=== PATIENT | female | born 1990 | race Two or more races ===

== ENCOUNTER → 2019-12-29 09:50 | Outpatient (BNV) | payer MEDICAID, SELFPAY | PROVIDERS: PCP Nurse Practitioner Family; Visit Provider Internal Medicine | DX: D50.9 Iron deficiency anemia, unspecified (principal) | CPT/HCPCS: 99213; 99214 ==

== ENCOUNTER 2020-01-11 07:23 | Outpatient (REF) | payer MEDICAID, SELFPAY | END 2020-01-11 07:24 | disposition home or self-care (01) | LOC: HO.MDS 07:23 | PROVIDERS: PCP Emergency Medicine; Visit Provider Internal Medicine | DX: D50.9 Iron deficiency anemia, unspecified (principal) | CPT/HCPCS: 96365; 96366; J1200; J1750; Q0163 ==

== ENCOUNTER 2020-01-18 12:53 | Outpatient (REF) | payer MEDICAID, SELFPAY | END 2020-01-18 12:54 | disposition home or self-care (01) | LOC: HO.LAB 12:53 | PROVIDERS: PCP Nurse Practitioner Family; Visit Provider Internal Medicine | DX: Z20.828 Contact with and (suspected) exposure to other viral communicable diseases (principal) | CPT/HCPCS: 87635 ==

== ENCOUNTER 2020-02-22 08:44 | Outpatient (REF) | payer MEDICAID, SELFPAY | END 2020-02-22 08:45 | disposition home or self-care (01) | LOC: HO.LAB 08:44 | PROVIDERS: Visit Provider Internal Medicine | DX: Z20.828 Contact with and (suspected) exposure to other viral communicable diseases (principal) | CPT/HCPCS: C9803; U0003 ==

== ENCOUNTER 2020-03-17 10:34 | Outpatient (REF) | payer MEDICAID, SELFPAY | END 2020-03-17 10:35 | disposition home or self-care (01) | LOC: HO.LAB 10:34 | PROVIDERS: Visit Provider Internal Medicine | DX: Z20.828 Contact with and (suspected) exposure to other viral communicable diseases (principal) | CPT/HCPCS: C9803; U0003 ==

== ENCOUNTER 2020-03-21 18:22 | Emergency (ER) | payer MEDICAID, SELFPAY ==
[2020-03-21 20:31] VITALS: BP 101/54; PULSE 79; RESP 16; TEMP 36.9; O2SAT 100; BMI 22.9
--- NOTE | 2020-03-21 20:41 | ED.GENADULT ---
HPI - General Adult General Chief complaint: General Medical Stated complaint: SINUS INFECTION Time Seen by Provider: 03/21/20 20:41 History of Present Illness HPI narrative: Patient has had symptoms of sinus congestion and sinus pressure for 1 month , as well as a headache The headache has been going on for several weeks and is a frontal headache worse with her head down that she believes is starting from her sinuses in going to the top of her head Headache is unchanged, there is no thunderclap headache there is no change in the pattern of this h headache She had a sinus CT a week ago which did not reveal any acute pathology shehas seen her doctor has been on a course of amoxicillin which she said made her feel better but then symptoms returned when the amoxicillin was completed She also complains of some anxiety which when she lays down to go to sleep her nose gets more congested and she feels the pressure and starts thinking about it and becomes more anxious, she has does not want Ativan as it makes her too sleepy, she is not suicidal or hearing voices Related Data Home Medications Medication Instructions Recorded Confirmed Epi E-Z Pen 12/29/19 ferrous sulfate 325 mg PO BID 12/29/19 03/01/20 ibuprofen 400 mg PO Q6H 12/29/19 12/29/19 omeprazole 20 mg PO DAILY 12/29/19 03/01/20 Previous Rx's Medication Instructions Recorded docusate sodium 100 mg capsule 100 mg PO DAILY 30 Days #30 cap 01/05/20 sucralfate 1 gram tablet 2 g PO .qd 30 Days #60 tab 01/06/20 amoxicillin 500 mg PO TID 10 Days #30 cap 03/21/20 cetirizine 10 mg PO DAILY PRN #14 tab 03/21/20 fluticasone propionate [Flonase 2 spray INTRANASAL DAILY #9.9 ml 03/21/20 Allergy Relief] hydroxyzine pamoate [Vistaril] 25 mg PO BID PRN #10 cap 03/21/20 Allergies Allergy/AdvReac Type Severity Reaction Status Date / Time dog dander [DOG] Allergy Unknown UNKNOWN Verified 12/29/19 10:24 kiwi [KIWI] Allergy Unknown TONGUE Verified 12/29/19 10:24 TINGLING, HIVES, ITCHING mushroom [MUSHROOM] Allergy Unknown UNKNOWN Verified 12/29/19 10:24 oxycodone [OXYCODONE] Allergy Unknown NAUSEA & Verified 12/29/19 10:24 VOMITING Rabbit [RABBITS] Allergy Unknown ITCHING, Verified 12/29/19 10:24 HIVES KIWI, RABITS,DOGS, MUSHROOMS Allergy Unknown Itching Uncoded 12/29/19 10:24 Oxycodone AdvReac Unknown nausea and Uncoded 10/26/19 00:00 vomiting Review of Systems Review of Systems: Positive 1st headache sinus congestion, sinus pain, anxiety, nasal congestion Negatives are fever chills weakness confusion sore throat chest pain shortness of breath abdominal pain nausea vomiting diarrhea, no urinary symptoms, no rash [facility] Past Medical History Attestation statement: The following information was validated with the patient. [facility] Narrative: Patient medical history includes anxiety, but she takes no medications for this Source: nursing notes reviewed Medical History (Updated 03/22/20 @ 00:00 by Justin Marquez) Tonsil and adenoid disease, chronic Surgical History (Updated 03/01/20 @ 11:12 by Destinee Monterroso MD) Hx of section Hx of hemorrhoidectomy (05/06/19) Hx of tonsillectomy Family History Family History (Updated 01/05/20 @ 13:49 by Jennifer Leigh [facility]) Maternal Aunt Ovarian cancer Maternal Grandmother Endometrial adenocarcinoma Mother Diabetes HTN (hypertension) Father Lung cancer Social History Social History Alcohol intake: former Smoking Status: Current every day smoker Smoked in Last 30 Days: Yes Use of substances other than those prescribed or required for medical reasons: No Advance Directives: No Advance Directives Information Provided: No Current occupational status: other 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 Physical Exam Vital Signs: Vital Signs: Last Vital Signs Temp 98.4 F 03/21/20 20:31 Pulse 79 03/21/20 20:31 Resp 16 03/21/20 20:31 BP 101/54 L 03/21/20 20:31 Pulse Ox 100 03/21/20 20:31 Body Mass Index 22.9 General appearance no distress dress, comfortable appearing, a and O x3 The ears were normal bilaterally with intact tympanic membranes of normal color no redness no canal narrowing The sinuses were mildly tender, and pain was worse with head down, the nose was congested The pharynx was clear and well hydrated The neck was supple without lymphadenopathy Chest was clear with full symmetric equal breath sounds The heart rate and rhythm regular no murmur Abdomen nontender Extremities no calf swelling or edema or calf tenderness Skin no rashes Neuro patient is A&O x3, walks easily with a normal gait, balance was normal, speech was normal interaction was normal, cranial nerves 2-12 were intact as tested Cerebellar including finger to nose was normal Motor is 5/5 x4 and sensation was symmetrical and intact Discharge Plan Discharge Clinical Impression: Sinusitis, Anxiety Patient Disposition: Home, Self-Care Additional Instructions: You do not seem to have any dangerous condition at this time but because you have the symptoms which improved with antibiotic and then worsened at the conclusion of antibiotics we are trying another week of amoxicillin As steroids can cause mood problems, we will try Flonase which is a steroid nasal inhaler which may reduce inflammation and symptoms after several days Limit your use of Afrin spray as it stops working and may even could have rebound effects with congestion, so maybe it is best to only use it at night if it helps relieve congestion for few more days You can take Tylenol in addition to Motrin for the headache symptoms Atarax may cause some drowsiness but it often helps with anxiety so you can try the Atarax Follow closely with primary doctor and ENT as scheduled Return any time any worse condition or any concerns Prescriptions: New fluticasone propionate [Flonase Allergy Relief] 50 mcg/actuation spray,suspension 2 spray intranasal DAILY Qty: 9.9 RF: 0 cetirizine 10 mg tablet 10 mg PO DAILY PRN (Reason: allergy symptoms) Qty: 14 RF: 0 amoxicillin 500 mg capsule 500 mg PO TID 10 Days Qty: 30 RF: 0 hydroxyzine pamoate [Vistaril] 25 mg capsule 25 mg PO BID PRN (Reason: anxiety) Qty: 10 RF: 0 No Action ibuprofen 200 mg Tablet 400 mg PO Q6H RF: 0 omeprazole 20 mg Capsule,Delayed Release(Dr/Ec) 20 mg PO DAILY RF: 0 Epi E-Z Pen RF: 0 ferrous sulfate 325 mg (65 mg iron) Tablet 325 mg PO BID RF: 0 docusate sodium [Colace] 100 mg capsule 100 mg PO DAILY 30 Days Qty: 30 RF: 1 sucralfate [Carafate] 1 gram tablet 2 g PO .qd 30 Days Qty: 60 RF: 3 Interventions: ED Discharge Assessment Last Done: 03/21/20 21:36 Discharge Date/Time: 03/21/20 21:37
== END 2020-03-21 21:37 | disposition home or self-care (01) ==
PROVIDERS: Emergency Provider Emergency Medicine; PCP Nurse Practitioner Family
DX: J32.9 Chronic sinusitis, unspecified (principal); F41.1 Generalized anxiety disorder; F43.0 Acute stress reaction; F17.200 Nicotine dependence, unspecified, uncomplicated; Z71.6 Tobacco abuse counseling; Z79.899 Other long term (current) drug therapy
CPT/HCPCS: 99283

== ENCOUNTER 2020-03-23 11:13 | Outpatient (REF) | payer MEDICAID, SELFPAY ==
--- NOTE | 2020-03-09 | CT_ITS ---
EXAMINATION: CT SINUS WITHOUT CONTRAST CLINICAL INFORMATION: Headache and sinusitis. COMPARISON: None TECHNIQUE: Axial 2 mm thin and reformatted sagittal and axial 2 mm thin images of sinuses were obtained. This CT examination was performed using dose optimization techniques as appropriate, variously including the following: *Automated exposure control *Adjustment of mA and/or kV according to patient size (this includes techniques or standardized protocols for targeted exams where dose is matched to indication/reason for exam; i.e. extremities or head) *Use of iterative reconstruction technique DLP: 71 mGy-cm FINDINGS: Visualized bilateral frontal and ethmoid sinuses are clear. There is minimal mucoperiosteal thickening right sphenoid sinus There is minimal mucoperiosteal thickening with hypoplastic appearing right maxillary sinus. The left maxillary sinus appears clear. Bilateral ostiomeatal complex and frontoethmoidal recesses are widely patent. The mastoid sinuses are clear. NASAL CAVITY/NASOPHARYNX: The nasal cavity is clear. There is mild nasal septal deviation to the right. The turbinates are symmetrical. The the nasopharyngeal airway is patent. ADDITIONAL RELEVANT FINDINGS: No periapical disease is seen. The TMJs articulate normally. The orbits and skull base soft tissues are unremarkable. The middle ear cavities and mastoid air cells are clear. Limited evaluation demonstrates no acute intracranial findings. CT/CT sinus wo con IMPRESSION: There is mild nasal septal deviation to the right with no bony spur. The airway is widely patent. Mild mucoperiosteal thickening right sphenoid and right maxillary sinus.
== END 2020-03-23 11:14 | disposition home or self-care (01) ==
LOC: HO.CT 11:13
PROVIDERS: PCP Nurse Practitioner Family; Visit Provider Nurse Practitioner
DX: J01.90 Acute sinusitis, unspecified (principal)
CPT/HCPCS: 70486

== ENCOUNTER 2020-04-20 16:04 | Outpatient (REF) | payer MEDICAID, SELFPAY | END 2020-04-20 16:05 | disposition home or self-care (01) | LOC: HO.LAB 16:04 | PROVIDERS: Visit Provider Internal Medicine | DX: Z20.822 Contact with and (suspected) exposure to COVID-19 (principal) | CPT/HCPCS: 36415; C9803; U0003 ==

== ENCOUNTER 2020-05-11 12:52 | Outpatient (REF) | payer MEDICAID, SELFPAY | END 2020-05-11 12:53 | disposition home or self-care (01) | LOC: HO.LAB 12:52 | PROVIDERS: PCP Nurse Practitioner Family; Visit Provider Internal Medicine | DX: Z20.822 Contact with and (suspected) exposure to COVID-19 (principal) | CPT/HCPCS: 36415; C9803; U0003; U0005 ==

== ENCOUNTER 2020-05-19 08:28 | Emergency (ER) | payer MEDICAID, SELFPAY ==
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
--- NOTE | ~2020-05-19 | XR_ITS ---
EXAMINATION: XR HAND, LEFT CLINICAL INFORMATION: Loss 3 mm on third digit. COMPARISON: None TECHNIQUE: PA, lateral, and oblique views of the left hand. FINDINGS: There is no evidence of acute fracture or dislocation of the left hand. No radiopaque foreign body. No gas within the soft tissues. XR/XR hand LT min 3V IMPRESSION: No significant bony abnormality of the left hand identified.
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
[2020-05-19 08:38] VITALS: BP 121/69; PULSE 91; RESP 18; TEMP 36.7; O2SAT 100; BMI 22.6
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
[2020-05-19] MEDS: 0.9 % Sodium Chloride 1,000 ML 999 ML IVCONT (09:27)
[2020-05-19 09:33] LABS: MANUAL DIFF FLAG NO
[2020-05-19] MEDS: ondansetron HCL 4 MG/2 ML VIAL IVPUSH (09:35)
[2020-05-19 09:42] VITALS: RESP 16
[2020-05-19 09:42] LABS: Basophils Percent Auto 0.5 % (0-2); Eosinophils Absolute Auto 0.1 X10*3/uL (0.0-0.4); Eosinophils Percent Auto 1.1 % (0-4); Hematocrit 37.7 % (37-47); Hemoglobin 12.4 g/dl (12.0-16.0); Imm Gran Abs Auto 0.03 X10*3/uL (0.00-0.03); Imm Gran Pct Auto 0.4 % (0.0-0.4); Lymphocytes Absolute Auto 2.1 X10*3/uL (1.2-4.9); Lymphocytes Percent Auto 25.5 % (20-40); Mean Corpuscular HGB Conc 32.9 g/dl (31.0-35.0); Mean Corpuscular Hemoglobin 28.1 pg (27.0-33.0); Mean Corpuscular Volume 85.3 fL (80-98); Mean Platelet Volume 8.8 fL (9.4-12.3); Monocytes Absolute Auto 0.4 X10*3/uL (0.1-1.2); Monocytes Percent Auto 4.8 % (2-11); Neutrophils Absolute Auto 5.6 X10*3/uL (2.0-8.3); Neutrophils Percent Auto 67.7 % (45-73); Platelet Count 411 X10*3/uL (160-400); Red Blood Count 4.42 X10*6/uL (4.20-5.50); Red Cell Distribution Width 14.2 % (11.0-16.0); White Blood Count 8.3 X10*3/uL (4.8-10.8)
[2020-05-19] MEDS: Morphine Sulfate 4 MG/ML CARTRIDGE IVPUSH (09:42)
[2020-05-19 09:45] LABS: Glucose Urine UA NEG (NEG); Leukocyte Esterase Urine NEG (NEG); Nitrite Urine NEG (NEG); PH 6.5 (5.0-8.0); Urine Blood 2+ (NEG); Urine Ketones NEG (NEG); Urine Protein NEG (NEG-TRACE)
[2020-05-19 09:48] LABS: INTERNATIONAL NORM RATIO 1.1 (0.9-1.1); Prothrombin Time 13.1 SEC (10.8-13.0)
[2020-05-19 09:51] LABS: Partial Thromboplastin Time 31.4 SEC (24.1-38.0)
[2020-05-19 09:58] LABS: COVID-19 Test Negative (Negative)
[2020-05-19 10:00] VITALS: BP 107/33; PULSE 91; TEMP 36.9; O2SAT 100
[2020-05-19 10:02] LABS: Appearance Urine CLEAR; Color Urine YELLOW
[2020-05-19 10:03] LABS: RBC Urine 0-2 /HPF (0); Squamous Epithelial Cell Urine 2+ /LPF; WBC Urine 0 /HPF (0-4)
[2020-05-19 10:04] LABS: Mucus Urine TRACE /LPF
[2020-05-19 10:06] LABS: Lipase 7 U/L (8-78)
[2020-05-19 10:08] LABS: Alanine Aminotransferase 11 U/L (0-31); Albumin Level 4.8 g/dL (3.5-5.0); Alkaline Phosphatase 47 U/L (39-117); Anion Gap 15 (12-20); Aspartate Amino Transferase 16 U/L (5-31); Bilirubin Direct 0.3 mg/dL (0.0-0.5); Bilirubin Total 0.8 mg/dL (0.0-1.0); Blood Urea Nitrogen 9 mg/dL (9-16); Calcium 9.5 mg/dL (8.4-10.2); Carbon Dioxide 22 mmol/L (22-29); Chloride 108 mmol/L (96-108); Creatinine Clr Calc Pharmacy 76.5; Estimated Glomerular Filt Rate > 60; Glucose Random 88 mg/dL (60-115); Magnesium 2.1 mg/dL (1.6-2.6); Potassium 3.7 mmol/L (3.3-5.1); Sodium 141 mmol/L (135-145); Total Protein 7.7 g/dL (6.5-8.0)
[2020-05-19 10:14] LABS: HCG Quantitative < 2 mIU/mL
[2020-05-19] MEDS: iohexoL 350 MG/ML 100 ML INFUS..BTL 85 ML IV (11:17)
== END 2020-05-19 12:27 | disposition home or self-care (01) ==
PROVIDERS: Emergency Provider Emergency Medicine; PCP Nurse Practitioner Family
DX: S09.90XA Unspecified injury of head, initial encounter (principal); S02.831A Fracture of medial orbital wall, right side, initial encounter for closed fracture; S00.11XA Contusion of right eyelid and periocular area, initial encounter; S61.303A Unspecified open wound of left middle finger with damage to nail, initial encounter; S61.305A Unspecified open wound of left ring finger with damage to nail, initial encounter; S80.212A Abrasion, left knee, initial encounter; S80.211A Abrasion, right knee, initial encounter; S00.81XA Abrasion of other part of head, initial encounter; V86.55XA Driver of 3- or 4- wheeled all-terrain vehicle (ATV) injured in nontraffic accident, initial encounter; R10.11 Right upper quadrant pain; Z20.822 Contact with and (suspected) exposure to COVID-19; Y93.89 Activity, other specified; Y92.017 Garden or yard in single-family (private) house as the place of occurrence of the external cause; Y99.8 Other external cause status
CPT/HCPCS: 12001; 36415; 70450; 70486; 71250; 72125; 73130; 74177; 80048; 80076; 81001; 81003; 83690; 83735; 84702; 85025; 85610; 85730; 87635; 90471; 90715; 96361; 96374; 96375; 99285; J2270; J2405; Q9967

== ENCOUNTER → 2020-05-25 08:57 | Outpatient (BNVA) | payer MEDICAID, SELFPAY | PROVIDERS: PCP Nurse Practitioner Family; Visit Provider Surgery | DX: K80.20 Calculus of gallbladder without cholecystitis without obstruction (principal) | CPT/HCPCS: 99202 ==

== ENCOUNTER 2020-05-29 | Outpatient (REF) | payer MEDICAID, SELFPAY ==
[2020-05-30 15:03] LABS: FIT Int Ctl YES; FIT1 POSITIVE (NEGATIVE); FIT2 NEGATIVE (NEGATIVE)
== END 2020-05-29 00:01 | disposition home or self-care (01) ==
LOC: HO.LNP
PROVIDERS: Visit Provider Nurse Practitioner Family
DX: D64.9 Anemia, unspecified (principal); K29.70 Gastritis, unspecified, without bleeding
CPT/HCPCS: 82274

== ENCOUNTER 2020-06-01 13:06 | Outpatient (REF) | payer MEDICAID, SELFPAY | END 2020-06-01 13:07 | disposition home or self-care (01) | LOC: HO.LAB 13:06 | PROVIDERS: Visit Provider Internal Medicine | DX: Z20.822 Contact with and (suspected) exposure to COVID-19 (principal) | CPT/HCPCS: 36415; C9803; U0003; U0005 ==

== ENCOUNTER 2020-06-03 08:33 | Day surgery (SDC) | payer MEDICAID, SELFPAY ==
[2020-05-30 12:35] VITALS: BMI 22.6
--- NOTE | 2020-06-02 07:49 | HO.ANESPROP2 ---
Documented by User: Natalya Stoner 06/02/20 08:47 HPI - Anesthesia Eval Consult details Narrative: 29yo F for Cholecystectomy Laparoscopic s/p hemorrhoidectomy 04/2019 with GA-ETT 7 PMFSH Active Problems Active Problems: All Active Problems (Updated 05/30/20 @ 12:17 by Dimple Brito) Asthma (Acute) Depression (Acute) Bipolar 1 disorder (Acute) Anemia (Acute) Smoker (Acute) GERD (gastroesophageal reflux disease) (Acute) H. pylori infection (Acute) Epigastric pain (Acute) Abdominal bloating (Acute) Dyskinesia of gallbladder (Acute) Gallstones (Acute) Past Medical History Medical History Anemia Asthma Bipolar 1 disorder Depression Gallstones GERD (gastroesophageal reflux disease) H. pylori infection Hx of bipolar disorder Smoker Tonsil and adenoid disease, chronic Family History Family History Maternal Aunt Ovarian cancer Maternal Grandmother Endometrial adenocarcinoma Mother Diabetes HTN (hypertension) Father Lung cancer Surgical History Surgical History History of esophagogastroduodenoscopy (EGD) Hx of section Hx of hemorrhoidectomy (05/06/19) Hx of tonsillectomy Social History Social History (Updated 06/03/20 @ 10:08 by Fabienne Nino) Alcohol intake: never Smoking Status: Current every day smoker Smoked in Last 30 Days: Yes Use of substances other than those prescribed or required for medical reasons: No Have you been hit, kicked, punched, or otherwise hurt by someone within the past year? 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 Meds Allergies Allergy/AdvReac Type Severity Reaction Status Date / Time kiwi [KIWI] Allergy Intermediate TONGUE Verified 06/03/20 08:54 TINGLING, HIVES, ITCHING oxycodone [OXYCODONE] Allergy Intermediate NAUSEA & Verified 06/03/20 10:15 VOMITING, SEDATION Rabbit [RABBITS] Allergy Intermediate ITCHING, Verified 06/03/20 08:54 HIVES dog dander [DOG] Allergy Unknown UNKNOWN Verified 06/03/20 08:54 mushroom [MUSHROOM] Allergy Unknown UNKNOWN Verified 06/03/20 08:54 Home Medications Medication Instructions Recorded Confirmed Last Taken Type Epi E-Z Pen 12/29/19 05/25/20 Unknown History ferrous sulfate 325 mg PO BID 12/29/19 05/30/20 Unknown History ibuprofen 400 mg PO Q6H 12/29/19 05/25/20 Unknown History omeprazole 20 mg PO DAILY 12/29/19 05/30/20 Unknown History albuterol sulfate 2 puff INHALATION QID PRN 05/30/20 05/30/20 Unknown History Exam Exam Date and Time: June 02, 2020 0749 Height,Weight and Vital Signs: Height 4 ft 11 in Weight 51 kg Pertinent Lab Results Pertinent Lab Results: Laboratory Tests 05/19/20 05/19/20 09:25 09:25 WBC 8.3 Hgb 12.4 Hct 37.7 Plt Count 411 H Sodium 141 Potassium 3.7 Chloride 108 BUN 9 Creatinine 0.74 Assessment and Plan Assessment Anesthesia Assessment: Chart Reviewed Documented by User: Fabienne Nino 06/03/20 10:17 PMFSH Past Medical History Medical History Anemia Asthma Bipolar 1 disorder Depression Gallstones GERD (gastroesophageal reflux disease) H. pylori infection Hx of bipolar disorder Smoker Tonsil and adenoid disease, chronic Family History Family History Maternal Aunt Ovarian cancer Maternal Grandmother Endometrial adenocarcinoma Mother Diabetes HTN (hypertension) Father Lung cancer Family history of problems with anesthesia: No Surgical History Surgical History History of esophagogastroduodenoscopy (EGD) Hx of section Hx of hemorrhoidectomy (05/06/19) Hx of tonsillectomy History of Problems with Anesthesia: No Social History Social History (Updated 06/03/20 @ 10:08 by Fabienne Nino) Alcohol intake: never Smoking Status: Current every day smoker Smoked in Last 30 Days: Yes Use of substances other than those prescribed or required for medical reasons: No Have you been hit, kicked, punched, or otherwise hurt by someone within the past year? 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 Meds Allergies Allergy/AdvReac Type Severity Reaction Status Date / Time kiwi [KIWI] Allergy Intermediate TONGUE Verified 06/03/20 08:54 TINGLING, HIVES, ITCHING oxycodone [OXYCODONE] Allergy Intermediate NAUSEA & Verified 06/03/20 10:15 VOMITING, SEDATION Rabbit [RABBITS] Allergy Intermediate ITCHING, Verified 06/03/20 08:54 HIVES dog dander [DOG] Allergy Unknown UNKNOWN Verified 06/03/20 08:54 mushroom [MUSHROOM] Allergy Unknown UNKNOWN Verified 06/03/20 08:54 Home Medications Medication Instructions Recorded Confirmed Last Taken Type Epi E-Z Pen 12/29/19 05/25/20 Unknown History ferrous sulfate 325 mg PO BID 12/29/19 05/30/20 Unknown History ibuprofen 400 mg PO Q6H 12/29/19 05/25/20 Unknown History omeprazole 20 mg PO DAILY 12/29/19 05/30/20 Unknown History albuterol sulfate 2 puff INHALATION QID PRN 05/30/20 05/30/20 Unknown History Exam Height,Weight and Vital Signs: Vital Signs Temp Pulse Resp BP Pulse Ox 06/03/20 08:48 98.8 F 85 16 104/61 100 Pertinent Lab Results Pertinent Lab Results: Lab Results 06/03/20 Range/Units 08:35 Urine Test NEGATIVE (NEGATIVE) Airway Mallampati Class: I TM Dist: >3cm Neck ROM: Full Loose/Missing/Broken Teeth: No Heart: RRR Lungs: CTAB Assessment and Plan Assessment Anesthesia Assessment: Anesthesia Plan Discussed and Chart Reviewed Final Anesthetic Review NPO: Yes ASA Class: II Final Preanesthetic Review: No Changes in Pt Med Stat, Meds/Allgs Chart Reviewed, Consent Obtained/Reviewed and Anes Risks/Benef Reviewed Patient Risk: Low Procedure Risk: Low Assessment/Block/Sedation in SS: Assess/Block/Sedation-SS Anesthetic Plan Anesthetic Plan: GA Disposition: Standard PACU
[2020-06-03] VITALS (11 sets, daily range): BP systolic 97–128; BP diastolic 45–79; PULSE 72–88; RESP 14–16; TEMP 36.6–37.1; O2SAT 98–100
[2020-06-03 08:58] LABS: UPreg QC Valid YES; Urine Pregnancy NEGATIVE (NEGATIVE)
[2020-06-03] MEDS: Lactated Ringers 1,000 ML 100 ML IVCONT (09:04)
[2020-06-03] MEDS: Acetaminophen 325 MG TABLET 650 MG PO (09:14)
--- NOTE | 2020-06-03 10:01 | MHC.SHP ---
Pre-Procedural Eval Section B Chief Complaint: Gallstones Allergies: Allergies Allergy/AdvReac Type Severity Reaction Status Date / Time kiwi [KIWI] Allergy Intermediate TONGUE Verified 06/03/20 08:54 TINGLING, HIVES, ITCHING oxycodone [OXYCODONE] Allergy Intermediate NAUSEA & Verified 06/03/20 08:54 VOMITING Rabbit [RABBITS] Allergy Intermediate ITCHING, Verified 06/03/20 08:54 HIVES dog dander [DOG] Allergy Unknown UNKNOWN Verified 06/03/20 08:54 mushroom [MUSHROOM] Allergy Unknown UNKNOWN Verified 06/03/20 08:54 Plan I have reviewed the history and physical and performed a pertinent physical examination on my patient. No changes have occurred unless specified.
--- NOTE | 2020-06-03 11:17 | PM.OP ---
Brief Operative Note Date of Service: 06/03/20 <SACHIN Diggs Last Filed: 06/03/20 11:18> Pre-op diagnosis: GALLSTONES <SACHIN Diggs Last Filed: 06/03/20 11:18> Post-op diagnosis: same <SACHIN Diggs Last Filed: 06/03/20 11:18> Procedure: laparoscopic cholecystectomy <SACHIN Diggs Last Filed: 06/03/20 11:18> Implants: None <SACHIN Diggs Last Filed: 06/03/20 11:18> Surgeon: EBENEZER QUACH MD <SACHIN Diggs Last Filed: 06/03/20 11:18> Anesthesia: GETA <SACHIN Diggs Last Filed: 06/03/20 11:18> Discharging Machine Operator: Shabnam Ferguson <SACHIN Diggs Last Filed: 06/03/20 11:18> Estimated blood loss (mL): 5 <SACHIN Diggs Last Filed: 06/03/20 11:18> Pathology: other (gallbladder) <SACHIN Diggs Last Filed: 06/03/20 11:18> Condition: stable <SACHIN Diggs Last Filed: 06/03/20 11:18> Disposition: PACU <SACHIN Diggs Last Filed: 06/03/20 11:18>
[2020-06-03] MEDS: HYDROmorphone HCl 0.5 MG/0.5 ML SYRINGE 0.25 MG IVPUSH ×2 (11:28→11:33)
--- NOTE | 2020-06-03 11:29 | W.PM.OPN ---
Operative Note Operative Note Date of Service: 06/03/20 Narrative: PREOP DIAGNOSIS: GALLSTONES POST DIAGNOSIS: GALLSTONES PROCEDURE: LAPAROSCOPIC CHOLECYSTECTOMY SURGEON: EBENEZER QUACH MD FIRST ASST: THOMAS SYLVESTER The patient is a 29 year female with chronic right upper quadrant pain. She had been diagnosed to have gallstones last year based on ultrasound finding. Furthermore, she had a low ejection fraction on HIDA scan consistent with biliary dyskinesia. She was referred to me for laparoscopic cholecystectomy. She understood the technique of the procedure. She was aware of the risks, benefits, and alternatives. She was brought to the operative placed supine on table under general anesthesia via endotracheal tube. The abdomen was prepped and draped in usual sterile fashion. A surgical time-out was done. The patient received Cefotan 2 g IV preoperatively. I made a short supraumbilical incision using I blade 15. This was carried down to full-thickness skin and subcutaneous fat down to the fascia. The fascia was incised. The peritoneum was entered. Through this incision a Jaimee port was introduced. Pneumoperitoneum was introduced to a pressure of 15 mm hg. From here on the rest of the procedure was done under vision with the laparoscope. A 5/12 mm port was introduced through a small incision in the epigastric area below the subcostal margin. Two 5 mm ports where introduced through small incisions on the subcostal margin along the anterior axillary line and the midclavicular line. Graspers were placed through these working ports. The patient patient was placed in a head-up and [id number] position. Examination of the right upper quadrant revealed the gallbladder to be distended but not inflamed. This was supple as well so we were able to apply a grasper at the fundus. This was used to retract the gallbladder cephalad. I was able to apply another grasper towards the pouch of the gallbladder which was used to retract the gallbladder laterally. At this point therefore the gallbladder was being retracted in a lateral and cephalad fashion, putting the area of the cystic duct on stretch. I was able to see the cystic duct and I dissected this circumferentially using a [place] dissector. By doing so I was able to verify its confluence with the neck of the gallbladder. With this dissection we were also able to achieve a critical view of the hepatocystic triangle. The cystic artery was also clearly seen. There were no other structures in the area. The lymph node of Calot was seen so we continued to dissect above this. I was able to therefore clearly define the cystic duct as well as the cystic artery. Clips were applied on the cystic duct with 2 clips being applied distally. The cystic duct was transected between clips using Endo scissors. Clips were then applied on the cystic artery and this was transected between clips as well. With traction on the gallbladder away from the liver bed, I proceeded to expose the thin hilum and gently divided this using the electrocautery spatula. We then proceeded to incise the peritoneum of the gallbladder near the bed using the electrocautery spatula and proceeded to define a plane of dissection between the gallbladder wall and the liver bed along this incision. I proceeded to dissect the gallbladder off of the liver bed using careful blunt dissection with the tip of the spatula as well as electrocautery itself. We continued to separate the gallbladder off of the liver bed along this well-defined plane all the way to the fundus until the entire gallbladder was completely . The gallbladder was retrieved through an endobag through the umbilical incision. We reinserted all ports and insufflated. I examined the subhepatic space. The clips were in place and there was no bleeding or any bile leak. I observed all 4 quadrants as well. There were adhesions from her previous C-sections in the pelvis. Other than that, there were no other pathology seen. There was no evidence of any bowel injury. I re-examined the area of the dissection in the subhepatic space. This remained dry. I therefore desufflated the port sites. The umbilical port was removed last. The fascia of the umbilical incision was closed with a [id number] Dexon 0 stitch. Skin closure was achieved in all incisions using Dexon 4-0 subcuticular sutures. Steri-Strips and dressings were applied. All incisions were infiltrated with Marcaine 0.5% for postop analgesia. The procedure was then completed The patient tolerated the procedure well. No complications noted. Initial fine counts of sponges and instruments were correct. Estimated blood loss was about 10 cc. The patient was extubated without difficulty and transferred to the recovery room with stable vital signs.
== END 2020-06-03 13:57 | disposition home or self-care (01) ==
PROVIDERS: Nurse Practitioner; PCP Nurse Practitioner Family; Visit Provider Surgery
PROC: 0FT44ZZ Resection of Gallbladder, Percutaneous Endoscopic Approach (ICD-10-PCS; CPT 47562; principal; 2020-06-03 10:00)
DX: K80.10 Calculus of gallbladder with chronic cholecystitis without obstruction (principal); K66.0 Peritoneal adhesions (postprocedural) (postinfection); J45.909 Unspecified asthma, uncomplicated; D64.9 Anemia, unspecified; K21.9 Gastro-esophageal reflux disease without esophagitis; F32.9 Major depressive disorder, single episode, unspecified; Z79.51 Long term (current) use of inhaled steroids; Z86.19 Personal history of other infectious and parasitic diseases; Z88.8 Allergy status to other drugs, medicaments and biological substances; Z79.899 Other long term (current) drug therapy
CPT/HCPCS: 47562; 81025; 88304; J1100; J1170; J1885; J2250; J2405

== ENCOUNTER 2020-06-07 18:52 | Emergency (ER) | payer MEDICAID, SELFPAY ==
[2020-06-07 18:59] VITALS: BP 103/55; PULSE 85; RESP 18; TEMP 36.9; O2SAT 100; BMI 23.6
[2020-06-07 21:23] LABS: MANUAL DIFF FLAG NO
[2020-06-07 21:24] LABS: Basophils Percent Auto 0.3 % (0-2); Eosinophils Absolute Auto 1.4 X10*3/uL (0.0-0.4); Hematocrit 35.3 % (37-47); Hemoglobin 11.6 g/dl (12.0-16.0); Imm Gran Abs Auto 0.02 X10*3/uL (0.00-0.03); Imm Gran Pct Auto 0.2 % (0.0-0.4); Lymphocytes Absolute Auto 3.4 X10*3/uL (1.2-4.9); Mean Corpuscular HGB Conc 32.9 g/dl (31.0-35.0); Mean Corpuscular Hemoglobin 28.4 pg (27.0-33.0); Mean Corpuscular Volume 86.3 fL (80-98); Mean Platelet Volume 8.8 fL (9.4-12.3); Monocytes Absolute Auto 0.6 X10*3/uL (0.1-1.2); Monocytes Percent Auto 6.2 % (2-11); Neutrophils Absolute Auto 4.6 X10*3/uL (2.0-8.3); Neutrophils Percent Auto 45.3 % (45-73); Platelet Count 346 X10*3/uL (160-400); Red Blood Count 4.09 X10*6/uL (4.20-5.50); White Blood Count 10.1 X10*3/uL (4.8-10.8)
--- NOTE | 2020-06-07 21:24 | ED.NAVMDI ---
HPI - Nausea/Vomiting/Diarrhea General Chief complaint: Nausea/Vomiting/Diarrhea Stated complaint: nausea Time Seen by Provider: 06/07/20 20:57 Source: patient Mode of arrival: ambulatory History of Present Illness HPI Narrative: This is a 29-year-old female pod 4 s/p cholecystectomy stating that she had some mild nausea on Saturday that more nausea with several, small episodes of yellowish vomiting and stating that she was unable to tolerate oral intake otherwise, she denies fevers, chills, diarrhea, urinary pain/burning/frequency, cough and denies any pain. Related Data Home Medications Medication Instructions Recorded Confirmed Epi E-Z Pen 12/29/19 05/25/20 ferrous sulfate 325 mg PO BID 12/29/19 05/30/20 ibuprofen 400 mg PO Q6H 12/29/19 05/25/20 omeprazole 20 mg PO DAILY 12/29/19 05/30/20 albuterol sulfate 2 puff INHALATION QID PRN 05/30/20 05/30/20 Previous Rx's Medication Instructions Recorded docusate sodium 100 mg capsule 100 mg PO DAILY 30 Days #30 cap 01/05/20 sucralfate 1 gram tablet 2 g PO .qd 30 Days #60 tab 01/06/20 amoxicillin 500 mg PO TID 10 Days #30 cap 03/21/20 cetirizine 10 mg PO DAILY PRN #14 tab 03/21/20 fluticasone propionate [Flonase 2 spray INTRANASAL DAILY #9.9 ml 03/21/20 Allergy Relief] hydroxyzine pamoate [Vistaril] 25 mg PO BID PRN #10 cap 03/21/20 amoxicillin-pot clavulanate 1 tab PO BID #14 tab 05/19/20 [Augmentin] cyclobenzaprine 10 mg PO TID PRN #14 tab 05/19/20 hydrocodone-acetaminophen 1 tab PO Q6H PRN #12 tab 05/19/20 ibuprofen 600 mg PO Q6H PRN #30 tab 05/19/20 ondansetron 4 mg PO Q8H PRN #20 tab 05/19/20 tramadol 50 mg tablet 50 mg PO Q6H PRN #30 tab 06/03/20 tramadol-acetaminophen [Ultracet] 1 tab PO Q6H PRN #30 tab 06/03/20 ondansetron HCl [Zofran] 4 mg PO Q6H PRN #10 tab 06/07/20 Allergies Allergy/AdvReac Type Severity Reaction Status Date / Time kiwi [KIWI] Allergy Intermediate TONGUE Verified 06/07/20 18:59 TINGLING, HIVES, ITCHING oxycodone [OXYCODONE] Allergy Intermediate NAUSEA & Verified 06/07/20 18:59 VOMITING, SEDATION Rabbit [RABBITS] Allergy Intermediate ITCHING, Verified 06/07/20 18:59 HIVES dog dander [DOG] Allergy Unknown UNKNOWN Verified 06/07/20 18:59 mushroom [MUSHROOM] Allergy Unknown UNKNOWN Verified 06/07/20 18:59 Review of Systems Review of Systems: Pertinent positives and negatives as stated in HPI 10 point review systems is otherwise negative. PMFSH Past Medical History Source: nursing notes reviewed Medical History Anemia Asthma Bipolar 1 disorder Depression Gallstones GERD (gastroesophageal reflux disease) H. 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 GENERAL: Well developed, well nourished, in no acute distress. OROPHARYNX: no oral lesions noted, posterior pharynx clear , dry mucosa NECK: Supple, no adenopathy LUNGS: Normal breath sounds. No adventitious sounds or accessory muscle use. SpO2<100> CARDIOVASCULAR: Regular rate and rhythm without noted murmurs ABDOMEN: Soft, exam consistent with postop surgery, non-distended with bowel sounds. MUSCULOSKELETAL: No tenderness, deformities, or effusions noted on gross inspection. EXTREMITIES: No cyanosis, clubbing or edema. SKIN: Inspection of the skin reveals no rashes NEUROLOGIC: Alert and oriented x 4. Course Course Course Narrative: This is a 29-year-old female with history and clinical presentation consistent with postop or symptoms will treat with antiemetic, check labs as well as UA and provide an PO challenge. Review of all investigations negative for any acute findings, patient is no longer nauseous and vomiting and is tolerating p.o.. She will be discharged home with a prescription for Zofran and encouraged to follow up with Dr. Velazco. [facility] - Nausea/Vomiting/Diarrhea Lab Data Result diagrams: 06/07/20 21:18 06/07/20 21:18 Labs: Lab Results 06/07/20 06/07/20 06/07/20 Range/Units 21:18 21:18 21:23 WBC 10.1 (4.8-10.8) X10*3/uL RBC 4.09 L (4.20-5.50) X10*6/uL Hgb 11.6 L (12.0-16.0) g/dl Hct 35.3 L (37-47) % MCV 86.3 (80-98) fL MCH 28.4 (27.0-33.0) pg MCHC 32.9 (31.0-35.0) g/dl RDW 14.0 (11.0-16.0) % Plt Count 346 (160-400) X10*3/uL MPV 8.8 L (9.4-12.3) fL Immature Gran % (Auto) 0.2 (0.0-0.4) % Neut % (Auto) 45.3 (45-73) % Lymph % (Auto) 34.0 (20-40) % [place] % (Auto) 6.2 (2-11) % Eos % (Auto) 14.0 H (0-4) % Baso % (Auto) 0.3 (0-2) % Lymph # (Auto) 3.4 (1.2-4.9) X10*3/uL [place] # (Auto) 0.6 (0.1-1.2) X10*3/uL Eos # (Auto) 1.4 H (0.0-0.4) X10*3/uL Baso # (Auto) 0.0 (0.0-0.2) X10*3/uL Abs Immat Gran (auto) 0.02 (0.00-0.03) X10*3/uL Absolute Neuts (auto) 4.6 (2.0-8.3) X10*3/uL Absolute Nucleated RBC 0.000 (0.0-0.012) X10*3/uL Nucleated RBC % (auto) 0.0 (0.0-0.2) /100WBC Sodium 138 (135-145) mmol/L Potassium 4.6 D (3.3-5.1) mmol/L Chloride 106 (96-108) mmol/L Carbon Dioxide 24 (22-29) mmol/L Anion Gap 13 (12-20) BUN 12 (9-16) mg/dL Creatinine 0.65 (0.5-1.4) mg/dL Estim Creat Clear Calc 90.8 Estimated GFR > 60 Random Glucose 84 (60-115) mg/dL Calcium 8.6 D (8.4-10.2) mg/dL Total Bilirubin 0.5 (0.0-1.0) mg/dL AST 17 (5-31) U/L ALT 16 (0-31) U/L Alkaline Phosphatase 44 (39-117) U/L Total Protein 6.9 (6.5-8.0) g/dL Albumin 4.2 (3.5-5.0) g/dL Urine Color YELLOW Urine Appearance CLEAR Urine pH 7.5 (5.0-8.0) Ur Specific [place] 1.020 (1.005-1.025) Urine Protein NEG (NEG-TRACE) MG/DL Urine Glucose (UA) NEG (NEG) MG/DL Urine Ketones 5 (NEG) MG/DL Urine Blood NEG (NEG) Urine Nitrite NEG (NEG) Ur Leukocyte Esterase NEG (NEG) Urine Test (NEGATIVE) 06/07/20 Range/Units 21:23 WBC (4.8-10.8) X10*3/uL RBC (4.20-5.50) X10*6/uL Hgb (12.0-16.0) g/dl Hct (37-47) % MCV (80-98) fL MCH (27.0-33.0) pg MCHC (31.0-35.0) g/dl RDW (11.0-16.0) % Plt Count (160-400) X10*3/uL MPV (9.4-12.3) fL Immature Gran % (Auto) (0.0-0.4) % Neut % (Auto) (45-73) % Lymph % (Auto) (20-40) % [place] % (Auto) (2-11) % Eos % (Auto) (0-4) % Baso % (Auto) (0-2) % Lymph # (Auto) (1.2-4.9) X10*3/uL [place] # (Auto) (0.1-1.2) X10*3/uL Eos # (Auto) (0.0-0.4) X10*3/uL Baso # (Auto) (0.0-0.2) X10*3/uL Abs Immat Gran (auto) (0.00-0.03) X10*3/uL Absolute Neuts (auto) (2.0-8.3) X10*3/uL Absolute Nucleated RBC (0.0-0.012) X10*3/uL Nucleated RBC % (auto) (0.0-0.2) /100WBC Sodium (135-145) mmol/L Potassium (3.3-5.1) mmol/L Chloride (96-108) mmol/L Carbon Dioxide (22-29) mmol/L Anion Gap (12-20) BUN (9-16) mg/dL Creatinine (0.5-1.4) mg/dL Estim Creat Clear Calc Estimated GFR Random Glucose (60-115) mg/dL Calcium (8.4-10.2) mg/dL Total Bilirubin (0.0-1.0) mg/dL AST (5-31) U/L ALT (0-31) U/L Alkaline Phosphatase (39-117) U/L Total Protein (6.5-8.0) g/dL Albumin (3.5-5.0) g/dL Urine Color Urine Appearance Urine pH (5.0-8.0) Ur Specific [place] (1.005-1.025) Urine Protein (NEG-TRACE) MG/DL Urine Glucose (UA) (NEG) MG/DL Urine Ketones (NEG) MG/DL Urine Blood (NEG) Urine Nitrite (NEG) Ur Leukocyte Esterase (NEG) Urine Test NEGATIVE (NEGATIVE) Discharge Plan Discharge Clinical Impression: Nausea & vomiting Qualifiers: Vomiting type: unspecified Vomiting Intractability: non-intractable Qualified Code(s): R11.2 - Nausea with vomiting, unspecified Patient Disposition: Home, Self-Care Instructions: Acute Nausea and Vomiting (ED) Additional Instructions: 1. Resume all home medications as prescribed. 2. Continue to drink water. 3. Follow-up with Dr. Velazco Do not hesitate to return to the emergency department if he have any acute worsening of her symptoms. Prescriptions: New ondansetron HCl [Zofran] 4 mg tablet 4 mg PO Q6H PRN (Reason: nausea and vomiting) Qty: 10 RF: 0 No Action tramadol 50 mg tablet 50 mg PO Q6H PRN (Reason: pain) Qty: 30 RF: 0 ibuprofen 200 mg Tablet 400 mg PO Q6H RF: 0 omeprazole 20 mg Capsule,Delayed Release(Dr/Ec) 20 mg PO DAILY RF: 0 Epi E-Z Pen RF: 0 ferrous sulfate 325 mg (65 mg iron) Tablet 325 mg PO BID RF: 0 cyclobenzaprine 10 mg tablet 10 mg PO TID PRN (Reason: muscle spasm) Qty: 14 RF: 0 hydrocodone-acetaminophen 5-325 mg tablet 1 tab PO Q6H PRN (Reason: pain) Qty: 12 RF: 0 ibuprofen 600 mg tablet 600 mg PO Q6H PRN (Reason: pain) Qty: 30 RF: 0 ondansetron 4 mg tablet,disintegrating 4 mg PO Q8H PRN (Reason: nausea and vomiting) Qty: 20 RF: 0 amoxicillin-pot clavulanate [Augmentin] 875-125 mg tablet 1 tab PO BID Qty: 14 RF: 0 albuterol sulfate 90 mcg/actuation HFA aerosol inhaler 2 puff inhalation QID PRN (Reason: Shortness Of Breath) RF: 0 tramadol-acetaminophen [Ultracet] 37.5-325 mg tablet 1 tab PO Q6H PRN (Reason: pain) Qty: 30 RF: 0 fluticasone propionate [Flonase Allergy Relief] 50 mcg/actuation spray,suspension 2 spray intranasal DAILY Qty: 9.9 RF: 0 cetirizine 10 mg tablet 10 mg PO DAILY PRN (Reason: allergy symptoms) Qty: 14 RF: 0 amoxicillin 500 mg capsule 500 mg PO TID 10 Days Qty: 30 RF: 0 hydroxyzine pamoate [Vistaril] 25 mg capsule 25 mg PO BID PRN (Reason: anxiety) Qty: 10 RF: 0 docusate sodium [Colace] 100 mg capsule 100 mg PO DAILY 30 Days Qty: 30 RF: 1 sucralfate [Carafate] 1 gram tablet 2 g PO .qd 30 Days Qty: 60 RF: 3 Referrals: Melissa Bolanos NP [Primary Care Provider] - 2 days
[2020-06-07 21:34] LABS: Glucose Urine UA NEG (NEG); Leukocyte Esterase Urine NEG (NEG); Nitrite Urine NEG (NEG); PH 7.5 (5.0-8.0); Urine Blood NEG (NEG); Urine Ketones 5 MG/DL (NEG); Urine Protein NEG (NEG-TRACE)
[2020-06-07 21:45] LABS: Appearance Urine CLEAR; Color Urine YELLOW
[2020-06-07 21:46] LABS: UPreg QC Valid YES; Urine Pregnancy NEGATIVE (NEGATIVE)
[2020-06-07 22:00] LABS: Alanine Aminotransferase 16 U/L (0-31); Albumin Level 4.2 g/dL (3.5-5.0); Alkaline Phosphatase 44 U/L (39-117); Anion Gap 13 (12-20); Aspartate Amino Transferase 17 U/L (5-31); Bilirubin Total 0.5 mg/dL (0.0-1.0); Blood Urea Nitrogen 12 mg/dL (9-16); Calcium 8.6 mg/dL (8.4-10.2); Carbon Dioxide 24 mmol/L (22-29); Chloride 106 mmol/L (96-108); Creatinine Clr Calc Pharmacy 90.8; Estimated Glomerular Filt Rate > 60; Glucose Random 84 mg/dL (60-115); Potassium 4.6 mmol/L (3.3-5.1); Sodium 138 mmol/L (135-145); Total Protein 6.9 g/dL (6.5-8.0)
[2020-06-07 22:18] VITALS: BP 107/44; PULSE 72; RESP 18; TEMP 37.1; O2SAT 99
== END 2020-06-07 23:14 | disposition home or self-care (01) ==
PROVIDERS: Emergency Provider Student in an Organized Health Care Education/Training Program; PCP Nurse Practitioner Family
DX: R11.2 Nausea with vomiting, unspecified (principal); F17.200 Nicotine dependence, unspecified, uncomplicated; Z79.899 Other long term (current) drug therapy; Z71.6 Tobacco abuse counseling
CPT/HCPCS: 36415; 80053; 81003; 81025; 85025; 99283

== ENCOUNTER 2020-06-13 16:13 | Emergency (ER) | payer MEDICAID, SELFPAY ==
[2020-06-13 16:45] VITALS: BP 103/54; PULSE 84; RESP 18; TEMP 37.2; O2SAT 100; BMI 23.8
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
[2020-06-13 17:26] LABS: MANUAL DIFF FLAG NO
[2020-06-13 17:30] LABS: Basophils Absolute Auto 0.1 X10*3/uL (0.0-0.2); Basophils Percent Auto 1.1 % (0-2); Eosinophils Absolute Auto 1.5 X10*3/uL (0.0-0.4); Eosinophils Percent Auto 14.3 % (0-4); Hematocrit 38.6 % (37-47); Hemoglobin 12.6 g/dl (12.0-16.0); Imm Gran Abs Auto 0.03 X10*3/uL (0.00-0.03); Imm Gran Pct Auto 0.3 % (0.0-0.4); Lymphocytes Absolute Auto 4.6 X10*3/uL (1.2-4.9); Lymphocytes Percent Auto 42.4 % (20-40); Mean Corpuscular HGB Conc 32.6 g/dl (31.0-35.0); Mean Corpuscular Hemoglobin 28.2 pg (27.0-33.0); Mean Corpuscular Volume 86.4 fL (80-98); Mean Platelet Volume 8.6 fL (9.4-12.3); Monocytes Absolute Auto 0.6 X10*3/uL (0.1-1.2); Monocytes Percent Auto 5.5 % (2-11); Neutrophils Absolute Auto 3.9 X10*3/uL (2.0-8.3); Neutrophils Percent Auto 36.4 % (45-73); Platelet Count 421 X10*3/uL (160-400); Red Blood Count 4.47 X10*6/uL (4.20-5.50); Red Cell Distribution Width 14.4 % (11.0-16.0); White Blood Count 10.8 X10*3/uL (4.8-10.8)
[2020-06-13 17:36] LABS: Glucose Urine UA NEG (NEG); Leukocyte Esterase Urine NEG (NEG); Nitrite Urine NEG (NEG); PH 7.5 (5.0-8.0); Specific Gravity - Urine 1.015 (1.005-1.025); Urine Blood NEG (NEG); Urine Ketones NEG (NEG); Urine Protein NEG (NEG-TRACE)
[2020-06-13 17:43] LABS: Appearance Urine CLEAR; Color Urine YELLOW
[2020-06-13 17:44] LABS: UPreg QC Valid YES; Urine Pregnancy NEGATIVE (NEGATIVE)
[2020-06-13 17:47] LABS: COVID-19 Test Negative (Negative); IDNOW Serial# 9DD0AD1C
[2020-06-13 17:48] LABS: Alanine Aminotransferase 11 U/L (0-31); Albumin Level 4.8 g/dL (3.5-5.0); Alkaline Phosphatase 49 U/L (39-117); Anion Gap 16 (12-20); Aspartate Amino Transferase 15 U/L (5-31); Bilirubin Total 0.6 mg/dL (0.0-1.0); Blood Urea Nitrogen 12 mg/dL (9-16); Calcium 9.4 mg/dL (8.4-10.2); Carbon Dioxide 23 mmol/L (22-29); Chloride 103 mmol/L (96-108); Creatinine Clr Calc Pharmacy 83.4; Estimated Glomerular Filt Rate > 60; Glucose Random 84 mg/dL (60-115); Potassium 4.3 mmol/L (3.3-5.1); Sodium 138 mmol/L (135-145); Total Protein 7.8 g/dL (6.5-8.0)
[2020-06-13 18:02] LABS: RBC Urine 0 /HPF (0); Renal Epithelial Cells Urine 1+ /LPF; Squamous Epithelial Cell Urine 2+ /LPF; WBC Urine 0 /HPF (0-4)
== END 2020-06-13 18:10 | disposition home or self-care (01) ==
PROVIDERS: Nurse Practitioner Primary Care; Emergency Provider Internal Medicine
DX: F07.81 Postconcussional syndrome (principal); R51.9 Headache, unspecified; H57.89 Other specified disorders of eye and adnexa; Z20.822 Contact with and (suspected) exposure to COVID-19; Z90.49 Acquired absence of other specified parts of digestive tract; F17.200 Nicotine dependence, unspecified, uncomplicated; J45.909 Unspecified asthma, uncomplicated
CPT/HCPCS: 36415; 80053; 81001; 81025; 85025; 87635; 99283

== ENCOUNTER → 2020-06-16 09:06 | Outpatient (BNVA) | payer MEDICAID, SELFPAY | PROVIDERS: Visit Provider Surgery | DX: Z48.815 Encounter for surgical aftercare following surgery on the digestive system (principal); Z87.19 Personal history of other diseases of the digestive system | CPT/HCPCS: 99212 ==

== ENCOUNTER → 2020-06-23 09:50 | Outpatient (BNVA) | payer MEDICAID, SELFPAY | PROVIDERS: Visit Provider Surgery | DX: Z48.815 Encounter for surgical aftercare following surgery on the digestive system (principal); Z87.19 Personal history of other diseases of the digestive system | CPT/HCPCS: 99212 ==

== ENCOUNTER → 2020-07-06 15:57 | Outpatient (BNVA) | payer MEDICAID, SELFPAY | PROVIDERS: Visit Provider Surgery | DX: Z48.815 Encounter for surgical aftercare following surgery on the digestive system (principal); Z87.19 Personal history of other diseases of the digestive system | CPT/HCPCS: 99212 ==

== ENCOUNTER → 2020-08-01 09:42 | Outpatient (BNVA) | payer MEDICAID, SELFPAY | PROVIDERS: PCP Emergency Medicine; Visit Provider Surgery | DX: L91.0 Hypertrophic scar (principal); F17.200 Nicotine dependence, unspecified, uncomplicated; Z79.899 Other long term (current) drug therapy; Z71.6 Tobacco abuse counseling | CPT/HCPCS: 99212 ==

== ENCOUNTER 2020-08-18 15:10 | Emergency (ER) | payer MEDICAID, SELFPAY ==
--- NOTE | ~2020-08-18 | US_ITS ---
EXAMINATION: OB ULTRASOUND CLINICAL INFORMATION: Posterior/yesterday. Severe pain and fever. No history of bleeding. COMPARISON: None TECHNIQUE: Transabdominal and transvaginal pelvic ultrasound was performed. Transvaginal exam was performed for better visualization of the uterus and ovaries. FINDINGS: No intrauterine is seen. The uterus is anteverted and measures 8.5 x 4.1 x 5 centimeters in dimension. No focal uterine lesion is seen. Endometrial thickness measures 1.2 cm. The endometrium is slightly heterogeneous appearing. The endometrium does not appear hypervascular. The cervix is normal appearing. The right ovary measures 2.9 x 1.8 x 2.1 cm. There is a 5 x 6 x 5 mm echogenic area in the right ovary is nonspecific. The left ovary measures 3.4 x 2.2 x 2.5 cm. There is a 2.7 x 1.7 x 2.4 cm probable complex cyst with low-level internal echoes. There is a small amount of fluid in the pelvis. US/US OB pelvic and transvaginal IMPRESSION: No intrauterine seen. Endometrial thickness measures 1.2 cm and is slightly heterogeneous appearing. The endometrium does not appear hypervascular. 5 x 6 mm echogenic focus in the right ovary which is nonspecific. 2.7 x 1.7 x 2.4 cm complex left ovarian cyst probably representing a corpus luteum. Small amount of fluid in the pelvis.
[2020-08-18 15:12] VITALS: BP 99/56; PULSE 103; RESP 18; TEMP 36.9; O2SAT 100; BMI 23.8
--- NOTE | 2020-08-18 16:59 | ED_ITS ---
HPI - General Adult General Chief complaint: General Medical Stated complaint: FEVER Time Seen by Provider: 08/18/20 16:55 Source: patient Mode of arrival: ambulatory Limitations: no limitations History of Present Illness HPI narrative: This is a 29-year-old female came in for evaluation of pelvic pain. 29-year-old female status post medical yesterday of 5 weeks gestational age , patient did not bleed since the procedure was done yesterday patient reportedly procedure was D&C, patient is complaining of severe crampy pain with fever at home. Related Data Home Medications Medication Instructions Recorded Confirmed albuterol sulfate 2 puff INHALATION QID PRN 05/30/20 08/08/20 epinephrine [Epi E-Z Pen] 0.3 mg IM Q10M PRN 08/08/20 08/08/20 Previous Rx's Medication Instructions Recorded cetirizine 10 mg PO DAILY PRN #14 tab 03/21/20 fluticasone propionate [Flonase 2 spray INTRANASAL DAILY #9.9 ml 03/21/20 Allergy Relief] ibuprofen 600 mg PO Q6H PRN #30 tab 05/19/20 erythromycin 0.5 inch OPHTHALMIC (EYE) BID #1 g 06/13/20 Allergies Allergy/AdvReac Type Severity Reaction Status Date / Time dog dander [DOG] Allergy Intermediate itching/hiv Verified 08/18/20 15:16 es kiwi [KIWI] Allergy Intermediate TONGUE Verified 08/18/20 15:16 TINGLING, HIVES, ITCHING oxycodone [OXYCODONE] Allergy Intermediate NAUSEA & Verified 08/18/20 15:16 VOMITING, SEDATION Rabbit [RABBITS] Allergy Intermediate ITCHING, Verified 08/18/20 15:16 HIVES mushroom [MUSHROOM] Allergy Unknown UNKNOWN Verified 08/18/20 15:16 tramadol AdvReac Intermediate Nausea Verified 08/18/20 15:16 Review of Systems Review of Systems: All other systems are reviewed and are negative Constitutional: Reports as per HPI and Reports no additional constitutional complaints Eyes: Reports as per HPI and Reports no additional eye complaints Reports system reviewed and no additional complaints, except as documented Cardiovascular: Reports as per HPI and Reports no additional cardiovascular complaints Respiratory: Reports as per HPI and Reports no additional respiratory complaints Gastrointestinal: Reports as per HPI and Reports no additional gastrointestinal complaints Genitourinary: Reports no additional female genitourinary complaints Musculoskeletal: Reports no additional musculoskeletal complaints Skin/Breast: Reports system reviewed and no additional complaints, except as docu Psychiatric: Reports no additional psychiatric complaints Endocrine: Reports no additional endocrine complaints Hematologic/Lymphatic: Reports no additional hematologic/lymphatic complaints Allergic/Immunologic: Reports no additional allergic/immunologic complaints Reports system reviewed and no additional complaints, except as documented and Reports Abnormal speech present FOR[facility]LY [facility] Past Medical History Medical History Anemia Asthma Bipolar 1 disorder COVID-19 vaccine administered Depression Gallstones GERD (gastroesophageal reflux disease) H. pylori infection Hypertrophic scar Smoker Tonsil and adenoid disease, chronic Surgical History History of esophagogastroduodenoscopy (EGD) Hx of section Hx of cholecystectomy Hx of hemorrhoidectomy (05/06/19) Hx of tonsillectomy Family History Family History Maternal Aunt Ovarian cancer Maternal Grandmother Endometrial adenocarcinoma Mother Diabetes HTN (hypertension) Father Lung cancer Social History Social History Alcohol intake: never Patient Tobacco Use Status: Never used Tobacco Smoked in Last 30 Days: No Use of substances other than those prescribed or required for medical reasons: No Advance Directives: No Advance Directives Information Provided: Yes Patient : No Current occupational status: other 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 Blood pressure normal. Heart rate tachycardia. Respiration rate normal. Temperature normal. Oxygen saturation normal. Appearance: Alert. Oriented X3. No acute distress. Head: Normal external exam. Normocephalic. Atraumatic. No Fleming signs noted. No raccoon eyes noted Eyes: PERRLA. EOMI. Conjunctiva and sclera normal. Eyelids normal. ENT: TM's Normal. Pharynx normal. Uvula midline. Moist mucous membranes. No trismus noted. No drooling noted. No muffled voice noted. Neck: Normal inspection. Neck supple. FROM. No adenopathy. Thyroid Normal. No meningeal signs. No neck mass noted. CVS: Normal heart rate and rhythm. Heart sound normal. No murmurs noted. Pulses normal throughout. Respiratory: No respiratory distress. Painless inspiration. Breath sounds normal. No wheezes/rales/rhonchi noted. Chest nontender. No accessory muscle usage noted or decreased air movement noted. Abdomen: Soft and nontender. Bowel sounds normal in all 4 quadrants. No distention noted. No organomegaly noted. No visible injury noted. Back: No CVA tenderness. Full range of motion noted. Skin: Skin warm and dry. Normal skin color. Normal skin turgor. No rashes/lesions/lacerations noted. Extremities: No lower extremity edema. Extremities exhibit normal range of motion. Extremities nontender. Neuro: Oriented X 3. No motor deficit. No sensory deficit. Reflexes normal. Course Course Course Narrative: 29-year-old female presented after having a medical of 5 weeks gestational yesterday, patient was concerned because she did not have vaginal bleeding, and was complaining of pelvic pain. No sign of infection is appreciated, ultrasound also is nondiagnostic for intrauterine . Patient was instructed to follow with her OBGYN if symptoms persist. Medical Decision Making Lab Data Lab results reviewed: Yes I reviewed the patient's lab results. Result diagrams: 08/18/20 17:08/18/20 17:05 Labs: Lab Results 08/18/20 08/18/20 08/18/20 Range/Units 17:05 17:05 17:05 WBC 11.0 H (4.8-10.8) X10*3/uL RBC 4.04 L (4.20-5.50) X10*6/uL Hgb 11.4 L (12.0-16.0) g/dl Hct 34.5 L (37-47) % MCV 85.4 (80-98) fL MCH 28.2 (27.0-33.0) pg MCHC 33.0 (31.0-35.0) g/dl RDW 13.5 (11.0-16.0) % Plt Count 383 (160-400) X10*3/uL MPV 8.6 L (9.4-12.3) fL Immature Gran % (Auto) 0.3 (0.0-0.4) % Neut % (Auto) 53.4 (45-73) % Lymph % (Auto) 34.4 (20-40) % [place] % (Auto) 6.4 (2-11) % Eos % (Auto) 5.0 H (0-4) % Baso % (Auto) 0.5 (0-2) % Lymph # (Auto) 3.8 (1.2-4.9) X10*3/uL [place] # (Auto) 0.7 (0.1-1.2) X10*3/uL Eos # (Auto) 0.6 H (0.0-0.4) X10*3/uL Baso # (Auto) 0.1 (0.0-0.2) X10*3/uL Abs Immat Gran (auto) 0.03 (0.00-0.03) X10*3/uL Absolute Neuts (auto) 5.9 (2.0-8.3) X10*3/uL Absolute Nucleated RBC 0.000 (0.0-0.012) X10*3/uL Nucleated RBC % (auto) 0.0 (0.0-0.2) /100WBC Sodium 137 (135-145) mmol/L Potassium 4.1 (3.3-5.1) mmol/L Chloride 107 (96-108) mmol/L Carbon Dioxide 21 L (22-29) mmol/L Anion Gap 13 (12-20) BUN 8 L (9-16) mg/dL Creatinine 0.66 (0.5-1.4) mg/dL Estim Creat Clear Calc 89.8 Estimated GFR > 60 Random Glucose 83 (60-115) mg/dL Lactic Acid (0.5-2.0) mmol/L Calcium 8.9 (8.4-10.2) mg/dL Total Bilirubin 0.2 (0.0-1.0) mg/dL Direct Bilirubin < 0.2 (0.0-0.5) mg/dL AST 14 (5-31) U/L ALT 11 (0-31) U/L Alkaline Phosphatase 41 (39-117) U/L Total Protein 6.9 (6.5-8.0) g/dL Albumin 4.2 (3.5-5.0) g/dL Lipase 33 (8-78) U/L Beta HCG, Quant 2561 mIU/mL Urine Color Urine Appearance Urine pH (5.0-8.0) Ur Specific [place] (1.005-1.025) Urine Protein (NEG-TRACE) MG/DL Urine Glucose (UA) (NEG) MG/DL Urine Ketones (NEG) MG/DL Urine Blood (NEG) Urine Nitrite (NEG) Ur Leukocyte Esterase (NEG) 08/18/20 08/18/20 Range/Units 17:05 18:56 WBC (4.8-10.8) X10*3/uL RBC (4.20-5.50) X10*6/uL Hgb (12.0-16.0) g/dl Hct (37-47) % MCV (80-98) fL MCH (27.0-33.0) pg MCHC (31.0-35.0) g/dl RDW (11.0-16.0) % Plt Count (160-400) X10*3/uL MPV (9.4-12.3) fL Immature Gran % (Auto) (0.0-0.4) % Neut % (Auto) (45-73) % Lymph % (Auto) (20-40) % [place] % (Auto) (2-11) % Eos % (Auto) (0-4) % Baso % (Auto) (0-2) % Lymph # (Auto) (1.2-4.9) X10*3/uL [place] # (Auto) (0.1-1.2) X10*3/uL Eos # (Auto) (0.0-0.4) X10*3/uL Baso # (Auto) (0.0-0.2) X10*3/uL Abs Immat Gran (auto) (0.00-0.03) X10*3/uL Absolute Neuts (auto) (2.0-8.3) X10*3/uL Absolute Nucleated RBC (0.0-0.012) X10*3/uL Nucleated RBC % (auto) (0.0-0.2) /100WBC Sodium (135-145) mmol/L Potassium (3.3-5.1) mmol/L Chloride (96-108) mmol/L Carbon Dioxide (22-29) mmol/L Anion Gap (12-20) BUN (9-16) mg/dL Creatinine (0.5-1.4) mg/dL Estim Creat Clear Calc Estimated GFR Random Glucose (60-115) mg/dL Lactic Acid 0.7 (0.5-2.0) mmol/L Calcium (8.4-10.2) mg/dL Total Bilirubin (0.0-1.0) mg/dL Direct Bilirubin (0.0-0.5) mg/dL AST (5-31) U/L ALT (0-31) U/L Alkaline Phosphatase (39-117) U/L Total Protein (6.5-8.0) g/dL Albumin (3.5-5.0) g/dL Lipase (8-78) U/L Beta HCG, Quant mIU/mL Urine Color YELLOW Urine Appearance HAZY Urine pH 7.0 (5.0-8.0) Ur Specific [place] 1.020 (1.005-1.025) Urine Protein NEG (NEG-TRACE) MG/DL Urine Glucose (UA) NEG (NEG) MG/DL Urine Ketones NEG (NEG) MG/DL Urine Blood NEG (NEG) Urine Nitrite NEG (NEG) Ur Leukocyte Esterase NEG (NEG) Imaging Data Pelvic ultrasound: Radiologist's impression: No intrauterine seen. Endometrial thickness measures 1.2 cm and is slightly heterogeneous appearing. The endometrium does not appear hypervascular. 5 x 6 mm echogenic focus in the right ovary which is nonspecific. 2.7 x 1.7 x 2.4 cm complex left ovarian cyst probably representing a corpus luteum. Small amount of fluid in the pelvis. Discharge Plan Discharge Clinical Impression: Pelvic pain, Medical Patient Disposition: Home, Self-Care Instructions: Pelvic Pain (ED) Prescriptions: No Action ibuprofen 600 mg tablet 600 mg PO Q6H PRN (Reason: pain) Qty: 30 RF: 0 albuterol sulfate 90 mcg/actuation HFA aerosol inhaler 2 puff inhalation QID PRN (Reason: Shortness Of Breath) RF: 0 erythromycin 5 mg/gram (0.5 %) ointment 0.5 inch ophthalmic (eye) BID Qty: 1 RF: 0 fluticasone propionate [Flonase Allergy Relief] 50 mcg/actuation spray,suspension 2 spray intranasal DAILY Qty: 9.9 RF: 0 cetirizine 10 mg tablet 10 mg PO DAILY PRN (Reason: allergy symptoms) Qty: 14 RF: 0 epinephrine [Epi E-Z Pen] 0.3 mg/0.3 mL Auto-Injector 0.3 mg IM Q10M PRN (Reason: Anaphylaxis) RF: 0 Referrals: Yemi Back MD [Physician] - 2 days
[2020-08-18] MEDS: 0.9 % Sodium Chloride 1,000 ML 999 ML IVCONT (17:07)
[2020-08-18 17:13] LABS: MANUAL DIFF FLAG NO
[2020-08-18 17:15] LABS: Basophils Absolute Auto 0.1 X10*3/uL (0.0-0.2); Basophils Percent Auto 0.5 % (0-2); Eosinophils Absolute Auto 0.6 X10*3/uL (0.0-0.4); Hematocrit 34.5 % (37-47); Hemoglobin 11.4 g/dl (12.0-16.0); Imm Gran Abs Auto 0.03 X10*3/uL (0.00-0.03); Imm Gran Pct Auto 0.3 % (0.0-0.4); Lymphocytes Absolute Auto 3.8 X10*3/uL (1.2-4.9); Lymphocytes Percent Auto 34.4 % (20-40); Mean Corpuscular Hemoglobin 28.2 pg (27.0-33.0); Mean Corpuscular Volume 85.4 fL (80-98); Mean Platelet Volume 8.6 fL (9.4-12.3); Monocytes Absolute Auto 0.7 X10*3/uL (0.1-1.2); Monocytes Percent Auto 6.4 % (2-11); Neutrophils Absolute Auto 5.9 X10*3/uL (2.0-8.3); Neutrophils Percent Auto 53.4 % (45-73); Platelet Count 383 X10*3/uL (160-400); Red Blood Count 4.04 X10*6/uL (4.20-5.50); Red Cell Distribution Width 13.5 % (11.0-16.0)
[2020-08-18 17:44] LABS: Lactic Acid 0.7 mmol/L (0.5-2.0)
[2020-08-18 17:50] LABS: Alanine Aminotransferase 11 U/L (0-31); Albumin Level 4.2 g/dL (3.5-5.0); Alkaline Phosphatase 41 U/L (39-117); Aspartate Amino Transferase 14 U/L (5-31); Bilirubin Direct < 0.2 mg/dL (0.0-0.5); Bilirubin Total 0.2 mg/dL (0.0-1.0); Lipase 33 U/L (8-78); Total Protein 6.9 g/dL (6.5-8.0)
[2020-08-18 17:52] LABS: Anion Gap 13 (12-20); Blood Urea Nitrogen 8 mg/dL (9-16); Calcium 8.9 mg/dL (8.4-10.2); Carbon Dioxide 21 mmol/L (22-29); Chloride 107 mmol/L (96-108); Creatinine Clr Calc Pharmacy 89.8; Estimated Glomerular Filt Rate > 60; Glucose Random 83 mg/dL (60-115); Potassium 4.1 mmol/L (3.3-5.1); Sodium 137 mmol/L (135-145)
[2020-08-18 17:59] LABS: HCG Quantitative 2561 mIU/mL
[2020-08-18 19:14] VITALS: BP 101/52; PULSE 77; RESP 18; TEMP 37.1; O2SAT 100
[2020-08-18 19:29] LABS: Glucose Urine UA NEG (NEG); Leukocyte Esterase Urine NEG (NEG); Nitrite Urine NEG (NEG); Urine Blood NEG (NEG); Urine Ketones NEG (NEG); Urine Protein NEG (NEG-TRACE)
[2020-08-18 19:30] LABS: Appearance Urine HAZY; Color Urine YELLOW
== END 2020-08-18 20:06 | disposition home or self-care (01) ==
PROVIDERS: Emergency Provider Emergency Medicine
DX: O26.91 Pregnancy related conditions, unspecified, first trimester (principal); R10.2 Pelvic and perineal pain; Z3A.01 Less than 8 weeks gestation of pregnancy; Z79.899 Other long term (current) drug therapy
CPT/HCPCS: 36415; 76801; 76817; 80048; 80076; 81003; 83605; 83690; 84702; 85025; 87040; 99284

== ENCOUNTER 2020-09-03 12:08 | Emergency (ER) | payer MEDICAID, SELFPAY ==
[2020-09-03 13:05] VITALS: BP 98/48; PULSE 79; RESP 16; TEMP 37.1; O2SAT 98; BMI 23.8
== END 2020-09-03 15:29 | disposition left against medical advice (07) ==
PROVIDERS: Emergency Provider Emergency Medicine
DX: R42 Dizziness and giddiness (principal)
CPT/HCPCS: 36415; 70450; 80048; 81003; 81025; 83735; 85025; 96374; 96375; 99281; 99282; 99284; J1200; J1885; J2765

== ENCOUNTER 2020-09-03 15:54 | Emergency (ER) | payer MEDICAID, SELFPAY | END 2020-09-03 18:57 | disposition left against medical advice (07) | PROVIDERS: Emergency Provider Emergency Medicine | DX: R42 Dizziness and giddiness (principal) ==

== ENCOUNTER 2020-09-03 22:54 | Emergency (ER) | payer MEDICAID, SELFPAY ==
--- NOTE | ~2020-09-03 | CT_ITS ---
EXAMINATION: CT HEAD WITHOUT CONTRAST CLINICAL INFORMATION: Weakness COMPARISON: 05/19/2020 TECHNIQUE: Contiguous axial imaging was performed from the skull base to vertex without intravenous administration of contrast. This CT examination was performed using dose optimization techniques as appropriate, variously including the following: *Automated exposure control *Adjustment of mA and/or kV according to patient size (this includes techniques or standardized protocols for targeted exams where dose is matched to indication/reason for exam; i.e. extremities or head) *Use of iterative reconstruction technique DLP: 625 mGy-cm FINDINGS: There is no evidence of acute intracranial hemorrhage or territorial infarction. No abnormal mass effect or midline shift is seen. Rice to white matter differentiation is well preserved. No extra-axial fluid collections are identified. The ventricles are normal in size. There is no abnormal attenuation within the brain parenchyma. The osseous structures and soft tissues are normal. The mastoid air cells and visualized portions of the paranasal sinuses are well aerated. CT/CT head/brain wo con IMPRESSION: No acute intracranial pathology.
[2020-09-03 23:07] VITALS: BP 145/70; BP 146/76; PULSE 80; RESP 18; TEMP 36.8; O2SAT 98; BMI 24.0
--- NOTE | 2020-09-03 23:24 | PC.NURSE ---
Pt reports that 1 month ago, pt had an performed at [facility] in [place], and that she was supposed to follow up earlier this week for bloating after the procedure, but had to reschedule due to lack of childcare. Denies pain or bleeding due to this. Awaiting ED MD evaluation.
[2020-09-04] MEDS: Ketorolac Tromethamine 15 MG/ML VIAL IVPUSH (00:58)
[2020-09-04] MEDS: Metoclopramide HCl 10 MG/2 ML VIAL IVPUSH (00:59)
[2020-09-04] MEDS: diphenhydrAMINE HCL 50 MG/ML VIAL 25 MG IVPUSH (00:59)
[2020-09-04 01:14] LABS: MANUAL DIFF FLAG NO
[2020-09-04 01:15] LABS: Basophils Percent Auto 0.3 % (0-2); Eosinophils Absolute Auto 0.5 X10*3/uL (0.0-0.4); Eosinophils Percent Auto 4.1 % (0-4); Hematocrit 36.1 % (37-47); Hemoglobin 11.8 g/dl (12.0-16.0); Imm Gran Abs Auto 0.04 X10*3/uL (0.00-0.03); Imm Gran Pct Auto 0.3 % (0.0-0.4); Lymphocytes Absolute Auto 4.2 X10*3/uL (1.2-4.9); Lymphocytes Percent Auto 34.5 % (20-40); Mean Corpuscular HGB Conc 32.7 g/dl (31.0-35.0); Mean Corpuscular Hemoglobin 28.4 pg (27.0-33.0); Mean Corpuscular Volume 86.8 fL (80-98); Mean Platelet Volume 8.8 fL (9.4-12.3); Monocytes Absolute Auto 0.7 X10*3/uL (0.1-1.2); Neutrophils Absolute Auto 6.7 X10*3/uL (2.0-8.3); Neutrophils Percent Auto 54.8 % (45-73); Platelet Count 369 X10*3/uL (160-400); Red Blood Count 4.16 X10*6/uL (4.20-5.50); Red Cell Distribution Width 13.7 % (11.0-16.0); White Blood Count 12.2 X10*3/uL (4.8-10.8)
[2020-09-04 01:26] LABS: Glucose Urine UA NEG (NEG); Leukocyte Esterase Urine NEG (NEG); Nitrite Urine NEG (NEG); PH 7.5 (5.0-8.0); Specific Gravity - Urine 1.015 (1.005-1.025); Urine Blood NEG (NEG); Urine Ketones NEG (NEG); Urine Protein NEG (NEG-TRACE)
[2020-09-04 01:27] LABS: Appearance Urine CLEAR; Color Urine YELLOW
[2020-09-04 01:28] LABS: UPreg QC Valid YES; Urine Pregnancy NEGATIVE (NEGATIVE)
--- NOTE | 2020-09-04 01:33 | ED.ANXIETY ---
HPI - Anxiety General Chief Complaint: Anxiety Stated Complaint: anxiety Time Seen by Provider: 09/03/20 23:49 Related Data Home Medications Medication Instructions Recorded Confirmed albuterol sulfate 2 puff INHALATION QID PRN 05/30/20 08/29/20 epinephrine [Epi E-Z Pen] 0.3 mg IM Q10M PRN 08/08/20 08/29/20 Previous Rx's Medication Instructions Recorded cetirizine 10 mg PO DAILY PRN #14 tab 03/21/20 fluticasone propionate [Flonase 2 spray INTRANASAL DAILY #9.9 ml 03/21/20 Allergy Relief] ibuprofen 600 mg PO Q6H PRN #30 tab 05/19/20 Allergies Allergy/AdvReac Type Severity Reaction Status Date / Time dog dander [DOG] Allergy Intermediate itching/hiv Verified 08/18/20 15:16 es kiwi [KIWI] Allergy Intermediate TONGUE Verified 08/18/20 15:16 TINGLING, HIVES, ITCHING oxycodone [OXYCODONE] Allergy Intermediate NAUSEA & Verified 08/18/20 15:16 VOMITING, SEDATION Rabbit [RABBITS] Allergy Intermediate ITCHING, Verified 08/18/20 15:16 HIVES mushroom [MUSHROOM] Allergy Unknown UNKNOWN Verified 08/18/20 15:16 tramadol AdvReac Intermediate Nausea Verified 08/18/20 15:16 PMFSH Past Medical History Medical History Anemia Asthma Bipolar 1 disorder COVID-19 vaccine administered Depression Gallstones GERD (gastroesophageal reflux disease) H. pylori infection Hypertrophic scar Smoker Tonsil and adenoid disease, chronic Surgical History History of esophagogastroduodenoscopy (EGD) Hx of section Hx of cholecystectomy Hx of hemorrhoidectomy (05/06/19) Hx of tonsillectomy Family History Family History Maternal Aunt Ovarian cancer Maternal Grandmother Endometrial adenocarcinoma Mother Diabetes HTN (hypertension) Father Lung cancer Social History Social History Alcohol intake: never Patient Tobacco Use Status: Never used Tobacco Advance Directives: No Advance Directives Information Provided: No Patient : No Current occupational status: other 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 Physical Exam Vital Signs: Vital Signs: Last Vital Signs Temp 98.3 F 09/03/20 23:07 Pulse 80 09/03/20 23:07 Resp 18 09/03/20 23:07 BP 146/76 H 09/03/20 23:07 Pulse Ox 98 09/03/20 23:07 Body Mass Index 24.0 NIH Stroke Scale Internal: Initial- Upon Arrival Level of Consciousness: Alert Level of Consciousness Questions: Answers both questions correctly Level of Consciousness Commands: Performs both tasks correctly Best Gaze: Normal Visual: No visual loss Facial Palsy: Normal Motor Arm (Right): No drift Motor Arm (Left): No drift Motor Leg (Right): No drift Motor Leg (Left): No drift Limb Ataxia: Absent Sensory: Normal Best Language: No aphasia Dysarthia: Normal Extinction and Inattention: No abnormality Score: 0 MDM - Anxiety MDM Narrative Medical decision making narrative: Patient subjectively feel numbness tingling over the right side arm and leg. Along with the left leg. NIH stroke scale was 0. Patient did not have any change in speech. Monitor in the emergency department labs are drawn. Patient's electrolytes are normal. CT scan of the head was negative. test was negative. UA negative for infection. After patient had a nice nap. Patient's symptoms seems to have resolved. Question anxiety related. Will have patient follow-up on an outpatient basis. In stable condition. Medical Records Attestation: I reviewed the patient's medical records. Lab Data Attestation: I reviewed the patient's lab results. Result diagrams: 09/04/20 00:56 09/04/20 00:56 Labs: Lab Results 09/04/20 09/04/20 09/04/20 Range/Units 00:56 00:56 00:56 WBC 12.2 H (4.8-10.8) X10*3/uL RBC 4.16 L (4.20-5.50) X10*6/uL Hgb 11.8 L (12.0-16.0) g/dl Hct 36.1 L (37-47) % MCV 86.8 (80-98) fL MCH 28.4 (27.0-33.0) pg MCHC 32.7 (31.0-35.0) g/dl RDW 13.7 (11.0-16.0) % Plt Count 369 (160-400) X10*3/uL MPV 8.8 L (9.4-12.3) fL Immature Gran % (Auto) 0.3 (0.0-0.4) % Neut % (Auto) 54.8 (45-73) % Lymph % (Auto) 34.5 (20-40) % [place] % (Auto) 6.0 (2-11) % Eos % (Auto) 4.1 H (0-4) % Baso % (Auto) 0.3 (0-2) % Lymph # (Auto) 4.2 (1.2-4.9) X10*3/uL [place] # (Auto) 0.7 (0.1-1.2) X10*3/uL Eos # (Auto) 0.5 H (0.0-0.4) X10*3/uL Baso # (Auto) 0.0 (0.0-0.2) X10*3/uL Abs Immat Gran (auto) 0.04 H (0.00-0.03) X10*3/uL Absolute Neuts (auto) 6.7 (2.0-8.3) X10*3/uL Absolute Nucleated RBC 0.000 (0.0-0.012) X10*3/uL Nucleated RBC % (auto) 0.0 (0.0-0.2) /100WBC Sodium 140 (135-145) mmol/L Potassium 3.7 (3.3-5.1) mmol/L Chloride 106 (96-108) mmol/L Carbon Dioxide 24 (22-29) mmol/L Anion Gap 14 (12-20) BUN 13 D (9-16) mg/dL Creatinine 0.72 (0.5-1.4) mg/dL Estim Creat Clear Calc 81.9 Estimated GFR > 60 Random Glucose 96 (60-115) mg/dL Calcium 9.0 (8.4-10.2) mg/dL Magnesium 1.8 (1.6-2.6) mg/dL Urine Color YELLOW Urine Appearance CLEAR Urine pH 7.5 (5.0-8.0) Ur Specific [place] 1.015 (1.005-1.025) Urine Protein NEG (NEG-TRACE) MG/DL Urine Glucose (UA) NEG (NEG) MG/DL Urine Ketones NEG (NEG) MG/DL Urine Blood NEG (NEG) Urine Nitrite NEG (NEG) Ur Leukocyte Esterase NEG (NEG) Urine Test (NEGATIVE) 09/04/20 Range/Units 00:56 WBC (4.8-10.8) X10*3/uL RBC (4.20-5.50) X10*6/uL Hgb (12.0-16.0) g/dl Hct (37-47) % MCV (80-98) fL MCH (27.0-33.0) pg MCHC (31.0-35.0) g/dl RDW (11.0-16.0) % Plt Count (160-400) X10*3/uL MPV (9.4-12.3) fL Immature Gran % (Auto) (0.0-0.4) % Neut % (Auto) (45-73) % Lymph % (Auto) (20-40) % [place] % (Auto) (2-11) % Eos % (Auto) (0-4) % Baso % (Auto) (0-2) % Lymph # (Auto) (1.2-4.9) X10*3/uL [place] # (Auto) (0.1-1.2) X10*3/uL Eos # (Auto) (0.0-0.4) X10*3/uL Baso # (Auto) (0.0-0.2) X10*3/uL Abs Immat Gran (auto) (0.00-0.03) X10*3/uL Absolute Neuts (auto) (2.0-8.3) X10*3/uL Absolute Nucleated RBC (0.0-0.012) X10*3/uL Nucleated RBC % (auto) (0.0-0.2) /100WBC Sodium (135-145) mmol/L Potassium (3.3-5.1) mmol/L Chloride (96-108) mmol/L Carbon Dioxide (22-29) mmol/L Anion Gap (12-20) BUN (9-16) mg/dL Creatinine (0.5-1.4) mg/dL Estim Creat Clear Calc Estimated GFR Random Glucose (60-115) mg/dL Calcium (8.4-10.2) mg/dL Magnesium (1.6-2.6) mg/dL Urine Color Urine Appearance Urine pH (5.0-8.0) Ur Specific [place] (1.005-1.025) Urine Protein (NEG-TRACE) MG/DL Urine Glucose (UA) (NEG) MG/DL Urine Ketones (NEG) MG/DL Urine Blood (NEG) Urine Nitrite (NEG) Ur Leukocyte Esterase (NEG) Urine Test NEGATIVE (NEGATIVE) Discharge Plan Discharge Clinical Impression: Paresthesia, Anxiety Patient Disposition: Home, Self-Care Instructions: Paresthesia (ED) Prescriptions: No Action ibuprofen 600 mg tablet 600 mg PO Q6H PRN (Reason: pain) Qty: 30 RF: 0 albuterol sulfate 90 mcg/actuation HFA aerosol inhaler 2 puff inhalation QID PRN (Reason: Shortness Of Breath) RF: 0 fluticasone propionate [Flonase Allergy Relief] 50 mcg/actuation spray,suspension 2 spray intranasal DAILY Qty: 9.9 RF: 0 cetirizine 10 mg tablet 10 mg PO DAILY PRN (Reason: allergy symptoms) Qty: 14 RF: 0 epinephrine [Epi E-Z Pen] 0.3 mg/0.3 mL Auto-Injector 0.3 mg IM Q10M PRN (Reason: Anaphylaxis) RF: 0 Referrals: Physician,Unknown [Primary Care Provider] - 2 days
[2020-09-04 01:37] LABS: Anion Gap 14 (12-20); Blood Urea Nitrogen 13 mg/dL (9-16); Carbon Dioxide 24 mmol/L (22-29); Chloride 106 mmol/L (96-108); Creatinine Clr Calc Pharmacy 81.9; Estimated Glomerular Filt Rate > 60; Glucose Random 96 mg/dL (60-115); Magnesium 1.8 mg/dL (1.6-2.6); Potassium 3.7 mmol/L (3.3-5.1); Sodium 140 mmol/L (135-145)
[2020-09-04 04:00] VITALS: BP 96/59; PULSE 70; RESP 16; O2SAT 100
== END 2020-09-04 05:42 | disposition home or self-care (01) ==
PROVIDERS: Emergency Provider Emergency Medicine Emergency Medical Services
DX: F41.9 Anxiety disorder, unspecified (principal); R20.2 Paresthesia of skin; J45.909 Unspecified asthma, uncomplicated
CPT/HCPCS: 36415; 70450; 80048; 81003; 81025; 83735; 85025; 96374; 96375; 99284; J1200; J1885; J2765

== ENCOUNTER 2020-09-09 09:01 | Day surgery (SDC) | payer MEDICAID, SELFPAY ==
[2020-08-08 15:03] VITALS: BMI 24.3
[2020-09-06 09:27] VITALS: BMI 24.6
--- NOTE | 2020-09-07 10:53 | HO.ANESPROP2 ---
Documented by User: Natalya Xiaoney 09/08/20 10:35 HPI - Anesthesia Eval Consult details Narrative: 30yo F for Excision of Abdominal Wall Scar s/p lap zach 05/2020 with GA-ETT 6.5 Pt with recent EAB with vague symptoms after. Reports syncope, but left ED without being seen. Seen by PCP 09/05/20. Reported fatigue, parasthesia, and white patches in throat. VSS at PCP. Rapid Strep and COVID were negative. Pending PCR for both. Per PCP, OK to proceed with surgery if both results negative. COVID PCR: Negative Strep PCR: Pending PMFSH Active Problems Active Problems: All Active Problems (Updated 09/06/20 @ 09:40 by Bindu Nevarez) Depression (Acute) Anemia (Chronic) GERD (gastroesophageal reflux disease) (Acute) Epigastric pain (Acute) Abdominal bloating (Acute) Dyskinesia of gallbladder (Acute) Hypertrophic scar (Acute) H. pylori infection (Acute) Gallstones (Acute) Past Medical History Medical History Anemia Asthma Bipolar 1 disorder COVID-19 vaccine administered Depression Environmental and seasonal allergies Gallstones GERD (gastroesophageal reflux disease) H. pylori infection Hypertrophic scar Smoker Tonsil and adenoid disease, chronic Family History Family History Maternal Aunt Ovarian cancer Maternal Grandmother Endometrial adenocarcinoma Mother Diabetes HTN (hypertension) Father Lung cancer Family history of problems with anesthesia: No Surgical History Surgical History History of esophagogastroduodenoscopy (EGD) Hx of section Hx of cholecystectomy Hx of hemorrhoidectomy (05/06/19) Hx of tonsillectomy History of Problems with Anesthesia: No Social History Social History Alcohol intake: never Patient Tobacco Use Status: Current everyday Tobacco user Tobacco use type: Cigarette Cigarettes Per Day: 5 Years Smoked: 15 Smoked in Last 30 Days: Yes Patient Given Instructions on How to Stop Smoking: Yes Date Education Initiated: 09/06/20 Use of substances other than those prescribed or required for medical reasons: No Are you DNR?: No Advance Directives: No (unknown) Advance Directives Information Provided: No Advance Directives on File: No (unknown) Eating poorly because of decreased appetite: No Nutrition Risks: No Nutritional Risk Patient : No FDLMP: 07/2019 : No Poor oral hygiene: No Current occupational status: other 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 Meds Allergies Allergy/AdvReac Type Severity Reaction Status Date / Time dog dander [DOG] Allergy Intermediate itching/hiv Verified 09/06/20 09:31 es kiwi [KIWI] Allergy Intermediate TONGUE Verified 09/06/20 09:31 TINGLING, HIVES, ITCHING Rabbit [RABBITS] Allergy Intermediate ITCHING, Verified 09/06/20 09:31 HIVES mushroom [MUSHROOM] Allergy Unknown UNKNOWN Verified 09/06/20 09:31 latex Allergy Hives, Verified 09/06/20 15:25 itching tramadol AdvReac Intermediate Nausea Verified 09/06/20 09:31 Home Medications Medication Instructions Recorded Confirmed Last Taken Type albuterol sulfate 2 puff INHALATION QID PRN 05/30/20 08/29/20 Unknown History epinephrine [Epi E-Z Pen] 0.3 mg IM Q10M PRN 08/08/20 08/29/20 Unknown History DayQuil Allergy 12-HR 09/06/20 09/06/20 Unknown History Theraflu Cold-Cough 09/06/20 Unknown History lamotrigine [Lamictal] 25 mg PO DAILY 09/06/20 09/06/20 Unknown History lorazepam [Ativan] 1 tab PO DAILY PRN 09/06/20 09/06/20 Unknown History Exam Exam Date and Time: September 07, 2020 1053 Height,Weight and Vital Signs: Height 4 ft 10 in Weight 53.524 kg Pertinent Lab Results Pertinent Lab Results: Laboratory Tests 09/04/20 09/04/20 00:56 00:56 WBC 12.2 H Hgb 11.8 L Hct 36.1 L Plt Count 369 Sodium 140 Potassium 3.7 Chloride 106 Carbon Dioxide 24 BUN 13 D Creatinine 0.72 Assessment and Plan Assessment Anesthesia Assessment: Chart Reviewed Documented by User: Rajinder Rosenberg 09/09/20 10:59 PMFSH Past Medical History Medical History Anemia Asthma Bipolar 1 disorder COVID-19 vaccine administered Depression Environmental and seasonal allergies Gallstones GERD (gastroesophageal reflux disease) H. pylori infection Hypertrophic scar Smoker Tonsil and adenoid disease, chronic Family History Family History Maternal Aunt Ovarian cancer Maternal Grandmother Endometrial adenocarcinoma Mother Diabetes HTN (hypertension) Father Lung cancer Surgical History Surgical History History of esophagogastroduodenoscopy (EGD) Hx of section Hx of cholecystectomy Hx of hemorrhoidectomy (05/06/19) Hx of tonsillectomy Social History Social History Alcohol intake: never Patient Tobacco Use Status: Current everyday Tobacco user Tobacco use type: Cigarette Cigarettes Per Day: 5 Years Smoked: 15 Smoked in Last 30 Days: Yes Patient Given Instructions on How to Stop Smoking: Yes Date Education Initiated: 09/06/20 Use of substances other than those prescribed or required for medical reasons: No Are you DNR?: No Advance Directives: No (unknown) Advance Directives Information Provided: No Advance Directives on File: No (unknown) Eating poorly because of decreased appetite: No Nutrition Risks: No Nutritional Risk Patient : No FDLMP: 07/2019 : No Poor oral hygiene: No Current occupational status: other 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 Meds Allergies Allergy/AdvReac Type Severity Reaction Status Date / Time dog dander [DOG] Allergy Intermediate itching/hiv Verified 09/06/20 09:31 es kiwi [KIWI] Allergy Intermediate TONGUE Verified 09/06/20 09:31 TINGLING, HIVES, ITCHING Rabbit [RABBITS] Allergy Intermediate ITCHING, Verified 09/06/20 09:31 HIVES mushroom [MUSHROOM] Allergy Unknown UNKNOWN Verified 09/06/20 09:31 latex Allergy Hives, Verified 09/06/20 15:25 itching tramadol AdvReac Intermediate Nausea Verified 09/06/20 09:31 Home Medications Medication Instructions Recorded Confirmed Last Taken Type albuterol sulfate 2 puff INHALATION QID PRN 05/30/20 08/29/20 Unknown History epinephrine [Epi E-Z Pen] 0.3 mg IM Q10M PRN 08/08/20 08/29/20 Unknown History DayQuil Allergy 12-HR 09/06/20 09/06/20 Unknown History Theraflu Cold-Cough 09/06/20 Unknown History lamotrigine [Lamictal] 25 mg PO DAILY 09/06/20 09/06/20 Unknown History lorazepam [Ativan] 1 tab PO DAILY PRN 09/06/20 09/06/20 Unknown History Exam Airway Mallampati Class: II TM Dist: >3cm Neck ROM: Full Denture: Upper
[2020-09-09] VITALS (9 sets, daily range): BP systolic 92–105; BP diastolic 48–68; PULSE 61–77; RESP 16–18; TEMP 37–37.1; O2SAT 99–100
[2020-09-09 09:46] LABS: UPreg QC Valid YES; Urine Pregnancy NEGATIVE (NEGATIVE)
[2020-09-09] MEDS: Lactated Ringers 1,000 ML 100 ML IVCONT (10:03)
--- NOTE | 2020-09-09 10:10 | MHC.SHP ---
Pre-Procedural Eval Section B Chief Complaint: Hypertrophic scar Allergies: Allergies Allergy/AdvReac Type Severity Reaction Status Date / Time dog dander [DOG] Allergy Intermediate itching/hiv Verified 09/06/20 09:31 es kiwi [KIWI] Allergy Intermediate TONGUE Verified 09/06/20 09:31 TINGLING, HIVES, ITCHING Rabbit [RABBITS] Allergy Intermediate ITCHING, Verified 09/06/20 09:31 HIVES mushroom [MUSHROOM] Allergy Unknown UNKNOWN Verified 09/06/20 09:31 latex Allergy Hives, Verified 09/06/20 15:25 itching tramadol AdvReac Intermediate Nausea Verified 09/06/20 09:31 Plan I have reviewed the history and physical and performed a pertinent physical examination on my patient. No changes have occurred unless specified.
--- NOTE | 2020-09-09 11:49 | P.OP_ITS ---
Operative Note Operative Note Date of Service: 09/09/20 Narrative: Preop diagnosis: Abdominal wall scar Postop diagnosis: Abdominal wall scar Procedure: Excision of abdominal scar under anesthesia Surgeon: Chauncey Velazco MD The patient is a 30-year-old female who had previous piercing on the area just above the umbilicus. She had developed a scar on the area that has increased in size and says she stated that this has been bothering her. Examination shows an elevated fibrotic and fleshy area on on old piercing just above the umbilicus measuring probably about 1 cm in size. She understood the technique of excision and she had requested this to be done under anesthesia. She was aware of the risks, benefits, and alternatives. She was brought to the operating room placed supine the table under monitored anesthesia care. The area around the umbilicus prepped and draped in usual sterile fashion. A surgical time-out was done. The patient received cefazolin 2 g IV preoperatively. I infiltrated the planned line of incision surrounding the scar using lidocaine 1%. I made the incision elliptically on the skin around this scar using blade 15. And this was carried down through the full- thickness of skin and subcutaneous fat sharply with the blade. This entire scar was excised and sent as specimen. I used electrocautery to achieve hemostasis. I then reapposed the subcutaneous layer with Dexon 3-0 interrupted sutures. Skin closure was achieved with Dexon 4-0 subcuticular running stitch. Steri- Strips and dressings were applied. The incision was infiltrated with Marcaine 0.5% for postop analgesia and the procedure was completed The patient tolerated the procedure well and there were no complications noted. Initial final counts of sponges and instruments were correct. Estimated blood loss about 3 cc The patient was then sent transferred to the recovery room with stable by signs.
--- NOTE | 2020-09-09 11:52 | P.BOP_ITS ---
Brief Operative Note Date of Service: 09/09/20 Pre-op diagnosis: Abdominal wall scar Post-op diagnosis: same Procedure: Excision of abdominal wall scar Surgeon: Chauncey Velazco MD Anesthesia: MAC and local Was an Accordion Tuner used for this Procedure?: No Estimated blood loss (mL): 3 Pathology: other (Scar) Condition: stable Disposition: PACU
[2020-09-09] MEDS: oxyCODONE HCl Immed Release 5 MG TABLET PO (12:20)
[2020-09-09] MEDS: fentaNYL citrate/PF 100 MCG/2 ML VIAL 25 MCG IVPUSH (13:04)
== END 2020-09-09 13:45 ==
LOC: HO.SSS 09:01
PROVIDERS: Nurse Practitioner; PCP Nurse Practitioner Family; Visit Provider Surgery
PROC: (CPT 11401; principal; 2020-09-09 11:10)
DX: L91.0 Hypertrophic scar (principal); Z86.19 Personal history of other infectious and parasitic diseases; J45.909 Unspecified asthma, uncomplicated; D64.9 Anemia, unspecified; F31.9 Bipolar disorder, unspecified; Z79.899 Other long term (current) drug therapy; Z88.8 Allergy status to other drugs, medicaments and biological substances; Z91.040 Latex allergy status; F17.210 Nicotine dependence, cigarettes, uncomplicated
CPT/HCPCS: 11401; 12031; 81025; 88305; J0690; J3010

== ENCOUNTER → 2020-09-13 09:56 | Outpatient (BNVA) | payer MEDICAID, SELFPAY | PROVIDERS: PCP General Practice; Visit Provider Internal Medicine Gastroenterology ==

== ENCOUNTER → 2020-09-29 09:11 | Outpatient (BNVA) | payer MEDICAID, SELFPAY | PROVIDERS: PCP General Practice; Referring Provider General Practice; Visit Provider Surgery | DX: L91.0 Hypertrophic scar (principal) | CPT/HCPCS: 99212 ==

== ENCOUNTER 2020-10-22 19:52 | Emergency (ER) | payer OTHER, MEDICAID, SELFPAY ==
[2020-10-22 19:56] VITALS: BP 118/61; PULSE 86; RESP 18; TEMP 36.8; O2SAT 100; BMI 24.3
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
== END 2020-10-22 21:41 | disposition home or self-care (01) ==
PROVIDERS: Emergency Provider Emergency Medicine Emergency Medical Services
DX: S06.0X0A Concussion without loss of consciousness, initial encounter (principal); S13.4XXA Sprain of ligaments of cervical spine, initial encounter; V43.52XA Car driver injured in collision with other type car in traffic accident, initial encounter; Y93.89 Activity, other specified; Y92.414 Local residential or business street as the place of occurrence of the external cause; Y99.9 Unspecified external cause status
CPT/HCPCS: 99283

== ENCOUNTER 2020-10-27 14:03 | Outpatient (REF) | payer MEDICAID, SELFPAY | END 2020-10-27 14:04 | disposition home or self-care (01) | LOC: HO.LAB 14:03 | PROVIDERS: Visit Provider Internal Medicine | DX: Z13.89 Encounter for screening for other disorder (principal) ==

== ENCOUNTER 2020-10-27 14:05 | Outpatient (REF) | payer MEDICAID, SELFPAY ==
[2020-10-27 14:55] LABS: MANUAL DIFF FLAG NO
[2020-10-27 15:00] LABS: Basophils Percent Auto 0.4 % (0-2); Eosinophils Absolute Auto 0.2 X10*3/uL (0.0-0.4); Eosinophils Percent Auto 2.5 % (0-4); Hematocrit 35.3 % (37-47); Hemoglobin 11.5 g/dl (12.0-16.0); Imm Gran Abs Auto 0.01 X10*3/uL (0.00-0.03); Imm Gran Pct Auto 0.1 % (0.0-0.4); Lymphocytes Absolute Auto 3.6 X10*3/uL (1.2-4.9); Lymphocytes Percent Auto 47.1 % (20-40); Mean Corpuscular HGB Conc 32.6 g/dl (31.0-35.0); Mean Corpuscular Hemoglobin 27.9 pg (27.0-33.0); Mean Corpuscular Volume 85.7 fL (80-98); Monocytes Absolute Auto 0.5 X10*3/uL (0.1-1.2); Monocytes Percent Auto 6.6 % (2-11); Neutrophils Absolute Auto 3.3 X10*3/uL (2.0-8.3); Neutrophils Percent Auto 43.3 % (45-73); Platelet Count 406 X10*3/uL (160-400); Red Blood Count 4.12 X10*6/uL (4.20-5.50); White Blood Count 7.6 X10*3/uL (4.8-10.8)
[2020-10-27 15:33] LABS: Iron 53 mcg/dL (30-160); Percent Iron Saturation 17 % (15-50)
[2020-10-27 15:48] LABS: Total Iron Binding Capacity 320 mcg/dL (228-428); Unsaturated Iron Binding 267 ug/dL
== END 2020-10-27 14:06 | disposition home or self-care (01) ==
LOC: HO.LAB 14:05
PROVIDERS: Internal Medicine; Visit Provider Internal Medicine
DX: Z20.822 Contact with and (suspected) exposure to COVID-19 (principal); D64.9 Anemia, unspecified
CPT/HCPCS: 36415; 83540; 85025; C9803; U0003; U0005

== ENCOUNTER 2020-10-28 00:58 | Emergency (ER) | payer OTHER, SELFPAY ==
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
[2020-10-28 01:29] VITALS: BP 98/55; PULSE 75; RESP 18; TEMP 36.8; O2SAT 99; BMI 24.2
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
== END 2020-10-28 03:00 | disposition home or self-care (01) ==
PROVIDERS: Emergency Provider Emergency Medicine
DX: S06.0X0A Concussion without loss of consciousness, initial encounter (principal); V89.2XXA Person injured in unspecified motor-vehicle accident, traffic, initial encounter; Y93.9 Activity, unspecified; Y92.410 Unspecified street and highway as the place of occurrence of the external cause; Y99.9 Unspecified external cause status
CPT/HCPCS: 70450; 99283; 99284

== ENCOUNTER 2020-11-09 13:56 | Emergency (ER) | payer MEDICAID, SELFPAY | END 2020-11-09 16:54 | disposition left against medical advice (07) | PROVIDERS: Emergency Provider Emergency Medicine | DX: R10.9 Unspecified abdominal pain (principal) ==

== ENCOUNTER 2020-11-09 18:45 | Emergency (ER) | payer MEDICAID, SELFPAY ==
[2020-11-09 19:11] VITALS: BP 105/62; PULSE 88; RESP 17; TEMP 36.8; O2SAT 100; BMI 23.6
== END 2020-11-09 21:37 | disposition left against medical advice (07) ==
PROVIDERS: Emergency Provider Emergency Medicine; PCP Family Medicine
DX: R10.9 Unspecified abdominal pain (principal)
CPT/HCPCS: 99281; 99282

== ENCOUNTER 2020-11-10 13:29 | Emergency (ER) | payer MEDICAID, SELFPAY ==
[2020-11-10 14:18] VITALS: BP 92/47; PULSE 93; RESP 16; TEMP 36.8; O2SAT 98; BMI 23.6
--- NOTE | 2020-11-10 16:59 | ECG_ITS ---
Test Reason : ABDOMINAL PAIN Blood Pressure : / mmHG Vent. Rate : 069 BPM Atrial Rate : 069 BPM P-R Int : 162 ms QRS Dur : 080 ms QT Int : 384 ms P-R-T Axes : 080 086 060 degrees QTc Int : 411 ms Normal sinus rhythm Normal ECG When compared with ECG of 18-DEC-2019 21:44, No significant change was found Referred By: Erika Kennedy Electronically Signed By:JAYDEN CROCKETT
--- NOTE | 2020-11-10 16:59 | ED.ABDPAIN ---
HPI - Abdominal Pain General Chief Complaint: Abdominal Pain Stated Complaint: abd pain Source: patient Mode of arrival: ambulatory Limitations: no limitations History of Present Illness HPI narrative: 30-year-old female presents with abdominal pain, diarrhea, has a history of gastric ulcer and prior positive Helicobacter pylori. She does have a phy therapist, Dr. Lee. Patient states that she cannot tolerate the pain anymore in her abdomen. She did have an H pylori breath test and presented with her positive results. MD elicited complaint: abdominal pain Pertinent past history: gastritis Onset (ago): month(s) Pain Consistency: constant Location: epigastric Severity: severe Quality: aching, fullness and burning Radiation: R flank, bilateral flank and back Exacerbating factors: eating and vomiting Relieving factors: nothing Context: history of similar episodes Associated symptoms: nausea and diarrhea Treatments prior to arrival: antacids Related Data Home Medications Medication Instructions Recorded Confirmed albuterol sulfate 90 mcg/actuation 2 puff INHALATION QID PRN 05/30/20 08/29/20 aerosol inhaler epinephrine 0.3 mg/0.3 mL 0.3 mg IM Q10M PRN 08/08/20 08/29/20 injection, auto-injector DayQuil Allergy 12-HR 09/06/20 09/06/20 Theraflu Cold-Cough 09/06/20 lamotrigine 25 mg tablet (Lamictal) 25 mg PO DAILY 09/06/20 09/06/20 lorazepam 1 mg tablet (Ativan) 1 tab PO DAILY PRN 09/06/20 09/06/20 lorazepam 1 mg tablet (Ativan) 1 mg PO DAILY PRN 09/29/20 Previous Rx's Medication Instructions Recorded fluticasone propionate 50 2 spray INTRANASAL DAILY #9.9 ml 03/21/20 mcg/actuation nasal spray,suspension (Flonase Allergy Relief) ibuprofen 600 mg tablet 600 mg PO Q6H PRN #30 tab 09/09/20 oxycodone-acetaminophen 5 mg-325 1 - 2 tab PO Q4-6H PRN #20 tab 09/09/20 mg tablet (Percocet) cyclobenzaprine 10 mg tablet 10 mg PO TID PRN #14 tab 10/22/20 omeprazole 20 mg capsule,delayed 20 mg PO DAILY 30 Days #30 cap 11/07/20 release bismuth subsalicylate 262 mg/15 mL 524 mg PO QID 14 Days #1680 ml 11/10/20 oral suspension metronidazole 500 mg tablet 500 mg PO Q8H 14 Days #42 tab 11/10/20 (Flagyl) omeprazole 20 mg capsule,delayed 20 mg PO BID 14 Days #28 cap 11/10/20 release tetracycline 500 mg capsule 500 mg PO Q6H 14 Days #56 cap 11/10/20 Allergies Allergy/AdvReac Type Severity Reaction Status Date / Time dog dander [DOG] Allergy Intermediate itching/hiv Verified 11/10/20 14:24 es kiwi [KIWI] Allergy Intermediate TONGUE Verified 11/10/20 14:24 TINGLING, HIVES, ITCHING latex Allergy Intermediate Hives, Verified 11/10/20 14:24 itching mushroom [MUSHROOM] Allergy Intermediate UNKNOWN Verified 11/10/20 14:24 Rabbit [RABBITS] Allergy Intermediate ITCHING, Verified 11/10/20 14:24 HIVES tramadol AdvReac Intermediate Nausea Verified 11/10/20 14:24 Review of Systems Review of Systems Constitutional: No Weight loss, No Fever, No Chills, No Night Sweats, No Fatigue, No Malaise ENT/Mouth: No Hearing loss, No Ear Pain, No Nasal Congestion, No Sinus Pain, No Hoarseness, No sore throat, No Rhinorrhea, No Swallowing Difficulty Eyes: No Eye Pain, No Swelling, No Redness, No Foreign Body, No Discharge, No Vision Changes Cardiovascular: No Chest Pain, No SOB, No Dyspnea on Exertion, No Orthopnea, No Edema, No Palpitations Respiratory: No Cough, No Sputum, No Wheezing, No Smoke Exposure, No Dyspnea Gastrointestinal: Positive Nausea, Positive Vomiting, positive Diarrhea, positive abdominal Pain, No Hematochezia, No Melena Genitourinary: no irregular bleeding, No Dysuria, No Urinary Frequency, No Hematuria, No Urinary Incontinence, No Urgency, No Flank Pain, No Urinary Flow Changes, No Hesitancy Musculoskeletal: No joint pain, No Myalgias, No Joint Swelling Skin: No Skin Lesions, No rash Neuro: No Weakness, No Numbness, No Paresthesias, No Loss of Consciousness, No Dizziness, No Headache Psych: No Anxiety/Panic, No Depression, No SI/HI/AH/VH, No Social Issues Heme/Lymph: No Bruising, No Bleeding,No Lymphadenopathy Endocrine: No Polyuria, No Polydipsia, No Temperature Intolerance Yes all other systems are reviewed and are negative Physical Exam Vital Signs: Vital Signs: Last Vital Signs Temp 98.2 F 11/10/20 19:20 Pulse 67 11/10/20 19:20 Resp 18 11/10/20 19:20 BP 100/53 L 11/10/20 19:20 Pulse Ox 100 11/10/20 19:20 Body Mass Index 23.6 Appearance: Alert. Oriented X3. Moderate distress. Eyes: Pupils equal, round and reactive to light. Sclera nonicteric ENT: Pharynx normal. Moist mucous membranes Neck: Normal inspection. Neck supple. CVS: Normal heart rate and rhythm. Pulses normal. Respiratory: No respiratory distress. Breath sounds normal. Abdomen: Soft and diffusely tender. Skin: Skin warm and dry. Normal skin color. Normal skin turgor. Extremities: No lower extremity edema. Moves all extremities against resistance. Gait well balanced well coordinated. Neuro: No motor deficit. No sensory deficit. Cranial nerves 2-12 intact. Course Course Course Narrative: 30-year-old female presents with chronic abdominal pain. Does report to have positive H pylori test, I did review her prior records from Gastroenterology. She did pull up her positive H pylori test results on [employer] as I could not find the recent test on our system. I did give IV Protonix, a L of fluids for a chronically low blood pressure and some Bentyl, which patient states was poorly effective. I did prescribe H pylori regimen. She will pick that up in the morning. She does agree to follow-up with gastroenterology. Patient verbalized understanding of and agrees to plan of care discharge home. MDM - Abdominal Pain Differential Diagnosis Differential diagnosis: Likely abdominal pain, gastroenteritis, gastritis and peptic ulcer disease Medical Records Attestation: I reviewed the patient's medical records. Lab Data Attestation: I reviewed the patient's lab results. Result diagrams: 11/10/20 17:47 11/10/20 17:47 Labs: Lab Results 11/10/20 11/10/20 11/10/20 Range/Units 17:47 17:47 17:47 WBC 11.1 H (4.8-10.8) X10*3/uL RBC 4.43 (4.20-5.50) X10*6/uL Hgb 12.7 (12.0-16.0) g/dl Hct 37.8 (37-47) % MCV 85.3 (80-98) fL MCH 28.7 (27.0-33.0) pg MCHC 33.6 (31.0-35.0) g/dl RDW 14.4 (11.0-16.0) % Plt Count 376 (160-400) X10*3/uL MPV 8.7 L (9.4-12.3) fL Immature Gran % (Auto) 0.4 (0.0-0.4) % Neut % (Auto) 48.7 (45-73) % Lymph % (Auto) 42.8 H (20-40) % [place] % (Auto) 5.1 (2-11) % Eos % (Auto) 2.5 (0-4) % Baso % (Auto) 0.5 (0-2) % Lymph # (Auto) 4.7 (1.2-4.9) X10*3/uL [place] # (Auto) 0.6 (0.1-1.2) X10*3/uL Eos # (Auto) 0.3 (0.0-0.4) X10*3/uL Baso # (Auto) 0.1 (0.0-0.2) X10*3/uL Abs Immat Gran (auto) 0.04 H (0.00-0.03) X10*3/uL Absolute Neuts (auto) 5.4 (2.0-8.3) X10*3/uL Absolute Nucleated RBC 0.000 (0.0-0.012) X10*3/uL Nucleated RBC % (auto) 0.0 (0.0-0.2) /100WBC Sodium 138 (135-145) mmol/L Potassium 5.1 D (3.3-5.1) mmol/L Chloride 107 (96-108) mmol/L Carbon Dioxide 22 (22-29) mmol/L Anion Gap 14 (12-20) BUN 8 L (9-16) mg/dL Creatinine 0.71 (0.5-1.4) mg/dL Estim Creat Clear Calc 82.4 Estimated GFR > 60 Random Glucose 83 (60-115) mg/dL Calcium 9.7 D (8.4-10.2) mg/dL Total Bilirubin 0.4 (0.0-1.0) mg/dL Direct Bilirubin 0.2 (0.0-0.5) mg/dL AST 15 (5-31) U/L ALT 11 (0-31) U/L Alkaline Phosphatase 46 (39-117) U/L Total Protein 7.7 (6.5-8.0) g/dL Albumin 4.8 (3.5-5.0) g/dL Lipase 9 (8-78) U/L Urine Color Urine Appearance Urine pH (5.0-8.0) Ur Specific [place] (1.005-1.025) Urine Protein (NEG-TRACE) MG/DL Urine Glucose (UA) (NEG) MG/DL Urine Ketones (NEG) MG/DL Urine Blood (NEG) Urine Nitrite (NEG) Ur Leukocyte Esterase (NEG) Urine Test (NEGATIVE) 11/10/20 11/10/20 Range/Units 17:49 17:49 WBC (4.8-10.8) X10*3/uL RBC (4.20-5.50) X10*6/uL Hgb (12.0-16.0) g/dl Hct (37-47) % MCV (80-98) fL MCH (27.0-33.0) pg MCHC (31.0-35.0) g/dl RDW (11.0-16.0) % Plt Count (160-400) X10*3/uL MPV (9.4-12.3) fL Immature Gran % (Auto) (0.0-0.4) % Neut % (Auto) (45-73) % Lymph % (Auto) (20-40) % [place] % (Auto) (2-11) % Eos % (Auto) (0-4) % Baso % (Auto) (0-2) % Lymph # (Auto) (1.2-4.9) X10*3/uL [place] # (Auto) (0.1-1.2) X10*3/uL Eos # (Auto) (0.0-0.4) X10*3/uL Baso # (Auto) (0.0-0.2) X10*3/uL Abs Immat Gran (auto) (0.00-0.03) X10*3/uL Absolute Neuts (auto) (2.0-8.3) X10*3/uL Absolute Nucleated RBC (0.0-0.012) X10*3/uL Nucleated RBC % (auto) (0.0-0.2) /100WBC Sodium (135-145) mmol/L Potassium (3.3-5.1) mmol/L Chloride (96-108) mmol/L Carbon Dioxide (22-29) mmol/L Anion Gap (12-20) BUN (9-16) mg/dL Creatinine (0.5-1.4) mg/dL Estim Creat Clear Calc Estimated GFR Random Glucose (60-115) mg/dL Calcium (8.4-10.2) mg/dL Total Bilirubin (0.0-1.0) mg/dL Direct Bilirubin (0.0-0.5) mg/dL AST (5-31) U/L ALT (0-31) U/L Alkaline Phosphatase (39-117) U/L Total Protein (6.5-8.0) g/dL Albumin (3.5-5.0) g/dL Lipase (8-78) U/L Urine Color YELLOW Urine Appearance CLEAR Urine pH 7.5 (5.0-8.0) Ur Specific [place] 1.015 (1.005-1.025) Urine Protein NEG (NEG-TRACE) MG/DL Urine Glucose (UA) NEG (NEG) MG/DL Urine Ketones 5 (NEG) MG/DL Urine Blood NEG (NEG) Urine Nitrite NEG (NEG) Ur Leukocyte Esterase NEG (NEG) Urine Test NEGATIVE (NEGATIVE) ECG Data Attestation: I personally reviewed and interpreted this ECG as follows: ECG interpretation date: 11/10/20 ECG interpretation time: 16:59 Interpretation: Vent. Rate : 069 BPM ? ? Atrial Rate : 069 BPM ?? P-R Int : 162 ms? QRS Dur : 080 ms ? ? QT Int : 384 ms ? ? ? P-R-T Axes : 080 086 060 degrees ?? QTc Int : 411 ms ? Normal sinus rhythm Normal ECG When compared with ECG of 18-DEC-2019 21:44, No significant change was found Discharge Plan Discharge Clinical Impression: H. pylori infection, Abdominal pain GERD (gastroesophageal reflux disease) Qualifiers: Esophagitis presence: esophagitis presence not specified Qualified Code(s): K21.9 - Gastro-esophageal reflux disease without esophagitis Patient Disposition: Home, Self-Care Instructions: Helicobacter Pylori (ED), Diet for Stomach Ulcers and Gastritis (ED), Abdominal Pain (ED) Additional Instructions: You were evaluated for abdominal pain. You presented with your [facility] lab results, which indicates that you are positive for Helicobacter pylori. I sent prescriptions for bismuth, Flagyl, tetracycline, and omeprazole to your pharmacy. Please follow the directions and take medications daily. Is very important that you follow medication regimen to ensure proper treatment of this bacteria. You must follow-up with Gastroenterology. Please call your phy therapist and make an appointment. Thank you for choosing this emergency department for evaluation. Please follow-up with primary care physician as needed. Return to the emergency department for any new, concerning, or worsening symptoms. Prescriptions: New bismuth subsalicylate 262 mg/15 mL suspension 524 mg PO QID 14 Days Qty: 1680 RF: 0 tetracycline 500 mg capsule 500 mg PO Q6H 14 Days Qty: 56 RF: 0 metronidazole [Flagyl] 500 mg tablet 500 mg PO Q8H 14 Days Qty: 42 RF: 0 omeprazole 20 mg capsule,delayed release(DR/EC) 20 mg PO BID 14 Days Qty: 28 RF: 0 No Action omeprazole 20 mg capsule,delayed release(DR/EC) 20 mg PO DAILY 30 Days Qty: 30 RF: 0 albuterol sulfate 90 mcg/actuation HFA aerosol inhaler 2 puff inhalation QID PRN (Reason: Shortness Of Breath) RF: 0 fluticasone propionate [Flonase Allergy Relief] 50 mcg/actuation spray,suspension 2 spray intranasal DAILY Qty: 9.9 RF: 0 epinephrine [Epi E-Z Pen] 0.3 mg/0.3 mL Auto-Injector 0.3 mg IM Q10M PRN (Reason: Anaphylaxis) RF: 0 lamotrigine [Lamictal] 25 mg tablet 25 mg PO DAILY RF: 0 lorazepam [Ativan] 1 mg tablet 1 tab PO DAILY PRN (Reason: Anxiety) RF: 0 DayQuil Allergy 12-HR RF: 0 Theraflu Cold-Cough RF: 0 oxycodone-acetaminophen [Percocet] 5-325 mg tablet 1 - 2 tab PO Q4-6H PRN (Reason: pain) Qty: 20 RF: 0 ibuprofen 600 mg tablet 600 mg PO Q6H PRN (Reason: pain) Qty: 30 RF: 0 cyclobenzaprine 10 mg tablet 10 mg PO TID PRN (Reason: muscle spasm) Qty: 14 RF: 0 lorazepam [Ativan] 1 mg tablet 1 mg PO DAILY PRNRF: 0 Referrals: Mey Lee MD [Physician] - 2 days (Helicobacter pylori) Interventions: ED Discharge Assessment Last Done: 11/10/20 21:02 Discharge Date/Time: 11/10/20 21:03 [facility] Past Medical History Attestation statement: The following information was validated with the patient. Source: old records reviewed Medical History Anemia Asthma Bipolar 1 disorder COVID-19 vaccine administered Depression Environmental and seasonal allergies Gallstones GERD (gastroesophageal reflux disease) H. pylori infection Hypertrophic scar Smoker Tonsil and adenoid disease, chronic Surgical History History of esophagogastroduodenoscopy (EGD) Hx of section Hx of cholecystectomy Hx of hemorrhoidectomy (05/06/19) Hx of tonsillectomy Family History Family History Maternal Aunt Ovarian cancer Maternal Grandmother Endometrial adenocarcinoma Mother Diabetes HTN (hypertension) Father Lung cancer Social History Social History Alcohol intake: never Patient Tobacco Use Status: Current everyday Tobacco user Tobacco use type: Cigarette Cigarettes Per Day: 5 Years Smoked: 15 Advance Directives: No Advance Directives Information Provided: No Patient : No Current occupational status: other 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
[2020-11-10 18:01] LABS: MANUAL DIFF FLAG NO
[2020-11-10 18:05] LABS: Basophils Absolute Auto 0.1 X10*3/uL (0.0-0.2); Basophils Percent Auto 0.5 % (0-2); Eosinophils Absolute Auto 0.3 X10*3/uL (0.0-0.4); Eosinophils Percent Auto 2.5 % (0-4); Hematocrit 37.8 % (37-47); Hemoglobin 12.7 g/dl (12.0-16.0); Imm Gran Abs Auto 0.04 X10*3/uL (0.00-0.03); Imm Gran Pct Auto 0.4 % (0.0-0.4); Lymphocytes Absolute Auto 4.7 X10*3/uL (1.2-4.9); Lymphocytes Percent Auto 42.8 % (20-40); Mean Corpuscular HGB Conc 33.6 g/dl (31.0-35.0); Mean Corpuscular Hemoglobin 28.7 pg (27.0-33.0); Mean Corpuscular Volume 85.3 fL (80-98); Mean Platelet Volume 8.7 fL (9.4-12.3); Monocytes Absolute Auto 0.6 X10*3/uL (0.1-1.2); Monocytes Percent Auto 5.1 % (2-11); Neutrophils Absolute Auto 5.4 X10*3/uL (2.0-8.3); Neutrophils Percent Auto 48.7 % (45-73); Platelet Count 376 X10*3/uL (160-400); Red Blood Count 4.43 X10*6/uL (4.20-5.50); Red Cell Distribution Width 14.4 % (11.0-16.0); White Blood Count 11.1 X10*3/uL (4.8-10.8)
[2020-11-10 18:07] LABS: Glucose Urine UA NEG (NEG); Leukocyte Esterase Urine NEG (NEG); Nitrite Urine NEG (NEG); PH 7.5 (5.0-8.0); Specific Gravity - Urine 1.015 (1.005-1.025); Urine Blood NEG (NEG); Urine Ketones 5 MG/DL (NEG); Urine Protein NEG (NEG-TRACE)
[2020-11-10 18:09] LABS: Appearance Urine CLEAR; Color Urine YELLOW
[2020-11-10 18:10] LABS: UPreg QC Valid YES; Urine Pregnancy NEGATIVE (NEGATIVE)
[2020-11-10 18:26] LABS: Alanine Aminotransferase 11 U/L (0-31); Albumin Level 4.8 g/dL (3.5-5.0); Alkaline Phosphatase 46 U/L (39-117); Aspartate Amino Transferase 15 U/L (5-31); Bilirubin Direct 0.2 mg/dL (0.0-0.5); Bilirubin Total 0.4 mg/dL (0.0-1.0); Total Protein 7.7 g/dL (6.5-8.0)
[2020-11-10 18:27] LABS: Anion Gap 14 (12-20); Blood Urea Nitrogen 8 mg/dL (9-16); Calcium 9.7 mg/dL (8.4-10.2); Carbon Dioxide 22 mmol/L (22-29); Chloride 107 mmol/L (96-108); Creatinine Clr Calc Pharmacy 82.4; Estimated Glomerular Filt Rate > 60; Glucose Random 83 mg/dL (60-115); Lipase 9 U/L (8-78); Potassium 5.1 mmol/L (3.3-5.1); Sodium 138 mmol/L (135-145)
[2020-11-10] MEDS: Pantoprazole Sodium 40 MG/10 ML VIAL IVPUSH (19:13)
[2020-11-10] MEDS: Dicyclomine HCl 10 MG CAPSULE 20 MG PO (19:13)
[2020-11-10] MEDS: 0.9 % Sodium Chloride 1,000 ML 999 ML IVCONT (19:13)
[2020-11-10 19:20] VITALS: BP 100/53; PULSE 67; RESP 18; TEMP 36.8; O2SAT 100
--- NOTE | 2020-11-10 19:22 | PC.NURSE ---
patient a&ox3, iv inserted, vss, pt medicated per order, pt states when she was medicated and drank the water her pain went to 10/10 sharp pain but it subsides after to a dull aching pain. will continue to monitor.
== END 2020-11-10 21:03 | disposition home or self-care (01) ==
PROVIDERS: Nurse Practitioner Family; Emergency Provider Emergency Medicine
DX: K21.9 Gastro-esophageal reflux disease without esophagitis (principal); A04.8 Other specified bacterial intestinal infections; R10.9 Unspecified abdominal pain; Z79.899 Other long term (current) drug therapy
CPT/HCPCS: 36415; 80048; 80076; 81003; 81025; 83690; 85025; 93005; 96361; 96374; 99284

== ENCOUNTER 2020-11-30 08:53 | Outpatient (REF) | payer MEDICAID, SELFPAY ==
[2020-11-30 10:34] LABS: COVID-19 Test Negative (Negative)
== END 2020-11-30 08:54 | disposition home or self-care (01) ==
LOC: HO.LAB 08:53
PROVIDERS: Visit Provider Internal Medicine
DX: Z20.822 Contact with and (suspected) exposure to COVID-19 (principal)
CPT/HCPCS: 36415; 87635; C9803

== ENCOUNTER 2020-12-07 10:58 | Outpatient (REF) | payer MEDICAID, SELFPAY | END 2020-12-07 10:59 | disposition home or self-care (01) | LOC: HO.LAB 10:58 | PROVIDERS: PCP General Practice; Visit Provider Internal Medicine | DX: Z20.822 Contact with and (suspected) exposure to COVID-19 (principal) | CPT/HCPCS: C9803; U0003; U0005 ==

== ENCOUNTER 2020-12-09 01:58 | Emergency (ER) | payer MEDICAID, SELFPAY ==
[2020-12-09 02:04] VITALS: BP 105/64; PULSE 73; RESP 16; TEMP 36.1; O2SAT 100; BMI 23.4
--- NOTE | 2020-12-09 02:18 | ED_ITS ---
HPI - Abdominal Pain General Chief Complaint: Abdominal Pain Stated Complaint: ABD PAIN/CHEST PRESSURE Time Seen by Provider: 12/09/20 02:18 Source: patient Mode of arrival: EMS Limitations: no limitations History of Present Illness HPI narrative: Patient has history of depression H.pylori gastritis finished a course of antibiotics last month comes here for epigastric pain for last few days got worse tonight associated with nausea Related Data Home Medications Medication Instructions Recorded Confirmed albuterol sulfate 90 mcg/actuation 2 puff INHALATION QID PRN 05/30/20 11/30/20 aerosol inhaler epinephrine 0.3 mg/0.3 mL 0.3 mg IM Q10M PRN 08/08/20 11/30/20 injection, auto-injector lamotrigine 25 mg tablet (Lamictal) 25 mg PO DAILY 09/06/20 11/30/20 lorazepam 1 mg tablet (Ativan) 1 mg PO DAILY PRN 09/29/20 11/30/20 Previous Rx's Medication Instructions Recorded fluticasone propionate 50 2 spray INTRANASAL DAILY #9.9 ml 03/21/ mcg/actuation nasal spray,suspension (Flonase Allergy Relief) bismuth subsalicylate 262 mg/15 mL 524 mg PO QID 14 Days #1680 ml 11/10/20 oral suspension omeprazole 20 mg capsule,delayed 20 mg PO BID 14 Days #28 cap 11/10/20 release sucralfate 1 gram tablet 1 g PO TID #90 tab 12/09/20 Allergies Allergy/AdvReac Type Severity Reaction Status Date / Time dog dander [DOG] Allergy Intermediate itching/hiv Verified 11/30/20 09:06 es kiwi [KIWI] Allergy Intermediate TONGUE Verified 11/30/20 09:06 TINGLING, HIVES, ITCHING latex Allergy Intermediate Hives, Verified 11/30/20 09:06 itching mushroom [MUSHROOM] Allergy Intermediate UNKNOWN Verified 11/30/20 09:06 Rabbit [RABBITS] Allergy Intermediate ITCHING, Verified 11/30/20 09:06 HIVES tramadol AdvReac Intermediate Nausea Verified 11/30/20 09:06 Review of Systems Review of Systems Yes all other systems are reviewed and are negative Physical Exam Vital Signs: Vital Signs: Last Vital Signs Temp 96.9 F 12/09/20 02:04 Pulse 73 12/09/20 02:04 Resp 16 12/09/20 02:04 BP 105/64 12/09/20 02:04 Pulse Ox 100 12/09/20 02:04 Body Mass Index 23.4 Appearance: Alert. Oriented X3. No acute distress. Eyes: PERRLA, No Nystagmus ENT: Pharynx normal. Oral Mucosa moist Neck: Normal inspection. Neck supple. CVS: Normal heart rate and rhythm. Pulses normal. Respiratory: No respiratory distress. Equal air entry bilateral, no wheezing/rales/rhonchi Abdomen: Soft and mild tenderness epigastric area Bowel sounds are present, no mass palpable, no CVA tenderness Skin: Skin warm and dry. Normal skin color. Normal skin turgor. Extremities: No lower extremity edema. No calf tenderness Neuro: Oriented X 3. MDM - Abdominal Pain Medical Records Attestation: I reviewed the patient's medical records. Lab Data Attestation: I reviewed the patient's lab results. Result diagrams: 12/09/20 02:27 12/09/20 02:27 Labs: Lab Results 12/09/20 12/09/20 12/09/20 Range/Units 02:20 02:20 02:21 WBC (4.8-10.8) X10*3/uL RBC (4.20-5.50) X10*6/uL Hgb (12.0-16.0) g/dl Hct (37-47) % MCV (80-98) fL MCH (27.0-33.0) pg MCHC (31.0-35.0) g/dl RDW (11.0-16.0) % Plt Count (160-400) X10*3/uL MPV (9.4-12.3) fL Immature Gran % (Auto) (0.0-0.4) % Neut % (Auto) (45-73) % Lymph % (Auto) (20-40) % Stewart % (Auto) (2-11) % Eos % (Auto) (0-4) % Baso % (Auto) (0-2) % Lymph # (Auto) (1.2-4.9) X10*3/uL Stewart # (Auto) (0.1-1.2) X10*3/uL Eos # (Auto) (0.0-0.4) X10*3/uL Baso # (Auto) (0.0-0.2) X10*3/uL Abs Immat Gran (auto) (0.00-0.03) X10*3/uL Absolute Neuts (auto) (2.0-8.3) X10*3/uL Absolute Nucleated RBC (0.0-0.012) X10*3/uL Nucleated RBC % (auto) (0.0-0.2) /100WBC Sodium (135-145) mmol/L Potassium (3.3-5.1) mmol/L Chloride (96-108) mmol/L Carbon Dioxide (22-29) mmol/L Anion Gap (12-20) BUN (9-16) mg/dL Creatinine (0.5-1.4) mg/dL Estim Creat Clear Calc Estimated GFR Random Glucose (60-115) mg/dL Calcium (8.4-10.2) mg/dL Total Bilirubin (0.0-1.0) mg/dL Direct Bilirubin (0.0-0.5) mg/dL AST (5-31) U/L ALT (0-31) U/L Alkaline Phosphatase (39-117) U/L Total Protein (6.5-8.0) g/dL Albumin (3.5-5.0) g/dL Lipase (8-78) U/L Urine Color YELLOW Urine Appearance CLEAR Urine pH 7.5 (5.0-8.0) Ur Specific Rayne <= 1.005 (1.005-1.025) Urine Protein NEG (NEG-TRACE) MG/DL Urine Glucose (UA) NEG (NEG) MG/DL Urine Ketones NEG (NEG) MG/DL Urine Blood NEG (NEG) Urine Nitrite NEG (NEG) Ur Leukocyte Esterase NEG (NEG) Urine Test NEGATIVE (NEGATIVE) COVID-19 ([facility]) Negative (Negative) COVID-19 Clin Com See Note 12/09/20 12/09/20 Range/Units 02:27 02:27 WBC 10.7 (4.8-10.8) X10*3/uL RBC 4.03 L (4.20-5.50) X10*6/uL Hgb 11.3 L (12.0-16.0) g/dl Hct 34.1 L (37-47) % MCV 84.6 (80-98) fL MCH 28.0 (27.0-33.0) pg MCHC 33.1 (31.0-35.0) g/dl RDW 14.3 (11.0-16.0) % Plt Count 338 (160-400) X10*3/uL MPV 8.6 L (9.4-12.3) fL Immature Gran % (Auto) 0.2 (0.0-0.4) % Neut % (Auto) 47.2 (45-73) % Lymph % (Auto) 43.6 H (20-40) % Stewart % (Auto) 5.6 (2-11) % Eos % (Auto) 3.0 (0-4) % Baso % (Auto) 0.4 (0-2) % Lymph # (Auto) 4.7 (1.2-4.9) X10*3/uL Stewart # (Auto) 0.6 (0.1-1.2) X10*3/uL Eos # (Auto) 0.3 (0.0-0.4) X10*3/uL Baso # (Auto) 0.0 (0.0-0.2) X10*3/uL Abs Immat Gran (auto) 0.02 (0.00-0.03) X10*3/uL Absolute Neuts (auto) 5.1 (2.0-8.3) X10*3/uL Absolute Nucleated RBC 0.000 (0.0-0.012) X10*3/uL Nucleated RBC % (auto) 0.0 (0.0-0.2) /100WBC Sodium 139 (135-145) mmol/L Potassium 3.7 D (3.3-5.1) mmol/L Chloride 106 (96-108) mmol/L Carbon Dioxide 23 (22-29) mmol/L Anion Gap 14 (12-20) BUN 10 (9-16) mg/dL Creatinine 0.80 (0.5-1.4) mg/dL Estim Creat Clear Calc 72.8 Estimated GFR > 60 Random Glucose 90 (60-115) mg/dL Calcium 10.0 (8.4-10.2) mg/dL Total Bilirubin 0.4 (0.0-1.0) mg/dL Direct Bilirubin < 0.2 (0.0-0.5) mg/dL AST 12 (5-31) U/L ALT 7 (0-31) U/L Alkaline Phosphatase 43 (39-117) U/L Total Protein 7.0 (6.5-8.0) g/dL Albumin 4.5 (3.5-5.0) g/dL Lipase 16 (8-78) U/L Urine Color Urine Appearance Urine pH (5.0-8.0) Ur Specific Rayne (1.005-1.025) Urine Protein (NEG-TRACE) MG/DL Urine Glucose (UA) (NEG) MG/DL Urine Ketones (NEG) MG/DL Urine Blood (NEG) Urine Nitrite (NEG) Ur Leukocyte Esterase (NEG) Urine Test (NEGATIVE) COVID-19 ([facility]) (Negative) COVID-19 Clin Com Discharge Plan Discharge Clinical Impression: GERD (gastroesophageal reflux disease) Qualifiers: Esophagitis presence: with esophagitis Patient Disposition: Home, Self-Care Instructions: Gastroesophageal Reflux Disease (ED) Additional Instructions: Avoid spicy/fried food Take medicine as advised follow with associate relations specialist Prescriptions: New sucralfate 1 gram tablet 1 g PO TID Qty: 90 RF: 0 No Action albuterol sulfate 90 mcg/actuation HFA aerosol inhaler 2 puff inhalation QID PRN (Reason: Shortness Of Breath) RF: 0 fluticasone propionate [Flonase Allergy Relief] 50 mcg/actuation spray,suspension 2 spray intranasal DAILY Qty: 9.9 RF: 0 epinephrine [Epi E-Z Pen] 0.3 mg/0.3 mL Auto-Injector 0.3 mg IM Q10M PRN (Reason: Anaphylaxis) RF: 0 lamotrigine [Lamictal] 25 mg tablet 25 mg PO DAILY RF: 0 bismuth subsalicylate 262 mg/15 mL suspension 524 mg PO QID 14 Days Qty: 1680 RF: 0 omeprazole 20 mg capsule,delayed release(DR/EC) 20 mg PO BID 14 Days Qty: 28 RF: 0 lorazepam [Ativan] 1 mg tablet 1 mg PO DAILY PRN (Reason: Anxiety) RF: 0 Referrals: Wolfgang Stroud [Physician] - 1 week Interventions: ED Discharge Assessment Last Done: 12/09/20 03:40 Discharge Date/Time: 12/09/20 03:40 [facility] Past Medical History Medical History Anemia Asthma Bipolar 1 disorder COVID-19 vaccine administered Depression Environmental and seasonal allergies Gallstones GERD (gastroesophageal reflux disease) H. pylori infection Hypertrophic scar Smoker Tonsil and adenoid disease, chronic Surgical History History of esophagogastroduodenoscopy (EGD) Hx of section Hx of cholecystectomy Hx of hemorrhoidectomy (05/06/19) Hx of tonsillectomy Family History Family History Maternal Aunt Ovarian cancer Maternal Grandmother Endometrial adenocarcinoma Mother Diabetes HTN (hypertension) Father Lung cancer Social History Social History Alcohol intake: never Patient Tobacco Use Status: Current everyday Tobacco user Tobacco use type: Cigarette Cigarettes Per Day: 5 Years Smoked: 15 Advance Directives: No Advance Directives Information Provided: No Patient : No Current occupational status: other 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
[2020-12-09 02:34] LABS: MANUAL DIFF FLAG NO
[2020-12-09 02:35] LABS: Appearance Urine CLEAR; Color Urine YELLOW; Glucose Urine UA NEG (NEG); Leukocyte Esterase Urine NEG (NEG); Nitrite Urine NEG (NEG); PH 7.5 (5.0-8.0); Specific Gravity - Urine <= 1.005 (1.005-1.025); Urine Blood NEG (NEG); Urine Ketones NEG (NEG); Urine Protein NEG (NEG-TRACE)
[2020-12-09 02:35] LABS: Basophils Percent Auto 0.4 % (0-2); Eosinophils Absolute Auto 0.3 X10*3/uL (0.0-0.4); Hematocrit 34.1 % (37-47); Hemoglobin 11.3 g/dl (12.0-16.0); Imm Gran Abs Auto 0.02 X10*3/uL (0.00-0.03); Imm Gran Pct Auto 0.2 % (0.0-0.4); Lymphocytes Absolute Auto 4.7 X10*3/uL (1.2-4.9); Lymphocytes Percent Auto 43.6 % (20-40); Mean Corpuscular HGB Conc 33.1 g/dl (31.0-35.0); Mean Corpuscular Volume 84.6 fL (80-98); Mean Platelet Volume 8.6 fL (9.4-12.3); Monocytes Absolute Auto 0.6 X10*3/uL (0.1-1.2); Monocytes Percent Auto 5.6 % (2-11); Neutrophils Absolute Auto 5.1 X10*3/uL (2.0-8.3); Neutrophils Percent Auto 47.2 % (45-73); Platelet Count 338 X10*3/uL (160-400); Red Blood Count 4.03 X10*6/uL (4.20-5.50); Red Cell Distribution Width 14.3 % (11.0-16.0); White Blood Count 10.7 X10*3/uL (4.8-10.8)
[2020-12-09] MEDS: Magnesium Hydrox/Alum Hydrox 30 ML ORAL.SUSP PO (02:38)
[2020-12-09] MEDS: Lidocaine HCl Viscous 2 % 15 ML SOLUTION MUCOUS MEM (02:38)
[2020-12-09 02:39] LABS: UPreg QC Valid YES; Urine Pregnancy NEGATIVE (NEGATIVE)
[2020-12-09 02:52] LABS: Alanine Aminotransferase 7 U/L (0-31); Albumin Level 4.5 g/dL (3.5-5.0); Alkaline Phosphatase 43 U/L (39-117); Anion Gap 14 (12-20); Aspartate Amino Transferase 12 U/L (5-31); Bilirubin Direct < 0.2 mg/dL (0.0-0.5); Bilirubin Total 0.4 mg/dL (0.0-1.0); Blood Urea Nitrogen 10 mg/dL (9-16); Carbon Dioxide 23 mmol/L (22-29); Chloride 106 mmol/L (96-108); Creatinine Clr Calc Pharmacy 72.8; Estimated Glomerular Filt Rate > 60; Glucose Random 90 mg/dL (60-115); Lipase 16 U/L (8-78); Potassium 3.7 mmol/L (3.3-5.1); Sodium 139 mmol/L (135-145)
[2020-12-09 02:54] LABS: COVID-19 Test Negative (Negative)
== END 2020-12-09 03:40 | disposition home or self-care (01) ==
PROVIDERS: Emergency Provider Internal Medicine
DX: K21.9 Gastro-esophageal reflux disease without esophagitis (principal); K20.90 Esophagitis, unspecified without bleeding; R10.9 Unspecified abdominal pain; Z20.822 Contact with and (suspected) exposure to COVID-19; Z79.899 Other long term (current) drug therapy
CPT/HCPCS: 36415; 80053; 81003; 81025; 82248; 83690; 85025; 87635; 99283

== ENCOUNTER 2020-12-12 10:24 | Outpatient (REF) | payer MEDICAID, SELFPAY | END 2020-12-12 10:25 | disposition home or self-care (01) | LOC: HO.LAB 10:24 | PROVIDERS: PCP General Practice; Visit Provider Internal Medicine | DX: Z20.822 Contact with and (suspected) exposure to COVID-19 (principal) | CPT/HCPCS: C9803; U0003; U0005 ==

== ENCOUNTER 2020-12-20 12:52 | Day surgery (SDC) | payer MEDICAID, SELFPAY ==
[2020-12-20 13:56] VITALS: BP 99/51; PULSE 75; RESP 15; TEMP 37.2; O2SAT 99; BMI 23.3
[2020-12-20] MEDS: Lactated Ringers 1,000 ML 50 ML IVCONT (14:00)
[2020-12-20 14:21] LABS: UPreg QC Valid YES; Urine Pregnancy NEGATIVE (NEGATIVE)
--- NOTE | 2020-12-20 14:23 | MHC.SHP ---
Pre-Procedural Eval Section A Date of Service: 12/20/20 The patient is an INPATIENT: No The History & Physical has been completed within 30 days and I have reviewed it.: No Section B Chief Complaint: GERD Details of Present Illness: GERD, abdominal pain Relevant Family History (Specify if Yes): Yes Relevant Social History: Tobacco Use Present Medications: see Short Stay Collaborative assessment Medical History: Significant History (Anemia Asthma Bipolar 1 disorder COVID-19 vaccine administered Depression Environmental and seasonal allergies Gallstones GERD (gastroesophageal reflux disease) H. pylori infection Hypertrophic scar Smoker Tonsil and adenoid disease, chronic) History of Previous Operations: Relevant previous surgery/procedure and date(s) (History of esophagogastroduodenoscopy (EGD) Hx of section Hx of cholecystectomy Hx of hemorrhoidectomy (05/06/19) Hx of tonsillectomy) Allergies: Allergies Allergy/AdvReac Type Severity Reaction Status Date / Time dog dander [DOG] Allergy Intermediate itching/hiv Verified 11/30/20 09:06 es kiwi [KIWI] Allergy Intermediate TONGUE Verified 11/30/20 09:06 TINGLING, HIVES, ITCHING latex Allergy Intermediate Hives, Verified 11/30/20 09:06 itching mushroom [MUSHROOM] Allergy Intermediate UNKNOWN Verified 11/30/20 09:06 Rabbit [RABBITS] Allergy Intermediate ITCHING, Verified 11/30/20 09:06 HIVES tramadol AdvReac Intermediate Nausea Verified 11/30/20 09:06 Review of Systems Sugical H&P ROS: Negative: Constitution, Cardiovascular and Respiratory and Yes, Specify: Gastrointestinal (abd pain) Exam Surgical H&P Exam: Normal: Heart, Normal: Lungs, Normal: Extremities and Normal: Abdomen Plan Diagnosis/Plan: Unchanged I have reviewed the history and physical and performed a pertinent physical examination on my patient. No changes have occurred unless specified.
--- NOTE | 2020-12-20 15:21 | HO.ANESPROP2 ---
HPI - Anesthesia Eval Consult details Narrative: abdominal Pain PMFSH Active Problems Active Problems: All Active Problems (Updated 12/09/20 @ 03:16 by Tae Mendez MD) Myofascial pain (Acute) Depression (Acute) Anemia (Chronic) GERD (gastroesophageal reflux disease) (Acute) Epigastric pain (Acute) Abdominal bloating (Acute) Dyskinesia of gallbladder (Acute) Hypertrophic scar (Acute) H. pylori infection (Acute) Gallstones (Acute) Past Medical History Medical History Anemia Asthma Bipolar 1 disorder COVID-19 vaccine administered Depression Environmental and seasonal allergies Gallstones GERD (gastroesophageal reflux disease) H. pylori infection Hypertrophic scar Smoker Tonsil and adenoid disease, chronic Family History Family History Maternal Aunt Ovarian cancer Maternal Grandmother Endometrial adenocarcinoma Mother Diabetes HTN (hypertension) Father Lung cancer Family history of problems with anesthesia: No Surgical History Surgical History History of esophagogastroduodenoscopy (EGD) Hx of section Hx of cholecystectomy Hx of hemorrhoidectomy (05/06/19) Hx of tonsillectomy History of Problems with Anesthesia: No Social History Social History Alcohol intake: never Patient Tobacco Use Status: Current everyday Tobacco user Tobacco use type: Cigarette Cigarettes Per Day: 5 Years Smoked: 15 Use of substances other than those prescribed or required for medical reasons: No Are you DNR?: No Advance Directives: No Advance Directives Information Provided: Yes Current occupational status: other 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 Meds Allergies Allergy/AdvReac Type Severity Reaction Status Date / Time dog dander [DOG] Allergy Intermediate itching/hiv Verified 11/30/20 09:06 es kiwi [KIWI] Allergy Intermediate TONGUE Verified 11/30/20 09:06 TINGLING, HIVES, ITCHING latex Allergy Intermediate Hives, Verified 11/30/20 09:06 itching mushroom [MUSHROOM] Allergy Intermediate UNKNOWN Verified 11/30/20 09:06 Rabbit [RABBITS] Allergy Intermediate ITCHING, Verified 11/30/20 09:06 HIVES tramadol AdvReac Intermediate Nausea Verified 11/30/20 09:06 Active Medications: Current Medications Lactated Ringer's (Lr) 1,000 mls @ 50 mls/hr IVCONT .Q20H AHSAN Home Medications Medication Instructions Recorded Confirmed Last Taken Type albuterol sulfate 90 mcg/actuation 2 puff INHALATION QID PRN 05/30/20 11/30/20 Unknown History aerosol inhaler epinephrine 0.3 mg/0.3 mL 0.3 mg IM Q10M PRN 08/08/20 11/30/20 Unknown History injection, auto-injector lamotrigine 25 mg tablet (Lamictal) 25 mg PO DAILY 09/06/20 11/30/20 Unknown History lorazepam 1 mg tablet (Ativan) 1 mg PO DAILY PRN 09/29/20 11/30/20 Unknown History Exam Exam Date and Time: December 20, 2020 1521 Height,Weight and Vital Signs: Height 4 ft 10 in Weight 50.802 kg Last Vital Signs Temp 99.0 F 12/20/20 13:56 Pulse 75 12/20/20 13:56 Resp 15 12/20/20 13:56 BP 99/51 L 12/20/20 13:56 Pulse Ox 99 12/20/20 13:56 Pertinent Lab Results Pertinent Lab Results: Laboratory Tests 12/20/20 13:55 Urine Test NEGATIVE Airway Mallampati Class: II TM Dist: >3cm Neck ROM: Full Loose/Missing/Broken Teeth: No Heart: [id number] Lungs: cta b/l Assessment and Plan Assessment Anesthesia Assessment: Anesthesia Plan Discussed and Chart Reviewed Final Anesthetic Review Family History of Problems with Anesthesia: No History of Problems with Anesthesia: No NPO: Yes ASA Class: II Final Preanesthetic Review: No Changes in Pt Med Stat, Meds/Allgs Chart Reviewed, Consent Obtained/Reviewed and Anes Risks/Benef Reviewed Patient Risk: Intermediate Procedure Risk: Low Assessment/Block/Sedation in SS: Assess/Block/Sedation-SS Anesthetic Plan Anesthetic Plan: MAC: and Agree w/ Assess. and Plan Disposition: Standard PACU
--- NOTE | 2020-12-20 15:32 | P.BOP_ITS ---
Brief Operative Note Date of Service: 12/20/20 Pre-op diagnosis: GERD, abdominal pain Post-op diagnosis: other (Gastritis, gastric erosion) Procedure: FLEXIBLE TRANSORAL UPPER GASTROINTESTINAL ENDOSCOPY WITH BIOPSIES Consent: Indications for the procedure and potential complications of bleeding, perforation, reaction to medications and missed diagnosis were discussed with the patient and informed consent was obtained. Instrument: Olympus GIF H 190 mid size upper endoscope Monitoring: Vital signs and clinical assessment, continuous EKG monitoring, Pulse oximetry, Carbon Dioxide monitoring and blood pressure monitoring were done throughout the procedure. Procedure: The patient was placed in the left lateral decubitis position and pre-procedure medications were administered and a bite block was placed. The endoscope was inserted into the mouth and advanced under direct vision to the third part of duodenum. A careful inspection was made as the upper endoscope was withdrawn including a retroflexed examination of the proximal stomach; Findings and interventions are described below. Findings: Larynx: Normal Esophagus: GE junction at 36 cms. No esophagitis or Anton Stomach: A 2 cms linear erosion in the distal gastric body along the greater curvature - biopsied. Mild gastric antral erythema. Biopsies were obtained to check for H Pylori. Grade 2 flap valve on retroflexed examination of the cardia. Duodenum: Normal bulb and descending duodenum Intervention: Biopsies as noted above Impression and Post Procedure Diagnosis: Endoscopy Findings: STOMACH: A 2 cms linear erosion in the distal gastric body along the greater curvature - biopsied. (unclear if this is the source of her pain) Mild gastric antral erythema. Biopsies were obtained to check for H Pylori. Plan: Await pathology results Patient has an appointment on 01/16/21 in the GI [facility] with Dr Rosa M.D. Above findings were reviewed with the patient and a handout on Peptic Ulcer Disease was given in the discharge area. Pt states her abdominal pain has improved since she started taking Sucralfate Pt was advised to avoid NSAIDS and continue Omeprazole and Sucralfate. Of note, Omeprazole is on hold pending H Pylori breath tests on 01/04/21 Surgeon: Nicolas Simeon MD Anesthesia: MAC (Dr Stockton) Was an Broth Setter used for this Procedure?: Yes Broth Setter: Jessica Thomas Estimated blood loss (mL): 0 Pathology: other ( A. GASTRIC ANTRUM R/O H. PYLORI B. GASTRIC BODY) Condition: stable Disposition: PACU
--- NOTE | 2020-12-20 15:36 | W.PM.OPN ---
Operative Note Operative Note Date of Service: 12/20/20 Narrative: Pre-op diagnosis:?GERD, abdominal pain Post-op diagnosis:?other (Gastritis, gastric erosion) Procedure:? FLEXIBLE TRANSORAL UPPER GASTROINTESTINAL ENDOSCOPY WITH BIOPSIES Consent:?Indications for the procedure and potential complications of bleeding, perforation, reaction to medications and missed diagnosis were discussed with the patient and informed consent was obtained. Instrument:?Olympus GIF H 190 mid size upper endoscope Monitoring: Vital signs and clinical assessment, continuous EKG monitoring, Pulse oximetry, Carbon Dioxide monitoring and blood pressure monitoring were done throughout the procedure. Procedure:?The patient was placed in the left lateral decubitis position and pre-procedure medications were administered and a bite block was placed. The endoscope was inserted into the mouth and advanced under direct vision to the third part of duodenum. A careful inspection was made as the upper endoscope was withdrawn including a retroflexed examination of the proximal stomach; Findings and interventions are described below. Findings: Larynx:? Normal Esophagus:?GE junction at 36 cms. No esophagitis or Anton Stomach:?A 2 cms linear erosion in the distal gastric body along the greater curvature - biopsied. Mild gastric antral erythema. Biopsies were obtained to check for H Pylori. Grade 2 flap valve on retroflexed examination of the cardia. Duodenum:?Normal bulb and descending duodenum Intervention:?Biopsies as noted above Impression and Post Procedure Diagnosis: Endoscopy Findings: STOMACH: A 2 cms linear erosion in the distal gastric body along the greater curvature - biopsied. (unclear if this is the source of her pain) Mild gastric antral erythema. Biopsies were obtained to check for H Pylori. Plan: Await pathology results Patient has an appointment on 01/16/21 in the GI Clinic with Dr Rosa M.D. Above findings were reviewed with the patient and a? handout on Peptic Ulcer Disease was given in the discharge area. Pt states her abdominal pain has improved since she started taking Sucralfate Pt was advised to avoid NSAIDS and continue Omeprazole and Sucralfate. Of note, Omeprazole is on hold pending H Pylori breath tests on 01/04/21 Surgeon:?Nicolas Simeon MD Anesthesia:?MAC (Dr Stockton) Was an Trackmobile Operator used for this Procedure?:?Yes Trackmobile Operator:?Jessica Thomas Estimated blood loss (mL):?0 Pathology:?other ( A. GASTRIC ANTRUM R/O H. PYLORI? B. GASTRIC BODY) Condition:?stable Disposition:?PACU
[2020-12-20 15:58] VITALS: BP 95/51; PULSE 72; RESP 16; TEMP 36.1; O2SAT 100
[2020-12-20 16:13] VITALS: BP 110/51; PULSE 76; RESP 16; O2SAT 99
[2020-12-20 16:28] VITALS: BP 104/61; PULSE 76; RESP 16; TEMP 36.1; O2SAT 99
== END 2020-12-20 16:45 | disposition home or self-care (01) ==
PROVIDERS: Anesthesiology; PCP Internal Medicine Gastroenterology; Visit Provider Internal Medicine Gastroenterology
PROC: 0DJ08ZZ Inspection of Upper Intestinal Tract, Via Natural or Artificial Opening Endoscopic (ICD-10-PCS; CPT 43235; principal; 2020-12-20 14:20)
DX: K21.9 Gastro-esophageal reflux disease without esophagitis (principal); K29.70 Gastritis, unspecified, without bleeding; B96.81 Helicobacter pylori [H. pylori] as the cause of diseases classified elsewhere; K25.9 Gastric ulcer, unspecified as acute or chronic, without hemorrhage or perforation; J45.909 Unspecified asthma, uncomplicated; Z79.899 Other long term (current) drug therapy
CPT/HCPCS: 43239; 81025; 88305; 88342

== ENCOUNTER 2021-01-11 09:35 | Outpatient (REF) | payer MEDICAID, SELFPAY | END 2021-01-11 09:36 | disposition home or self-care (01) | LOC: HO.LAB 09:35 | PROVIDERS: Visit Provider Internal Medicine | DX: Z20.822 Contact with and (suspected) exposure to COVID-19 (principal) | CPT/HCPCS: C9803; U0003; U0005 ==

== ENCOUNTER 2021-02-21 11:33 | Outpatient (REF) | payer MEDICAID, SELFPAY | END 2021-02-21 11:34 | disposition home or self-care (01) | LOC: HO.LAB 11:33 | PROVIDERS: Visit Provider Internal Medicine | DX: Z20.822 Contact with and (suspected) exposure to COVID-19 (principal) | CPT/HCPCS: C9803; U0003; U0005 ==

== ENCOUNTER → 2021-02-24 09:06 | Outpatient (BNVA) | payer MEDICAID, SELFPAY | PROVIDERS: PCP General Practice; Visit Provider Internal Medicine Gastroenterology ==

== ENCOUNTER 2021-03-07 11:56 | Emergency (ER) | payer MEDICAID, SELFPAY ==
[2021-03-07 12:15] VITALS: BP 100/48; PULSE 79; RESP 18; TEMP 36.3; O2SAT 99; BMI 25.0
== END 2021-03-07 17:04 | disposition left against medical advice (07) ==
LOC: HO.ED 18:03
PROVIDERS: Emergency Provider Emergency Medicine; PCP General Practice
DX: R10.9 Unspecified abdominal pain (principal)
CPT/HCPCS: 99282; 99283

== ENCOUNTER 2021-04-10 14:00 | Outpatient (REF) | payer MEDICAID, SELFPAY ==
--- NOTE | ~2021-04-10 | CT_ITS ---
EXAMINATION: CT ENTEROGRAPHY ABDOMEN AND PELVIS WITH CONTRAST CLINICAL INFORMATION: Periumbilical pain. COMPARISON: Previous CT of the abdomen and pelvis April 2020 TECHNIQUE: Study performed with oral VoLumen (1350 mL) and 480 mL of water to distend the abdomen. The patient was injected with 85 mL Omnipaque 350 intravenous contrast which was administered without adverse effect. Coronal and sagittal reformatted images were obtained at the technologist's workstation. This CT examination was performed using dose optimization techniques as appropriate, variously including the following: *Automated exposure control *Adjustment of mA and/or kV according to patient size (this includes techniques or standardized protocols for targeted exams where dose is matched to indication/reason for exam; i.e. extremities or head) *Use of iterative reconstruction technique DLP: 287 mGy-cm FINDINGS: GASTROINTESTINAL FINDINGS: Stomach: Well-distended and normal in appearance. Small intestine: Satisfactorily distended and normal in appearance. Large intestine: Well-distended and normal in appearance. No perirectal changes demonstrated. The appendix is normal. Additional findings: No abnormal enhancement of the vasa recta or significant mesenteric or retroperitoneal lymphadenopathy is seen. No abdominal abscess or fistulous tract demonstrated. ABDOMINAL AND PELVIC CT FINDINGS: Liver, gallbladder, biliary tract: The liver is unremarkable. The gallbladder has been removed. There is no biliary duct dilatation. Pancreas: Unremarkable. Spleen: Unremarkable. Adrenal glands and kidneys: Unremarkable. Ureters and bladder: Unremarkable. Lymphovascular structures: Unremarkable. Pelvis: The uterus and adnexa are unremarkable. There is a small amount of fluid in the pelvis. Bones: Unremarkable. Lung bases: Unremarkable. CT/CT enterography IMPRESSION: Unremarkable examination.
[2021-04-10] MEDS: iohexoL 350 MG/ML 100 ML INFUS..BTL 85 ML IV (16:25)
[2021-04-10] MEDS: Sorbitol/Mannit/Xanth Imaging 500 ML LIQUID 1500 ML PO (16:26)
== END 2021-04-10 14:01 | disposition home or self-care (01) ==
LOC: HO.US 14:00
PROVIDERS: PCP General Practice; Visit Provider Internal Medicine Gastroenterology
DX: R10.33 Periumbilical pain (principal)
CPT/HCPCS: 74177; Q9967

== ENCOUNTER 2021-06-23 17:23 | Emergency (ER) | payer MEDICAID, SELFPAY | END 2021-06-23 19:01 | disposition left against medical advice (07) | PROVIDERS: Emergency Provider Emergency Medicine; PCP General Practice | DX: R51.9 Headache, unspecified (principal); R00.2 Palpitations ==

== ENCOUNTER 2021-10-13 15:10 | Outpatient (REF) | payer MEDICAID, SELFPAY ==
--- NOTE | ~2021-10-13 | CT_ITS ---
EXAMINATION: CT ABDOMEN AND PELVIS WITH CONTRAST CLINICAL INFORMATION: Epigastric pain and vomiting. COMPARISON: CT abdomen and pelvis 04/10/2021. TECHNIQUE: Multidetector volumetric images were obtained from the superior aspect of the liver through the pubic symphysis following administration 85 mL of Omnipaque 350 intravenous contrast. Sagittal and coronal reformatted images were obtained on the technologist's workstation. Oral contrast: No. This CT examination was performed using dose optimization techniques as appropriate, variously including the following: *Automated exposure control *Adjustment of mA and/or kV according to patient size (this includes techniques or standardized protocols for targeted exams where dose is matched to indication/reason for exam; i.e. extremities or head) *Use of iterative reconstruction technique DLP: 423 mGy-cm FINDINGS: LUNG BASES: The visualized lung bases are unremarkable. LIVER, GALLBLADDER, AND BILIARY TREE: The liver is normal in size, shape, and attenuation. No focal hepatic lesion or biliary ductal dilatation is present. The gallbladder has been surgically removed. PANCREAS: Unremarkable. SPLEEN: Unremarkable. ADRENAL GLANDS: Unremarkable. KIDNEYS AND URETERS: The kidneys are normal in size, shape, and attenuation. No hydronephrosis, hydroureter, or calculi seen. No perinephric stranding. BLADDER: Unremarkable. GASTROINTESTINAL TRACT: The small and large bowel are unremarkable. The appendix is unremarkable. ABDOMINAL WALL: No significant hernia is appreciated. LYMPH NODES: Normal. VASCULAR: Unremarkable. PELVIC VISCERA: Unremarkable. OSSEOUS STRUCTURES: No aggressive lytic or sclerotic process seen. CT/CT abdomen pelvis w con IMPRESSION: No acute intra-abdominal process. Fleischner guidelines were followed.
[2021-10-13] MEDS: Barium Sulfate Oral (Vanilla) 450 ML ORAL.SUSP 900 ML PO (17:15)
[2021-10-13] MEDS: iohexoL 350 MG/ML 100 ML INFUS..BTL IV (17:16)
== END 2021-10-13 15:11 | disposition home or self-care (01) ==
LOC: HO.CT 15:10
PROVIDERS: PCP General Practice; Visit Provider Emergency Medicine
DX: R10.13 Epigastric pain (principal); R11.10 Vomiting, unspecified
CPT/HCPCS: 74177; Q9967

== ENCOUNTER 2021-11-15 22:41 | Emergency (ER) | payer MEDICAID, SELFPAY ==
--- NOTE | ~2021-11-15 | US_ITS ---
EXAMINATION: US OBSTETRICAL ULTRASOUND CLINICAL INFORMATION: Abdominal pain, vaginal bleeding COMPARISON: None from this . LMP: 10/10/2021. TECHNIQUE: Sonographic evaluation of the pelvis was performed transabdominally and transvaginally. FINDINGS: The uterus measures 9.3 cm in length and 4.4 x 6.2 cm in AP and transverse dimensions. No intrauterine gestational sac is seen. Endometrial stripe measures 1.0 cm in thickness. The right ovary measures 3.3 x 2.0 x 2.1 cm and appears unremarkable. The left ovary measures 3.1 x 1.9 x 2.1 cm and contains a 1.8 cm cystic structure suggestive of a corpus luteal cyst. Trace nonspecific free fluid is noted. US/US OB pelvic and transvaginal IMPRESSION: No intrauterine is identified at this time. Correlation with beta hCG levels is recommended, as nonvisualization of a gestational sac could be due to an early stage of . Alternatively, lack of an intrauterine gestational sac may also be seen with missed or ectopic , although no adnexal mass is seen to strongly suggest ectopic . Short-term sonographic follow-up and serial beta hCG levels are recommended to assess for development of an intrauterine gestational sac.
[2021-11-15 22:55] VITALS: BP 114/65; PULSE 80; RESP 18; TEMP 36.6; O2SAT 98; BMI 27.1
[2021-11-15 23:11] LABS: Basophils Percent Auto 0.4 % (0-2); Eosinophils Absolute Auto 0.1 X10*3/uL (0.0-0.4); Eosinophils Percent Auto 1.2 % (0-4); Hematocrit 31.2 % (37.0-47.0); Hemoglobin 10.1 g/dl (12.0-16.0); Imm Gran Abs Auto 0.03 X10*3/uL (0.00-0.03); Imm Gran Pct Auto 0.3 % (0.0-0.4); Lymphocytes Absolute Auto 5.2 X10*3/uL (1.2-4.9); Lymphocytes Percent Auto 45.6 % (20-40); MANUAL DIFF FLAG SCAN; Mean Corpuscular HGB Conc 32.4 g/dl (31.0-35.0); Mean Corpuscular Hemoglobin 24.8 pg (27.0-33.0); Mean Corpuscular Volume 76.7 fL (80.0-98.0); Mean Platelet Volume 8.3 fL (9.4-12.3); Monocytes Absolute Auto 0.9 X10*3/uL (0.1-1.2); Monocytes Percent Auto 8.1 % (2-11); Neutrophils Percent Auto 44.4 % (45-73); Platelet Count 453 X10*3/uL (160-400); Red Blood Count 4.07 X10*6/uL (4.20-5.50); Red Cell Distribution Width 16.8 % (11.0-16.0); SCAN SMEAR FLAG 1; White Blood Count 11.4 X10*3/uL (4.8-10.8)
[2021-11-15 23:29] LABS: Alanine Aminotransferase 7 U/L (0-31); Albumin Level 4.5 g/dL (3.5-5.0); Alkaline Phosphatase 54 U/L (39-117); Anion Gap 14 (12-20); Aspartate Amino Transferase 15 U/L (5-31); Bilirubin Total 0.4 mg/dL (0.0-1.0); Blood Urea Nitrogen 6 mg/dL (9-16); Calcium 9.7 mg/dL (8.4-10.2); Carbon Dioxide 26 mmol/L (22-29); Chloride 102 mmol/L (96-108); Creatinine Clr Calc Pharmacy 85.9; Estimated Glomerular Filt Rate > 60; Glucose Random 100 mg/dL (60-115); Potassium 3.6 mmol/L (3.3-5.1); SLIDE REVIEW VERIFIED; Sodium 138 mmol/L (135-145); Total Protein 7.4 g/dL (6.5-8.0)
[2021-11-15 23:35] LABS: HCG Quantitative 6 mIU/mL
[2021-11-16 02:00] VITALS: BP 114/73; PULSE 68; RESP 16; O2SAT 98
--- NOTE | 2021-11-16 04:53 | PC.NURSE ---
PATIENT WAS AT ULTRASOUND AT 4AM .
[2021-11-16 05:45] VITALS: BP 110/59; PULSE 68; RESP 16; O2SAT 100
== END 2021-11-16 06:02 | disposition home or self-care (01) ==
PROVIDERS: Emergency Provider Emergency Medicine; PCP General Practice
DX: O20.0 Threatened abortion (principal); Z3A.01 Less than 8 weeks gestation of pregnancy
CPT/HCPCS: 36415; 76801; 76817; 80053; 84702; 85025; 99283; 99284

== ENCOUNTER 2021-11-21 09:11 | Outpatient (REF) | payer MEDICAID, SELFPAY ==
[2021-11-21 11:12] LABS: HCG Quantitative < 2 mIU/mL
[2021-11-21 16:50] LABS: CT PCR NOT DETECTED (Not Detect.); NG PCR NOT DETECTED (Not Detect.)
== END 2021-11-21 09:12 | disposition home or self-care (01) ==
LOC: HO.LAB 09:11
PROVIDERS: Emergency Medicine; PCP General Practice; Visit Provider Obstetrics & Gynecology
DX: O03.9 Complete or unspecified spontaneous abortion without complication (principal); F17.210 Nicotine dependence, cigarettes, uncomplicated
CPT/HCPCS: 36415; 84702; 87491; 87591; 99212

== ENCOUNTER 2021-12-28 16:25 | Observation (INO) | payer MEDICAID, SELFPAY ==
--- NOTE | ~2021-12-28 | CT_ITS ---
EXAMINATION: CT CERVICAL SPINE WITHOUT CONTRAST CLINICAL INFORMATION: Neck pain. History of seizure yesterday. COMPARISON: Previous cervical spine CT April 2020 TECHNIQUE: Axial images through the cervical spine without contrast. Sagittal and coronal reconstructions on the technologist workstation. This CT examination was performed using dose optimization techniques as appropriate, variously including the following: *Automated exposure control *Adjustment of mA and/or kV according to patient size (this includes techniques or standardized protocols for targeted exams where dose is matched to indication/reason for exam; i.e. extremities or head) *Use of iterative reconstruction technique DLP: 385 mGy-cm FINDINGS: Bone alignment is normal. No fracture or dislocation is seen. There is mild degenerative disc disease and spondylosis at C5-C6. Prevertebral soft tissues are normal. There is shotty cervical lymphadenopathy. Visualized lung apices are clear. CT/CT cervical spine wo IV con IMPRESSION: Mild degenerative changes. No fracture or dislocation. Fleischner guidelines were followed.
--- NOTE | ~2021-12-28 | CT_ITS ---
EXAMINATION: CT HEAD WITHOUT CONTRAST CLINICAL INFORMATION: New onset of seizure COMPARISON: CT head 10/28/2020 TECHNIQUE: Contiguous axial imaging was performed from the skull base to vertex without intravenous administration of contrast. Coronal and sagittal reformatted images are performed at the CT scanner. [This CT examination was performed using dose optimization techniques as appropriate, variously including the following: *Automated exposure control *Adjustment of mA and/or kV according to patient size (this includes techniques or standardized protocols for targeted exams where dose is matched to indication/reason for exam; i.e. extremities or head) *Use of iterative reconstruction technique] DLP: 616 mGy-cm. FINDINGS: There is no evidence of acute intracranial hemorrhage or territorial infarction. No abnormal mass-effect or midline shift is seen. Rice to white matter differentiation is well preserved. No extra-axial fluid collections are identified. The ventricles are normal in size. There is no abnormal attenuation within the brain parenchyma. There is no osseous abnormality. The mastoid air cells and visualized portions of the paranasal sinuses are well-aerated. CT/CT head/brain wo IV con IMPRESSION: No acute intracranial pathology.
--- NOTE | 2021-12-28 16:39 | ECG_ITS ---
Test Reason : SEIZURE Blood Pressure : / mmHG Vent. Rate : 072 BPM Atrial Rate : 072 BPM P-R Int : 168 ms QRS Dur : 084 ms QT Int : 390 ms P-R-T Axes : 059 082 061 degrees QTc Int : 427 ms Normal sinus rhythm Normal ECG When compared with ECG of 10-NOV-2020 17:16, No significant change was found Referred By: Raul Moreno Electronically Signed By:JAYDEN CROCKETT
--- NOTE | 2021-12-28 16:46 | ED_ITS ---
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 She was in another department of the hospital and sent here. On arrival here was looking to her left and non responsive and had a 2nd seizure. She did get a IV and versed at that time. She denies history of seizures and complains of a headache and feeling tired. MD complaint: seizure and feels seizure coming on Onset (ago): minute(s) Related Data Home Medications Medication Instructions Recorded Confirmed albuterol sulfate 90 mcg/actuation 2 puff inhalation QID PRN 05/30/20 06/26/21 aerosol inhaler Shortness Of Breath epinephrine 0.3 mg/0.3 mL 0.3 mg IM Q10M PRN Anaphylaxis 08/08/20 06/26/21 injection, auto-injector clonazepam 0.5 mg tablet 0.5 mg PO DAILY 06/26/21 06/26/21 olanzapine 2.5 mg tablet 2.5 mg PO BEDTIME 06/26/21 06/26/21 trazodone 1 tab PO DAILY 06/26/21 06/26/21 Previous Rx's Medication Instructions Recorded fluticasone propionate 50 2 spray intranasal DAILY sinus 03/21/20 mcg/actuation nasal congestion #9.9 mL spray,suspension (Flonase Allergy Relief) sucralfate 1 gram tablet 1 g PO TID #90 tabs 12/09/20 omeprazole 20 mg capsule,delayed 20 mg PO DAILY #30 caps 03/16/21 release sucralfate 100 mg/mL oral 10 ml PO BID #1,000 mL 05/10/21 suspension (Carafate) ferrous sulfate 325 mg (65 mg 325 mg PO BID #60 tabs 06/26/21 iron) tablet (Iron (ferrous sulfate)) Allergies Allergy/AdvReac Type Severity Reaction Status Date / Time dog dander [DOG] Allergy Intermediate itching/hiv Verified 11/21/21 09:49 es kiwi [KIWI] Allergy Intermediate TONGUE Verified 11/21/21 09:49 TINGLING, HIVES, ITCHING latex Allergy Intermediate Hives, Verified 11/21/21 09:49 itching mushroom [MUSHROOM] Allergy Intermediate UNKNOWN Verified 11/21/21 09:49 Rabbit [RABBITS] Allergy Intermediate ITCHING, Verified 11/21/21 09:49 HIVES tramadol AdvReac Intermediate Nausea Verified 11/21/21 09:49 Review of Systems Review of Systems: Review of systems: General:? SeizurePatient denies any fever chills recent illness or falls Musculoskeletal: Denies back pain or body aches or other injuries HEENT: denies headache, runny nose, ear pain Respiratory: denies shortness of breath, cough Cardiovascular: no chest pain or palpitations : denies dysuria, frequency Abdomen: no nausea vomiting denies abdominal pain? Extremities: no swelling, no pain Skin: no diaphoresis PMFSH Past Medical History Medical History Anemia Asthma Bipolar 1 disorder COVID-19 vaccine administered Depression Environmental and seasonal allergies Gallstones GERD (gastroesophageal reflux disease) H. pylori infection Hypertrophic scar Smoker Tonsil and adenoid disease, chronic Surgical History History of esophagogastroduodenoscopy (EGD) Hx of section Hx of cholecystectomy Hx of hemorrhoidectomy (05/06/19) Hx of tonsillectomy Family History Family History Maternal Aunt Ovarian cancer Maternal Grandmother Endometrial adenocarcinoma Mother Diabetes HTN (hypertension) Father Lung cancer Social History Social History Alcohol intake: never Patient Tobacco Use Status: Current everyday Tobacco user Tobacco use type: Cigarette Cigarettes Per Day: 5 Years Smoked: 15 Current occupational status: other 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 Patient is alert and oriented to person place and time. Patient has no dysphagia or dysarthia, denies good vision in all four vision doshi no nystagmus on exam, good strength to upper and lower extremities with normal reflexes to brachioradialis, wrist, patella and achilles.? Negative romberg, good finger to nose and heel to humphries.?? General: Well-appearing well-nourished in no signs of distress HEENT: Normocephalic atraumatic? Neck: No signs of JVD, no masses no tenderness or lymphadenopathy Cardiovascular: Regular rate and rhythm Respiratory: Clear to auscultation bilaterally Abdomen: Soft nontender no masses Extremities: Normal pedal pulses no signs of edema Skin: Dry warm no rashes Back: No tenderness full ROM MDM - Seizure MDM Narrative Medical decision making narrative: concern for brain mass recurrent seizure, hypoglycemia, medication effect. Azucena is on trazodone olanzapine takes clonazepam. I will send for stat CT head I spoke with termite control technician to get patient over next and will start on fluids and check labs. Blood sugar on arrival is 95 A review of previous records show long standing anxiety with ativan and l amotrigine use in the past. I will continue with workup. 170 Patient is able to tell me now that she has been off her clonazepam for over a week and that they refused to prescribe her more. I still with continue with seizure workup but I will give clonazepam to her to avoid another seizure as the versed is likely wearing off at this point. 1900 CT and labs are all unremarkable patient has had no more seizures after being medicated I think the patient benefit from his humphries kidney be monitored she did have to close seizures she is to be loaded on her medications and will need follow-up with Neurology. Medical Records Attestation: I reviewed the patient's medical records. Lab Data Attestation: I reviewed the patient's lab results. Result diagrams: 12/28/21 17:44 12/28/21 17:44 Labs: Lab Results 12/28/21 12/28/21 12/28/21 Range/Units 17:44 17:44 17:44 WBC 9.4 (4.8-10.8) X10*3/uL RBC 4.06 L (4.20-5.50) X10*6/uL Hgb 10.1 L (12.0-16.0) g/dl Hct 31.5 L (37.0-47.0) % MCV 77.6 L (80.0-98.0) fL MCH 24.9 L (27.0-33.0) pg MCHC 32.1 (31.0-35.0) g/dl RDW 17.8 H (11.0-16.0) % Plt Count 432 H (160-400) X10*3/uL MPV 8.5 L (9.4-12.3) fL Immature Gran % (Auto) 0.4 (0.0-0.4) % Neut % (Auto) 69.2 (45-73) % Lymph % (Auto) 23.2 (20-40) % [place] % (Auto) 6.0 (2-11) % Eos % (Auto) 0.8 (0-4) % Baso % (Auto) 0.4 (0-2) % Lymph # (Auto) 2.2 (1.2-4.9) X10*3/uL [place] # (Auto) 0.6 (0.1-1.2) X10*3/uL Eos # (Auto) 0.1 (0.0-0.4) X10*3/uL Baso # (Auto) 0.0 (0.0-0.2) X10*3/uL Abs Immat Gran (auto) 0.04 H (0.00-0.03) X10*3/uL Absolute Neuts (auto) 6.5 (2.0-8.3) x10*3/uL Absolute Nucleated RBC 0.000 (0.0-0.012) X10*3/uL Nucleated RBC % (auto) 0.0 (0.0-0.2) /100WBC Sodium 136 (135-145) mmol/L Potassium 4.6 D (3.3-5.1) mmol/L Chloride 104 (96-108) mmol/L Carbon Dioxide 20 L (22-29) mmol/L Anion Gap 17 (12-20) BUN 9 (9-16) mg/dL Creatinine 0.74 (0.5-1.4) mg/dL Estim Creat Clear Calc 83.6 Estimated GFR > 60 Random Glucose 94 (60-115) mg/dL Lactic Acid 1.3 (0.5-2.0) mmol/L Calcium 9.5 (8.4-10.2) mg/dL Total Bilirubin 0.2 (0.0-1.0) mg/dL Direct Bilirubin < 0.2 (0.0-0.5) mg/dL AST 17 (5-31) U/L ALT 7 (0-31) U/L Alkaline Phosphatase 52 (39-117) U/L Total Protein 7.3 (6.5-8.0) g/dL Albumin 4.4 (3.5-5.0) g/dL Lipase 34 (8-78) U/L Urine Color Urine Appearance Urine pH (5.0-9.0) Ur Specific [place] (1.005-1.025) Urine Protein (Neg-Trace) mg/dL Urine Glucose (UA) (Negative) mg/dL Urine Ketones (Negative) mg/dL Urine Blood (Negative) Urine Nitrite (Negative) Ur Leukocyte Esterase (Negative) Urine Opiates Screen (Not Detect) Urine Fentanyl Screen (Not Detect) Ur Barbiturates Screen (Not Detect) Ur Phencyclidine Scrn (Not Detect) Ur Amphetamines Screen (Not Detect) U Benzodiazepines Scrn (Not Detect) Urine Cocaine Screen (Not Detect) U Marijuana (THC) Screen (Not Detect) COVID-19 (HANNA) (Negative) COVID-19 Clin Com 12/28/21 12/28/21 12/28/21 Range/Units 17:44 18:28 18:28 WBC (4.8-10.8) X10*3/uL RBC (4.20-5.50) X10*6/uL Hgb (12.0-16.0) g/dl Hct (37.0-47.0) % MCV (80.0-98.0) fL MCH (27.0-33.0) pg MCHC (31.0-35.0) g/dl RDW (11.0-16.0) % Plt Count (160-400) X10*3/uL MPV (9.4-12.3) fL Immature Gran % (Auto) (0.0-0.4) % Neut % (Auto) (45-73) % Lymph % (Auto) (20-40) % [place] % (Auto) (2-11) % Eos % (Auto) (0-4) % Baso % (Auto) (0-2) % Lymph # (Auto) (1.2-4.9) X10*3/uL [place] # (Auto) (0.1-1.2) X10*3/uL Eos # (Auto) (0.0-0.4) X10*3/uL Baso # (Auto) (0.0-0.2) X10*3/uL Abs Immat Gran (auto) (0.00-0.03) X10*3/uL Absolute Neuts (auto) (2.0-8.3) x10*3/uL Absolute Nucleated RBC (0.0-0.012) X10*3/uL Nucleated RBC % (auto) (0.0-0.2) /100WBC Sodium (135-145) mmol/L Potassium (3.3-5.1) mmol/L Chloride (96-108) mmol/L Carbon Dioxide (22-29) mmol/L Anion Gap (12-20) BUN (9-16) mg/dL Creatinine (0.5-1.4) mg/dL Estim Creat Clear Calc Estimated GFR Random Glucose (60-115) mg/dL Lactic Acid (0.5-2.0) mmol/L Calcium (8.4-10.2) mg/dL Total Bilirubin (0.0-1.0) mg/dL Direct Bilirubin (0.0-0.5) mg/dL AST (5-31) U/L ALT (0-31) U/L Alkaline Phosphatase (39-117) U/L Total Protein (6.5-8.0) g/dL Albumin (3.5-5.0) g/dL Lipase (8-78) U/L Urine Color Yellow Urine Appearance Clear Urine pH 6.5 (5.0-9.0) Ur Specific [place] 1.010 (1.005-1.025) Urine Protein Negative (Neg-Trace) mg/dL Urine Glucose (UA) Negative (Negative) mg/dL Urine Ketones Negative (Negative) mg/dL Urine Blood Negative (Negative) Urine Nitrite Negative (Negative) Ur Leukocyte Esterase Negative (Negative) Urine Opiates Screen Not Detected (Not Detect) Urine Fentanyl Screen Not Detected (Not Detect) Ur Barbiturates Screen Not Detected (Not Detect) Ur Phencyclidine Scrn Not Detected (Not Detect) Ur Amphetamines Screen Not Detected (Not Detect) U Benzodiazepines Scrn POSITIVE H (Not Detect) Urine Cocaine Screen Not Detected (Not Detect) U Marijuana (THC) Screen Not Detected (Not Detect) COVID-19 (HANNA) Negative (Negative) COVID-19 Clin Com See Note Discharge Plan Discharge Clinical Impression: Seizure Patient Disposition: Admitted As Inpatient Prescriptions: No Action omeprazole 20 mg capsule,delayed release(DR/EC) 20 mg PO DAILY Qty: 30 0RF sucralfate [Carafate] 100 mg/mL suspension 10 ml PO BID Qty: 1000 1RF clonazepam 0.5 mg Tablet 0.5 mg PO DAILY olanzapine 2.5 mg Tablet 2.5 mg PO BEDTIME trazodone 1 tab PO DAILY ferrous sulfate [Iron (ferrous sulfate)] 325 mg (65 mg iron) Tablet 325 mg PO BID Qty: 60 0RF albuterol sulfate 90 mcg/actuation HFA aerosol inhaler 2 puff inhalation QID PRN (Reason: Shortness Of Breath) fluticasone propionate [Flonase Allergy Relief] 50 mcg/actuation spray,suspension 2 spray intranasal DAILY Qty: 9.9 0RF Rx Instructions: administer into each nostril epinephrine 0.3 mg/0.3 mL Auto-Injector 0.3 mg IM Q10M PRN (Reason: Anaphylaxis) sucralfate 1 gram tablet 1 g PO TID Qty: 90 0RF
[2021-12-28] MEDS: Midazolam HCl/PF 2 MG/2 ML VIAL IVPUSH (17:00)
[2021-12-28 17:16] VITALS: BMI 27.1
[2021-12-28] MEDS: clonazePAM 1 MG TABLET PO (17:31)
[2021-12-28] MEDS: 0.9 % Sodium Chloride 1,000 ML 999 ML IV (17:31)
[2021-12-28 17:32] VITALS: BP 98/87; PULSE 86; RESP 16; TEMP 36.9; O2SAT 99
[2021-12-28 17:52] LABS: MANUAL DIFF FLAG NO
[2021-12-28 17:54] LABS: Basophils Percent Auto 0.4 % (0-2); Eosinophils Absolute Auto 0.1 X10*3/uL (0.0-0.4); Eosinophils Percent Auto 0.8 % (0-4); Hematocrit 31.5 % (37.0-47.0); Hemoglobin 10.1 g/dl (12.0-16.0); Imm Gran Abs Auto 0.04 X10*3/uL (0.00-0.03); Imm Gran Pct Auto 0.4 % (0.0-0.4); Lymphocytes Absolute Auto 2.2 X10*3/uL (1.2-4.9); Lymphocytes Percent Auto 23.2 % (20-40); Mean Corpuscular HGB Conc 32.1 g/dl (31.0-35.0); Mean Corpuscular Hemoglobin 24.9 pg (27.0-33.0); Mean Corpuscular Volume 77.6 fL (80.0-98.0); Mean Platelet Volume 8.5 fL (9.4-12.3); Monocytes Absolute Auto 0.6 X10*3/uL (0.1-1.2); Neutrophils Absolute Auto 6.5 x10*3/uL (2.0-8.3); Neutrophils Percent Auto 69.2 % (45-73); Platelet Count 432 X10*3/uL (160-400); Red Blood Count 4.06 X10*6/uL (4.20-5.50); Red Cell Distribution Width 17.8 % (11.0-16.0); White Blood Count 9.4 X10*3/uL (4.8-10.8)
[2021-12-28 18:04] LABS: Lactic Acid 1.3 mmol/L (0.5-2.0)
[2021-12-28 18:12] LABS: Alanine Aminotransferase 7 U/L (0-31); Albumin Level 4.4 g/dL (3.5-5.0); Alkaline Phosphatase 52 U/L (39-117); Anion Gap 17 (12-20); Aspartate Amino Transferase 17 U/L (5-31); Blood Urea Nitrogen 9 mg/dL (9-16); Calcium 9.5 mg/dL (8.4-10.2); Carbon Dioxide 20 mmol/L (22-29); Chloride 104 mmol/L (96-108); Creatinine Clr Calc Pharmacy 83.6; Estimated Glomerular Filt Rate > 60; Glucose Random 94 mg/dL (60-115); Lipase 34 U/L (8-78); Potassium 4.6 mmol/L (3.3-5.1); Sodium 136 mmol/L (135-145); Total Protein 7.3 g/dL (6.5-8.0)
[2021-12-28] MEDS: Ketorolac Tromethamine 15 MG/ML VIAL IVPUSH (18:25)
[2021-12-28] MEDS: Acetaminophen 325 MG TABLET 650 MG PO (18:25)
[2021-12-28 18:26] LABS: Bilirubin Direct < 0.2 mg/dL (0.0-0.5); Bilirubin Total 0.2 mg/dL (0.0-1.0)
[2021-12-28 18:39] LABS: COVID-19 Test Negative (Negative)
[2021-12-28 18:46] LABS: Appearance Urine Clear; Color Urine Yellow; Glucose Urine UA Negative (Negative); Leukocyte Esterase Urine Negative (Negative); Nitrite Urine Negative (Negative); PH 6.5 (5.0-9.0); Urine Blood Negative (Negative); Urine Ketones Negative (Negative); Urine Protein Negative (Neg-Trace)
[2021-12-28 18:51] LABS: Amphetamine Screen Urine Not Detected (Not Detect); Barbiturates, Urine Not Detected (Not Detect); Benzodiazepines Screen Urine POSITIVE (Not Detect); Cannabinoid Screen Urine Not Detected (Not Detect); Cocaine Screen Urine Not Detected (Not Detect); Fentanyl, urine Not Detected (Not Detect); Opiate Screen Urine Not Detected (Not Detect); Phencyclidine Screen Urine Not Detected (Not Detect)
--- NOTE | 2021-12-28 20:03 | P.HPHOSP_ITS ---
History of Present Illness Date of Service: 12/28/21 Chief Complaint: seizure 31-year-old female with past medical history of bipolar disorder, depression, and asthma presents to the hospital after experiencing seizure while working here at [facility]. Patient reports that she is on fluoxetine and clonazepam but has not had access to her medications for the past 1 week due to her provider leaving. She has not been able to get any new scripts and will be able to getting use script until her appointment on Saturday. She reports last used clonazepam about 3 days ago where she had few pills left over. She does not remember the event, last thing she remembers was working on the floor, next thing she remembers is waking up in the ED feeling confused. She had a 2nd episode while in the ED. Patient was given Versed, clonazepam was continued. Patient otherwise denies any head injury, she denies any chest pain, no headache or change in vision, no abdominal pain nausea or vomiting, no diarrhea constipation, no lower extremity edema On arrival to the ED patient hemodynamically stable with no significant abnormal vitals Labs reviewed, show unremarkable findings Head CT negative Review of Systems Review of Systems: Yes all other systems are reviewed and are negative [facility] Medical History Anemia Asthma Bipolar 1 disorder COVID-19 vaccine administered Depression Environmental and seasonal allergies Gallstones GERD (gastroesophageal reflux disease) H. pylori infection Hypertrophic scar Smoker Tonsil and adenoid disease, chronic Family History Maternal Aunt Ovarian cancer Maternal Grandmother Endometrial adenocarcinoma Mother Diabetes HTN (hypertension) Father Lung cancer Surgical History History of esophagogastroduodenoscopy (EGD) Hx of section Hx of cholecystectomy Hx of hemorrhoidectomy (05/06/19) Hx of tonsillectomy Social History Alcohol intake: never Patient Tobacco Use Status: Current everyday Tobacco user Tobacco use type: Cigarette Cigarettes Per Day: 5 Years Smoked: 15 Advance Directives: No Advance Directives Information Provided: No Current occupational status: other 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 [employer] Meds Allergies Allergy/AdvReac Type Severity Reaction Status Date / Time dog dander [DOG] Allergy Intermediate itching/hiv Verified 11/21/21 09:49 es kiwi [KIWI] Allergy Intermediate TONGUE Verified 11/21/21 09:49 TINGLING, HIVES, ITCHING latex Allergy Intermediate Hives, Verified 11/21/21 09:49 itching mushroom [MUSHROOM] Allergy Intermediate UNKNOWN Verified 11/21/21 09:49 Rabbit [RABBITS] Allergy Intermediate ITCHING, Verified 11/21/21 09:49 HIVES tramadol AdvReac Intermediate Nausea Verified 11/21/21 09:49 Active Medications: Current Medications Acetaminophen (Acetaminophen 325 Mg Tablet) 650 mg PO Q6H PRN PRN Reason: Pain, Mild (Pain Scale 1-3) Docusate Sodium (Docusate Sodium 100 Mg Capsule) 100 mg PO DAILY PRN PRN Reason: Constipation Ondansetron HCl (Ondansetron Hcl 4 Mg/2 Ml Vial) 4 mg IVPUSH Q8H PRN PRN Reason: Nausea and Vomiting Pharmacy Consult (Consult Rx Perform Med Rec) 1 each MISCELLANE ONCE PRN PRN Reason: Consult order Sodium Chloride (0.9 % Sodium Chloride Flush 3 Ml Syringe) 3 ml IVFLUSH [facility] Home Medications Medication Instructions Recorded Confirmed Last Taken Type albuterol sulfate 90 mcg/actuation 2 puff inhalation QID PRN 05/30/20 12/28/21 Unknown History aerosol inhaler Shortness Of Breath epinephrine 0.3 mg/0.3 mL 0.3 mg IM Q10M PRN Anaphylaxis 08/08/20 12/28/21 Unknown History injection, auto-injector clonazepam 0.5 mg tablet 0.5 mg PO QID PRN Anxiety 06/26/21 12/28/21 Unknown History olanzapine 2.5 mg tablet 2.5 mg PO BID PRN MANIC AGITATION 06/26/21 12/28/21 Unknown History fluoxetine 20 mg capsule 40 mg PO DAILY 12/28/21 12/28/21 Unknown History fluticasone propionate 50 1 spray intranasal DAILY sinus 12/28/21 12/28/21 Unknown History mcg/actuation nasal congestion spray,suspension (Flonase Allergy Relief) olanzapine 10 mg tablet 10 mg PO BEDTIME 12/28/21 12/28/21 Unknown History Physical Exam Vital Signs and Narrative: Vital Signs: Last Vital Signs Temp 98.5 F 12/28/21 17:32 Pulse 86 12/28/21 17:32 Resp 16 12/28/21 17:32 BP 98/87 12/28/21 17:32 Pulse Ox 99 12/28/21 17:32 O2 Del Method 12/28/21 17:32 BMI result Body Mass Index 27.1 Const: General: cooperative and no acute distress Orientation/consciousness: patient oriented x3 Eyes: General: appearance normal, both eyes and all related structures Resp: Effort & Inspection: normal respiratory effort Auscultation: clear to auscultation bilaterally Cardio: Rate: regular rate Rhythm: regular rhythm GI: Palpation (GI): Soft to palpation Auscultation: normal bowel sounds Skin: General skin exam: no rashes or lesions noted Neuro: General: patient oriented x3 Cognition (Neuro): normal cognition Extrem: General: Yes normal to inspection and Yes no pedal edema Results Labs CBC and Chem 7: 12/28/21 17:44 12/28/21 17:44 Labs: Laboratory Results - last 24 hr 12/28/21 12/28/21 12/28/21 17:44 17:44 17:44 MCV 77.6 L MCH 24.9 L MCHC 32.1 RDW 17.8 H Plt Count 432 H MPV 8.5 L Immature Gran % (Auto) 0.4 Neut % (Auto) 69.2 Lymph % (Auto) 23.2 [place] % (Auto) 6.0 Eos % (Auto) 0.8 Baso % (Auto) 0.4 Lymph # (Auto) 2.2 [place] # (Auto) 0.6 Eos # (Auto) 0.1 Baso # (Auto) 0.0 Abs Immat Gran (auto) 0.04 H Absolute Neuts (auto) 6.5 Absolute Nucleated RBC 0.000 Nucleated RBC % (auto) 0.0 Anion Gap 17 Estim Creat Clear Calc 83.6 Estimated GFR > 60 Random Glucose 94 Lactic Acid 1.3 Calcium 9.5 Total Bilirubin 0.2 Direct Bilirubin < 0.2 AST 17 ALT 7 Alkaline Phosphatase 52 Total Protein 7.3 Albumin 4.4 Lipase 34 Urine Color Urine Appearance Urine pH Ur Specific [place] Urine Protein Urine Glucose (UA) Urine Ketones Urine Blood Urine Nitrite Ur Leukocyte Esterase Urine Opiates Screen Urine Fentanyl Screen Ur Barbiturates Screen Ur Phencyclidine Scrn Ur Amphetamines Screen U Benzodiazepines Scrn Urine Cocaine Screen U Marijuana (THC) Screen COVID-19 (HANNA) COVID-19 Clin Com 12/28/21 12/28/21 12/28/21 17:44 18:28 18:28 MCV MCH MCHC RDW Plt Count MPV Immature Gran % (Auto) Neut % (Auto) Lymph % (Auto) [place] % (Auto) Eos % (Auto) Baso % (Auto) Lymph # (Auto) [place] # (Auto) Eos # (Auto) Baso # (Auto) Abs Immat Gran (auto) Absolute Neuts (auto) Absolute Nucleated RBC Nucleated RBC % (auto) Anion Gap Estim Creat Clear Calc Estimated GFR Random Glucose Lactic Acid Calcium Total Bilirubin Direct Bilirubin AST ALT Alkaline Phosphatase Total Protein Albumin Lipase Urine Color Yellow Urine Appearance Clear Urine pH 6.5 Ur Specific [place] 1.010 Urine Protein Negative Urine Glucose (UA) Negative Urine Ketones Negative Urine Blood Negative Urine Nitrite Negative Ur Leukocyte Esterase Negative Urine Opiates Screen Not Detected Urine Fentanyl Screen Not Detected Ur Barbiturates Screen Not Detected Ur Phencyclidine Scrn Not Detected Ur Amphetamines Screen Not Detected U Benzodiazepines Scrn POSITIVE H Urine Cocaine Screen Not Detected U Marijuana (THC) Screen Not Detected COVID-19 (HANNA) Negative COVID-19 Clin Com See Note Imaging Radiologist's Impressions: Impressions Head CT 12/28/21 17:56 IMPRESSION: No acute intracranial pathology. Assessment and Plan (1) Drug withdrawal seizure: Status: Acute Plan 31-year-old female with past medical history of bipolar disorder, depression anxiety, had to witness seizure episodes. # drug withdrawal seizure - seizures likely secondary to benzo withdrawal - will resume benzodiazepine - patient has an appointment to see psychiatrist on Saturday - continue all her other psych meds # bipolar disorder - continue olanzapine and fluoxetine # asthma - not in exacerbation - continue p.r.n. inhaler DVT prophylaxis: Early ambulation Quality Stroke Does the patient have a stroke diagnosis?: No VTE Prior VTE?: No VTE Risk Level:: Medical - low VTE Device Contraindication: Treatment Not Indicated VTE Drug Contraindication: Treatment Not Indicated
--- NOTE | 2021-12-28 20:36 | PHA.MEDREC ---
MED REC COMPLETE, NO ISSUES Pharmacy Consult ? Medication Reconciliation Pharmacy has completed the medication reconciliation.
--- NOTE | 2021-12-28 21:08 | PC.NURSE ---
Care delayed due to this RN being in another room with a critical pt.
[2021-12-28 21:38] VITALS: BP 108/57; PULSE 72; RESP 16; TEMP 36.9; O2SAT 100
[2021-12-28 21:48] LABS: Glucose, Whole Blood 92 mg/dL (60-115)
[2021-12-28 23:48] VITALS: BP 107/52; PULSE 74; RESP 16; O2SAT 98
--- NOTE | 2021-12-29 01:05 | PC.NURSE ---
Pt. continues to rest comfortably at this time. Denies complaints
[2021-12-29 07:36] VITALS: BP 102/43; PULSE 66; RESP 16; TEMP 36.6; O2SAT 100
[2021-12-29 08:00] LABS: Basophils Absolute Auto 0.1 X10*3/uL (0.0-0.2); Basophils Percent Auto 0.5 % (0-2); Eosinophils Absolute Auto 0.2 X10*3/uL (0.0-0.4); Eosinophils Percent Auto 2.4 % (0-4); Hematocrit 30.1 % (37.0-47.0); Hemoglobin 9.4 g/dl (12.0-16.0); Imm Gran Abs Auto 0.02 X10*3/uL (0.00-0.03); Imm Gran Pct Auto 0.2 % (0.0-0.4); Lymphocytes Absolute Auto 4.2 X10*3/uL (1.2-4.9); Lymphocytes Percent Auto 42.8 % (20-40); MANUAL DIFF FLAG SCAN; Mean Corpuscular HGB Conc 31.2 g/dl (31.0-35.0); Mean Corpuscular Hemoglobin 24.7 pg (27.0-33.0); Mean Platelet Volume 8.6 fL (9.4-12.3); Monocytes Absolute Auto 0.7 X10*3/uL (0.1-1.2); Monocytes Percent Auto 7.4 % (2-11); Neutrophils Absolute Auto 4.6 x10*3/uL (2.0-8.3); Neutrophils Percent Auto 46.7 % (45-73); Platelet Count 398 X10*3/uL (160-400); Red Blood Count 3.81 X10*6/uL (4.20-5.50); SCAN SMEAR FLAG 1; White Blood Count 9.8 X10*3/uL (4.8-10.8)
--- NOTE | 2021-12-29 08:10 | PC.NURSE ---
pt is a/o x 4 no sob/corina speaks in full sentences. pt has abrasion to bill side of her tongue s/p seizure activity yesterday noted. lungs - cta. heart sounds regular abd soft, non-tender, bs + x 4 quads. pt c/o r lateral neck pain 10/10. no edema noted. pt aware of plan of care.
--- NOTE | 2021-12-29 08:13 | PC.NURSE ---
pt c/o slight anxiety to be medicated with prn klonopin.
[2021-12-29 08:21] LABS: SLIDE REVIEW VERIFIED
[2021-12-29] MEDS: 0.9 % Sodium Chloride Flush 3 ML SYRINGE IVFLUSH (08:21)
[2021-12-29] MEDS: FLUoxetine HCl 20 MG CAPSULE 40 MG PO (08:21)
[2021-12-29] MEDS: clonazePAM 0.5 MG TABLET PO (08:21)
[2021-12-29] MEDS: Acetaminophen 325 MG TABLET 650 MG PO ×2 (08:21→14:59)
[2021-12-29 08:24] LABS: Anion Gap 14 (12-20); Blood Urea Nitrogen 12 mg/dL (9-16); Calcium 8.7 mg/dL (8.4-10.2); Carbon Dioxide 21 mmol/L (22-29); Chloride 108 mmol/L (96-108); Estimated Glomerular Filt Rate > 60; Glucose Random 81 mg/dL (60-115); Sodium 139 mmol/L (135-145)
--- NOTE | 2021-12-29 08:56 | PC.NURSE ---
RN TO RN REPORT GIVEN TO KAMAR LR).
[2021-12-29 09:33] LABS: Glucose, Whole Blood 92 mg/dL (60-115)
--- NOTE | 2021-12-29 10:42 | PC.NURSE ---
Patient resting in NAD, neuros strong intact. Patient c/o of right sided neck pain and feeling sleepy.
--- NOTE | 2021-12-29 11:48 | P.CNNE_ITS ---
History of Present Illness Data of Consult Service Date: 12/29/21 Primary Care Provider: Roxie Elena MD HPI Reason for consult: seizure disorder 31 years old woman with underlying diagnosis of bipolar disorder usually taking fluoxetine and clonazepam 0.5 mg twice a day. She had run out of her medicines and had not taken clonazepam for couple of days but stated that this had happened before as she had taken clonazepam on p.r.n. basis. She did not have any previous history of seizure disorder. There was no family history of epilepsy except that her son suffered from febrile seizures. 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 She woke up in different part of Hospital, which was emergency room. There she was noted to have left gaze deviation and then another convulsion. She was treated with benzodiazepines. She did not have full recollection of what had happened. She denied any other drug use. Review of Systems Review of Systems: No recent cold or flu-like illness or exposure to new medicine PMFSH Past Medical History Medical History Anemia Asthma Bipolar 1 disorder COVID-19 vaccine administered Depression Environmental and seasonal allergies Gallstones GERD (gastroesophageal reflux disease) H. pylori infection Hypertrophic scar Smoker Tonsil and adenoid disease, chronic Family History Family History Maternal Aunt Ovarian cancer Maternal Grandmother Endometrial adenocarcinoma Mother Diabetes HTN (hypertension) Father Lung cancer Surgical History Surgical History History of esophagogastroduodenoscopy (EGD) Hx of section Hx of cholecystectomy Hx of hemorrhoidectomy (05/06/19) Hx of tonsillectomy Social History Social History Household Members: Children Housing: Apartment Do you presently have visiting nurse or other home services: No Alcohol intake: never Patient Tobacco Use Status: Current someday Tobacco user Tobacco use type: Cigarette Cigarettes Per Day: 5 Years Smoked: 15 e-Cigarette/Vaping Use: Never Used Second Hand Smoke Exposure: No Substance Use Type: Marijuana Current occupational status: other 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 Meds Allergies Allergy/AdvReac Type Severity Reaction Status Date / Time dog dander [DOG] Allergy Intermediate itching/hiv Verified 11/21/21 09:49 es kiwi [KIWI] Allergy Intermediate TONGUE Verified 11/21/21 09:49 TINGLING, HIVES, ITCHING latex Allergy Intermediate Hives, Verified 11/21/21 09:49 itching mushroom [MUSHROOM] Allergy Intermediate UNKNOWN Verified 11/21/21 09:49 Rabbit [RABBITS] Allergy Intermediate ITCHING, Verified 11/21/21 09:49 HIVES tramadol AdvReac Intermediate Nausea Verified 11/21/21 09:49 Active Medications: Current Medications Acetaminophen (Acetaminophen 325 Mg Tablet) 650 mg PO Q6H PRN PRN Reason: Pain, Mild (Pain Scale 1-3) Last Admin: 12/29/21 08:21 Dose: 650 mg Albuterol Sulfate (Albuterol Sulfate 90 Mcg 8 Gm Inhaler) 2 puff INHALE QID PRN PRN Reason: Shortness Of Breath Clonazepam (Clonazepam 0.5 Mg Tablet) 0.5 mg PO QID PRN PRN Reason: Anxiety Last Admin: 12/29/21 08:21 Dose: 0.5 mg Docusate Sodium (Docusate Sodium 100 Mg Capsule) 100 mg PO DAILY PRN PRN Reason: Constipation Fluoxetine HCl (Fluoxetine Hcl 20 Mg Capsule) 40 mg PO DAILY [facility] Last Admin: 12/29/21 08:21 Dose: 40 mg Fluticasone Propionate (Fluticasone Propionate Nasal 16 Gm [place]) 1 spray NOSTRIL-B DAILY [facility] Last Admin: 12/29/21 10:38 Dose: Not Given Olanzapine (Olanzapine 2.5 Mg Tablet) 2.5 mg PO BID PRN PRN Reason: MANIC AGITATION Olanzapine (Olanzapine 10 Mg Tablet) 10 mg PO BEDTIME [facility] Ondansetron HCl (Ondansetron Hcl 4 Mg/2 Ml Vial) 4 mg IVPUSH Q8H PRN PRN Reason: Nausea and Vomiting Pharmacy Consult (Consult Rx Perform Med Rec) 1 each MISCELLANE ONCE PRN PRN Reason: Consult order Sodium Chloride (0.9 % Sodium Chloride Flush 3 Ml Syringe) 3 ml IVFLUSH QSHIFT [facility] Last Admin: 12/29/21 08:21 Dose: 3 ml Home Medications Medication Instructions Recorded Confirmed Last Taken Type albuterol sulfate 90 mcg/actuation 2 puff inhalation QID PRN 05/30/20 12/28/21 Unknown History aerosol inhaler Shortness Of Breath epinephrine 0.3 mg/0.3 mL 0.3 mg IM Q10M PRN Anaphylaxis 08/08/20 12/28/21 Unknown History injection, auto-injector clonazepam 0.5 mg tablet 0.5 mg PO QID PRN Anxiety 06/26/21 12/28/21 Unknown History olanzapine 2.5 mg tablet 2.5 mg PO BID PRN MANIC AGITATION 06/26/21 12/28/21 Unknown History fluoxetine 20 mg capsule 40 mg PO DAILY 12/28/21 12/28/21 Unknown History fluticasone propionate 50 1 spray intranasal DAILY sinus 12/28/21 12/28/21 U nknown History mcg/actuation nasal congestion spray,suspension (Flonase Allergy Relief) olanzapine 10 mg tablet 10 mg PO BEDTIME 12/28/21 12/28/21 Unknown History Physical Exam Vital Signs: Vital Signs: Last Vital Signs Temp 97.9 F 12/29/21 07:36 Pulse 66 12/29/21 07:36 Resp 16 12/29/21 07:36 BP 102/43 L 12/29/21 07:36 Pulse Ox 100 12/29/21 07:36 O2 Del Method 12/29/21 07:36 BMI result Body Mass Index 27.1 Neuro: Other: she was alert and awake with normal spontaneity of speech fluency, comprehension and somewhat nervous affect. Face was symmetrical. Visual dosih are full. There was no focal weakness. Deep tendon reflexes were trace to 1+ with flexor plantars. [id number] testing was normal. Speech was normal. Results Labs CBC & Chem 7: 12/29/21 07:52 12/29/21 07:52 Labs: Short CBC 12/28/21 12/29/21 Range/Units 17:44 07:52 WBC 9.4 9.8 (4.8-10.8) X10*3/uL Hgb 10.1 L 9.4 L (12.0-16.0) g/dl Hct 31.5 L 30.1 L (37.0-47.0) % Plt Count 432 H 398 (160-400) X10*3/uL BMP 12/28/21 12/29/21 17:44 07:52 Sodium 136 139 Potassium 4.6 D 4.0 Chloride 104 108 Carbon Dioxide 20 L 21 L BUN 9 12 Creatinine 0.74 0.68 Calcium 9.5 8.7 D Liver Function 12/28/21 Range/Units 17:44 Total Bilirubin 0.2 (0.0-1.0) mg/dL Direct Bilirubin < 0.2 (0.0-0.5) mg/dL AST 17 (5-31) U/L ALT 7 (0-31) U/L Alkaline Phosphatase 52 (39-117) U/L Albumin 4.4 (3.5-5.0) g/dL Urine 12/28/21 Range/Units 18:28 Urine Color Yellow Urine Appearance Clear Urine pH 6.5 (5.0-9.0) Ur Specific [place] 1.010 (1.005-1.025) Urine Protein Negative (Neg-Trace) mg/dL Urine Glucose (UA) Negative (Negative) mg/dL Noncontrast head CT was reported normal but I had noted a parasagittal lesion probably a meningioma impacting the skull. Assessment and Plan (1) Seizure disorder: Status: Acute 31 years old woman with no personal history of seizure disorder was taking clonazepam for psychological condition when she ran out couple of days ago. She had skipped clonazepam in the past stating that many time she took it on as needed basis. She was at work in the hospital when she complained of not feeling well and then apparently had a seizure. It probably was a convulsion. She was brought to emergency room where she was noted to have left gaze deviation and then another seizure. Her examination at this time is nonfocal. Head CT is reported normal but there is a parasagittal lesion probably a meningioma. My recommendation is to obtain an MRI of brain with and without contrast and an EEG. She should be advised to not drive and be careful and not be involved in an activity that could put her life in danger such as swimming alone or sitting in a soaking tub alone. No antiepileptic is recommended yet. Procedures Date of Service Date of Service: 12/29/21
[2021-12-29 12:00] VITALS: BP 104/59; PULSE 74; RESP 18; TEMP 36.3
--- NOTE | 2021-12-29 12:07 | MHC.CM.PN ---
[facility] DELIVERED CM MET WITH PT WHO LIVES IN APARTMENT WITH 4 CHILDREN. NO DME, NO SERVICES. NO HCP AND DECLINES TO FILL ONE OUT. COVID VAX X 2 WITH [facility]. PCP JULEE BROWN AT [facility]. FATHER WILL TRANSP[place]
--- NOTE | 2021-12-29 13:40 | HO.PM.IMPN ---
Subjective Subjective Date of Service: 12/29/21 Interval History: seizure episode Review of Systems seems improving no new episode overnight no fever or chills Physical Exam Vital Signs: Vital Signs: Last Vital Signs Temp 97.4 F 12/29/21 12:00 Pulse 74 12/29/21 12:00 Resp 18 12/29/21 12:00 BP 104/59 L 12/29/21 12:00 Pulse Ox 100 12/29/21 07:36 O2 Del Method 12/29/21 07:36 BMI result Body Mass Index 27.1 Appearance: Alert.? Oriented X3.? not in distress mild neck soarness . cvs: rrr, [id number] , no murmur res: clear to auscultation ,no rhonchii or wheezing abd: no rebound or guarding ,nt, bs present. ext pulses present , no cyanosis . neuro: axo3 , nonfocal. All Objective Data Active Medications Acetaminophen (Acetaminophen 325 Mg Tablet) 650 mg PO Q6H PRN PRN Reason: Pain, Mild (Pain Scale 1-3) Last Admin: 12/29/21 08:21 Dose: 650 mg Documented By: DAVID Albuterol Sulfate (Albuterol Sulfate 90 Mcg 8 Gm Inhaler) 2 puff INHALE QID PRN PRN Reason: Shortness Of Breath Clonazepam (Clonazepam 0.5 Mg Tablet) 0.5 mg PO QID PRN PRN Reason: Anxiety Last Admin: 12/29/21 08:21 Dose: 0.5 mg Documented By: DAVID Docusate Sodium (Docusate Sodium 100 Mg Capsule) 100 mg PO DAILY PRN PRN Reason: Constipation Fluoxetine HCl (Fluoxetine Hcl 20 Mg Capsule) 40 mg PO DAILY [facility] Last Admin: 12/29/21 08:21 Dose: 40 mg Documented By: DAVID Fluticasone Propionate (Fluticasone Propionate Nasal 16 Gm [place]) 1 spray NOSTRIL-B DAILY [facility] Last Admin: 12/29/21 10:38 Dose: Not Given Documented By: MARLENA Non-Admin Reason: in ED Olanzapine (Olanzapine 2.5 Mg Tablet) 2.5 mg PO BID PRN PRN Reason: MANIC AGITATION Olanzapine (Olanzapine 10 Mg Tablet) 10 mg PO BEDTIME [facility] Ondansetron HCl (Ondansetron Hcl 4 Mg/2 Ml Vial) 4 mg IVPUSH Q8H PRN PRN Reason: Nausea and Vomiting Pharmacy Consult (Consult Rx Perform Med Rec) 1 each MISCELLANE ONCE PRN PRN Reason: Consult order Sodium Chloride (0.9 % Sodium Chloride Flush 3 Ml Syringe) 3 ml IVFLUSH QSHIFT [facility] Last Admin: 12/29/21 08:21 Dose: 3 ml Documented By: JEFFREYOC Labs CBC & Chem 7: 12/29/21 07:52 12/29/21 07:52 Labs: Laboratory Results - last 24 hr 12/28/21 12/28/21 12/28/21 16:47 17:44 17:44 MCV 77.6 L MCH 24.9 L MCHC 32.1 RDW 17.8 H Plt Count 432 H MPV 8.5 L Immature Gran % (Auto) 0.4 Neut % (Auto) 69.2 Lymph % (Auto) 23.2 [place] % (Auto) 6.0 Eos % (Auto) 0.8 Baso % (Auto) 0.4 Lymph # (Auto) 2.2 [place] # (Auto) 0.6 Eos # (Auto) 0.1 Baso # (Auto) 0.0 Abs Immat Gran (auto) 0.04 H Absolute Neuts (auto) 6.5 Absolute Nucleated RBC 0.000 Nucleated RBC % (auto) 0.0 Smear Tech's Comments Anion Gap 17 Estim Creat Clear Calc 83.6 Estimated GFR > 60 POC Glucose 92 Random Glucose 94 Lactic Acid Calcium 9.5 Total Bilirubin 0.2 Direct Bilirubin < 0.2 AST 17 ALT 7 Alkaline Phosphatase 52 Total Protein 7.3 Albumin 4.4 Lipase 34 Urine Color Urine Appearance Urine pH Ur Specific [place] Urine Protein Urine Glucose (UA) Urine Ketones Urine Blood Urine Nitrite Ur Leukocyte Esterase Urine Opiates Screen Urine Fentanyl Screen Ur Barbiturates Screen Ur Phencyclidine Scrn Ur Amphetamines Screen U Benzodiazepines Scrn Urine Cocaine Screen U Marijuana (THC) Screen COVID-19 (HANNA) COVID-19 Clin Com 12/28/21 12/28/21 12/28/21 17:44 17:44 18:28 MCV MCH MCHC RDW Plt Count MPV Immature Gran % (Auto) Neut % (Auto) Lymph % (Auto) [place] % (Auto) Eos % (Auto) Baso % (Auto) Lymph # (Auto) [place] # (Auto) Eos # (Auto) Baso # (Auto) Abs Immat Gran (auto) Absolute Neuts (auto) Absolute Nucleated RBC Nucleated RBC % (auto) Smear Tech's Comments Anion Gap Estim Creat Clear Calc Estimated GFR POC Glucose Random Glucose Lactic Acid 1.3 Calcium Total Bilirubin Direct Bilirubin AST ALT Alkaline Phosphatase Total Protein Albumin Lipase Urine Color Yellow Urine Appearance Clear Urine pH 6.5 Ur Specific [place] 1.010 Urine Protein Negative Urine Glucose (UA) Negative Urine Ketones Negative Urine Blood Negative Urine Nitrite Negative Ur Leukocyte Esterase Negative Urine Opiates Screen Urine Fentanyl Screen Ur Barbiturates Screen Ur Phencyclidine Scrn Ur Amphetamines Screen U Benzodiazepines Scrn Urine Cocaine Screen U Marijuana (THC) Screen COVID-19 (HANNA) Negative COVID-Jianjian Com See Note 12/28/21 12/28/21 12/29/21 18:28 21:41 07:52 MCV 79.0 L MCH 24.7 L MCHC 31.2 RDW 18.0 H Plt Count 398 MPV 8.6 L Immature Gran % (Auto) 0.2 Neut % (Auto) 46.7 Lymph % (Auto) 42.8 H [place] % (Auto) 7.4 Eos % (Auto) 2.4 Baso % (Auto) 0.5 Lymph # (Auto) 4.2 [place] # (Auto) 0.7 Eos # (Auto) 0.2 Baso # (Auto) 0.1 Abs Immat Gran (auto) 0.02 Absolute Neuts (auto) 4.6 Absolute Nucleated RBC 0.000 Nucleated RBC % (auto) 0.0 Smear Tech's Comments VERIFIED Anion Gap Estim Creat Clear Calc Estimated GFR POC Glucose 92 Random Glucose Lactic Acid Calcium Total Bilirubin Direct Bilirubin AST ALT Alkaline Phosphatase Total Protein Albumin Lipase Urine Color Urine Appearance Urine pH Ur Specific [place] Urine Protein Urine Glucose (UA) Urine Ketones Urine Blood Urine Nitrite Ur Leukocyte Esterase Urine Opiates Screen Not Detected Urine Fentanyl Screen Not Detected Ur Barbiturates Screen Not Detected Ur Phencyclidine Scrn Not Detected Ur Amphetamines Screen Not Detected U Benzodiazepines Scrn POSITIVE H Urine Cocaine Screen Not Detected U Marijuana (THC) Screen Not Detected COVID-19 (HANNA) COVID-iConText 12/29/21 07:52 MCV MCH MCHC RDW Plt Count MPV Immature Gran % (Auto) Neut % (Auto) Lymph % (Auto) [place] % (Auto) Eos % (Auto) Baso % (Auto) Lymph # (Auto) [place] # (Auto) Eos # (Auto) Baso # (Auto) Abs Immat Gran (auto) Absolute Neuts (auto) Absolute Nucleated RBC Nucleated RBC % (auto) Smear Tech's Comments Anion Gap 14 Estim Creat Clear Calc 91.0 Estimated GFR > 60 POC Glucose Random Glucose 81 Lactic Acid Calcium 8.7 D Total Bilirubin Direct Bilirubin AST ALT Alkaline Phosphatase Total Protein Albumin Lipase Urine Color Urine Appearance Urine pH Ur Specific [place] Urine Protein Urine Glucose (UA) Urine Ketones Urine Blood Urine Nitrite Ur Leukocyte Esterase Urine Opiates Screen Urine Fentanyl Screen Ur Barbiturates Screen Ur Phencyclidine Scrn Ur Amphetamines Screen U Benzodiazepines Scrn Urine Cocaine Screen U Marijuana (THC) Screen COVID-19 (HANNA) COVID-19 Clin Com Assessment and Plan Plan 31-year-old female with past medical history of bipolar disorder, depression anxiety, had to witness seizure episodes. # drug withdrawal seizure - seizures likely secondary to benzo withdrawal - will resume benzodiazepine - patient has an appointment to see psychiatrist on Saturday - continue all her other psych meds neuro eval pending-mri/eeg added #? bipolar disorder - continue olanzapine and fluoxetine # asthma - not in exacerbation - continue p.r.n. inhaler DVT prophylaxis:? Early ambulation inpatient need-seizer -need workup/neuro followup Quality Stroke Does the patient have a stroke diagnosis?: No VTE Prior VTE?: No VTE Risk Level:: Medical - low VTE Device Contraindication: Treatment Not Indicated VTE Drug Contraindication: Treatment Not Indicated
[2021-12-29 16:00] VITALS: BP 120/58; PULSE 78; RESP 17; TEMP 36.6; O2SAT 100
--- NOTE | 2021-12-29 17:19 | PC.NURSE ---
Patient requesting to leave AMA. Patient educated on the risks. MD garcia aware and spoke with patient. Patietn denies headache dizziness n.v at thsi time. Ambulates steady gait no issues.,
--- NOTE | 2021-12-30 14:35 | P.DS_ITS ---
DS: Providers Provider Date of Service: 12/30/21 Date of admission: 12/28/21 19:49 Primary care physician: Roxie Elena MD Consults: 12/29/21 08:04 Consult to Neurology Routine Consulting Provider: [facility] Reason for consultation: seizers-? drug induced Has provider been notified: No DS: Diagnosis Discharge Diagnosis (1) Seizure disorder: Status: Acute (2) Drug withdrawal seizure: Status: Acute DS: Summary Hospital Course Hospital Course: 31-year-old female with past medical history of bipolar disorder, depression, and asthma presents to the hospital after experiencing seizure while working here at [facility].? Patient reports that she is on fluoxetine and clonazepam but has not had access to her medications for the past 1 week due to her provider leaving.? She has not been able to get any new scripts and will be able to getting use script until her appointment on Saturday.? She reports last used clonazepam about 3 days ago where she had few pills left over.? She does not remember the event, last thing she remembers was working on the floor, next thing she remembers is waking up in the ED feeling confused.? She had a 2nd episode while in the ED.? Patient was given Versed, clonazepam was continued. Patient otherwise denies any head injury, she denies any chest pain, no headache or change in vision, no abdominal pain nausea or vomiting, no diarrhea constipation, no lower extremity edema On arrival to the ED patient hemodynamically stable with no significant abnormal vitals Labs reviewed, show unremarkable findings Head CT negative. Hospital course: Patient was admitted due to possible disease seizure episodes: Workup including CT head-showed possible parasagittal lesion probably a meningioma-seen by Neurology and further workup including MRI and EEG was recommended but patient does not want stay for further workup and management-risk of leaving against medical advice including another seizure episode, aspiration, rhabdomyolysis including was discussed patient still wants to leave she understand and at alert oriented x3. Staff was present during the conversation. Patient was strongly advised if any new symptoms go to nearest emergency room for further evaluation. Currently as per neuro evaluation no anti epileptics is recommended. Also it it was thought missing her clonazepam and fluoxetine might have contributed to seizure also. ?She should be advised to not drive and be careful and not be involved in an activity that could put her life in danger such as swimming alone or sitting in a soaking tub alone. in addition patient was advised to follow up with neurology Time Spent with Patient Time attestation: Total time spent providing and/or coordinating discharge services: Discharge coordination time: Greater than 30 minutes Quality: Safe Use of Opioids Does Pt have an Active Cancer Diagnosis on the Problem List?: No Quality: Stroke Does the patient have a stroke diagnosis?: No Physical Exam Vital Signs: Vital Signs: Last Vital Signs Temp 97.8 F 12/29/21 16:00 Pulse 78 12/29/21 16:00 Resp 17 12/29/21 16:00 BP 120/58 L 12/29/21 16:00 Pulse Ox 100 12/29/21 16:00 O2 Del Method 12/29/21 16:00 BMI result Body Mass Index 27.1 Appearance: Alert.? Oriented X3.? not in distress.? cvs: rrr, [id number] . res: clear to auscultation ,no rhonchii or wheezing abd: no rebound or guarding ,nt, bs present. ext pulses present , no cyanosis . neuro: axo3 , nonfocal. DS: Data Additional Comments Additional comments: 12/28/21 12/28/21 12/28/21 ? 16:47 17:44 17:44 MCV ? ?77.6 L ? MCH ? ?24.9 L ? MCHC ? ?32.1 ? RDW ? ?17.8 H ? Plt Count ? ?432 H ? MPV ? ?8.5 L ? Immature Gran % (Auto) ? ?0.4 ? Neut % (Auto) ? ?69.2 ? Lymph % (Auto) ? ?23.2 ? [place] % (Auto) ? ?6.0 ? Eos % (Auto) ? ?0.8 ? Baso % (Auto) ? ?0.4 ? Lymph # (Auto) ? ?2.2 ? [place] # (Auto) ? ?0.6 ? Eos # (Auto) ? ?0.1 ? Baso # (Auto) ? ?0.0 ? Abs Immat Gran (auto) ? ?0.04 H ? Absolute Neuts (auto) ? ?6.5 ? Absolute Nucleated RBC ? ?0.000 ? Nucleated RBC % (auto) ? ?0.0 ? Smear Tech's Comments ? ? ? Anion Gap ? ? ?17 Estim Creat Clear Calc ? ? ?83.6 Estimated GFR ? ? ?> 60 POC Glucose ?92 ? ? Random Glucose ? ? ?94 Lactic Acid ? ? ? Calcium ? ? ?9.5 Total Bilirubin ? ? ?0.2 Direct Bilirubin ? ? ?< 0.2 AST ? ? ?17 ALT ? ? ?7 Alkaline Phosphatase ? ? ?52 Total Protein ? ? ?7.3 Albumin ? ? ?4.4 Lipase ? ? ?34 Urine Color ?B ? ? Urine Appearance ? ? ? Urine pH ? ? ? Ur Specific [place] ? ? ? Urine Protein ? ? ? Urine Glucose (UA) ? ? ? Urine Ketones ? ? ? Urine Blood ? ? ? Urine Nitrite ? ? ? Ur Leukocyte Esterase ? ? ? Urine Opiates Screen ? ? ? Urine Fentanyl Screen ? ? ? Ur Barbiturates Screen ? ? ? Ur Phencyclidine Scrn ? ? ? Ur Amphetamines Screen ? ? ? U Benzodiazepines Scrn ? ? ? Urine Cocaine Screen ? ? ? U Marijuana (THC) Screen ? ? ? COVID-19 ([facility]ANNA) ? ? ? COVID-19 Clin Com ? 12/28/21 12/28/21 12/28/21 ? 17:44 17:44 18:28 MCV ? ? ? MCH ? ? ? MCHC ? ? ? RDW ? ? ? Plt Count ? ? ? MPV ? ? ? Immature Gran % (Auto) ? ? ? Neut % (Auto) ? ? ? Lymph % (Auto) ? ? ? [place] % (Auto) ? ? ? Eos % (Auto) ? ? ? Baso % (Auto) ? ? ? Lymph # (Auto) ? ? ? [place] # (Auto) ? ? ? Eos # (Auto) ? ? ? Baso # (Auto) ? ? ? Abs Immat Gran (auto) ? ? ? Absolute Neuts (auto) ? ? ? Absolute Nucleated RBC ? ? ? Nucleated RBC % (auto) ? ? ? Smear Tech's Comments ? ? ? Anion Gap ? ? ? Estim Creat Clear Calc ? ? ? Estimated GFR ? ? ? POC Glucose ? ? ? Random Glucose ? ? ? Lactic Acid ?1.3 ? ? Calcium ? ? ? Total Bilirubin ? ? ? Direct Bilirubin ? ? ? AST ? ? ? ALT ? ? ? Alkaline Phosphatase ? ? ? Total Protein ? ? ? Albumin ? ? ? Lipase ? ? ? Urine Color ? ? ?Yellow Urine Appearance ? ? ?Clear Urine pH ? ? ?6.5 Ur Specific [place] ? ? ?1.010 Urine Protein ? ? ?Negative Urine Glucose (UA) ? ? ?Negative Urine Ketones ? ? ?Negative Urine Blood ? ? ?Negative Urine Nitrite ? ? ?Negative Ur Leukocyte Esterase ? ? ?Negative Urine Opiates ScreenB ? ? ? Urine Fentanyl Screen ? ? ? Ur Barbiturates Screen ? ? ? Ur Phencyclidine Scrn ? ? ? Ur Amphetamines Screen ? ? ? U Benzodiazepines Scrn ? ? ? Urine Cocaine Screen ? ? ? D U Marijuana (THC) Screen ? ? ? COVID-19 ([facility]ANNA) ? ?Negative ? COVID-19 Clin Com ?B ?See Note ? ? 12/28/21 12/28/21 12/29/21 ? 18:28 21:41 07:52 MCV ? ? ?79.0 L MCH ? ? ?24.7 L MCHC ? ? ?31.2 RDW ? ? ?18.0 H Plt Count ? ? ?398 MPV ? ? ?8.6 L Immature Gran % (Auto) ? ? ?0.2 Neut % (Auto) ? ? ?46.7 Lymph % (Auto) ? ? ?42.8 H [place] % (Auto) ? ? ?7.4 Eos % (Auto) ? ? ?2.4 Baso % (Auto) ? ? ?0.5 Lymph # (Auto) ? ? ?4.2 [place] # (Auto) ? ? ?0.7 Eos # (Auto) ? ? ?0.2 Baso # (Auto) ? ? ?0.1 Abs Immat Gran (auto) ? ? ?0.02 Absolute Neuts (auto) ? ? ?4.6 Absolute Nucleated RBC ? ? ?0.000 Nucleated RBC % (auto) ? ? ?0.0 Smear Tech's Comments ? ? ?VERIFIED Anion Gap ? ? ? Estim Creat Clear Calc ? ? ? Estimated GFR ? ? ? POC Glucose ? ?92 ? Random Glucose ? ? ? Lactic Acid ? ? ? Calcium ? ? ? Total Bilirubin ? ? ? Direct Bilirubin ? ? ? AST ? ? ? ALT ? ? ? Alkaline Phosphatase ? ? ? Total Protein ? ? ? Albumin ? ? ? Lipase ? ? ? Urine Color ? ? ? Urine Appearance ? ? ? Urine pH ? ? ? Ur Specific [place] ? ? ? Urine Protein ? ? ? Urine Glucose (UA) ? ? ? Urine Ketones ? ? ? Urine Blood ?B ? ? Urine Nitrite ? ? ? Ur Leukocyte Esterase ? ? ? Urine Opiates Screen ?Not Detected ? ? Urine Fentanyl Screen ?Not Detected ? ? Ur Barbiturates Screen ?Not Detected ? ? Ur Phencyclidine Scrn ?Not DetectedB ? ? Ur Amphetamines Screen ?Not Detected ? ? U Benzodiazepines Scrn ?POSITIVE H ? ? Urine Cocaine Screen ?Not Detected ? ? U Marijuana (THC) Screen ?Not Detected ? ? COVID-19 ([facility]ANNA) ? ? ? COVID-19 Clin Com ? 12/29/21 ? 07:52 MCV ? MCH ? MCHC ? RDW ? Plt Count ? MPV ? Immature Gran % (Auto) ? Neut % (Auto) ? Lymph % (Auto) ? [place] % (Auto) ? Eos % (Auto) ? Baso % (Auto) ? D Lymph # (Auto) ? [place] # (Auto) ? Eos # (Auto) ? Baso # (Auto) ? Abs Immat Gran (auto) ? Absolute Neuts (auto) ? Absolute Nucleated RBC ? Nucleated RBC % (auto) ? Smear Tech's Comments ? Anion Gap ?14 Estim Creat Clear Calc ?91.0 Estimated GFR ?> 60 POC Glucose ? Random Glucose ?81 Lactic Acid ? Calcium ?8.7? D Ct head: FINDINGS: There is no evidence of acute intracranial hemorrhage or territorial infarction. No abnormal mass-effect or midline shift is seen. [place] to white matter differentiation is well preserved. No extra-axial fluid collections are identified. The ventricles are normal in size. There is no abnormal attenuation within the brain parenchyma. There is no osseous abnormality. The mastoid air cells and visualized portions of the paranasal sinuses are well-aerated. CT/CT cervical spine wo IV con IMPRESSION: Mild degenerative changes. No fracture or dislocation.? ? Fleischner guidelines were followed. Discharge Plan Discharge Patient Disposition: Left Against Medical Advice Referrals: Roxie Elena MD [Primary Care Provider] - 1 Week Discharge Medications: Continued olanzapine 2.5 mg Tablet 2.5 mg PO BID PRN (Reason: MANIC AGITATION) albuterol sulfate 90 mcg/actuation HFA aerosol inhaler 2 puff inhalation QID PRN (Reason: Shortness Of Breath) epinephrine 0.3 mg/0.3 mL Auto-Injector 0.3 mg IM Q10M PRN (Reason: Anaphylaxis) olanzapine 10 mg Tablet 10 mg PO BEDTIME fluticasone propionate [Flonase Allergy Relief] 50 mcg/actuation spray,suspension 1 spray intranasal DAILY Rx Instructions: administer into each nostril clonazepam 0.5 mg Tablet 0.5 mg PO QID PRN (Reason: Anxiety) Qty: 14 0RF fluoxetine 20 mg Capsule 40 mg PO DAILY Qty: 14 0RF Discharge Orders: Discharge Order (Routine); Ordered 12/30/21 Ordered By: Ermelinda Beaver Care Plan Goals: Patient was admitted due to possible disease seizure episodes: Workup including CT head-showed possible parasagittal lesion probably a meningioma-seen by Neurology and further workup including MRI and EEG was recommended but patient does not want stay for further workup and management-risk of leaving against medical advice including another seizure episode, aspiration, rhabdomyolysis including was discussed patient still wants to leave she understand and at alert oriented x3. Staff was present during the conversation. Patient was strongly advised if any new symptoms go to nearest emergency room for further evaluation. Currently as per neuro evaluation no anti epileptics is recommended. Also it it was thought missing her clonazepam and fluoxetine might have contributed to seizure also. ?She should be advised to not drive and be careful and not be involved in an activity that could put her life in danger such as swimming alone or sitting in a soaking tub alone Health Concerns: As above. Plan of Treatment: As above. Assessment: As above. Discharge Date/Time: 12/29/21 17:37
== END 2021-12-29 17:37 | disposition left against medical advice (07) ==
LOC: HO.ED 19:16 → HO.EDOVER 20:10 → HO.S3 12-29 07:00
PROVIDERS: Admitting Provider Internal Medicine; Emergency Provider Student in an Organized Health Care Education/Training Program; PCP General Practice; Visit Provider Internal Medicine
DX: G40.909 Epilepsy, unspecified, not intractable, without status epilepticus (principal); M54.2 Cervicalgia; R51.9 Headache, unspecified; F19.939 Other psychoactive substance use, unspecified with withdrawal, unspecified; F17.210 Nicotine dependence, cigarettes, uncomplicated; Z20.822 Contact with and (suspected) exposure to COVID-19; Z71.6 Tobacco abuse counseling; Z79.899 Other long term (current) drug therapy
CPT/HCPCS: 36415; 70450; 72125; 80048; 80076; 80307; 81003; 82947; 83605; 83690; 85025; 87635; 93005; 96374; 96375; 99218; 99285; J1885; J2250

== ENCOUNTER 2022-01-01 14:07 | Emergency (ER) | payer MEDICAID, SELFPAY ==
--- NOTE | 2022-01-01 | ECG_ITS ---
Test Reason : SEIZURE Blood Pressure : / mmHG Vent. Rate : 080 BPM Atrial Rate : 080 BPM P-R Int : 156 ms QRS Dur : 078 ms QT Int : 368 ms P-R-T Axes : 069 081 061 degrees QTc Int : 424 ms Normal sinus rhythm RSR' or QR pattern in V1 suggests right ventricular conduction delay Otherwise normal ECG When compared with ECG of 28-DEC-2021 21:32, No significant change was found Referred By: Generic ED Physician Electronically Signed By:LARY WATSON MD
--- NOTE | ~2022-01-01 | XR_ITS ---
EXAMINATION: XR CERVICAL SPINE CLINICAL INFORMATION: Pain after falling. Neck pain COMPARISON: CT cervical spine 12/29/2021 TECHNIQUE: 3 views of the cervical spine were obtained. FINDINGS: Prevertebral soft tissues normal. There is moderate disc space narrowing C5-C6 but no fracture or destructive process. XR/XR cervical spine 3V IMPRESSION: Degenerative change noted.
[2022-01-01 15:21] VITALS: BP 140/62; PULSE 85; RESP 20; TEMP 37.1; O2SAT 100; BMI 27.1
[2022-01-01 15:41] LABS: MANUAL DIFF FLAG NO
[2022-01-01 15:42] LABS: Basophils Percent Auto 0.4 % (0-2); Eosinophils Absolute Auto 0.2 X10*3/uL (0.0-0.4); Eosinophils Percent Auto 1.6 % (0-4); Hemoglobin 11.2 g/dl (12.0-16.0); Imm Gran Abs Auto 0.03 X10*3/uL (0.00-0.03); Imm Gran Pct Auto 0.3 % (0.0-0.4); Lymphocytes Absolute Auto 2.9 X10*3/uL (1.2-4.9); Lymphocytes Percent Auto 28.4 % (20-40); Mean Corpuscular Hemoglobin 24.9 pg (27.0-33.0); Mean Platelet Volume 8.6 fL (9.4-12.3); Monocytes Absolute Auto 0.7 X10*3/uL (0.1-1.2); Monocytes Percent Auto 6.5 % (2-11); Neutrophils Absolute Auto 6.5 x10*3/uL (2.0-8.3); Neutrophils Percent Auto 62.8 % (45-73); Platelet Count 451 X10*3/uL (160-400); Red Blood Count 4.49 X10*6/uL (4.20-5.50); Red Cell Distribution Width 18.3 % (11.0-16.0); White Blood Count 10.3 X10*3/uL (4.8-10.8)
[2022-01-01 15:57] LABS: Anion Gap 16 (12-20); Blood Urea Nitrogen 11 mg/dL (9-16); Calcium 9.9 mg/dL (8.4-10.2); Carbon Dioxide 24 mmol/L (22-29); Chloride 103 mmol/L (96-108); Creatinine Clr Calc Pharmacy 77.4; Estimated Glomerular Filt Rate > 60; Glucose Random 95 mg/dL (60-115); Potassium 4.6 mmol/L (3.3-5.1); Sodium 138 mmol/L (135-145)
== END 2022-01-01 23:51 | disposition left against medical advice (07) ==
PROVIDERS: Emergency Provider Emergency Medicine; PCP General Practice
DX: G40.909 Epilepsy, unspecified, not intractable, without status epilepticus (principal); M54.2 Cervicalgia; R51.9 Headache, unspecified; F17.210 Nicotine dependence, cigarettes, uncomplicated; F12.90 Cannabis use, unspecified, uncomplicated
CPT/HCPCS: 36415; 72040; 80048; 85025; 93005; 99283

== ENCOUNTER 2022-01-02 14:55 | Observation (INO) | payer MEDICAID, SELFPAY ==
--- NOTE | ~2022-01-02 | MR_ITS ---
EXAMINATION: MR BRAIN WITHOUT AND WITH CONTRAST CLINICAL INFORMATION: Seizure. COMPARISON: CT scan of the head 12/28/2021. TECHNIQUE: Multiplanar MR imaging of the brain was performed without and with contrast. A total of 6 mL Gadavist was utilized for this examination. FINDINGS: Dedicated coronal oblique imaging through the temporal lobes reveals symmetric size, signal intensity, and morphological appearance of the hippocampal formations. No evidence of mesial temporal sclerosis. No identifiable malformation of cortical development. Postcontrast images reveal no abnormal intracranial mass or enhancement. There is no intracranial mass effect or midline shift. No abnormal extra-axial collection. Lateral and third ventricles are proportionate to the subarachnoid spaces. No hydrocephalus. Midline structures including the cervicomedullary junction are normal. No acute bone marrow signal changes. There is no acute territorial infarct. No pathological magnetic susceptibility artifact. Intracranial vascular flow voids are grossly maintained. There is no mastoid or middle ear effusion. Right maxillary sinus atelectasis. Globes and orbits are symmetric. MR/MR head/brain wo/w con IMPRESSION: Unremarkable brain MRI. Specifically no discrete anatomic finding to provide an explanation for this patient's seizures.
[2022-01-02 15:35] VITALS: BP 131/75; PULSE 76; RESP 18; TEMP 36.8; O2SAT 99; BMI 26.2
[2022-01-02 16:43] LABS: Hematocrit 36.1 % (37.0-47.0); Hemoglobin 11.4 g/dl (12.0-16.0); Mean Corpuscular HGB Conc 31.6 g/dl (31.0-35.0); Mean Corpuscular Hemoglobin 24.7 pg (27.0-33.0); Mean Corpuscular Volume 78.1 fL (80.0-98.0); Mean Platelet Volume 8.8 fL (9.4-12.3); Platelet Count 448 X10*3/uL (160-400); Red Blood Count 4.62 X10*6/uL (4.20-5.50); Red Cell Distribution Width 18.2 % (11.0-16.0); White Blood Count 9.4 X10*3/uL (4.8-10.8)
[2022-01-02 16:58] LABS: COVID-19 Test Negative (Negative); IDNOW Serial# 16C4AD1C
[2022-01-02 17:01] LABS: Anion Gap 17 (12-20); Blood Urea Nitrogen 11 mg/dL (9-16); Calcium 9.9 mg/dL (8.4-10.2); Carbon Dioxide 23 mmol/L (22-29); Chloride 102 mmol/L (96-108); Creatinine Clr Calc Pharmacy 81.6; Estimated Glomerular Filt Rate > 60; Glucose Random 149 mg/dL (60-115); Potassium 4.1 mmol/L (3.3-5.1); Sodium 138 mmol/L (135-145)
[2022-01-02 21:35] VITALS: BP 132/83; PULSE 79; RESP 18; TEMP 36.2; O2SAT 99
--- NOTE | 2022-01-02 21:51 | ED.SEIZURE ---
HPI - Seizure General Chief Complaint: Seizure Stated Complaint: seizures Time Seen by Provider: 01/02/22 20:42 History of Present Illness HPI Narrative: Patient is a 31-year-old female with a history of bipolar disorder. Baseline is on olanzapine, fluoxetine, clonazepam. Patient have not taken clonazepam for the last week. Was noted to have a seizure 1 week ago. At that time it was in the hospital was noted to be likely a tonic clonic seizure. Patient woke up in the emergency department. Was admitted to the hospital had a CT scan of the head done which showed a possible meningioma. Neurology evaluated patient recommended for patient to get an MRI, EEG. Patient had some residential child care counselor issues decided to leave against medical advice last Saturday. Presented back today because she had a seizure yesterday. Patient is unable to recall the exact event that transpired. Patient remember being found on the ground confused. Remember tongue bite. There is no incontinence. Patient is from home. No other recreational drug use. No fever no chills no cough no congestion or nausea no vomiting. Patient is from home. Related Data Home Medications Medication Instructions Recorded Confirmed albuterol sulfate 90 mcg/actuation 2 puff inhalation QID PRN 05/30/20 12/28/21 aerosol inhaler Shortness Of Breath epinephrine 0.3 mg/0.3 mL 0.3 mg IM Q10M PRN Anaphylaxis 08/08/20 12/28/21 injection, auto-injector olanzapine 2.5 mg tablet 2.5 mg PO BID PRN MANIC AGITATION 06/26/21 12/28/21 fluticasone propionate 50 1 spray intranasal DAILY sinus 12/28/21 12/28/21 mcg/actuation nasal congestion spray,suspension (Flonase Allergy Relief) olanzapine 10 mg tablet 10 mg PO BEDTIME 12/28/21 12/28/21 Previous Rx's Medication Instructions Recorded clonazepam 0.5 mg tablet 0.5 mg PO QID PRN Anxiety #14 tabs 12/29/21 fluoxetine 20 mg capsule 40 mg PO DAILY #14 caps 12/29/21 Allergies Allergy/AdvReac Type Severity Reaction Status Date / Time dog dander [DOG] Allergy Intermediate itching/hiv Verified 11/21/21 09:49 es kiwi [KIWI] Allergy Intermediate TONGUE Verified 11/21/21 09:49 TINGLING, HIVES, ITCHING latex Allergy Intermediate Hives, Verified 11/21/21 09:49 itching mushroom [MUSHROOM] Allergy Intermediate UNKNOWN Verified 11/21/21 09:49 Rabbit [RABBITS] Allergy Intermediate ITCHING, Verified 11/21/21 09:49 HIVES tramadol AdvReac Intermediate Nausea Verified 11/21/21 09:49 PMFSH Past Medical History Attestation statement: The following information was validated with the patient. Medical History Anemia Asthma Bipolar 1 disorder COVID-19 vaccine administered Depression Environmental and seasonal allergies Gallstones GERD (gastroesophageal reflux disease) H. pylori infection Hypertrophic scar Smoker Tonsil and adenoid disease, chronic Surgical History History of esophagogastroduodenoscopy (EGD) Hx of section Hx of cholecystectomy Hx of hemorrhoidectomy (05/06/19) Hx of tonsillectomy Family History Family History Maternal Aunt Ovarian cancer Maternal Grandmother Endometrial adenocarcinoma Mother Diabetes HTN (hypertension) Father Lung cancer Social History Social History Household Members: Children Housing: Apartment Do you presently have visiting nurse or other home services: No Alcohol intake: never Patient Tobacco Use Status: Current someday Tobacco user Tobacco use type: Cigarette Cigarettes Per Day: 5 Years Smoked: 15 e-Cigarette/Vaping Use: Never Used Second Hand Smoke Exposure: No Substance Use Type: Marijuana Advance Directives: No Advance Directives Information Provided: No service: No Current occupational status: employed and other 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 Oriented X3. No acute distress. Eyes: Pupils equal, round and reactive to light. ENT: Pharynx normal. Neck: Normal inspection. Neck supple. No lymph nodes noted. No crepitus CVS: Normal heart rate and rhythm. Pulses normal. Normal S1 and S2 Respiratory: No respiratory distress. Breath sounds normal. No Wheezing. No rales Abdomen: Soft and nontender. No rigidity. No distention. good BS x4 Skin: Skin warm and dry. Normal skin color. Normal skin turgor. Extremities: No lower extremity edema. Neurovascular intact to all extremities. No Lacerations. No Rash Neuro: Oriented X 3. No motor deficit. No sensory deficit. Moving all extermities. No slurred speech MDM - Seizure MDM Narrative Medical decision making narrative: Well appearing neurologically intact. In no acute distress. Now had 2 seizures. Will admit patient for full workup as patient changed her mind. Electrolytes are unremarkable. Currently in stable condition. Medical Records Attestation: I reviewed the patient's medical records. Lab Data Attestation: I reviewed the patient's lab results. Result diagrams: 01/02/22 16:37 01/02/22 16:37 Labs: Lab Results 01/02/22 01/02/22 01/02/22 Range/Units 16:37 16:37 16:37 WBC 9.4 (4.8-10.8) X10*3/uL RBC 4.62 (4.20-5.50) X10*6/uL Hgb 11.4 L (12.0-16.0) g/dl Hct 36.1 L (37.0-47.0) % MCV 78.1 L (80.0-98.0) fL MCH 24.7 L (27.0-33.0) pg MCHC 31.6 (31.0-35.0) g/dl RDW 18.2 H (11.0-16.0) % Plt Count 448 H (160-400) X10*3/uL MPV 8.8 L (9.4-12.3) fL Absolute Nucleated RBC 0.000 (0.0-0.012) X10*3/uL Nucleated RBC % (auto) 0.0 (0.0-0.2) /100WBC Sodium 138 (135-145) mmol/L Potassium 4.1 (3.3-5.1) mmol/L Chloride 102 (96-108) mmol/L Carbon Dioxide 23 (22-29) mmol/L Anion Gap 17 (12-20) BUN 11 (9-16) mg/dL Creatinine 0.78 (0.5-1.4) mg/dL Estim Creat Clear Calc 81.6 Estimated GFR > 60 Random Glucose 149 H (60-115) mg/dL Calcium 9.9 (8.4-10.2) mg/dL COVID-19 ([facility]) Negative (Negative) COVID-19 Clin Com See Note Discharge Plan Discharge Clinical Impression: Seizure Patient Disposition: Admitted As Inpatient Prescriptions: No Action olanzapine 2.5 mg Tablet 2.5 mg PO BID PRN (Reason: MANIC AGITATION) albuterol sulfate 90 mcg/actuation HFA aerosol inhaler 2 puff inhalation QID PRN (Reason: Shortness Of Breath) epinephrine 0.3 mg/0.3 mL Auto-Injector 0.3 mg IM Q10M PRN (Reason: Anaphylaxis) olanzapine 10 mg Tablet 10 mg PO BEDTIME fluticasone propionate [Flonase Allergy Relief] 50 mcg/actuation spray,suspension 1 spray intranasal DAILY Rx Instructions: administer into each nostril clonazepam 0.5 mg Tablet 0.5 mg PO QID PRN (Reason: Anxiety) Qty: 14 0RF fluoxetine 20 mg Capsule 40 mg PO DAILY Qty: 14 0RF
[2022-01-02 22:06] LABS: Ethanol < 10 mg/dL
[2022-01-02 22:20] LABS: Appearance Urine Cloudy; Color Urine Yellow; Glucose Urine UA Negative (Negative); Leukocyte Esterase Urine Negative (Negative); Nitrite Urine Negative (Negative); PH 8.5 (5.0-9.0); Urine Blood Negative (Negative); Urine Ketones Trace mg/dL (Negative); Urine Protein Trace mg/dL (Neg-Trace)
[2022-01-02 22:23] LABS: Bacteria Urine None Seen (None Seen); Hyaline Casts Urine 0-2 /LPF (0-2); RBC Urine 0-2 /HPF (0-2); WBC Urine 0-5 /HPF (0-5)
[2022-01-02 22:26] LABS: UPreg QC Valid YES; Urine Pregnancy NEGATIVE (NEGATIVE)
[2022-01-02 22:38] LABS: Amphetamine Screen Urine Not Detected (Not Detect); Barbiturates, Urine Not Detected (Not Detect); Benzodiazepines Screen Urine Not Detected (Not Detect); Cannabinoid Screen Urine POSITIVE (Not Detect); Cocaine Screen Urine Not Detected (Not Detect); Fentanyl, urine Not Detected (Not Detect); Opiate Screen Urine Not Detected (Not Detect); Phencyclidine Screen Urine Not Detected (Not Detect)
[2022-01-02] MEDS: Acetaminophen 325 MG TABLET 650 MG PO (23:24)
[2022-01-02 23:25] VITALS: BP 103/59; PULSE 71; RESP 18; O2SAT 99
[2022-01-02 23:40] VITALS: BP 113/65; PULSE 83; RESP 18; TEMP 36.8; O2SAT 100
--- NOTE | 2022-01-02 23:42 | P.HPHOSP_ITS ---
History of Present Illness Date of Service: 01/02/22 Chief Complaint: Seizure This is a 31 year old female with a pertinent history of bipolar disorder, asthma who presents to the hospital after a seizure episode yesterday. Patient was admitted to the hospital on 12/28 after experiencing a seizure. It was thought to be a drug withdrawal seizure secondary to benzo withdrawal. Patient was on clonazepam but did not have access to it for a week prior to the 1st seizure episode. Patient was given clonazepam during admission on 12/28. She left against medical advice on 12/29. She was seen by Neurology who recommended obtaining MRI of the brain with and without contrast and an EEG. No antiepileptic was recommended. Patient states she is she left AMA she did not get access to clonazepam. Patient had an episode of seizure yesterday while she was in the garden. It was witnessed by her neighbors who saw her falling down and then convulsing. She states the neighbor so rhythmic jerking motion of extremities. She also has a tongue bite. No urinary or bowel incontinence. The seizure episode lasted less than a minute and patient was confused after for about 10 minutes. She admits smoking marijuana but denies any other illicit drug use. Prior to these 2 episodes, she does not have a personal history of seizure. No family history of epilepsy, son with febrile seizures No focal deficits. Did not hit her head. Patient denies fever, chills, chest discomfort, palpitations, shortness of breath, pain in abdomen, changes in urinary or bowel habits Review of Systems Review of Systems: All 13 review of systems are negative except as noted in HPI [facility] Medical History (Updated 01/02/22 @ 23:47 by Cassius Bower MD) Anemia Asthma Bipolar 1 disorder COVID-19 vaccine administered Depression Environmental and seasonal allergies Gallstones GERD (gastroesophageal reflux disease) H. pylori infection Hypertrophic scar Smoker Tonsil and adenoid disease, chronic Family History Maternal Aunt Ovarian cancer Maternal Grandmother Endometrial adenocarcinoma Mother Diabetes HTN (hypertension) Father Lung cancer Surgical History History of esophagogastroduodenoscopy (EGD) Hx of section Hx of cholecystectomy Hx of hemorrhoidectomy (02/12/20) Hx of tonsillectomy Social History Household Members: Children Housing: Apartment Do you presently have visiting nurse or other home services: No Alcohol intake: never Patient Tobacco Use Status: Current someday Tobacco user Tobacco use type: Cigarette Cigarettes Per Day: 5 Years Smoked: 15 e-Cigarette/Vaping Use: Never Used Second Hand Smoke Exposure: No Substance Use Type: Marijuana Advance Directives: No Advance Directives Information Provided: No service: No Current occupational status: employed and other 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 Meds Allergies Allergy/AdvReac Type Severity Reaction Status Date / Time dog dander [DOG] Allergy Intermediate itching/hiv Verified 11/21/21 09:49 es kiwi [KIWI] Allergy Intermediate TONGUE Verified 11/21/21 09:49 TINGLING, HIVES, ITCHING latex Allergy Intermediate Hives, Verified 11/21/21 09:49 itching mushroom [MUSHROOM] Allergy Intermediate UNKNOWN Verified 11/21/21 09:49 Rabbit [RABBITS] Allergy Intermediate ITCHING, Verified 11/21/21 09:49 HIVES tramadol AdvReac Intermediate Nausea Verified 11/21/21 09:49 Active Medications: Current Medications Acetaminophen (Acetaminophen 325 Mg Tablet) 650 mg PO Q6H PRN PRN Reason: Pain, Mild (Pain Scale 1-3) Benzonatate (Benzonatate 100 Mg Capsule) 100 mg PO TID PRN PRN Reason: Cough Clonazepam (Clonazepam 0.5 Mg Tablet) 0.5 mg PO QID PRN PRN Reason: Anxiety Clonazepam (Clonazepam 0.5 Mg Tablet) 0.5 mg PO ONCE ONE Stop: 01/02/22 23:41 Pharmacy Consult (Consult Rx Perform Med Rec) 1 each MISCELLANE ONCE STA Stop: 01/02/22 23:39 Sodium Chloride (0.9 % Sodium Chloride Flush 3 Ml Syringe) 3 ml IVFLUSH [facility] Medications Medication Instructions Recorded Confirmed Last Taken Type albuterol sulfate 90 mcg/actuation 2 puff inhalation QID PRN 05/30/20 12/28/21 Unknown History aerosol inhaler Shortness Of Breath epinephrine 0.3 mg/0.3 mL 0.3 mg IM Q10M PRN Anaphylaxis 08/08/20 12/28/21 Unknown History injection, auto-injector olanzapine 2.5 mg tablet 2.5 mg PO BID PRN MANIC AGITATION 06/26/21 12/28/21 Unknown History fluticasone propionate 50 1 spray intranasal DAILY sinus 12/28/21 12/28/21 Unk nown History mcg/actuation nasal congestion spray,suspension (Flonase Allergy Relief) olanzapine 10 mg tablet 10 mg PO BEDTIME 12/28/21 12/28/21 Unknown History Physical Exam Vital Signs and Narrative: Vital Signs: Last Vital Signs Temp 97.2 F 01/02/22 21:35 Pulse 71 01/02/22 23:25 Resp 18 01/02/22 23:25 BP 103/59 L 01/02/22 23:25 Pulse Ox 99 01/02/22 23:25 O2 Del Method 01/02/22 23:25 BMI result Body Mass Index 26.2 Middle-aged female sitting up in bed in no distress Neck supple, no JVD Regular rate and rhythm, S1-S2 heard Regular breath sounds bilaterally, no wheezing or crackles appreciated Abdomen soft nontender, no guarding, no rigidity Patient is awake, alert and oriented to self, place, time and person ; no focal motor deficit Psych: Normal mood No pedal edema Results Labs CBC and Chem 7: 01/02/22 16:37 01/02/22 16:37 Labs: Laboratory Results - last 24 hr 01/02/22 01/02/22 01/02/22 16:37 16:37 16:37 MCV 78.1 L MCH 24.7 L MCHC 31.6 RDW 18.2 H Plt Count 448 H MPV 8.8 L Absolute Nucleated RBC 0.000 Nucleated RBC % (auto) 0.0 Anion Gap 17 Estim Creat Clear Calc 81.6 Estimated GFR > 60 Random Glucose 149 H Calcium 9.9 Urine Color Urine Appearance Urine pH Ur Specific Catherine Urine Protein Urine Glucose (UA) Urine Ketones Urine Blood Urine Nitrite Ur Leukocyte Esterase Urine RBC Urine WBC Ur Squamous Epith Cells Urine Bacteria Hyaline Casts Urine Test Urine Opiates Screen Urine Fentanyl Screen Ur Barbiturates Screen Ur Phencyclidine Scrn Ur Amphetamines Screen U Benzodiazepines Scrn Urine Cocaine Screen U Marijuana (THC) Screen Ethyl Alcohol < 10 COVID-19 (HANNA) Negative COVID-19 Clin Com See Note 10/11/22 10/11/22 10/11/22 22:09 22:09 22:09 MCV MCH MCHC RDW Plt Count MPV Absolute Nucleated RBC Nucleated RBC % (auto) Anion Gap Estim Creat Clear Calc Estimated GFR Random Glucose Calcium Urine Color Yellow Urine Appearance Cloudy Urine pH 8.5 Ur Specific Catherine 1.020 Urine Protein Trace Urine Glucose (UA) Negative Urine Ketones Trace Urine Blood Negative Urine Nitrite Negative Ur Leukocyte Esterase Negative Urine RBC 0-2 Urine WBC 0-5 Ur Squamous Epith Cells 3-5 Urine Bacteria None Seen Hyaline Casts 0-2 Urine Test NEGATIVE Urine Opiates Screen Not Detected Urine Fentanyl Screen Not Detected Ur Barbiturates Screen Not Detected Ur Phencyclidine Scrn Not Detected Ur Amphetamines Screen Not Detected U Benzodiazepines Scrn Not Detected Urine Cocaine Screen Not Detected U Marijuana (THC) Screen POSITIVE H Ethyl Alcohol COVID-19 ([facility]ANNA) COVID-19 Clin Com Assessment and Plan (1) Seizure: Status: Acute (2) Asthma: Status: Acute (3) Bipolar 1 disorder: Status: Acute Plan This is a 31 year old female with a pertinent history of bipolar disorder, asthma who presents to the hospital after a seizure episode. #. Seizure, likely drug withdrawal -will resume benzodiazepine. Obtaining MRI with and without contrast and EEG as per Neurology recommendations. Consult Neurology, hold antiepileptic for now. #. Bipolar disorder -continue olanzapine and fluoxetine #. Asthma -not in exacerbation. Continue p.r.n. inhaler DVT prophylaxis: None. Patient is ambulatory Regular diet Full code Quality Stroke Does the patient have a stroke diagnosis?: No VTE Prior VTE?: No VTE Risk Level:: Medical - low VTE Device Contraindication: Treatment Not Indicated VTE Drug Contraindication: Treatment Not Indicated
[2022-01-02] MEDS: clonazePAM 0.5 MG TABLET PO (23:54)
[2022-01-02] MEDS: 0.9 % Sodium Chloride Flush 3 ML SYRINGE IVFLUSH (23:55)
[2022-01-03] MEDS: OLANZapine 10 MG TABLET PO
--- NOTE | 2022-01-03 | EEG_ITS ---
This is a 16-channel EEG with an EKG lead. The patient is reported awake during the tracing. Background EEG rhythm is 12 to 14 hertz, 5 to 30 microvolt posteriorly, lower amplitude fast anteriorly. Photic stimulation does not produce any significant abnormality. Hyperventilation is not performed. Cardiac lead does not reveal any significant abnormality. No sharp wave spikes or paroxysmal tendency noted. IMPRESSION: Unremarkable EEG. MD GRZEGORZ Pineda/NAJMA / [id number]
[2022-01-03 00:47] VITALS: RESP 18
[2022-01-03 02:34] VITALS: BP 99/58; PULSE 72; RESP 17; O2SAT 99
[2022-01-03 03:27] VITALS: PULSE 68; RESP 17; O2SAT 98
[2022-01-03 04:51] LABS: MANUAL DIFF FLAG NO
[2022-01-03 04:52] LABS: Basophils Absolute Auto 0.1 X10*3/uL (0.0-0.2); Basophils Percent Auto 0.5 % (0-2); Eosinophils Absolute Auto 0.3 X10*3/uL (0.0-0.4); Eosinophils Percent Auto 2.9 % (0-4); Hematocrit 31.3 % (37.0-47.0); Imm Gran Abs Auto 0.03 X10*3/uL (0.00-0.03); Imm Gran Pct Auto 0.3 % (0.0-0.4); Lymphocytes Absolute Auto 4.2 X10*3/uL (1.2-4.9); Lymphocytes Percent Auto 44.8 % (20-40); Mean Corpuscular HGB Conc 31.9 g/dl (31.0-35.0); Mean Corpuscular Hemoglobin 25.1 pg (27.0-33.0); Mean Corpuscular Volume 78.4 fL (80.0-98.0); Mean Platelet Volume 8.8 fL (9.4-12.3); Monocytes Absolute Auto 0.8 X10*3/uL (0.1-1.2); Monocytes Percent Auto 8.6 % (2-11); Neutrophils Percent Auto 42.9 % (45-73); Platelet Count 399 X10*3/uL (160-400); Red Blood Count 3.99 X10*6/uL (4.20-5.50); Red Cell Distribution Width 17.9 % (11.0-16.0); White Blood Count 9.3 X10*3/uL (4.8-10.8)
[2022-01-03 05:06] LABS: Anion Gap 14 (12-20); Blood Urea Nitrogen 15 mg/dL (9-16); Calcium 9.4 mg/dL (8.4-10.2); Carbon Dioxide 25 mmol/L (22-29); Chloride 104 mmol/L (96-108); Creatinine Clr Calc Pharmacy 89.7; Estimated Glomerular Filt Rate > 60; Glucose Random 95 mg/dL (60-115); Potassium 3.7 mmol/L (3.3-5.1); Sodium 139 mmol/L (135-145)
--- NOTE | 2022-01-03 05:30 | PC.NURSE ---
report given to overflow MARIANA Hawthorne
[2022-01-03 05:31] LABS: Thyroid Stimulating Hormone 1.03 uIU/mL (0.32-4.0)
--- NOTE | 2022-01-03 07:37 | PHA.MEDREC ---
Pharmacy Consult ? Medication Reconciliation Pharmacy has completed the medication reconciliation. Patient was previously admitted 12/28/2021, used discharge packet.
[2022-01-03 08:07] VITALS: BP 115/70; PULSE 80; RESP 17; TEMP 36.9; O2SAT 99
[2022-01-03] MEDS: FLUoxetine HCl 20 MG CAPSULE 40 MG PO (08:58)
[2022-01-03] MEDS: Acetaminophen 325 MG TABLET 650 MG PO (09:00)
[2022-01-03] MEDS: 0.9 % Sodium Chloride Flush 3 ML SYRINGE IVFLUSH ×2 (09:05→15:17)
[2022-01-03] MEDS: clonazePAM 0.5 MG TABLET PO (09:08)
--- NOTE | 2022-01-03 12:31 | MHC.CM.PN ---
met with pt who is independent she reports [facility]cy[facility] is working on getting her a therapist she is covid vax x 2 declined hcp
[2022-01-03 15:29] VITALS: BP 110/55; PULSE 90; RESP 17; TEMP 37.1; O2SAT 98
--- NOTE | 2022-01-03 16:09 | P.CNNE_ITS ---
History of Present Illness Data of Consult Service Date: 01/03/22 Primary Care Provider: Roxie Elena MD HPI Reason for consult: Seizure 31 years old woman with underlying history of bipolar disorder was taking f luoxetine and clonazepam. She was recently seen in hospital after she had 2 generalized convulsions. Though she had run out of clonazepam my impression was that it might not have been related to that. She was back in hospital apparently after she had another event she was in a garden when she fell and then something happened. She said that she did not know what happened. Apparently she was brought here after that episode. Review of Systems 2 Review of Systems: No headache or amnesia PMFSH Past Medical History Medical History (Updated 01/02/22 @ 23:47 by Cassius Bower MD) Anemia Asthma Bipolar 1 disorder COVID-19 vaccine administered Depression Environmental and seasonal allergies Gallstones GERD (gastroesophageal reflux disease) H. pylori infection Hypertrophic scar Smoker Tonsil and adenoid disease, chronic Family History Family History Maternal Aunt Ovarian cancer Maternal Grandmother Endometrial adenocarcinoma Mother Diabetes HTN (hypertension) Father Lung cancer Surgical History Surgical History History of esophagogastroduodenoscopy (EGD) Hx of section Hx of cholecystectomy Hx of hemorrhoidectomy (05/06/19) Hx of tonsillectomy Social History Social History Household Members: Children Housing: Apartment Do you presently have visiting nurse or other home services: No Alcohol intake: never Patient Tobacco Use Status: Current someday Tobacco user Tobacco use type: Cigarette Cigarettes Per Day: 5 Years Smoked: 15 e-Cigarette/Vaping Use: Never Used Second Hand Smoke Exposure: No Substance Use Type: Marijuana Advance Directives: No Advance Directives Information Provided: No service: No Current occupational status: employed and other 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 Meds Allergies Allergy/AdvReac Type Severity Reaction Status Date / Time dog dander [DOG] Allergy Intermediate itching/hiv Verified 11/21/21 09:49 es kiwi [KIWI] Allergy Intermediate TONGUE Verified 11/21/21 09:49 TINGLING, HIVES, ITCHING latex Allergy Intermediate Hives, Verified 11/21/21 09:49 itching mushroom [MUSHROOM] Allergy Intermediate UNKNOWN Verified 11/21/21 09:49 Rabbit [RABBITS] Allergy Intermediate ITCHING, Verified 11/21/21 09:49 HIVES tramadol AdvReac Intermediate Nausea Verified 11/21/21 09:49 Active Medications: Current Medications Acetaminophen (Acetaminophen 325 Mg Tablet) 650 mg PO Q6H PRN PRN Reason: Pain, Mild (Pain Scale 1-3) Last Admin: 01/03/22 09:00 Dose: 650 mg Albuterol/Ipratropium (Albuterol/Iprat 2.5/0.5mg 3 Ml Ampul.Neb) 3 ml INHALE RQ6H PRN PRN Reason: Wheezing Benzonatate (Benzonatate 100 Mg Capsule) 100 mg PO TID PRN PRN Reason: Cough Clonazepam (Clonazepam 0.5 Mg Tablet) 0.5 mg PO QID PRN PRN Reason: Anxiety Last Admin: 01/03/22 09:08 Dose: 0.5 mg Fluoxetine HCl (Fluoxetine Hcl 20 Mg Capsule) 40 mg PO DAILY [facility] Last Admin: 01/03/22 08:58 Dose: 40 mg Olanzapine (Olanzapine 10 Mg Tablet) 10 mg PO BEDTIME [facility] Last Admin: 01/03/22 00:00 Dose: 10 mg Sodium Chloride (0.9 % Sodium Chloride Flush 3 Ml Syringe) 3 ml IVFLUSH QSHIFT [facility] Last Admin: 01/03/22 15:17 Dose: 3 ml Home Medications Medication Instructions Recorded Confirmed Last Taken Type albuterol sulfate 90 mcg/actuation 2 puff inhalation QID PRN 05/30/20 01/03/22 Unknown History aerosol inhaler Shortness Of Breath epinephrine 0.3 mg/0.3 mL 0.3 mg IM Q10M PRN Anaphylaxis 08/08/20 01/03/22 Unknown History injection, auto-injector olanzapine 2.5 mg tablet 2.5 mg PO BID PRN MANIC AGITATION 06/26/21 01/03/22 Unk nown History fluticasone propionate 50 1 spray intranasal DAILY sinus 12/28/21 01/03/22 Unknown History mcg/actuation nasal congestion spray,suspension (Flonase Allergy Relief) olanzapine 10 mg tablet 10 mg PO BEDTIME 12/28/21 01/03/22 Unknown History Physical Exam Vital Signs: Vital Signs: Last Vital Signs Temp 98.8 F 01/03/22 15:29 Pulse 90 01/03/22 15:29 Resp 17 01/03/22 15:29 BP 110/55 L 01/03/22 15:29 Pulse Ox 98 01/03/22 15:29 O2 Del Method 01/03/22 15:29 BMI result Body Mass Index 26.2 Neuro: Other: Alert and awake with normal spontaneity of speech fluency comprehension and affect. Deep tendon reflexes were normal. Plantars were flexor Results Labs CBC & Chem 7: 01/03/22 04:39 01/03/22 04:39 Labs: Short CBC 01/02/22 01/03/22 Range/Units 16:37 04:39 WBC 9.4 9.3 (4.8-10.8) X10*3/uL Hgb 11.4 L 10.0 L (12.0-16.0) g/dl Hct 36.1 L 31.3 L (37.0-47.0) % Plt Count 448 H 399 (160-400) X10*3/uL BMP 01/02/22 01/03/22 16:37 04:39 Sodium 138 139 Potassium 4.1 3.7 Chloride 102 104 Carbon Dioxide 23 25 BUN 11 15 Creatinine 0.78 0.71 Calcium 9.9 9.4 Urine 01/02/22 Range/Units 22:09 Urine Color Yellow Urine Appearance Cloudy Urine pH 8.5 (5.0-9.0) Ur Specific [place] 1.020 (1.005-1.025) Urine Protein Trace (Neg-Trace) mg/dL Urine Glucose (UA) Negative (Negative) mg/dL Recent MRI of brain was normal. EEG did not reveal any significant abnormality. Assessment and Plan (1) Seizure: Status: Acute 31 years old woman with multiple generalized convulsions. At this time she was back to baseline with normal exam and normal MRI of brain and EEG. My advice at this time is to start her on levetiracetam 500 mg twice a day and she should CS as an outpatient for further evaluation including [facility] ambulatory long-term EEG to definitively define the nature of these episodes. She was advised not to drive and not to be involved in an activity that could put her life in danger such as swimming alone. Procedures Date of Service Date of Service: 01/03/22
--- NOTE | 2022-01-03 16:51 | P.DS_ITS ---
DS: Providers Provider Date of Service: 01/05/22 Date of admission: 01/02/22 23:35 Primary care physician: Roxie Elena MD Consults: 01/02/22 23:40 Consult to Neurology Routine Consulting Provider: [facility] Reason for consultation: seizure Has provider been notified: No DS: Diagnosis Discharge Diagnosis (1) Seizure: Status: Acute DS: Summary Hospital Course Hospital Course: Date of Service: 01/02/22 Chief Complaint: Seizure This is a 31 year old female with a pertinent history of bipolar disorder, asthma who presents to the hospital after a seizure episode yesterday.? Patient was admitted to the hospital on 12/28 after experiencing a seizure.? It was thought to be a drug withdrawal seizure secondary to benzo withdrawal.? Patient was on clonazepam but did not have access to it for a week prior to the 1st seizure episode.? Patient was given clonazepam during admission on 12/28.? She left against medical advice on 12/29.? She was seen by Neurology who recommended obtaining MRI of the brain with and without contrast and an EEG.? No antiepileptic was recommended.? Patient states she is she left AMA she did not get access to clonazepam.? Patient had an episode of seizure yesterday while she was in the garden.? It was witnessed by her neighbors who saw her falling down and then convulsing.? She states the neighbor so rhythmic jerking motion of extremities.? She also has a tongue bite.? No urinary or bowel incontinence.? The seizure episode lasted less than a minute and patient was confused after for about 10 minutes.? She admits smoking marijuana but denies any other illicit drug use.? Prior to these 2 episodes, she does not have a personal history of seizure.? No family history of epilepsy, son with febrile seizures No focal deficits.? Did not hit her head.? Patient denies fever, chills, chest discomfort, palpitations, shortness of breath, pain in abdomen, changes in urinary or bowel habits Hospital course: 31 year old female with a pertinent history of bipolar disorder, asthma who presents to the hospital after a seizure episode, patient admitted to medical floor for 2nd episode of seizure, patient was discharged from [facility] on 12/29 after an episode of seizure that was felt to be related to benzo withdrawal, however patient left hospital without workup, patient underwent MRI with and without contrast as well as EEG during this admission both studies came back negative patient seen by Dr. Montaño from Neurology he recommend to place patient on Keppra 500 mg b.i.d. and recommend outpatient ambulatory EEG monitoring, patient has been recommended to follow-up with Neurology in 1-2 weeks and has been recommended not to drive a car no sit baths, no swimming and not to use any machinery, patient noted to have normal neuro examination at discharge.. In regard to chronic medical issues including bipolar disorder and asthma she has been recommended to continue home medication there is no acute asthma exacerbation noted Time Spent with Patient Time attestation: Total time spent providing and/or coordinating discharge services: Discharge coordination time: Greater than 30 minutes Quality: Safe Use of Opioids Does Pt have an Active Cancer Diagnosis on the Problem List?: No Quality: Stroke Does the patient have a stroke diagnosis?: No Physical Exam Vital Signs: Vital Signs: Last Vital Signs Temp 98.8 F 01/03/22 15:29 Pulse 90 01/03/22 15:29 Resp 17 01/03/22 15:29 BP 110/55 L 01/03/22 15:29 Pulse Ox 98 01/03/22 15:29 O2 Del Method 01/03/22 15:29 BMI result Body Mass Index 26.2 Const: Other: General awake alert x3 in no acute distress. Neck supple CVS regular rate rhythm, Respiratory lungs clear to auscultation, no respiratory distress, no wheeze, no rhonchi. Gastrointestinal abdomen soft, nontender, bowel sounds audible Extremities no edema. Neuro nonfocal ,moving all 4 extremity speech clear. Skin no rash DS: Data Data Completed and Pending Labs on day of discharge: Laboratory Results - last 24 hr 01/02/22 01/02/22 01/02/22 16:37 16:37 22:09 WBC RBC Hgb Hct MCV MCH MCHC RDW Plt Count MPV Immature Gran % (Auto) Neut % (Auto) Lymph % (Auto) [place] % (Auto) Eos % (Auto) Baso % (Auto) Lymph # (Auto) [place] # (Auto) Eos # (Auto) Baso # (Auto) Abs Immat Gran (auto) Absolute Neuts (auto) Absolute Nucleated RBC Nucleated RBC % (auto) Sodium 138 Potassium 4.1 Chloride 102 Carbon Dioxide 23 Anion Gap 17 BUN 11 Creatinine 0.78 Estim Creat Clear Calc 81.6 Estimated GFR > 60 Random Glucose 149 H Calcium 9.9 TSH Urine Color Yellow Urine Appearance Cloudy Urine pH 8.5 Ur Specific [place] 1.020 Urine Protein Trace Urine Glucose (UA) Negative Urine Ketones Trace Urine Blood Negative Urine Nitrite Negative Ur Leukocyte Esterase Negative Urine RBC 0-2 Urine WBC 0-5 Ur Squamous Epith Cells 3-5 Urine Bacteria None Seen Hyaline Casts 0-2 Urine Test Urine Opiates Screen Urine Fentanyl Screen Ur Barbiturates Screen Ur Phencyclidine Scrn Ur Amphetamines Screen U Benzodiazepines Scrn Urine Cocaine Screen U Marijuana (THC) Screen Ethyl Alcohol < 10 COVID-19 ([facility]) Negative COVID-19 Clin Com See Note 01/02/22 01/02/22 01/03/22 22:09 22:09 04:39 WBC 9.3 RBC 3.99 L Hgb 10.0 L Hct 31.3 L MCV 78.4 L MCH 25.1 L MCHC 31.9 RDW 17.9 H Plt Count 399 MPV 8.8 L Immature Gran % (Auto) 0.3 Neut % (Auto) 42.9 L Lymph % (Auto) 44.8 H [place] % (Auto) 8.6 Eos % (Auto) 2.9 Baso % (Auto) 0.5 Lymph # (Auto) 4.2 [place] # (Auto) 0.8 Eos # (Auto) 0.3 Baso # (Auto) 0.1 Abs Immat Gran (auto) 0.03 Absolute Neuts (auto) 4.0 Absolute Nucleated RBC 0.000 Nucleated RBC % (auto) 0.0 Sodium Potassium Chloride Carbon Dioxide Anion Gap BUN Creatinine Estim Creat Clear Calc Estimated GFR Random Glucose Calcium TSH Urine Color Urine Appearance Urine pH Ur Specific [place] Urine Protein Urine Glucose (UA) Urine Ketones Urine Blood Urine Nitrite Ur Leukocyte Esterase Urine RBC Urine WBC Ur Squamous Epith Cells Urine Bacteria Hyaline Casts Urine Test NEGATIVE Urine Opiates Screen Not Detected Urine Fentanyl Screen Not Detected Ur Barbiturates Screen Not Detected Ur Phencyclidine Scrn Not Detected Ur Amphetamines Screen Not Detected U Benzodiazepines Scrn Not Detected Urine Cocaine Screen Not Detected U Marijuana (THC) Screen POSITIVE H Ethyl Alcohol COVID-19 ([facility]ANNA) COVID-19 Clin Com 01/03/22 04:39 WBC RBC Hgb Hct MCV MCH MCHC RDW Plt Count MPV Immature Gran % (Auto) Neut % (Auto) Lymph % (Auto) [place] % (Auto) Eos % (Auto) Baso % (Auto) Lymph # (Auto) [place] # (Auto) Eos # (Auto) Baso # (Auto) Abs Immat Gran (auto) Absolute Neuts (auto) Absolute Nucleated RBC Nucleated RBC % (auto) Sodium 139 Potassium 3.7 Chloride 104 Carbon Dioxide 25 Anion Gap 14 BUN 15 Creatinine 0.71 Estim Creat Clear Calc 89.7 Estimated GFR > 60 Random Glucose 95 Calcium 9.4 TSH 1.03 Urine Color Urine Appearance Urine pH Ur Specific [place] Urine Protein Urine Glucose (UA) Urine Ketones Urine Blood Urine Nitrite Ur Leukocyte Esterase Urine RBC Urine WBC Ur Squamous Epith Cells Urine Bacteria Hyaline Casts Urine Test Urine Opiates Screen Urine Fentanyl Screen Ur Barbiturates Screen Ur Phencyclidine Scrn Ur Amphetamines Screen U Benzodiazepines Scrn Urine Cocaine Screen U Marijuana (THC) Screen Ethyl Alcohol COVID-19 ([facility]) COVID-19 Clin Com Discharge Plan Discharge Patient Disposition: Home, Self-Care Discharge Diagnosis: Generalized convulsions Referrals: Roxie Elena MD [Primary Care Provider] - 1 Week Discharge Medications: New levetiracetam [Keppra] 500 mg tablet 500 mg PO BID Qty: 60 0RF Continued olanzapine 2.5 mg Tablet 2.5 mg PO BID PRN (Reason: MANIC AGITATION) albuterol sulfate 90 mcg/actuation HFA aerosol inhaler 2 puff inhalation QID PRN (Reason: Shortness Of Breath) epinephrine 0.3 mg/0.3 mL Auto-Injector 0.3 mg IM Q10M PRN (Reason: Anaphylaxis) olanzapine 10 mg Tablet 10 mg PO BEDTIME fluticasone propionate [Flonase Allergy Relief] 50 mcg/actuation spray,suspension 1 spray intranasal DAILY Rx Instructions: administer into each nostril clonazepam 0.5 mg Tablet 0.5 mg PO QID PRN (Reason: Anxiety) Qty: 14 0RF fluoxetine 20 mg Capsule 40 mg PO DAILY Qty: 14 0RF Discharge Orders: Discharge Order (Routine); Ordered 01/03/22 Ordered By: Miguel Quick Diet: Advance to usual diet Activity on Discharge: no driving Stand Alone Forms: Patient Portal Discharge page Care Plan Goals: Generalized convulsion, take Keppra 500 mg twice daily, start taking from tomorrow 1 tablet in the morning and 1 at night, recommend no driving, no swimming alone, no tub baths and not to be in any activity that could put her life in danger Health Concerns: Continue all home medications for asthma and mood disorder Plan of Treatment: Outpatient follow-up with primary care physician in 7-10 days, follow-up with Dr. Montaño from Neurology call to make an appointment in 1 week, needs ambulato ry EEG Assessment: As above Patient Instructions: Levetiracetam (By mouth) Discharge Date/Time: 01/03/22 17:24
[2022-01-03] MEDS: levETIRAcetam 500 MG TABLET PO (17:20)
== END 2022-01-03 17:24 | disposition home or self-care (01) ==
LOC: HO.ED 22:01 → HO.EDOVER 23:47 → HO.IMC 01-03 16:49 → HO.EDOVER 01-03 16:50
PROVIDERS: Admitting Provider Student in an Organized Health Care Education/Training Program; Emergency Provider Emergency Medicine Emergency Medical Services; PCP General Practice; Visit Provider Hospitalist
DX: R56.9 Unspecified convulsions (principal); F31.9 Bipolar disorder, unspecified; J45.909 Unspecified asthma, uncomplicated; Z20.822 Contact with and (suspected) exposure to COVID-19; Z79.899 Other long term (current) drug therapy; F17.210 Nicotine dependence, cigarettes, uncomplicated; Z71.6 Tobacco abuse counseling
CPT/HCPCS: 36415; 70553; 80048; 80307; 81001; 81025; 82077; 84443; 85025; 85027; 87635; 95816; 96374; 99219; 99285; A9585

== ENCOUNTER 2022-01-05 21:04 | Emergency (ER) | payer MEDICAID, SELFPAY ==
[2022-01-05 21:07] VITALS: BP 110/65; PULSE 84; O2SAT 100
[2022-01-05 21:18] VITALS: BP 80/35; PULSE 79; RESP 10; TEMP 36.7; O2SAT 100
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
[2022-01-05 21:37] VITALS: BP 102/55
[2022-01-05 21:49] VITALS: BMI 25.7
[2022-01-05 22:19] LABS: MANUAL DIFF FLAG NO
[2022-01-05 22:20] LABS: Basophils Percent Auto 0.3 % (0-2); Eosinophils Absolute Auto 0.2 X10*3/uL (0.0-0.4); Eosinophils Percent Auto 2.7 % (0-4); Hematocrit 31.9 % (37.0-47.0); Hemoglobin 10.1 g/dl (12.0-16.0); Imm Gran Abs Auto 0.03 X10*3/uL (0.00-0.03); Imm Gran Pct Auto 0.3 % (0.0-0.4); Lymphocytes Percent Auto 44.9 % (20-40); Mean Corpuscular HGB Conc 31.7 g/dl (31.0-35.0); Mean Corpuscular Hemoglobin 24.7 pg (27.0-33.0); Mean Platelet Volume 8.1 fL (9.4-12.3); Monocytes Absolute Auto 0.6 X10*3/uL (0.1-1.2); Monocytes Percent Auto 7.2 % (2-11); Neutrophils Percent Auto 44.6 % (45-73); Platelet Count 365 X10*3/uL (160-400); Red Blood Count 4.09 X10*6/uL (4.20-5.50); Red Cell Distribution Width 18.3 % (11.0-16.0); White Blood Count 8.9 X10*3/uL (4.8-10.8)
[2022-01-05 22:26] LABS: Amphetamine Screen Urine Not Detected (Not Detect); Barbiturates, Urine Not Detected (Not Detect); Benzodiazepines Screen Urine Not Detected (Not Detect); Cannabinoid Screen Urine POSITIVE (Not Detect); Cocaine Screen Urine Not Detected (Not Detect); Fentanyl, urine Not Detected (Not Detect); Opiate Screen Urine Not Detected (Not Detect); Phencyclidine Screen Urine Not Detected (Not Detect)
[2022-01-05 22:35] VITALS: BP 114/70; PULSE 85; RESP 14; TEMP 36.8; O2SAT 100
[2022-01-05 22:45] LABS: Anion Gap 16 (12-20); Blood Urea Nitrogen 11 mg/dL (9-16); Calcium 8.8 mg/dL (8.4-10.2); Carbon Dioxide 22 mmol/L (22-29); Chloride 109 mmol/L (96-108); Estimated Glomerular Filt Rate > 60; Ethanol 143 mg/dL; Glucose Random 84 mg/dL (60-115); Potassium 3.6 mmol/L (3.3-5.1); Sodium 143 mmol/L (135-145)
[2022-01-05 22:52] LABS: HCG Quantitative < 2 mIU/mL
== END 2022-01-06 00:33 | disposition home or self-care (01) ==
PROVIDERS: Emergency Provider Emergency Medicine
DX: R56.9 Unspecified convulsions (principal); F10.920 Alcohol use, unspecified with intoxication, uncomplicated; F12.90 Cannabis use, unspecified, uncomplicated; F17.210 Nicotine dependence, cigarettes, uncomplicated; Y90.6 Blood alcohol level of 120-199 mg/100 ml; Z71.6 Tobacco abuse counseling; Z79.899 Other long term (current) drug therapy
CPT/HCPCS: 36415; 80048; 80307; 82077; 84702; 85025; 99283

== ENCOUNTER → 2022-02-19 13:03 | Outpatient (BNVA) | payer MEDICAID, SELFPAY | PROVIDERS: PCP General Practice; Visit Provider Internal Medicine Gastroenterology | DX: R10.13 Epigastric pain (principal); R19.4 Change in bowel habit | CPT/HCPCS: 83013; 99212 ==

== ENCOUNTER 2022-02-19 16:02 | Outpatient (REF) | payer MEDICAID, SELFPAY ==
[2022-02-20 11:44] LABS: H Pylori Breath Test Positive (Negative)
== END 2022-02-19 16:03 | disposition home or self-care (01) ==
LOC: HO.LNP 16:02
PROVIDERS: Visit Provider Internal Medicine Gastroenterology
DX: Z11.0 Encounter for screening for intestinal infectious diseases (principal)
CPT/HCPCS: 83013

== ENCOUNTER 2022-04-23 10:11 | Emergency (ER) | payer MEDICAID, SELFPAY ==
--- NOTE | ~2022-04-23 | US_ITS ---
EXAMINATION: US OBSTETRICAL ULTRASOUND CLINICAL INFORMATION: with spotting; abdominal pain. COMPARISON: Obstetrical ultrasound dated 11/16/2021. LMP: 03/15/2022. Gestational age by maternal dates is 5 weeks and 4 days. Estimated date of delivery by maternal dates is 12/20/2022. TECHNIQUE: Ultrasound of the maternal pelvis is performed using transabdominal and transvaginal transducers. Transvaginal imaging is performed due to inadequate visualization transabdominally. M-mode Doppler is also performed. FINDINGS: There is a single intrauterine gestational sac with visible embryo/fetus. No yolk sac or heart rate are identified. There is no significant subchorionic hemorrhage or hematoma. CRL (crown rump length): 0.16 cm MATERNAL ADNEXA: The right maternal ovary measures 3.0 x 1.7 x 2.0 cm. The left maternal ovary measures 3.6 x 2.5 x 2.1 cm. A 2.5 x 2.0 x 1.5 cm left ovarian corpus luteum cyst is noted. There is no significant maternal adnexal mass. No maternal pelvic ascites. US/US OB pelvic and transvaginal IMPRESSION: 1. Single intrauterine gestation without subchorionic hemorrhage noted. Due to diminutive size, no estimated gestational age is presently calculated. Recommend short-term follow-up ultrasound imaging and serial beta hCG levels for assessment of viability and more accurate ultrasound gestational age calculation. 2. No heart rate or yolk sac is identified presently.
[2022-04-23 10:13] VITALS: BP 108/50; PULSE 90; RESP 18; TEMP 36.8; O2SAT 100; BMI 26.2
--- NOTE | 2022-04-23 10:45 | ED_ITS ---
HPI - General Adult General Chief complaint: General Medical Stated complaint: fall preg cramping light bleeding vomiting Time Seen by Provider: 04/23/22 10:44 Source: patient Mode of arrival: ambulatory History of Present Illness HPI narrative: 31-year-old female with a past medical history anemia, bipolar, depression, GERD, H pylori, cigarette smoker, LMP 03/15/2022 presenting to the ED complaining of lower abdominal cramping, intermittent vaginal spotting, white vaginal discharge, persistent nausea/ vomiting and inability to tolerate p.o. x4 days. Reports mechanical trip and fall while walking dog on Saturday, fell on buttock, denies head trauma or LOC, denies landing on abdomen. Also reports urinary frequency /burning. Denies fever, chills, diarrhea /constipation Onset (ago): day(s) Related Data Home Medications Medication Instructions Recorded Confirmed albuterol sulfate 90 mcg/actuation 2 puff inhalation QID PRN 05/30/20 01/03/22 aerosol inhaler Shortness Of Breath epinephrine 0.3 mg/0.3 mL 0.3 mg IM Q10M PRN Anaphylaxis 08/08/20 01/03/22 injection, auto-injector fluticasone propionate 50 1 spray intranasal DAILY sinus 12/28/21 01/03/22 mcg/actuation nasal congestion spray,suspension (Flonase Allergy Relief) olanzapine 10 mg tablet 10 mg PO BEDTIME 12/28/21 01/03/22 clonazepam 1 mg tablet 1 mg PO BID PRN anxiety attack 02/19/22 Previous Rx's Medication Instructions Recorded fluoxetine 20 mg capsule 40 mg PO DAILY #14 caps 12/29/21 levetiracetam 500 mg tablet 500 mg PO BID #60 tabs 01/03/22 (Keppra) colesevelam 625 mg tablet 1,250 mg PO BID #60 tabs 02/19/22 amoxicillin 500 mg tablet 1,000 mg PO TID 2 weeks #84 tabs 03/06/22 pantoprazole 40 mg tablet,delayed 40 mg PO TID 2 weeks #42 tabs 03/06/22 release clotrimazole 1 % vaginal cream 1 appful vaginal BEDTIME 7 days 04/23/22 #45 grams pyridoxine (vitamin B6) 25 mg 25 mg PO TID #14 tabs 04/23/22 tablet (Vitamin B-6) Allergies Allergy/AdvReac Type Severity Reaction Status Date / Time dog dander [DOG] Allergy Intermediate itching/hiv Verified 02/19/22 13:13 es kiwi [KIWI] Allergy Intermediate TONGUE Verified 02/19/22 13:13 TINGLING, HIVES, ITCHING latex Allergy Intermediate Hives, Verified 02/19/22 13:13 itching mushroom [MUSHROOM] Allergy Intermediate UNKNOWN Verified 02/19/22 13:13 Rabbit [RABBITS] Allergy Intermediate ITCHING, Verified 02/19/22 13:13 HIVES tramadol AdvReac Intermediate Nausea Verified 02/19/22 13:13 Review of Systems Review of Systems: Constitutional: No Fever, No Chills, No Fatigue, No Malaise ENT/Mouth: No Ear Pain, No Nasal Congestion, No sore throat, No Rhinorrhea, No Swallowing Difficulty Eyes: No Eye Pain, No Swelling, No Redness, No Vision Changes Cardiovascular: No Chest Pain, No SOB, No Edema, No Palpitations Respiratory: No Cough, No Sputum,No Dyspnea Gastrointestinal: + Nausea, + Vomiting, No Diarrhea, No Constipation, + Abdominal pain Genitourinary: + irregular bleeding, + Dysuria, + Urinary Frequency, No Hematuria, No Urinary Incontinence/retention, No Flank Pain, No Urinary Flow Changes, No Hesitancy Musculoskeletal: No joint pain, No Myalgias, No Joint Swelling Skin: No Skin Lesions, No rash Neuro: No Weakness, No Numbness, No Loss of Consciousness, No Dizziness, No Headache Yes all other systems are reviewed and are negative Constitutional: Constitutional: Reports as per [facility] Past Medical History Attestation statement: The following information was validated with the patient. Medical History Anemia Asthma Bipolar 1 disorder COVID-19 vaccine administered Depression Environmental and seasonal allergies Gallstones GERD (gastroesophageal reflux disease) H. pylori infection Hypertrophic scar Smoker Tonsil and adenoid disease, chronic Surgical History History of esophagogastroduodenoscopy (EGD) Hx of section Hx of cholecystectomy Hx of hemorrhoidectomy (05/06/19) Hx of tonsillectomy Family History Family History Maternal Aunt Ovarian cancer Maternal Grandmother Endometrial adenocarcinoma Mother Diabetes HTN (hypertension) Father Lung cancer Social History Social History Household Members: Children Housing: Apartment Do you presently have visiting nurse or other home services: No Alcohol intake: current Alcohol intake frequency: a few times a week Alcohol type: wine Patient Tobacco Use Status: Current someday Tobacco user Tobacco use type: Cigarette Cigarettes Per Day: 5 Years Smoked: 15 Smoked in Last 30 Days: Yes e-Cigarette/Vaping Use: Never Used Second Hand Smoke Exposure: No Use of substances other than those prescribed or required for medical reasons: Yes Substance Use Type: Marijuana Substance Use Type Other:: cutting back since becoming Substance Use Frequency: Occasionally Advance Directives: No Advance Directives Information Provided: No Patient : Yes service: No Current occupational status: employed and other 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 Physical Exam ED Vital Signs: Vital Signs - 24 hr 04/23/22 10:13 04/23/22 11:57 Temperature 98.3 F 97.9 F Pulse Rate 90 63 Respiratory Rate 18 16 Blood Pressure 108/50 L 93/29 L Pulse Oximetry 100 100 Oxygen Delivery Method Room Air Room Air BMI result Body Mass Index 26.2 Const General: cooperative, healthy appearing and no acute distress Orientation/consciousness: patient oriented x3 Limitations: no limitations HENMT Head: Yes normal to inspection and Yes atraumatic Ears: hearing grossly normal bilaterally General nose exam: Normal external nose present Face and sinus: Yes normal facial exam Eyes General: appearance normal, both eyes and all related structures EOM: EOMs intact bilaterally Neck Neck: Yes normal visual inspection and Yes no meningeal signs Resp Effort & Inspection: normal respiratory effort and no respiratory distress Auscultation: clear to auscultation bilaterally Cardio Rate: regular rate Heart sounds: S1 normal heart sound present and S2 normal heart sound present GI Inspection: Yes normal to inspection Palpation (GI): Soft to palpation, nontender, no guarding and not rigid General: Yes no CVA tenderness Speculum Exam - Vagina: abnormal vaginal discharge white and No vaginal bleeding Bimanual exam- vagina & uterus: normal bimanual exam Bimanual Exam- Adnexa, other: normal adnexae OB/external & speculum: No vaginal bleeding Back/Spine/Pelvis Back: no CVA tenderness Skin Rashes: no rashes Wounds: no wounds Neuro General: patient oriented x3, tone normal and no meningeal signs Gait exam (Neuro): Normal gait present Extrem General: Yes normal to inspection Course Course Course Narrative: -[id number]--No leukocytosis, H/H stable, HCG 5,729 - UA with leuks esterase and wbc's. Contaminated Likely from yeast infection rather than UTI will wait for culture results prior to initiating antibiotics - Blood type A positive US OB pelvic and transvaginal IMPRESSION: ? 1. Single intrauterine gestation without subchorionic hemorrhage noted. Due to diminutive size, no estimated gestational age is presently calculated. Recommend short-term follow-up ultrasound imaging and serial beta hCG levels for assessment of viability and more accurate ultrasound gestational age calculation. ? 2. No heart rate or yolk sac is identified presently. - patient tolerating p.o. in the ED without nausea or vomiting >> results discussed with patient. Discussed strict return precautions including persistent or unremitting pain/cramping, bleeding, fever, persistent nausea/ vomiting or inability to tolerate p.o. to return to the ED immediately. Discussed with patient needed repeat hCG in 48 hours and repeat ultrasound in 1 week. Patient was supplied with paper script and order also placed in computer Medications Administered Discontinued Medications Generic Name Dose Route Start Last Admin Trade Name Freq PRN Reason Stop Dose Admin Diphenhydramine HCl 12.5 mg 04/23/22 11:02 04/23/22 11:43 Diphenhydramine Hcl 50 Mg/Ml Vial IVPUSH 04/23/22 11:03 12.5 mg ONCE ONE Administration Famotidine 20 mg 04/23/22 11:02 04/23/22 11:43 Famotidine/Pf 20 Mg/2 Ml Vial IVPUSH 04/23/22 11:03 20 mg ONCE ONE Administration Sodium Chloride 1,000 mls @ 999 mls/hr 04/23/22 11:15 04/23/22 12:46 Ns IV 04/23/22 12:15 Infused .Q1H1M AHSAN Infusion Lactated Ringer's 1,000 mls @ 999 mls/hr 04/23/22 12:30 04/23/22 14:11 Lr IV 04/23/22 13:30 Infused .Q1H1M AHSAN Infusion Pyridoxine HCl 25 mg 04/23/22 11:02 04/23/22 12:05 Pyridoxine Hcl (Vitamin B6) 50 Mg Tablet PO 04/23/22 11:03 25 mg ONCE ONE Administration Medical Decision Making Medical Decision Making [facility] Narrative: 31-year-old female with a past medical history anemia, bipolar, depression, GERD, H pylori, cigarette smoker, LMP 03/15/2022 presenting to the ED complaining of lower abdominal cramping, intermittent vaginal spotting, white vaginal discharge, persistent nausea/ vomiting and inability to tolerate p.o. x4 days. on exam vital signs stable, NAD but nontoxic appearing, abdomen soft/ nontender, on pelvic exam scant white vaginal discharge noted, no vaginal bleeding, no active hemorrhage, no CMT or adnexal tenderness/masses. Concern for dehydration/hyperemesis & metabolic abnormality vs UTI vs STI vs early vs threatened/missed or ectopic. plan: Labs, UA, STI testing, Ob ultrasound, re-evaluate Differential Diagnosis Differential Diagnoses: The differential diagnosis associated with the presentation includes as above Lab Data [facility] Lab Attestation statement: I reviewed the patient's lab results. 04/23/22 11:16 04/23/22 11:16 Labs: Lab Results 04/23/22 04/23/22 04/23/22 Range/Units 11:16 11:16 11:16 WBC 7.0 (4.8-10.8) X10*3/uL RBC 4.09 L (4.20-5.50) X10*6/uL Hgb 10.0 L (12.0-16.0) g/dl Hct 31.2 L (37.0-47.0) % MCV 76.3 L (80.0-98.0) fL MCH 24.4 L (27.0-33.0) pg MCHC 32.1 (31.0-35.0) g/dl RDW 17.4 H (11.0-16.0) % Plt Count 449 H (160-400) X10*3/uL MPV 8.5 L (9.4-12.3) fL Immature Gran % (Auto) 0.1 (0.0-0.4) % Neut % (Auto) 48.9 (45-73) % Lymph % (Auto) 39.7 (20-40) % Gulf % (Auto) 8.3 (2-11) % Eos % (Auto) 2.3 (0-4) % Baso % (Auto) 0.7 (0-2) % Lymph # (Auto) 2.8 (1.2-4.9) X10*3/uL [place] # (Auto) 0.6 (0.1-1.2) X10*3/uL Eos # (Auto) 0.2 (0.0-0.4) X10*3/uL Baso # (Auto) 0.1 (0.0-0.2) X10*3/uL Abs Immat Gran (auto) 0.01 (0.00-0.03) X10*3/uL Absolute Neuts (auto) 3.4 (2.0-8.3) x10*3/uL Absolute Nucleated RBC 0.000 (0.0-0.012) X10*3/uL Nucleated RBC % (auto) 0.0 (0.0-0.2) /100WBC Sodium 139 (135-145) mmol/L Potassium 4.6 D (3.3-5.1) mmol/L Chloride 107 (96-108) mmol/L Carbon Dioxide 25 (22-29) mmol/L Anion Gap 12 (12-20) BUN 5 L (9-16) mg/dL Creatinine 0.69 (0.5-1.4) mg/dL Estim Creat Clear Calc 88.2 Estimated GFR > 60 Random Glucose 84 (60-115) mg/dL Calcium 9.3 (8.4-10.2) mg/dL Magnesium 2.1 (1.6-2.6) mg/dL Total Bilirubin 0.3 (0.0-1.0) mg/dL Direct Bilirubin < 0.2 (0.0-0.5) mg/dL AST 12 (5-31) U/L ALT 8 (0-31) U/L Alkaline Phosphatase 46 (39-117) U/L Total Protein 6.4 L (6.5-8.0) g/dL Albumin 4.1 (3.5-5.0) g/dL Lipase 17 (8-78) U/L Beta HCG, Quant 5729 mIU/mL Urine Color Urine Appearance Urine pH (5.0-9.0) Ur Specific [place] (1.005-1.025) Urine Protein (Neg-Trace) mg/dL Urine Glucose (UA) (Negative) mg/dL Urine Ketones (Negative) mg/dL Urine Blood (Negative) Urine Nitrite (Negative) Ur Leukocyte Esterase (Negative) Urine RBC (0-2) /HPF Urine WBC (0-5) /HPF Ur Squamous Epith Cells (0-2) /HPF Urine Bacteria (None Seen) Hyaline Casts (0-2) /LPF Blood Type A Positive 04/23/22 Range/Units 11:16 WBC (4.8-10.8) X10*3/uL RBC (4.20-5.50) X10*6/uL Hgb (12.0-16.0) g/dl Hct (37.0-47.0) % MCV (80.0-98.0) fL MCH (27.0-33.0) pg MCHC (31.0-35.0) g/dl RDW (11.0-16.0) % Plt Count (160-400) X10*3/uL MPV (9.4-12.3) fL Immature Gran % (Auto) (0.0-0.4) % Neut % (Auto) (45-73) % Lymph % (Auto) (20-40) % Gulf % (Auto) (2-11) % Eos % (Auto) (0-4) % Baso % (Auto) (0-2) % Lymph # (Auto) (1.2-4.9) X10*3/uL [place] # (Auto) (0.1-1.2) X10*3/uL Eos # (Auto) (0.0-0.4) X10*3/uL Baso # (Auto) (0.0-0.2) X10*3/uL Abs Immat Gran (auto) (0.00-0.03) X10*3/uL Absolute Neuts (auto) (2.0-8.3) x10*3/uL Absolute Nucleated RBC (0.0-0.012) X10*3/uL Nucleated RBC % (auto) (0.0-0.2) /100WBC Sodium (135-145) mmol/L Potassium (3.3-5.1) mmol/L Chloride (96-108) mmol/L Carbon Dioxide (22-29) mmol/L Anion Gap (12-20) BUN (9-16) mg/dL Creatinine (0.5-1.4) mg/dL Estim Creat Clear Calc Estimated GFR Random Glucose (60-115) mg/dL Calcium (8.4-10.2) mg/dL Magnesium (1.6-2.6) mg/dL Total Bilirubin (0.0-1.0) mg/dL Direct Bilirubin (0.0-0.5) mg/dL AST (5-31) U/L ALT (0-31) U/L Alkaline Phosphatase (39-117) U/L Total Protein (6.5-8.0) g/dL Albumin (3.5-5.0) g/dL Lipase (8-78) U/L Beta HCG, Quant mIU/mL Urine Color Yellow Urine Appearance Turbid Urine pH >= 9.0 (5.0-9.0) Ur Specific [place] 1.020 (1.005-1.025) Urine Protein 30 (1+) H (Neg-Trace) mg/dL Urine Glucose (UA) Negative (Negative) mg/dL Urine Ketones Negative (Negative) mg/dL Urine Blood Negative (Negative) Urine Nitrite Negative (Negative) Ur Leukocyte Esterase Moderate (2+) H (Negative) Urine RBC 0-2 (0-2) /HPF Urine WBC >50 H (0-5) /HPF Ur Squamous Epith Cells 6-10 (0-2) /HPF Urine Bacteria 2+ (None Seen) Hyaline Casts 0-2 (0-2) /LPF Blood Type Radiology Impression Discussion of test interpretation with radiology: I have reviewed the radiologist's reading. External Record Review External record reviewed: Prior outpatient labs and Prior outpatient radiology Discharge Plan Discharge Clinical Impression: Early stage of Patient Disposition: Home, Self-Care Instructions: (ED) Additional Instructions: your ultrasound shows a single intrauterine gestation, there is no visible heart rate or yolk sac identified at this time, this could be because were too early. It is recommended you have a short-term repeat ultrasound. You also need repeat blood work in 48 hours. If her symptoms persist or worsen, you develop constant worsening abdominal pain, bleeding, discharge, you are unable to eat or drink please return to the emergency department. Please call your OBGYN for very close follow-up. Clotrimazole cream is for yeast infection, take as prescribed. In addition vitamin B6 will help with nausea Prescriptions: New clotrimazole 1 % cream 1 appful vaginal BEDTIME 7 Days Qty: 45 0RF pyridoxine (vitamin B6) [Vitamin B-6] 25 mg tablet 25 mg PO TID Qty: 14 0RF No Action pantoprazole 40 mg tablet,delayed release (DR/EC) 40 mg PO TID 14 Days Qty: 42 0RF amoxicillin 500 mg tablet 1,000 mg PO TID 14 Days Qty: 84 0RF albuterol sulfate 90 mcg/actuation HFA aerosol inhaler 2 puff inhalation QID PRN (Reason: Shortness Of Breath) epinephrine 0.3 mg/0.3 mL Auto-Injector 0.3 mg IM Q10M PRN (Reason: Anaphylaxis) olanzapine 10 mg Tablet 10 mg PO BEDTIME fluticasone propionate [Flonase Allergy Relief] 50 mcg/actuation spray,suspension 1 spray intranasal DAILY Rx Instructions: administer into each nostril fluoxetine 20 mg Capsule 40 mg PO DAILY Qty: 14 0RF levetiracetam [Keppra] 500 mg tablet 500 mg PO BID Qty: 60 0RF clonazepam 1 mg tablet 1 mg PO BID PRN (Reason: anxiety attack) colesevelam 625 mg tablet 1,250 mg PO BID Qty: 60 2RF Referrals: [facility] [place] [facility] [Provider Group] - 2 days
[2022-04-23 11:24] LABS: MANUAL DIFF FLAG NO
[2022-04-23 11:27] LABS: Appearance Urine Turbid; Basophils Absolute Auto 0.1 X10*3/uL (0.0-0.2); Basophils Percent Auto 0.7 % (0-2); Color Urine Yellow; Eosinophils Absolute Auto 0.2 X10*3/uL (0.0-0.4); Eosinophils Percent Auto 2.3 % (0-4); Glucose Urine UA Negative (Negative); Hematocrit 31.2 % (37.0-47.0); Imm Gran Abs Auto 0.01 X10*3/uL (0.00-0.03); Imm Gran Pct Auto 0.1 % (0.0-0.4); Leukocyte Esterase Urine Moderate (2+) (Negative); Lymphocytes Absolute Auto 2.8 X10*3/uL (1.2-4.9); Lymphocytes Percent Auto 39.7 % (20-40); Mean Corpuscular HGB Conc 32.1 g/dl (31.0-35.0); Mean Corpuscular Hemoglobin 24.4 pg (27.0-33.0); Mean Corpuscular Volume 76.3 fL (80.0-98.0); Mean Platelet Volume 8.5 fL (9.4-12.3); Monocytes Absolute Auto 0.6 X10*3/uL (0.1-1.2); Monocytes Percent Auto 8.3 % (2-11); Neutrophils Absolute Auto 3.4 x10*3/uL (2.0-8.3); Neutrophils Percent Auto 48.9 % (45-73); Nitrite Urine Negative (Negative); PH >= 9.0 (5.0-9.0); Platelet Count 449 X10*3/uL (160-400); Red Blood Count 4.09 X10*6/uL (4.20-5.50); Red Cell Distribution Width 17.4 % (11.0-16.0); UMIC TRIGGER UACC YES; Urine Blood Negative (Negative); Urine Ketones Negative (Negative); Urine Protein 30 (1+) mg/dL (Neg-Trace)
[2022-04-23 11:29] LABS: Bacteria Urine 2+ (None Seen); Hyaline Casts Urine 0-2 /LPF (0-2); RBC Urine 0-2 /HPF (0-2); UACC Culture Trigger YES; WBC Urine >50 /HPF (0-5)
[2022-04-23] MEDS: 0.9 % Sodium Chloride 1,000 ML 999 ML IV (11:43)
[2022-04-23] MEDS: Famotidine/PF 20 MG/2 ML VIAL IVPUSH (11:43)
[2022-04-23] MEDS: diphenhydrAMINE HCL 50 MG/ML VIAL 12.5 MG IVPUSH (11:43)
[2022-04-23 11:51] LABS: Alanine Aminotransferase 8 U/L (0-31); Albumin Level 4.1 g/dL (3.5-5.0); Alkaline Phosphatase 46 U/L (39-117); Anion Gap 12 (12-20); Aspartate Amino Transferase 12 U/L (5-31); Bilirubin Direct < 0.2 mg/dL (0.0-0.5); Bilirubin Total 0.3 mg/dL (0.0-1.0); Blood Urea Nitrogen 5 mg/dL (9-16); Calcium 9.3 mg/dL (8.4-10.2); Carbon Dioxide 25 mmol/L (22-29); Chloride 107 mmol/L (96-108); Creatinine Clr Calc Pharmacy 88.2; Estimated Glomerular Filt Rate > 60; Glucose Random 84 mg/dL (60-115); HCG Quantitative 5729 mIU/mL; Lipase 17 U/L (8-78); Magnesium 2.1 mg/dL (1.6-2.6); Potassium 4.6 mmol/L (3.3-5.1); Sodium 139 mmol/L (135-145); Total Protein 6.4 g/dL (6.5-8.0)
[2022-04-23 11:57] VITALS: BP 93/29; PULSE 63; RESP 16; TEMP 36.6; O2SAT 100
[2022-04-23] MEDS: Pyridoxine HCl (Vitamin B6) 50 MG TABLET 25 MG PO (12:05)
[2022-04-23] MEDS: Lactated Ringers 1,000 ML 999 ML IV (12:51)
[2022-04-23 15:54] LABS: CT PCR NOT DETECTED (Not Detect.); NG PCR NOT DETECTED (Not Detect.)
[2022-04-24 13:03] LABS: BV Int Neg Control Negative (Negative); BV Int Pos Control Positive (Positive)
== END 2022-04-23 15:30 | disposition home or self-care (01) ==
PROVIDERS: Physician Assistant; Emergency Provider Student in an Organized Health Care Education/Training Program; PCP General Practice
DX: O20.9 Hemorrhage in early pregnancy, unspecified (principal); O23.591 Infection of other part of genital tract in pregnancy, first trimester; O99.331 Smoking (tobacco) complicating pregnancy, first trimester; Z3A.08 8 weeks gestation of pregnancy; Z79.899 Other long term (current) drug therapy
CPT/HCPCS: 0353U; 36415; 76801; 76817; 80048; 80076; 81001; 83690; 83735; 84702; 85025; 86900; 86901; 87086; 87088; 87186; 87480; 87510; 87660; 96361; 96374; 96375; 99284; J1200

== ENCOUNTER 2022-04-25 08:09 | Outpatient (REF) | payer MEDICAID, SELFPAY ==
[2022-04-25 09:06] LABS: HCG Quantitative 9284 mIU/mL
== END 2022-04-25 08:10 | disposition home or self-care (01) ==
LOC: HO.LAB 08:09
PROVIDERS: PCP General Practice; Referring Provider Obstetrics & Gynecology; Visit Provider Physician Assistant
DX: O26.891 Other specified pregnancy related conditions, first trimester (principal); R10.9 Unspecified abdominal pain
CPT/HCPCS: 36415; 84702; 99212

== ENCOUNTER 2022-05-02 11:28 | Outpatient (REF) | payer MEDICAID, SELFPAY ==
--- NOTE | ~2022-05-02 | US_ITS ---
EXAMINATION: US OBSTETRICAL CLINICAL INFORMATION: Size and dates COMPARISON: None. LMP: 03/15/2022. Gestational age by maternal dates is 6 weeks and 6 days. Estimated date of delivery by maternal dates is 12/20/2022. TECHNIQUE: Routine grayscale transabdominal and transvaginal imaging of the pelvis is performed. FINDINGS: There is a single intrauterine gestational sac with visible yolk sac, embryo/fetus, and cardiac activity. There is no significant subchorionic hemorrhage or hematoma. HR: 87/104 beats per minute. Variable heart rate. CRL (crown rump length): 0.37 cm (6 weeks and 1 day +/- 4 days). DEBO (estimated date of delivery): 12/25/2022 +/- 4 days. MATERNAL ADNEXA: The right maternal ovary measures 3.19 x 2.30 x 2.08 cm. No focal lesion seen. The left maternal ovary measures 3.08 x 2.41 x 2.9 cm. There is a small corpus luteal cyst measuring 2.7 x 2.0 x 1.8 cm. There is no significant maternal adnexal mass. Trace maternal free fluid seen. US/US OB pelvic and transvaginal IMPRESSION: 1. Single intrauterine gestation with ultrasound gestational age of 6 weeks 1 day +/- 4 days. 2. Estimated date of delivery is 12/25/2022 +/- 4 days. 3. Maternal trace free fluid in the cul-de-sac. Small corpus luteal cyst left ovary.
== END 2022-05-02 11:29 | disposition home or self-care (01) ==
LOC: HO.HMGCX 11:28
PROVIDERS: Visit Provider Advanced Practice Midwife
DX: Z34.91 Encounter for supervision of normal pregnancy, unspecified, first trimester (principal)
CPT/HCPCS: 76801; 76817

== ENCOUNTER 2022-05-09 09:54 | Outpatient (REF) | payer MEDICAID, SELFPAY ==
[2022-05-09 12:40] LABS: Amphetamine Screen Urine Not Detected (Not Detect); Barbiturates, Urine Not Detected (Not Detect); Benzodiazepines Screen Urine POSITIVE (Not Detect); Cannabinoid Screen Urine POSITIVE (Not Detect); Cocaine Screen Urine Not Detected (Not Detect); Fentanyl, urine Not Detected (Not Detect); Opiate Screen Urine Not Detected (Not Detect); Phencyclidine Screen Urine Not Detected (Not Detect)
== END 2022-05-09 09:55 | disposition home or self-care (01) ==
LOC: HO.LAB 09:54
PROVIDERS: PCP General Practice; Visit Provider Advanced Practice Midwife
DX: O99.321 Drug use complicating pregnancy, first trimester (principal); F12.90 Cannabis use, unspecified, uncomplicated
CPT/HCPCS: 80307; 99212

== ENCOUNTER 2022-06-04 19:30 | Emergency (ER) | payer MEDICAID, SELFPAY ==
[2022-06-04 20:49] VITALS: BP 91/49; PULSE 85; RESP 16; TEMP 36.7; O2SAT 100; BMI 25.7
--- NOTE | 2022-06-04 20:54 | ED_ITS ---
HPI - Abdominal Pain General Chief Complaint: GI Bleed <THOMAS Goldstein - Last Filed: 06/04/22 20:59> Stated Complaint: dark blood stools <THOMAS Goldstein - Last Filed: 06/04/22 20:59> Time Seen by Provider: 06/05/22 01:18 <THOMAS Goldstein - Last Filed: 06/04/22 20:59> Source: patient <Kristel Malcolm MD - Last Filed: 06/05/22 01:43> Mode of arrival: ambulatory <Kristel Malcolm MD - Last Filed: 06/05/22 01:43> Limitations: no limitations <Kristel Malcolm MD - Last Filed: 06/05/22 01:43> History of Present Illness HPI narrative: Patient comes to the emergency room complaining a of black diarrhea. Patient states that she got scared that this might be blood because she has history of gastric ulcers and she recently took ibuprofen after D&C. Patient states she has a bit of abdominal cramping, no significant pain, no fever or chills, no nausea or vomiting, only that 1 episode of diarrhea. Patient denies any vaginal bleeding or spotting, no pelvic pain. <Kristel Malcolm MD - Last Filed: 06/05/22 01:43> Related Data Home Medications: Home Medications Medication Instructions Recorded Confirmed albuterol sulfate 90 mcg/actuation 2 puff inhalation QID PRN 05/30/20 01/03/22 aerosol inhaler Shortness Of Breath epinephrine 0.3 mg/0.3 mL 0.3 mg IM Q10M PRN Anaphylaxis 08/08/20 01/03/22 injection, auto-injector fluticasone propionate 50 1 spray intranasal DAILY sinus 12/28/21 01/03/22 mcg/actuation nasal congestion spray,suspension (Flonase Allergy Relief) olanzapine 10 mg tablet 10 mg PO BEDTIME 12/28/21 01/03/22 clonazepam 1 mg tablet 1 mg PO BID PRN anxiety attack 02/19/22 buspirone 5 mg tablet 5 mg PO TID 04/25/22 Previous Rx's Medication Instructions Recorded fluoxetine 20 mg capsule 40 mg PO DAILY #14 caps 12/29/21 levetiracetam 500 mg tablet 500 mg PO BID #60 tabs 01/03/22 (Keppra) pantoprazole 40 mg tablet,delayed 40 mg PO TID 2 weeks #42 tabs 03/06/22 release PNV 153-FA 400 mcg-om3 35 mg-dha 1 tab PO DAILY #30 tabs 04/25/22 25 mg-epa 5 mg-fish oil chew tablet ( Gummies) doxylamine succinate 25 mg tablet 12.5 mg PO BEDTIME sleep 30 days 05/04/22 (Unisom (doxylamine)) #30 tabs pyridoxine (vitamin B6) 25 mg 25 mg PO TID #90 tabs 05/04/22 tablet loperamide 2 mg tablet 2 mg PO Q4H PRN loose stool #14 06/05/22 tabs <THOMAS Goldstein - Last Filed: 06/04/22 20:59> Allergies/Adverse Reactions: Allergies Allergy/AdvReac Type Severity Reaction Status Date / Time dog dander [DOG] Allergy Intermediate itching/hiv Verified 05/09/22 09:58 es kiwi [KIWI] Allergy Intermediate TONGUE Verified 05/09/22 09:58 TINGLING, HIVES, ITCHING latex Allergy Intermediate Hives, Verified 05/09/22 09:58 itching mushroom [MUSHROOM] Allergy Intermediate UNKNOWN Verified 05/09/22 09:58 Rabbit [RABBITS] Allergy Intermediate ITCHING, Verified 05/09/22 09:58 HIVES tramadol AdvReac Intermediate Nausea Verified 05/09/22 09:58 <THOMAS Goldstein - Last Filed: 06/04/22 20:59> Review of Systems Review of Systems Constitutional : No Weight loss, No Fever, No Chills, No Night Sweats, No Fatigue, No Malaise ENT/Mouth : No Hearing loss, No Ear Pain, No Nasal Congestion, No Sinus Pain, No Hoarseness, No sore throat, No Rhinorrhea, No Swallowing Difficulty Eyes: No Eye Pain, No Swelling, No Redness, No Foreign Body, No Discharge, No Vision Changes Cardiovascular : No Chest Pain, No SOB, No Dyspnea on Exertion, No Orthopnea, No Edema, No Palpitations Respiratory : No Cough, No Sputum, No Wheezing, No Smoke Exposure, No Dyspnea Gastrointestinal : No Nausea, No Vomiting, complaining of 1 episode of black watery Diarrhea, No Constipation, No abdominal Pain, No Hematochezia, No Melena Genitourinary : no irregular bleeding, No Dysuria, No Urinary Frequency, No Hematuria, No Urinary Incontinence, No Urgency, No Flank Pain, No Urinary Flow Changes, No Hesitancy Musculoskeletal : No joint pain, No Myalgias, No Joint Swelling Skin : No Skin Lesions, No rash Neuro : No Weakness, No Numbness, No Paresthesias, No Loss of Consciousness, No Dizziness, No Headache Psych : No Anxiety/Panic, No Depression, No SI/HI/AH/VH, No Social Issues, Heme/Lymph: No Bruising, No Bleeding,No Lymphadenopathy Endocrine : No Polyuria, No Polydipsia, No Temperature Intolerance <Kristel Malcolm MD - Last Filed: 06/05/22 01:43> [facility] [place] Past Medical History Medical History: Medical History Anemia Asthma Bipolar 1 disorder COVID-19 vaccine administered Depression Environmental and seasonal allergies Gallstones GERD (gastroesophageal reflux disease) H. pylori infection Hypertrophic scar Smoker Tonsil and adenoid disease, chronic <THOMAS Goldstein - Last Filed: 06/04/22 20:59> Surgical History: Surgical History History of esophagogastroduodenoscopy (EGD) Hx of section Hx of cholecystectomy Hx of hemorrhoidectomy (05/06/19) Hx of tonsillectomy <THOMAS Goldstein - Last Filed: 06/04/22 20:59> Family History Family History: Family History Maternal Aunt Ovarian cancer Maternal Grandmother Endometrial adenocarcinoma Mother Diabetes HTN (hypertension) Father Lung cancer <THOMAS Goldstein - Last Filed: 06/04/22 20:59> Social History Social History: Social History Household Members: Children Housing: Apartment Do you presently have visiting nurse or other home services: No Alcohol intake: current Alcohol intake frequency: a few times a week Alcohol type: wine Patient Tobacco Use Status: Current someday Tobacco user Tobacco use type: Cigarette Cigarettes Per Day: 5 Years Smoked: 15 e-Cigarette/Vaping Use: Never Used Second Hand Smoke Exposure: No Substance Use Type: Marijuana Advance Directives: No service: No Current occupational status: employed and other 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 <THOMAS Goldstein - Last Filed: 06/04/22 20:59> Physical Exam ED Vital Signs: Vital Signs - 24 hr 06/04/22 20:49 06/05/22 01:34 Temperature 98.1 F Pulse Rate 85 68 Respiratory Rate 16 16 Blood Pressure 91/49 L 93/51 L Pulse Oximetry 100 100 Oxygen Delivery Method Room Air Room Air BMI result Body Mass Index 25.7 <THOMAS Goldstein - Last Filed: 06/04/22 20:59> Vital Signs - 24 hr 06/04/22 20:49 06/05/22 01:34 Temperature 98.1 F Pulse Rate 85 68 Respiratory Rate 16 16 Blood Pressure 91/49 L 93/51 L Pulse Oximetry 100 100 Oxygen Delivery Method Room Air Room Air BMI result Body Mass Index 25.7 <Kristel Malcolm MD - Last Filed: 06/05/22 01:43> Const Other: Appearance: Alert. Oriented X3. No acute distress. Eyes: Pupils equal, round and reactive to light. ENT: Pharynx normal. Neck: Normal inspection. Neck supple. No lymph nodes noted. No crepitus CVS: Normal heart rate and rhythm. Pulses normal. Normal S1 and S2 Respiratory: No respiratory distress. Breath sounds normal. No Wheezing. No rales Abdomen: Soft and nontender. No rigidity. No distention. No rebound, no g uarding Digital rectal exam, brown stool, no bright red blood per rectum, no hemorrhoids internal or external Skin: Skin warm and dry. Normal skin color. Normal skin turgor. Extremities: No lower extremity edema. No Lacerations. No Rash Neuro: Oriented X 3. No motor deficit. No sensory deficit. Moving all extremities. No slurred speech. CN 2 through 12 grossly intact Psych: calm, cooperative, normal affect <Kristel Malcolm MD - Last Filed: 06/05/22 01:43> Course Course Course Narrative: RME-20:58pm 31yoF who had a D&C she was 3 months on Manny at [facility] and then started today started having watery chunky black stools and diffuse pain. Denies fevers, n/v, Dysuria, vaginal bleeding or any other symptoms complaints or concerns at this time. Plan: Labs, type and screen, UA and an ultrasound ordered at this time. Patient may need a CT scan. Patient will be sent back to the waiting room to be evaluated in the ED. <THOMAS Goldstein - Last Filed: 06/04/22 20:59> Medical Decision Making Medical Decision Making [facility] Narrative: -I discussed the labs with the patient, her hemoglobin is stable. Patient does have anemia but her levels are better than the last few months. -hCG 671, decreasing from 9284, patient states she has good follow-up with her OBGYN. -patient's chemistry is unremarkable -occult stool negative for blood. <Kristel Malcolm MD - Last Filed: 06/05/22 01:43> Differential Diagnosis Differential Diagnoses: The differential diagnosis associated with the presentation includes (GI bleed, gastroenteritis, viral syndrome) <Kristel Malcolm MD - Last Filed: 06/05/22 01:43> Lab Data [facility] Lab Attestation statement: I reviewed the patient's lab results. <Kristel Malcolm MD - Last Filed: 06/05/22 01:43> Result Diagrams: 06/04/22 23:08 06/04/22 23:08 <THOMAS Goldstein - Last Filed: 06/04/22 20:59> Labs: Lab Results 06/04/22 06/04/22 06/04/22 Range/Units 23:08 23:08 23:08 WBC 8.6 (4.8-10.8) X10*3/uL RBC 4.36 (4.20-5.50) X10*6/uL Hgb 11.2 L (12.0-16.0) g/dl Hct 33.7 L (37.0-47.0) % MCV 77.3 L (80.0-98.0) fL MCH 25.7 L (27.0-33.0) pg MCHC 33.2 (31.0-35.0) g/dl RDW 19.3 H (11.0-16.0) % Plt Count 426 H (160-400) X10*3/uL MPV 8.8 L (9.4-12.3) fL Immature Gran % (Auto) 0.2 (0.0-0.4) % Neut % (Auto) 39.5 L (45-73) % Lymph % (Auto) 49.9 H (20-40) % Crenshaw % (Auto) 6.5 (2-11) % Eos % (Auto) 3.4 (0-4) % Baso % (Auto) 0.5 (0-2) % Lymph # (Auto) 4.3 (1.2-4.9) X10*3/uL Crenshaw # (Auto) 0.6 (0.1-1.2) X10*3/uL Eos # (Auto) 0.3 (0.0-0.4) X10*3/uL Baso # (Auto) 0.0 (0.0-0.2) X10*3/uL Abs Immat Gran (auto) 0.02 (0.00-0.03) X10*3/uL Absolute Neuts (auto) 3.4 (2.0-8.3) x10*3/uL Absolute Nucleated RBC 0.000 (0.0-0.012) X10*3/uL Nucleated RBC % (auto) 0.0 (0.0-0.2) /100WBC PT 11.2 (10.0-13.1) SEC INR 1.0 (0.9-1.1) Sodium 141 (135-145) mmol/L Potassium 3.7 (3.3-5.1) mmol/L Chloride 109 H (96-108) mmol/L Carbon Dioxide 23 (22-29) mmol/L Anion Gap 13 (12-20) BUN 12 (9-16) mg/dL Creatinine 0.69 (0.5-1.4) mg/dL Estim Creat Clear Calc 87.4 Estimated GFR > 60 Random Glucose 101 (60-115) mg/dL Calcium 9.1 (8.4-10.2) mg/dL Magnesium 2.0 (1.6-2.6) mg/dL Total Bilirubin 0.4 (0.0-1.0) mg/dL AST 15 (5-31) U/L ALT 9 (0-31) U/L Alkaline Phosphatase 49 (39-117) U/L Total Protein 7.4 (6.5-8.0) g/dL Albumin 4.8 (3.5-5.0) g/dL Lipase 25 (8-78) U/L Beta HCG, Quant mIU/mL Stool Occult Blood (NEGATIVE) Blood Type Antibody Screen 06/04/22 06/04/22 06/05/22 Range/Units 23:08 23:10 01:27 WBC (4.8-10.8) X10*3/uL RBC (4.20-5.50) X10*6/uL Hgb (12.0-16.0) g/dl Hct (37.0-47.0) % MCV (80.0-98.0) fL MCH (27.0-33.0) pg MCHC (31.0-35.0) g/dl RDW (11.0-16.0) % Plt Count (160-400) X10*3/uL MPV (9.4-12.3) fL Immature Gran % (Auto) (0.0-0.4) % Neut % (Auto) (45-73) % Lymph % (Auto) (20-40) % Crenshaw % (Auto) (2-11) % Eos % (Auto) (0-4) % Baso % (Auto) (0-2) % Lymph # (Auto) (1.2-4.9) X10*3/uL Crenshaw # (Auto) (0.1-1.2) X10*3/uL Eos # (Auto) (0.0-0.4) X10*3/uL Baso # (Auto) (0.0-0.2) X10*3/uL Abs Immat Gran (auto) (0.00-0.03) X10*3/uL Absolute Neuts (auto) (2.0-8.3) x10*3/uL Absolute Nucleated RBC (0.0-0.012) X10*3/uL Nucleated RBC % (auto) (0.0-0.2) /100WBC PT (10.0-13.1) SEC INR (0.9-1.1) Sodium (135-145) mmol/L Potassium (3.3-5.1) mmol/L Chloride (96-108) mmol/L Carbon Dioxide (22-29) mmol/L Anion Gap (12-20) BUN (9-16) mg/dL Creatinine (0.5-1.4) mg/dL Estim Creat Clear Calc Estimated GFR Random Glucose (60-115) mg/dL Calcium (8.4-10.2) mg/dL Magnesium (1.6-2.6) mg/dL Total Bilirubin (0.0-1.0) mg/dL AST (5-31) U/L ALT (0-31) U/L Alkaline Phosphatase (39-117) U/L Total Protein (6.5-8.0) g/dL Albumin (3.5-5.0) g/dL Lipase (8-78) U/L Beta HCG, Quant 671 mIU/mL Stool Occult Blood NEGATIVE (NEGATIVE) Blood Type A Positive Antibody Screen NEGATIVE <THOMAS Goldstein - Last Filed: 06/04/22 20:59> Lab Results 06/04/22 06/04/22 06/04/22 Range/Units 23:08 23:08 23:08 WBC 8.6 (4.8-10.8) X10*3/uL RBC 4.36 (4.20-5.50) X10*6/uL Hgb 11.2 L (12.0-16.0) g/dl Hct 33.7 L (37.0-47.0) % MCV 77.3 L (80.0-98.0) fL MCH 25.7 L (27.0-33.0) pg MCHC 33.2 (31.0-35.0) g/dl RDW 19.3 H (11.0-16.0) % Plt Count 426 H (160-400) X10*3/uL MPV 8.8 L (9.4-12.3) fL Immature Gran % (Auto) 0.2 (0.0-0.4) % Neut % (Auto) 39.5 L (45-73) % Lymph % (Auto) 49.9 H (20-40) % Crenshaw % (Auto) 6.5 (2-11) % Eos % (Auto) 3.4 (0-4) % Baso % (Auto) 0.5 (0-2) % Lymph # (Auto) 4.3 (1.2-4.9) X10*3/uL Crenshaw # (Auto) 0.6 (0.1-1.2) X10*3/uL Eos # (Auto) 0.3 (0.0-0.4) X10*3/uL Baso # (Auto) 0.0 (0.0-0.2) X10*3/uL Abs Immat Gran (auto) 0.02 (0.00-0.03) X10*3/uL Absolute Neuts (auto) 3.4 (2.0-8.3) x10*3/uL Absolute Nucleated RBC 0.000 (0.0-0.012) X10*3/uL Nucleated RBC % (auto) 0.0 (0.0-0.2) /100WBC PT 11.2 (10.0-13.1) SEC INR 1.0 (0.9-1.1) Sodium 141 (135-145) mmol/L Potassium 3.7 (3.3-5.1) mmol/L Chloride 109 H (96-108) mmol/L Carbon Dioxide 23 (22-29) mmol/L Anion Gap 13 (12-20) BUN 12 (9-16) mg/dL Creatinine 0.69 (0.5-1.4) mg/dL Estim Creat Clear Calc 87.4 Estimated GFR > 60 Random Glucose 101 (60-115) mg/dL Calcium 9.1 (8.4-10.2) mg/dL Magnesium 2.0 (1.6-2.6) mg/dL Total Bilirubin 0.4 (0.0-1.0) mg/dL AST 15 (5-31) U/L ALT 9 (0-31) U/L Alkaline Phosphatase 49 (39-117) U/L Total Protein 7.4 (6.5-8.0) g/dL Albumin 4.8 (3.5-5.0) g/dL Lipase 25 (8-78) U/L Beta HCG, Quant mIU/mL Stool Occult Blood (NEGATIVE) Blood Type Antibody Screen 06/04/22 06/04/22 06/05/22 Range/Units 23:08 23:10 01:27 WBC (4.8-10.8) X10*3/uL RBC (4.20-5.50) X10*6/uL Hgb (12.0-16.0) g/dl Hct (37.0-47.0) % MCV (80.0-98.0) fL MCH (27.0-33.0) pg MCHC (31.0-35.0) g/dl RDW (11.0-16.0) % Plt Count (160-400) X10*3/uL MPV (9.4-12.3) fL Immature Gran % (Auto) (0.0-0.4) % Neut % (Auto) (45-73) % Lymph % (Auto) (20-40) % Crenshaw % (Auto) (2-11) % Eos % (Auto) (0-4) % Baso % (Auto) (0-2) % Lymph # (Auto) (1.2-4.9) X10*3/uL Crenshaw # (Auto) (0.1-1.2) X10*3/uL Eos # (Auto) (0.0-0.4) X10*3/uL Baso # (Auto) (0.0-0.2) X10*3/uL Abs Immat Gran (auto) (0.00-0.03) X10*3/uL Absolute Neuts (auto) (2.0-8.3) x10*3/uL Absolute Nucleated RBC (0.0-0.012) X10*3/uL Nucleated RBC % (auto) (0.0-0.2) /100WBC PT (10.0-13.1) SEC INR (0.9-1.1) Sodium (135-145) mmol/L Potassium (3.3-5.1) mmol/L Chloride (96-108) mmol/L Carbon Dioxide (22-29) mmol/L Anion Gap (12-20) BUN (9-16) mg/dL Creatinine (0.5-1.4) mg/dL Estim Creat Clear Calc Estimated GFR Random Glucose (60-115) mg/dL Calcium (8.4-10.2) mg/dL Magnesium (1.6-2.6) mg/dL Total Bilirubin (0.0-1.0) mg/dL AST (5-31) U/L ALT (0-31) U/L Alkaline Phosphatase (39-117) U/L Total Protein (6.5-8.0) g/dL Albumin (3.5-5.0) g/dL Lipase (8-78) U/L Beta HCG, Quant 671 mIU/mL Stool Occult Blood NEGATIVE (NEGATIVE) Blood Type A Positive Antibody Screen NEGATIVE <Kristel Malcolm MD - Last Filed: 06/05/22 01:43> Discharge Plan Discharge Clinical Impression: Diarrhea <THOMAS Goldstein - Last Filed: 06/04/22 20:59> Patient Disposition: Home, Self-Care <THOMAS Goldstein - Last Filed: 06/04/22 20:59> Instructions: Acute Diarrhea (ED) <THOMAS Goldstein - Last Filed: 06/04/22 20:59> Additional Instructions: Please follow-up with your primary care physician tomorrow. If you have any worsening or new symptoms, please return to the emergency room or call 911 <THOMAS Goldstein - Last Filed: 06/04/22 20:59> Prescriptions: New loperamide 2 mg tablet 2 mg PO Q4H PRN (Reason: loose stool) Qty: 14 0RF Rx Instructions: administer after each loose stool until symptoms controlled; do not exceed 8 mg per 24 hrs No Action pantoprazole 40 mg tablet,delayed release (DR/EC) 40 mg PO TID 14 Days Qty: 42 0RF Unisom (doxylamine) 25 mg tablet 12.5 mg PO BEDTIME 30 Days Qty: 30 0RF Rx Instructions: Take 1/2 tablet before bed in addition to Vit B6 tid for nausea pyridoxine (vitamin B6) 25 mg tablet 25 mg PO TID Qty: 90 0RF albuterol sulfate 90 mcg/actuation HFA aerosol inhaler 2 puff inhalation QID PRN (Reason: Shortness Of Breath) epinephrine 0.3 mg/0.3 mL Auto-Injector 0.3 mg IM Q10M PRN (Reason: Anaphylaxis) olanzapine 10 mg Tablet 10 mg PO BEDTIME fluticasone propionate [Flonase Allergy Relief] 50 mcg/actuation spray,suspension 1 spray intranasal DAILY Rx Instructions: administer into each nostril fluoxetine 20 mg Capsule 40 mg PO DAILY Qty: 14 0RF levetiracetam [Keppra] 500 mg tablet 500 mg PO BID Qty: 60 0RF clonazepam 1 mg tablet 1 mg PO BID PRN (Reason: anxiety attack) buspirone 5 mg tablet 5 mg PO TID Gummies 400 mcg-35 mg- 25 mg-5 mg tablet,chewable 1 tab PO DAILY Qty: 30 11RF <THOMAS Goldstein - Last Filed: 06/04/22 20:59>
[2022-06-04 23:16] LABS: MANUAL DIFF FLAG NO
[2022-06-04 23:18] LABS: Basophils Percent Auto 0.5 % (0-2); Eosinophils Absolute Auto 0.3 X10*3/uL (0.0-0.4); Eosinophils Percent Auto 3.4 % (0-4); Hematocrit 33.7 % (37.0-47.0); Hemoglobin 11.2 g/dl (12.0-16.0); Imm Gran Abs Auto 0.02 X10*3/uL (0.00-0.03); Imm Gran Pct Auto 0.2 % (0.0-0.4); Lymphocytes Absolute Auto 4.3 X10*3/uL (1.2-4.9); Lymphocytes Percent Auto 49.9 % (20-40); Mean Corpuscular HGB Conc 33.2 g/dl (31.0-35.0); Mean Corpuscular Hemoglobin 25.7 pg (27.0-33.0); Mean Corpuscular Volume 77.3 fL (80.0-98.0); Mean Platelet Volume 8.8 fL (9.4-12.3); Monocytes Absolute Auto 0.6 X10*3/uL (0.1-1.2); Monocytes Percent Auto 6.5 % (2-11); Neutrophils Absolute Auto 3.4 x10*3/uL (2.0-8.3); Neutrophils Percent Auto 39.5 % (45-73); Platelet Count 426 X10*3/uL (160-400); Red Blood Count 4.36 X10*6/uL (4.20-5.50); Red Cell Distribution Width 19.3 % (11.0-16.0); White Blood Count 8.6 X10*3/uL (4.8-10.8)
[2022-06-04 23:27] LABS: Prothrombin Time 11.2 SEC (10.0-13.1)
[2022-06-04 23:31] LABS: Alanine Aminotransferase 9 U/L (0-31); Albumin Level 4.8 g/dL (3.5-5.0); Alkaline Phosphatase 49 U/L (39-117); Anion Gap 13 (12-20); Aspartate Amino Transferase 15 U/L (5-31); Bilirubin Total 0.4 mg/dL (0.0-1.0); Blood Urea Nitrogen 12 mg/dL (9-16); Calcium 9.1 mg/dL (8.4-10.2); Carbon Dioxide 23 mmol/L (22-29); Chloride 109 mmol/L (96-108); Creatinine Clr Calc Pharmacy 87.4; Estimated Glomerular Filt Rate > 60; Glucose Random 101 mg/dL (60-115); Lipase 25 U/L (8-78); Potassium 3.7 mmol/L (3.3-5.1); Sodium 141 mmol/L (135-145); Total Protein 7.4 g/dL (6.5-8.0)
[2022-06-04 23:38] LABS: HCG Quantitative 671 mIU/mL
[2022-06-05 01:34] VITALS: BP 93/51; PULSE 68; RESP 16; O2SAT 100
[2022-06-05 01:36] LABS: OBS Int Ctl Valid YES; OBS1 NEGATIVE (NEGATIVE)
[2022-06-05] MEDS: Loperamide HCl 2 MG CAPSULE 4 MG PO (01:44)
== END 2022-06-05 01:49 | disposition home or self-care (01) ==
PROVIDERS: Physician Assistant Medical; Emergency Provider Emergency Medicine
DX: R19.7 Diarrhea, unspecified (principal); F17.210 Nicotine dependence, cigarettes, uncomplicated; F12.90 Cannabis use, unspecified, uncomplicated; Z79.899 Other long term (current) drug therapy
CPT/HCPCS: 36415; 80053; 82272; 83690; 83735; 84702; 85025; 85610; 86850; 86900; 86901; 99283; 99284

== ENCOUNTER 2022-09-19 11:13 | Emergency (ER) | payer MEDICAID, SELFPAY ==
[2022-09-19 11:26] VITALS: BP 121/80; PULSE 76; RESP 18; TEMP 36.8; O2SAT 100; BMI 27.3
--- NOTE | 2022-09-19 11:57 | ED.GENADULT ---
HPI - General Adult General Chief complaint: Upper Respiratory Symptoms Stated complaint: sore throat / spitting blood Time Seen by Provider: 09/19/22 11:41 Source: patient Mode of arrival: ambulatory Limitations: no limitations History of Present Illness HPI narrative: This is a 32-year-old female presenting to the emergency department for discomfort in her throat, changes in voice for the past month or so worsening. Patient reports she has an appointment with her PCP next month to evaluate this issue however she could not wait because today she woke up with burning to her throat, and she is very hoarse. She says today she is having some burning and she thinks that she may have seen blood in her saliva this morning however not a large amount of blood, unclear if it truly is blood. Patient reports she is a current daily smoker, unable to quantify how much she smokes however she says she has been smoking a lot the past few months due to increasing life stressors. Patient tells me that she takes allergy meds every day. She denies unintentional weight gain or weight loss, night sweats, fatigue, nausea, vomiting, abdominal pain, headache, vision changes, dizziness, chest pain, shortness of breath, difficulty controlling secretions. Related Data Home Medications Medication Instructions Recorded Confirmed albuterol sulfate 90 mcg/actuation 2 puff inhalation QID PRN 05/30/20 07/24/22 aerosol inhaler Shortness Of Breath epinephrine 0.3 mg/0.3 mL 0.3 mg IM Q10M PRN Anaphylaxis 08/08/20 07/24/22 injection, auto-injector fluticasone propionate 50 1 spray intranasal DAILY sinus 12/28/21 07/24/22 mcg/actuation nasal congestion spray,suspension (Flonase Allergy Relief) olanzapine 10 mg tablet 10 mg PO BEDTIME 12/28/21 07/24/22 clonazepam 1 mg tablet 1 mg PO DAILY PRN anxiety attack 02/19/22 07/24/22 buspirone 5 mg tablet 10 mg PO DAILY 04/25/22 07/24/22 Previous Rx's Medication Instructions Recorded fluoxetine 20 mg capsule 40 mg PO DAILY #14 caps 12/29/21 levetiracetam 500 mg tablet 500 mg PO BID #60 tabs 01/03/22 (Keppra) pantoprazole 40 mg tablet,delayed 40 mg PO TID 2 weeks #42 tabs 03/06/22 release PNV 153-FA 400 mcg-om3 35 mg-dha 1 tab PO DAILY #30 tabs 04/25/22 25 mg-epa 5 mg-fish oil chew tablet ( Gummies) doxylamine succinate 25 mg tablet 12.5 mg PO BEDTIME sleep 30 days 05/04/22 (Unisom (doxylamine)) #30 tabs pyridoxine (vitamin B6) 25 mg 25 mg PO TID #90 tabs 05/04/22 tablet loperamide 2 mg tablet 2 mg PO Q4H PRN loose stool #14 06/05/22 tabs prednisone 20 mg tablet 40 mg PO DAILY 5 days #10 tabs 09/19/22 Allergies Allergy/AdvReac Type Severity Reaction Status Date / Time dog dander [DOG] Allergy Intermediate itching/hiv Verified 05/09/22 09:58 es kiwi [KIWI] Allergy Intermediate TONGUE Verified 05/09/22 09:58 TINGLING, HIVES, ITCHING latex Allergy Intermediate Hives, Verified 05/09/22 09:58 itching mushroom [MUSHROOM] Allergy Intermediate UNKNOWN Verified 05/09/22 09:58 Rabbit [RABBITS] Allergy Intermediate ITCHING, Verified 05/09/22 09:58 HIVES tramadol AdvReac Intermediate Nausea Verified 05/09/22 09:58 Review of Systems Review of Systems: Constitutional : No Weight loss, No Fever, No Chills, No Fatigue, No Malaise ENT/Mouth : + sore throat, No Rhinorrhea, + changes in voice Eyes: No Eye Pain, No Swelling, No Redness Cardiovascular : No Chest Pain, No SOB, No Dyspnea on Exertion, No Orthopnea, No Edema, No Palpitations Respiratory : No Cough, No Sputum, No Wheezing Gastrointestinal : No Nausea, No Vomiting, No Diarrhea, No Constipation, No abdominal Pain, No Hematochezia, No Melena Genitourinary : No Dysuria, No Urinary Frequency, No Hematuria, Musculoskeletal : No joint pain, No Myalgias, No Joint Swelling Skin : No Skin Lesions, No rash Neuro : No Weakness, No Numbness, No Dizziness, No Headache Psych : No Anxiety/Panic, No Depression All other systems reviewed and are negative Yes all other systems are reviewed and are negative PMFSH Past Medical History Attestation statement: The following information was validated with the patient. Source: old records reviewed and nursing notes reviewed Medical History (Updated 09/19/22 @ 11:58 by THOMAS Jarrell) Anemia Asthma Bipolar 1 disorder COVID-19 vaccine administered Depression Environmental and seasonal allergies Gallstones GERD (gastroesophageal reflux disease) H. pylori infection Hypertrophic scar Miscarriage (~06/01/22) Smoker Tonsil and adenoid disease, chronic Surgical History History of esophagogastroduodenoscopy (EGD) Hx of section Hx of cholecystectomy Hx of hemorrhoidectomy (05/06/19) Hx of tonsillectomy Family History Family History Maternal Aunt Ovarian cancer Maternal Grandmother Endometrial adenocarcinoma Mother Diabetes HTN (hypertension) Father Lung cancer Social History Social History Household Members: Children Housing: Apartment Do you presently have visiting nurse or other home services: No Alcohol intake: current Alcohol intake frequency: a few times a week Alcohol type: wine Patient Tobacco Use Status: Current someday Tobacco user Tobacco use type: Cigarette Cigarettes Per Day: 5 Years Smoked: 15 e-Cigarette/Vaping Use: Never Used Second Hand Smoke Exposure: No Substance Use Type: Marijuana Advance Directives: No service: No Current occupational status: employed and other 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 Oriented X3.? No acute distress.? Head: Normocephalic, atraumatic, no step-offs or deformities Eyes: Pupils equal, round and reactive to light.? ENT: Pharynx normal.? No erythema, edema to posterior pharynx, absent tonsils status post tonsillectomy years ago, no peritonsillar retropharyngeal abscess. No cobblestoning. Uvula midline. No exudate. Patient controlling secretions well, speaking in full sentences without distress. Thyroid: normal palpation, no palpable lymphadenopathy on my exam Neck: Normal inspection.? Neck supple.? CVS: Normal heart rate and rhythm.? Pulses normal.? Respiratory: No respiratory distress.? Breath sounds normal.? Abdomen: Soft and nontender.? Skin: Skin warm and dry.? Normal skin color.? Normal skin turgor.? Extremities: No lower extremity edema.? No calf ttp. 5/5 strength to bilateral upper and lower extremities Neuro: Oriented X 3.? No motor deficit.? No sensory deficit. CN 2-12 intact Course Reevaluation(s) Reevaluation #1: Strep test pending. Will call her if results are positive. Will have her follow up with ears Nose and Throat, will send a short prescription of prednisone in case these are allergies to see if this helps. Educated patient on diagnosis and treatment plan, answered all question, patient verbalizes understanding. At this time patient will be discharged home, advised to return with new or worsening symptoms. Educated on worrisome signs and symptoms and when to return. At this time I feel comfortable discharge home. To know I did have a conversation with patient that she is high risk for malignancy due to smoking and symptoms, she should follow up promptly. Time: 12:03 Medical Decision Making Medical Decision Making MDM Narrative: 32-year-old female presents with throat burning, changes in voice for the past month. Current daily smoker physical examination benign. Concerns for laryngitis versus allergies. Unlikely strep throat, mononucleosis, peritonsillar abscess, retropharyngeal abscess, epiglottitis, threatened airway. There is some concern for malignancy as patient is a current daily smoker, will have her follow-up with specialist as soon as possible. No constitutional symptoms endorse on review of systems however. Plan strep test. Differential Diagnosis Differential Diagnoses: The differential diagnosis associated with the presentation includes Concerns for laryngitis versus allergies. Unlikely strep throat, mononucleosis, peritonsillar abscess, retropharyngeal abscess, epiglottitis, threatened airway. There is some concern for malignancy as patient is a current daily smoker, will have her follow-up with specialist as soon as possible. No constitutional symptoms endorse on review of systems however. Admission/Observation Consideration of admission/observation: Escalation of care including admission/observation considered Not indicated Tests considered The following testing was considered but not selected: patient controlling secretions well, no evidence of airway compromise, retropharyngeal or peritonsillar abscess no need for imaging at this time emergently. Core Measures AMI core measures followed: Yes Measure exclusions: not indicated Critical Care Time Critical Care Time Critical Care Time: No Discharge Plan Discharge Clinical Impression: Laryngitis, Sore throat, Hoarseness of voice Patient Disposition: Home, Self-Care Instructions: Laryngitis (ED) Additional Instructions: Take your medications as prescribed. If you were prescribed antibiotics today, it is important that you take your medication to their entirety, do not skip any doses, do not finish them early. Follow-up with your primary care provider this week. Return to the emergency department with new or worsening symptoms. Such as fevers, chills, chest pain, shortness of breath, nausea, vomiting, dizziness, headache, vision changes, lethargy In case of emergency call 911 Follow up with ears, nose and throat Prescriptions: New prednisone 20 mg tablet 40 mg PO DAILY 5 Days Qty: 10 0RF No Action pantoprazole 40 mg tablet,delayed release (DR/EC) 40 mg PO TID 14 Days Qty: 42 0RF Unisom (doxylamine) 25 mg tablet 12.5 mg PO BEDTIME 30 Days Qty: 30 0RF Rx Instructions: Take 1/2 tablet before bed in addition to Vit B6 tid for nausea pyridoxine (vitamin B6) 25 mg tablet 25 mg PO TID Qty: 90 0RF albuterol sulfate 90 mcg/actuation HFA aerosol inhaler 2 puff inhalation QID PRN (Reason: Shortness Of Breath) epinephrine 0.3 mg/0.3 mL Auto-Injector 0.3 mg IM Q10M PRN (Reason: Anaphylaxis) olanzapine 10 mg Tablet 10 mg PO BEDTIME fluticasone propionate [Flonase Allergy Relief] 50 mcg/actuation spray,suspension 1 spray intranasal DAILY Rx Instructions: administer into each nostril fluoxetine 20 mg Capsule 40 mg PO DAILY Qty: 14 0RF levetiracetam [Keppra] 500 mg tablet 500 mg PO BID Qty: 60 0RF loperamide 2 mg tablet 2 mg PO Q4H PRN (Reason: loose stool) Qty: 14 0RF Rx Instructions: administer after each loose stool until symptoms controlled; do not exceed 8 mg per 24 hrs clonazepam 1 mg tablet 1 mg PO DAILY PRN (Reason: anxiety attack) buspirone 5 mg tablet 10 mg PO DAILY Gummies 400 mcg-35 mg- 25 mg-5 mg tablet,chewable 1 tab PO DAILY Qty: 30 11RF Referrals: Roxie Elena MD [Primary Care Provider] - 2 days Abel Viera [Physician] - 2 days Stand Alone Forms: Work/School Release
[2022-09-19 12:07] LABS: IDNOW Serial# 6674DD1D; Strep A Nucleic Acid Negative (Negative)
== END 2022-09-19 12:23 | disposition home or self-care (01) ==
PROVIDERS: Physician Assistant; Emergency Provider Emergency Medicine; PCP General Practice
DX: J04.0 Acute laryngitis (principal); J02.9 Acute pharyngitis, unspecified; R49.0 Dysphonia; J35.03 Chronic tonsillitis and adenoiditis; F17.210 Nicotine dependence, cigarettes, uncomplicated; Z79.899 Other long term (current) drug therapy
CPT/HCPCS: 87651; 99282; 99283

== ENCOUNTER 2023-01-26 08:53 | Emergency (ER) | payer MEDICAID, SELFPAY ==
--- NOTE | 2023-01-26 | ECG_ITS ---
Test Reason : SOB Blood Pressure : / mmHG Vent. Rate : 094 BPM Atrial Rate : 094 BPM P-R Int : 148 ms QRS Dur : 076 ms QT Int : 362 ms P-R-T Axes : 079 084 058 degrees QTc Int : 452 ms Normal sinus rhythm Nonspecific ST abnormality Inferior leads Lateral leads Abnormal ECG When compared with ECG of 01-JAN-2022 15:29, T wave inversion now evident in Inferior leads ST now depressed in Lateral leads Referred By: Generic ED Physician Electronically Signed By:LARY WATSON MD
--- NOTE | ~2023-01-26 | XR_ITS ---
EXAMINATION: XR CHEST CLINICAL INFORMATION: Cough COMPARISON: 12/18/2019 TECHNIQUE: 2 views of the chest were obtained. FINDINGS: The lungs are mildly hypoinflated. The evaluation of lower lobes is partially limited by hypoinflation. There appears to be a subtle patchy opacity in the left perihilar region and lower lung, possibly from bronchiolitis or early onset pneumonia. Since there is diagnostic uncertainty, correlation with patient's signs/symptoms is required. Cardiac silhouette has normal size and contour. Pulmonary vascular pattern is normal. The visualized bones and upper abdomen are unremarkable. XR/XR chest 2V IMPRESSION: * Lungs are mildly hypoinflated. * There appears to be a subtle patchy opacity in the left perihilar region and lower lung. Since findings are subtle/questionable, clinical correlation needed. An early onset pneumonia is possible.
[2023-01-26 08:58] VITALS: BP 119/72; PULSE 120; RESP 20; TEMP 37; O2SAT 95; BMI 29.1
[2023-01-26 09:53] LABS: MANUAL DIFF FLAG NO
[2023-01-26 09:55] VITALS: BP 123/65; PULSE 85; RESP 20; O2SAT 98
[2023-01-26 10:01] VITALS: O2SAT 98
[2023-01-26 10:10] LABS: Basophils Percent Auto 0.7 % (0-2); Eosinophils Absolute Auto 0.3 X10*3/uL (0.0-0.4); Eosinophils Percent Auto 5.7 % (0-4); Hematocrit 37.1 % (37.0-47.0); Hemoglobin 11.8 g/dl (12.0-16.0); Imm Gran Abs Auto 0.01 X10*3/uL (0.00-0.03); Imm Gran Pct Auto 0.2 % (0.0-0.4); Lymphocytes Absolute Auto 2.4 X10*3/uL (1.2-4.9); Lymphocytes Percent Auto 39.5 % (20-40); Mean Corpuscular HGB Conc 31.8 g/dl (31.0-35.0); Mean Corpuscular Volume 81.7 fL (80.0-98.0); Mean Platelet Volume 9.1 fL (9.4-12.3); Monocytes Absolute Auto 0.4 X10*3/uL (0.1-1.2); Monocytes Percent Auto 7.4 % (2-11); Neutrophils Absolute Auto 2.8 x10*3/uL (2.0-8.3); Neutrophils Percent Auto 46.5 % (45-73); Platelet Count 446 X10*3/uL (160-400); Red Blood Count 4.54 X10*6/uL (4.20-5.50); Red Cell Distribution Width 15.2 % (11.0-16.0)
[2023-01-26] MEDS: Acetaminophen 325 MG TABLET 975 MG PO (10:10)
[2023-01-26 10:11] LABS: COVID-19 Test Negative (Negative); IDNOW Serial# 55D5AD1C
[2023-01-26 10:15] LABS: Alanine Aminotransferase 10 U/L (0-31); Albumin Level 4.5 g/dL (3.5-5.0); Alkaline Phosphatase 65 U/L (39-117); Anion Gap 13 (12-20); Aspartate Amino Transferase 18 U/L (5-31); Bilirubin Total 0.2 mg/dL (0.0-1.0); Blood Urea Nitrogen 8 mg/dL (9-16); Calcium 9.3 mg/dL (8.4-10.2); Carbon Dioxide 23 mmol/L (22-29); Chloride 109 mmol/L (96-108); Creatinine Clr Calc Pharmacy 75.5; Estimated Glomerular Filt Rate > 60; Glucose Random 83 mg/dL (60-115); INTERNATIONAL NORM RATIO 1.1 (0.9-1.1); Potassium 3.9 mmol/L (3.3-5.1); Prothrombin Time 12.9 SEC (11.1-13.3); Sodium 141 mmol/L (135-145); Total Protein 7.7 g/dL (6.5-8.0)
[2023-01-26 10:17] LABS: IDNOW Serial# 9DB6401D; Influenza A Negative (Negative); Influenza B2 Negative (Negative)
--- NOTE | 2023-01-26 10:27 | ED.URI ---
HPI - URI/Sore Throat General Chief Complaint: Upper Respiratory Symptoms Stated Complaint: SOB 3xdays, fever, nauesa Time Seen by Provider: 01/26/23 09:08 Source: patient Mode of arrival: ambulatory Limitations: no limitations History of Present Illness HPI Narrative: Patient is a 32-year-old female who presents emergency department for evaluation of upper respiratory symptoms. Reports symptom onset 3 days ago with symptoms progressively worsening today. Productive cough with yellow phlegm, intermittent cold sweats, nausea without vomiting, nasal congestion, shortness of breath on exertion, diffuse lower chest wall/diaphragmatic region chest pain predominantly only upon cough and deep inspiration. Daughter was ill recently with similar symptoms. She reports a history of asthma, has trialed albuterol inhaler with only minimal improvement in her symptoms. She has been taking OTC cold medication in addition to Advil without noticing much improvement. Denies any lower extremity redness swelling pain, history of DVT / PE/ malignancy, recent surgery or prolonged immobilization. Related Data Home Medications Medication Instructions Recorded Confirmed albuterol sulfate 90 mcg/actuation 2 puff inhalation QID PRN 05/30/20 07/24/22 aerosol inhaler Shortness Of Breath epinephrine 0.3 mg/0.3 mL 0.3 mg IM Q10M PRN Anaphylaxis 08/08/20 07/24/22 injection, auto-injector fluticasone propionate 50 1 spray intranasal DAILY sinus 12/28/21 07/24/22 mcg/actuation nasal congestion spray,suspension (Flonase Allergy Relief) olanzapine 10 mg tablet 10 mg PO BEDTIME 12/28/21 07/24/22 clonazepam 1 mg tablet 1 mg PO DAILY PRN anxiety attack 02/19/22 07/24/22 buspirone 5 mg tablet 10 mg PO DAILY 04/25/22 07/24/22 Previous Rx's Medication Instructions Recorded fluoxetine 20 mg capsule 40 mg (2 x 20 mg) PO DAILY #14 caps 12/29/21 levetiracetam 500 mg tablet 500 mg PO BID #60 tabs 01/03/22 (Keppra) pantoprazole 40 mg tablet,delayed 40 mg PO TID 2 weeks #42 tabs 03/06/22 release PNV 153-FA 400 mcg-om3 35 mg-dha 1 tab PO DAILY #30 tabs 04/25/22 25 mg-epa 5 mg-fish oil chew tablet ( Gummies) doxylamine succinate 25 mg tablet 12.5 mg (1/2 x 25 mg) PO BEDTIME 05/04/22 (Unisom (doxylamine)) sleep 30 days #30 tabs pyridoxine (vitamin B6) 25 mg 25 mg PO TID #90 tabs 05/04/22 tablet loperamide 2 mg tablet 2 mg PO Q4H PRN loose stool #14 06/05/22 tabs prednisone 20 mg tablet 40 mg (2 x 20 mg) PO DAILY 5 days 09/19/22 #10 tabs amoxicillin 500 mg capsule 1,000 mg (2 x 500 mg) PO TID 5 01/26/23 days #30 caps fluconazole 150 mg tablet 150 mg PO DAILY 1 dose #1 tab 01/26/23 Allergies Allergy/AdvReac Type Severity Reaction Status Date / Time dog dander [DOG] Allergy Intermediate itching/hiv Verified 01/26/23 08:57 es kiwi [KIWI] Allergy Intermediate TONGUE Verified 01/26/23 08:57 TINGLING, HIVES, ITCHING latex Allergy Intermediate Hives, Verified 01/26/23 08:57 itching mushroom [MUSHROOM] Allergy Intermediate UNKNOWN Verified 01/26/23 08:57 Rabbit [RABBITS] Allergy Intermediate ITCHING, Verified 01/26/23 08:57 HIVES tramadol AdvReac Intermediate Nausea Verified 01/26/23 08:57 Review of Systems Review of Systems: Yes all other systems are reviewed and are negative PMFSH Past Medical History Attestation statement: The following information was validated with the patient. Source: old records reviewed Medical History Miscarriage (~06/01/22) Environmental and seasonal allergies COVID-19 vaccine administered Hypertrophic scar Anemia GERD (gastroesophageal reflux disease) Depression Gallstones H. pylori infection Smoker Tonsil and adenoid disease, chronic Bipolar 1 disorder Asthma Surgical History Hx of cholecystectomy History of esophagogastroduodenoscopy (EGD) Hx of tonsillectomy Hx of hemorrhoidectomy (05/06/19) Hx of section Family History Family History Maternal Aunt Ovarian cancer Maternal Grandmother Endometrial adenocarcinoma Mother Diabetes HTN (hypertension) Father Lung cancer Social History Social History Household Members: Children Housing: Apartment Do you presently have visiting nurse or other home services: No Alcohol intake: current Alcohol intake frequency: holidays/special occasions only Alcohol type: wine Patient Tobacco Use Status: Current someday Tobacco user Tobacco use type: Cigarette Cigarettes Per Day: 5 Years Smoked: 15 Smoked in Last 30 Days: Yes e-Cigarette/Vaping Use: Never Used Second Hand Smoke Exposure: No Use of substances other than those prescribed or required for medical reasons: Yes Substance Use Type: Marijuana Advance Directives: No service: No Current occupational status: employed and other 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 No acute distress.?Normal affect. Eyes: Pupils equal, round and reactive to light.? ENT: TM normal bilaterally. Pharynx normal.?? Neck: Normal inspection.? Neck supple.??No cervical adenopathy CVS: Heart sounds normal. Normal heart rate and rhythm.? Pulses normal.?? Respiratory: No respiratory distress.? Lung sounds clear to auscultation bilaterally?? Abdomen: Soft and non-tender. Normoactive bowel sounds. Skin: Skin warm and dry.? Normal skin color.? ? Extremities: No lower extremity edema.? Neuro: Moves all extremities spontaneously. Sensation intact bilaterally. No motor deficits. Ambulates with normal steady gait. Medications Administered Discontinued Medications Generic Name Dose Route Start Last Admin Trade Name Freq PRN Reason Stop Dose Admin Acetaminophen 975 mg 01/26/23 10:04 01/26/23 10:10 Acetaminophen 325 Mg Tablet PO 01/26/23 10:05 975 mg ONCE ONE Administration Medical Decision Making Medical Decision Making MDM Narrative: Patient is a 32-year-old female presenting for evaluation of upper respiratory symptoms. COVID-19 testing negative. Influenza testing negative. At this time history and physical exam not consistent with ACS/PE, CP atypical, reproducible to palpation deep inspiration, initially was tachycardic however this was obtained during episode of intense coughing, at rest no tachycardia; pulse rate 85. Well-appearing, nontoxic, afebrile, or tachypnea/hypoxia. chest x-ray concerning for subtle patchy opacity in the left parahilar region and lower lung, possible early pneumonia, given reported symptoms with progressive worsening, will treat with oral antibiotics for early CAP, in advised continue use of albuterol inhaler as needed Speaking clear full sentences, ambulatory with steady gait. Discussed additional conservative treatment including rest, hydration, Tylenol/ibuprofen as needed for fever and body aches, saline nasal spray, humidifier, [id number] cold medication. Advised to follow-up with primary care provider as needed, discussed reasons to return back to the emergency department. All questions were answered. Patient discharged home in stable condition. Differential Diagnosis Differential Diagnoses: The differential diagnosis associated with the presentation includes ( as noted above) Lab Data MDM Lab Attestation statement: I reviewed the patient's lab results. CBC is without leukocytosis, thrombocytosis consistent with baseline. Overall unremarkable CMP. 01/26/23 09:48 01/26/23 09:48 Labs: Lab Results 01/26/23 Range/Units 09:48 WBC 6.0 (4.8-10.8) X10*3/uL RBC 4.54 (4.20-5.50) X10*6/uL Hgb 11.8 L (12.0-16.0) g/dl Hct 37.1 (37.0-47.0) % MCV 81.7 (80.0-98.0) fL MCH 26.0 L (27.0-33.0) pg MCHC 31.8 (31.0-35.0) g/dl RDW 15.2 (11.0-16.0) % Plt Count 446 H (160-400) X10*3/uL MPV 9.1 L (9.4-12.3) fL Immature Gran % (Auto) 0.2 (0.0-0.4) % Neut % (Auto) 46.5 (45-73) % Lymph % (Auto) 39.5 (20-40) % [place] % (Auto) 7.4 (2-11) % Eos % (Auto) 5.7 H (0-4) % Baso % (Auto) 0.7 (0-2) % Lymph # (Auto) 2.4 (1.2-4.9) X10*3/uL [place] # (Auto) 0.4 (0.1-1.2) X10*3/uL Eos # (Auto) 0.3 (0.0-0.4) X10*3/uL Baso # (Auto) 0.0 (0.0-0.2) X10*3/uL Abs Immat Gran (auto) 0.01 (0.00-0.03) X10*3/uL Absolute Neuts (auto) 2.8 (2.0-8.3) x10*3/uL Absolute Nucleated RBC 0.000 (0.0-0.012) X10*3/uL Nucleated RBC % (auto) 0.0 (0.0-0.2) /100WBC PT 12.9 (11.1-13.3) SEC INR 1.1 (0.9-1.1) Sodium 141 (135-145) mmol/L Potassium 3.9 (3.3-5.1) mmol/L Chloride 109 H (96-108) mmol/L Carbon Dioxide 23 (22-29) mmol/L Anion Gap 13 (12-20) BUN 8 L (9-16) mg/dL Creatinine 0.84 (0.5-1.4) mg/dL Estim Creat Clear Calc 75.5 Estimated GFR > 60 Random Glucose 83 (60-115) mg/dL Calcium 9.3 (8.4-10.2) mg/dL Total Bilirubin 0.2 (0.0-1.0) mg/dL AST 18 (5-31) U/L ALT 10 (0-31) U/L Alkaline Phosphatase 65 (39-117) U/L Total Protein 7.7 (6.5-8.0) g/dL Albumin 4.5 (3.5-5.0) g/dL COVID-19 (HANNA) Negative (Negative) COVID-19 Clin Com See Note Influenza Type A (JOHN) Negative (Negative) Influenza Type B (JOHN) Negative (Negative) Influenza A & B Note See Note Independent Interpretation I performed an independent interpretation of an: EKG and Plain X-Ray ( I personally interpreted chest x-ray and agree with radiologist impression.) Interpretation: Rate: 94 Rhythm:? normal sinus rhythm [place]:? normal Normal P waves.? Normal DAGO.?? Normal QRS complex.?? ST T wave :?? no ST elevation, no ST depression qTC: 452 prior studies:? December 2021 The study has been interpreted contemporaneously by me. Radiology Impression Discussion of test interpretation with radiology: I have reviewed the radiologist's reading. Radiologist Impression: XR/XR chest 2V IMPRESSION: * Lungs are mildly hypoinflated. * There appears to be a subtle patchy opacity in the left perihilar region and lower lung. Since findings are subtle/questionable, clinical correlation needed. An early onset pneumonia is possible. Independent Historian Clinical information obtained from an independent historian. History obtained from or confirmed by: Spouse ( Present at bedside a confirms history) External Record Review External record reviewed: Outpatient record Prescription Management I considered prescription management with: Antibiotic Discharge Plan Discharge Clinical Impression: Community acquired pneumonia Patient Disposition: Home, Self-Care Instructions: Community Acquired Pneumonia (ED) Additional Instructions: please complete the entire course of antibiotics as prescribed for pneumonia. Use your albuterol inhaler as needed. You may return back to emergency department any new or worsening symptoms or concerns. Please contact your primary care provider to arrange for a follow-up visit. Prescriptions: New amoxicillin 500 mg capsule 1,000 mg PO TID 5 Days Qty: 30 0RF fluconazole 150 mg tablet 150 mg PO DAILY Qty: 1 0RF Rx Instructions: administer on day 1 of therapy No Action pantoprazole 40 mg tablet,delayed release (DR/EC) 40 mg PO TID 14 Days Qty: 42 0RF Unisom (doxylamine) 25 mg tablet 12.5 mg PO BEDTIME 30 Days Qty: 30 0RF Rx Instructions: Take 1/2 tablet before bed in addition to Vit B6 tid for nausea pyridoxine (vitamin B6) 25 mg tablet 25 mg PO TID Qty: 90 0RF albuterol sulfate 90 mcg/actuation HFA aerosol inhaler 2 puff inhalation QID PRN (Reason: Shortness Of Breath) epinephrine 0.3 mg/0.3 mL Auto-Injector 0.3 mg IM Q10M PRN (Reason: Anaphylaxis) olanzapine 10 mg Tablet 10 mg PO BEDTIME fluticasone propionate [Flonase Allergy Relief] 50 mcg/actuation spray,suspension 1 spray intranasal DAILY Rx Instructions: administer into each nostril fluoxetine 20 mg Capsule 40 mg PO DAILY Qty: 14 0RF levetiracetam [Keppra] 500 mg tablet 500 mg PO BID Qty: 60 0RF loperamide 2 mg tablet 2 mg PO Q4H PRN (Reason: loose stool) Qty: 14 0RF Rx Instructions: administer after each loose stool until symptoms controlled; do not exceed 8 mg per 24 hrs prednisone 20 mg tablet 40 mg PO DAILY 5 Days Qty: 10 0RF clonazepam 1 mg tablet 1 mg PO DAILY PRN (Reason: anxiety attack) buspirone 5 mg tablet 10 mg PO DAILY Gummies 400 mcg-35 mg- 25 mg-5 mg tablet,chewable 1 tab PO DAILY Qty: 30 11RF Referrals: Roxie Elena MD [Primary Care Provider] -
== END 2023-01-26 10:56 | disposition home or self-care (01) ==
PROVIDERS: Nurse Practitioner Family; Emergency Provider Emergency Medicine; PCP General Practice
DX: J18.8 Other pneumonia, unspecified organism (principal); R06.02 Shortness of breath; Z11.52 Encounter for screening for COVID-19; F17.210 Nicotine dependence, cigarettes, uncomplicated
CPT/HCPCS: 36415; 71046; 80053; 85025; 85610; 87502; 87635; 93005; 99283; 99285

== ENCOUNTER 2023-05-01 09:03 | Emergency (ER) | payer MEDICAID, SELFPAY ==
--- NOTE | ~2023-05-01 | US_ITS ---
EXAMINATION: ULTRASOUND PELVIC, COMPLETE CLINICAL INFORMATION: . Vaginal bleeding. COMPARISON: Obstetrical ultrasound May 02, 2022 TECHNIQUE: Transvaginal: Used to better visualize pelvic structures Transabdominal: Not adequate for visualization Spectral Doppler and color Doppler exam was utilized. LMP: 03/07/2023. Gestational age by LMP is 7 weeks 6 days. DEBO by LMP is December 12, 2023 FINDINGS: UTERUS: Patient has had a prior section. A gestational sac is present at the scar at the anterior myometrium at the lower uterine segment. There is a yolk sac present. There is a pole measuring 0.17 cm which correlates to dating of 5 weeks 1 day. No heartbeat is seen at this time which can be due to the early age of this gestation. This is an ectopic in the scar. The anterior myometrial wall between gestational sac and the serosal surface of the uterus measuring about 0.6 cm. ADNEXA: Ovarian vascularity:Doppler demonstrates both arterial and venous vascular flow in the right and left ovary. No evidence of ovarian torsion. Right Ovary: Unremarkable. 2.9 x 1.8 x 1.6 cm. Left Ovary: There are 2 crenulated appearing follicles in the left ovary. 1. 1.7 x 1.7 x 1.8 cm. Increased vascularity around this follicle likely corpus luteum cyst therefore. 2. 1.5 x 1 x 1.8 cm. The left ovary measures 3.6 x 2.8 x 2.9 cm. Cul-de-sac: No Fluid US/US OB pelvic and transvaginal IMPRESSION: Single intrauterine gestation within a section scar . This consistent with section scar ectopic . This critical result was discussed with Carla Hernandez on 05/01/2023, 2:20 PM and it was ascertained that the content and urgency of the report was understood at the time of direct communication.
[2023-05-01 09:52] VITALS: BP 111/56; PULSE 90; RESP 16; TEMP 36.2; O2SAT 100; BMI 25.7
[2023-05-01 10:13] LABS: MANUAL DIFF FLAG NO
[2023-05-01 10:16] LABS: Basophils Percent Auto 0.4 % (0-2); Eosinophils Absolute Auto 0.1 X10*3/uL (0.0-0.4); Eosinophils Percent Auto 0.9 % (0-4); Hematocrit 33.7 % (37.0-47.0); Hemoglobin 11.2 g/dl (12.0-16.0); Imm Gran Abs Auto 0.03 X10*3/uL (0.00-0.03); Imm Gran Pct Auto 0.3 % (0.0-0.4); Lymphocytes Absolute Auto 2.6 X10*3/uL (1.2-4.9); Lymphocytes Percent Auto 27.6 % (20-40); Mean Corpuscular HGB Conc 33.2 g/dl (31.0-35.0); Mean Corpuscular Hemoglobin 26.4 pg (27.0-33.0); Mean Corpuscular Volume 79.3 fL (80.0-98.0); Mean Platelet Volume 8.3 fL (9.4-12.3); Monocytes Absolute Auto 0.5 X10*3/uL (0.1-1.2); Monocytes Percent Auto 5.5 % (2-11); Neutrophils Percent Auto 65.3 % (45-73); Platelet Count 437 X10*3/uL (160-400); Red Blood Count 4.25 X10*6/uL (4.20-5.50); Red Cell Distribution Width 18.2 % (11.0-16.0); White Blood Count 9.2 X10*3/uL (4.8-10.8)
[2023-05-01 10:20] LABS: Appearance Urine Clear; Color Urine Yellow; Glucose Urine UA Negative (Negative); Leukocyte Esterase Urine Negative (Negative); Nitrite Urine Negative (Negative); Specific Gravity - Urine <= 1.005 (1.005-1.025); Urine Blood Negative (Negative); Urine Ketones Negative (Negative); Urine Protein Negative (Neg-Trace)
[2023-05-01 10:24] LABS: UPreg QC Valid YES; Urine Pregnancy POSITIVE (NEGATIVE)
[2023-05-01 10:47] LABS: Alanine Aminotransferase 8 U/L (0-31); Albumin Level 4.5 g/dL (3.5-5.0); Alkaline Phosphatase 51 U/L (39-117); Anion Gap 11 (12-20); Aspartate Amino Transferase 13 U/L (5-31); Bilirubin Total 0.3 mg/dL (0.0-1.0); Blood Urea Nitrogen 6 mg/dL (9-16); Calcium 9.3 mg/dL (8.4-10.2); Carbon Dioxide 22 mmol/L (22-29); Chloride 109 mmol/L (96-108); Creatinine Clr Calc Pharmacy 85.3; Estimated Glomerular Filt Rate > 60; Glucose Random 88 mg/dL (60-115); Potassium 3.6 mmol/L (3.3-5.1); Sodium 138 mmol/L (135-145); Total Protein 7.4 g/dL (6.5-8.0)
[2023-05-01 10:53] LABS: HCG Quantitative 1834 mIU/mL
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
[2023-05-01 14:08] LABS: CT PCR NOT DETECTED (Not Detect.); NG PCR NOT DETECTED (Not Detect.)
[2023-05-01 14:11] VITALS: RESP 14
--- NOTE | 2023-05-01 14:49 | P.CONOB_ITS ---
PLANT PROPAGATOR - CN: HPI Data of Consult Consult date: 05/01/23 Primary Care Provider: Roxie Elena MD Consult Narrative Narrative: I was consulted on Betty Rahman who is a 32 year old female presenting to the emergency department with vaginal spotting, with no vaginal bleeding, associated with intermittent lower pelvic cramping . LMP unknown. HCG 1834, blood type A positive cc:: CC: OB PMF Past Medical History Medical History Miscarriage (~06/01/22) Environmental and seasonal allergies COVID-19 vaccine administered Hypertrophic scar Anemia GERD (gastroesophageal reflux disease) Depression Gallstones H. pylori infection Smoker Tonsil and adenoid disease, chronic Bipolar 1 disorder Asthma Family History Family History Maternal Aunt Ovarian cancer Maternal Grandmother Endometrial adenocarcinoma Mother Diabetes HTN (hypertension) Father Lung cancer Surgical History Surgical History Hx of cholecystectomy History of esophagogastroduodenoscopy (EGD) Hx of tonsillectomy Hx of hemorrhoidectomy (05/06/19) Hx of section Social History Social History Household Members: Children Housing: Apartment Do you presently have visiting nurse or other home services: No Alcohol intake: current Alcohol intake frequency: holidays/special occasions only Alcohol type: wine Patient Tobacco Use Status: Current someday Tobacco user Tobacco use type: Cigarette Cigarettes Per Day: 5 Years Smoked: 15 e-Cigarette/Vaping Use: Never Used Second Hand Smoke Exposure: No Substance Use Type: Marijuana Advance Directives: No Advance Directives Information Provided: No service: No Current occupational status: employed and other 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 Meds Allergies Allergy/AdvReac Type Severity Reaction Status Date / Time dog dander [DOG] Allergy Intermediate itching/hiv Verified 05/01/23 09:52 es kiwi [KIWI] Allergy Intermediate TONGUE Verified 05/01/23 09:52 TINGLING, HIVES, ITCHING latex Allergy Intermediate Hives, Verified 05/01/23 09:52 itching mushroom [MUSHROOM] Allergy Intermediate UNKNOWN Verified 05/01/23 09:52 Rabbit [RABBITS] Allergy Intermediate ITCHING, Verified 05/01/23 09:52 HIVES tramadol AdvReac Intermediate Nausea Verified 05/01/23 09:52 Home Medications Medication Instructions Recorded Confirmed Last Taken Type albuterol sulfate 90 mcg/actuation 2 puff inhalation QID PRN 05/30/20 07/24/22 Unknown History aerosol inhaler Shortness Of Breath epinephrine 0.3 mg/0.3 mL 0.3 mg IM Q10M PRN Anaphylaxis 08/08/20 07/24/22 Unknown History injection, auto-injector fluticasone propionate 50 1 spray intranasal DAILY sinus 12/28/21 07/24/22 Unknown History mcg/actuation nasal congestion spray,suspension (Flonase Allergy Relief) olanzapine 10 mg tablet 10 mg PO BEDTIME 12/28/21 07/24/22 Unknown History clonazepam 1 mg tablet 1 mg PO DAILY PRN anxiety attack 02/19/22 07/24/22 Unknown History buspirone 5 mg tablet 10 mg PO DAILY 04/25/22 07/24/22 Unknown History PLANT PROPAGATOR Physical Exam Vitals Vital signs: Temp Pulse Resp BP Pulse Ox O2 Del Method 97.2 F 90 14 111/56 L 100 Room Air 05/01/23 09:52 05/01/23 09:52 05/01/23 14:11 05/01/23 09:52 05/01/23 09:52 05/01/23 09:52 BMI result Body Mass Index 25.7 Additional Comments: Abdominal exam reported by THOMAS Bruno as the following: Abdomen benign soft nontender Pelvic exam: Close cervix with no cervical motion tenderness minimal blood per vagina PLANT PROPAGATOR - Results Labs 05/01/23 10:07 05/01/23 10:07 Labs: Short CBC 05/01/23 Range/Units 10:07 WBC 9.2 (4.8-10.8) X10*3/uL Hgb 11.2 L (12.0-16.0) g/dl Hct 33.7 L (37.0-47.0) % Plt Count 437 H (160-400) X10*3/uL BMP 05/01/23 10:07 Sodium 138 Potassium 3.6 Chloride 109 H Carbon Dioxide 22 BUN 6 L Creatinine 0.70 Calcium 9.3 Liver Function 05/01/23 Range/Units 10:07 Total Bilirubin 0.3 (0.0-1.0) mg/dL AST 13 (5-31) U/L ALT 8 (0-31) U/L Alkaline Phosphatase 51 (39-117) U/L Albumin 4.5 (3.5-5.0) g/dL Urine 05/01/23 Range/Units 10:07 Urine Color Yellow Urine Appearance Clear Urine pH 7.0 (5.0-9.0) Ur Specific [place] <= 1.005 (1.005-1.025) Urine Protein Negative (Neg-Trace) mg/dL Urine Glucose (UA) Negative (Negative) mg/dL Urine Test POSITIVE H (NEGATIVE) Imaging US - abdomen: Radiologist's impression: ITS Impressions Pelvic/Transvag US 05/01/23 12:27 IMPRESSION: Single intrauterine gestation within a section scar . This consistent with section scar ectopic . This critical result was discussed with Carla Hernandez on 05/01/2023, 2:20 PM and it was ascertained that the content and urgency of the report was understood at the time of direct communication. Assessment and Plan (1) Ectopic : Status: Acute Recommended to THOMAS Bruno to transfer the patient to a tertiary care center, [facility], where higher level of expertise and more resources are available since this is a very rare condition (only 751 case of scar reported in the literature) and the optimal management is unclear because there are insufficient number of reported cases on which to base specific treatment recommendation. I spent a total of 20 minutes reviewing the chart, communicating with the emergency room provider and documenting in the medical record
[2023-05-01 15:29] LABS: Prothrombin Time 12.4 SEC (11.1-13.3)
--- NOTE | 2023-05-01 16:27 | PC.NURSE ---
attempted to call report to [facility] ER- no answer
[2023-05-02 11:11] LABS: BV Int Neg Control Negative (Negative); BV Int Pos Control Positive (Positive)
== END 2023-05-01 16:28 | disposition short-term general hospital (02) ==
PROVIDERS: Physician Assistant; Emergency Provider Emergency Medicine; PCP General Practice
DX: O00.81 Other ectopic pregnancy with intrauterine pregnancy (principal); O34.219 Maternal care for unspecified type scar from previous cesarean delivery; Z3A.01 Less than 8 weeks gestation of pregnancy; N89.8 Other specified noninflammatory disorders of vagina
CPT/HCPCS: 0353U; 36415; 76801; 76817; 80053; 81003; 81025; 84702; 85025; 85610; 86900; 86901; 87480; 87510; 87660; 99284; 99285

== ENCOUNTER → 2023-05-01 12:46 | Outpatient (BNV) | payer MEDICAID, SELFPAY | PROVIDERS: Emergency Provider Emergency Medicine; PCP General Practice; Visit Provider Obstetrics & Gynecology | DX: O00.90 Unspecified ectopic pregnancy without intrauterine pregnancy (principal) | CPT/HCPCS: 99283 ==

== ENCOUNTER 2023-08-07 12:13 | Emergency (ER) | payer MEDICAID, SELFPAY ==
[2023-08-07 12:55] VITALS: BP 105/78; PULSE 83; RESP 16; TEMP 36.9; O2SAT 98; BMI 23.6
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
[2023-08-07 14:08] LABS: Basophils Absolute Auto 0.1 X10*3/uL (0.0-0.2); Basophils Percent Auto 0.6 % (0-2); Eosinophils Absolute Auto 0.2 X10*3/uL (0.0-0.4); Eosinophils Percent Auto 2.7 % (0-4); Hematocrit 32.3 % (37.0-47.0); Hemoglobin 10.9 g/dl (12.0-16.0); Imm Gran Abs Auto 0.01 X10*3/uL (0.00-0.03); Imm Gran Pct Auto 0.1 % (0.0-0.4); Lymphocytes Absolute Auto 3.3 X10*3/uL (1.2-4.9); Lymphocytes Percent Auto 37.4 % (20-40); MANUAL DIFF FLAG NO; Mean Corpuscular HGB Conc 33.7 g/dl (31.0-35.0); Mean Platelet Volume 8.6 fL (9.4-12.3); Monocytes Absolute Auto 0.4 X10*3/uL (0.1-1.2); Monocytes Percent Auto 4.1 % (2-11); Neutrophils Absolute Auto 4.9 x10*3/uL (2.0-8.3); Neutrophils Percent Auto 55.1 % (45-73); Platelet Count 466 X10*3/uL (160-400); Red Blood Count 4.04 X10*6/uL (4.20-5.50); Red Cell Distribution Width 16.6 % (11.0-16.0); White Blood Count 8.8 X10*3/uL (4.8-10.8)
[2023-08-07 14:22] LABS: Alanine Aminotransferase 8 U/L (0-31); Albumin Level 4.3 g/dL (3.5-5.0); Alkaline Phosphatase 54 U/L (39-117); Anion Gap 14 (12-20); Aspartate Amino Transferase 14 U/L (5-31); Bilirubin Total 0.4 mg/dL (0.0-1.0); Blood Urea Nitrogen 8 mg/dL (9-16); Calcium 9.3 mg/dL (8.4-10.2); Carbon Dioxide 24 mmol/L (22-29); Chloride 108 mmol/L (96-108); Creatinine Clr Calc Pharmacy 75.6; Estimated Glomerular Filt Rate > 60; Glucose Random 85 mg/dL (60-115); Lactic Acid 0.6 mmol/L (0.5-2.0); Potassium 3.6 mmol/L (3.3-5.1); Sodium 142 mmol/L (135-145); Total Protein 7.2 g/dL (6.5-8.0)
== END 2023-08-07 16:33 | disposition left against medical advice (07) ==
LOC: HO.ED 16:17
PROVIDERS: Registered Nurse Emergency; Emergency Provider Emergency Medicine; PCP General Practice
DX: R50.9 Fever, unspecified (principal)
CPT/HCPCS: 36415; 80053; 83605; 85025; 87040; 99281; 99283

== ENCOUNTER 2023-08-08 22:20 | Emergency (ER) | payer MEDICAID, SELFPAY ==
[2023-08-08 22:46] VITALS: BP 100/56; PULSE 71; RESP 16; TEMP 36.9; O2SAT 98; BMI 23.6
[2023-08-08 23:38] LABS: Basophils Absolute Auto 0.1 X10*3/uL (0.0-0.2); Basophils Percent Auto 0.5 % (0-2); Eosinophils Absolute Auto 0.4 X10*3/uL (0.0-0.4); Eosinophils Percent Auto 3.8 % (0-4); Hematocrit 27.2 % (37.0-47.0); Hemoglobin 9.1 g/dl (12.0-16.0); Imm Gran Abs Auto 0.03 X10*3/uL (0.00-0.03); Imm Gran Pct Auto 0.3 % (0.0-0.4); Lymphocytes Absolute Auto 4.8 X10*3/uL (1.2-4.9); Lymphocytes Percent Auto 46.6 % (20-40); Mean Corpuscular HGB Conc 33.5 g/dl (31.0-35.0); Mean Corpuscular Hemoglobin 26.8 pg (27.0-33.0); Mean Platelet Volume 8.7 fL (9.4-12.3); Monocytes Absolute Auto 0.7 X10*3/uL (0.1-1.2); Neutrophils Absolute Auto 4.3 x10*3/uL (2.0-8.3); Neutrophils Percent Auto 41.8 % (45-73); Platelet Count 398 X10*3/uL (160-400); Red Cell Distribution Width 16.3 % (11.0-16.0); SCAN SMEAR FLAG 1; White Blood Count 10.2 X10*3/uL (4.8-10.8)
[2023-08-08 23:39] LABS: MANUAL DIFF FLAG SCAN
[2023-08-08 23:53] LABS: Alanine Aminotransferase 6 U/L (0-31); Albumin Level 3.8 g/dL (3.5-5.0); Alkaline Phosphatase 46 U/L (39-117); Anion Gap 13 (12-20); Aspartate Amino Transferase 14 U/L (5-31); Bilirubin Total 0.2 mg/dL (0.0-1.0); Blood Urea Nitrogen 12 mg/dL (9-16); Calcium 8.8 mg/dL (8.4-10.2); Carbon Dioxide 23 mmol/L (22-29); Chloride 108 mmol/L (96-108); Creatinine Clr Calc Pharmacy 78.6; Estimated Glomerular Filt Rate > 60; Glucose Random 82 mg/dL (60-115); Potassium 3.5 mmol/L (3.3-5.1); Sodium 140 mmol/L (135-145); Total Protein 6.3 g/dL (6.5-8.0)
[2023-08-08 23:55] LABS: SLIDE REVIEW VERIFIED
[2023-08-09 00:16] VITALS: BP 103/43; PULSE 66; RESP 18; TEMP 36.7; O2SAT 97
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
[2023-08-09] MEDS: Ketorolac Tromethamine 60 MG/2 ML VIAL IM (00:58)
[2023-08-09] MEDS: Doxycycline Monohydrate 100 MG CAPSULE PO (00:58)
[2023-08-09] MEDS: cephALEXin 500 MG CAPSULE PO (00:58)
[2023-08-09 01:12] VITALS: BP 108/48; PULSE 65; RESP 18; TEMP 36.5; O2SAT 100
[2023-08-09 01:40] VITALS: BP 108/48; PULSE 65; RESP 18; TEMP 36.5; O2SAT 100
== END 2023-08-09 01:41 | disposition home or self-care (01) ==
PROVIDERS: Emergency Provider Internal Medicine; PCP General Practice
DX: T24.211A Burn of second degree of right thigh, initial encounter (principal); X17.XXXA Contact with hot engines, machinery and tools, initial encounter; Y93.9 Activity, unspecified; Y92.9 Unspecified place or not applicable; Y99.9 Unspecified external cause status
CPT/HCPCS: 36415; 80053; 85025; 96372; 99284; J1885

== ENCOUNTER 2023-08-20 00:53 | Emergency (ER) | payer MEDICAID, SELFPAY ==
[2023-08-20] VITALS (8 sets, daily range): BP systolic 92–122; BP diastolic 39–72; PULSE 61–88; RESP 12–21; TEMP 37–37.1; O2SAT 95–100; BMI 31.3
--- NOTE | 2023-08-20 | ECG_ITS ---
Test Reason : SEIZURE Blood Pressure : / mmHG Vent. Rate : 066 BPM Atrial Rate : 066 BPM P-R Int : 154 ms QRS Dur : 082 ms QT Int : 436 ms P-R-T Axes : -13 -28 -22 degrees QTc Int : 457 ms Normal sinus rhythm Minimal voltage criteria for LVH, may be normal variant ( R in aVL ) Borderline ECG When compared with ECG of 26-JAN-2023 09:27, QRS axis Shifted left T wave inversion now evident in Anterior leads Referred By: Generic ED Physician Electronically Signed By:KITA DEE
--- NOTE | ~2023-08-20 | CT_ITS ---
EXAMINATION: CT ABDOMEN AND PELVIS WITH CONTRAST CLINICAL INFORMATION: Upper abdominal pain and tenderness, more on left COMPARISON: None available. TECHNIQUE: Multidetector volumetric images were obtained from the superior aspect of the liver through the pubic symphysis following administration 85 mL of Omnipaque 350 intravenous contrast. Sagittal and coronal reformatted images were obtained on the technologist's workstation. Oral contrast: No This CT examination was performed using dose optimization techniques as appropriate, variously including the following: *Automated exposure control *Adjustment of mA and/or kV according to patient size (this includes techniques or standardized protocols for targeted exams where dose is matched to indication/reason for exam; i.e. extremities or head) *Use of iterative reconstruction technique DLP: 334 mGy-cm FINDINGS: LUNG BASES: The visualized lung bases are unremarkable. LIVER, GALLBLADDER, AND BILIARY TREE: The liver is mildly enlarged. No focal hepatic lesion or biliary ductal dilatation is present. The gallbladder has been removed. Surgical clips are seen in the gallbladder fossa. PANCREAS: No focal mass or other abnormality. SPLEEN: Normal. ADRENAL GLANDS: Normal. KIDNEYS AND URETERS: The kidneys are normal in size, shape, and attenuation. No hydronephrosis, hydroureter, or calculi seen. No perinephric stranding. BLADDER: Unremarkable. GASTROINTESTINAL TRACT: The small and large bowel are unremarkable. The appendix is unremarkable. ABDOMINAL WALL: No significant hernia is appreciated. LYMPH NODES: Normal. VASCULAR: Unremarkable. PELVIC VISCERA: T-shaped IUD seen in the center the uterus. Probable 2.4 cm benign cyst in the right adnexa. OSSEOUS STRUCTURES: Unremarkable. CT/CT abdomen pelvis w IV con IMPRESSION: 1. Prior cholecystectomy. 2. Probable 2.4 cm benign cyst in the right adnexa. Fleischner guidelines were followed.
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
[2023-08-20 01:23] LABS: Basophils Absolute Auto 0.1 X10*3/uL (0.0-0.2); Basophils Percent Auto 0.4 % (0-2); Eosinophils Absolute Auto 0.2 X10*3/uL (0.0-0.4); Eosinophils Percent Auto 1.9 % (0-4); Hematocrit 30.3 % (37.0-47.0); Hemoglobin 10.1 g/dl (12.0-16.0); Imm Gran Abs Auto 0.05 X10*3/uL (0.00-0.03); Imm Gran Pct Auto 0.4 % (0.0-0.4); Lymphocytes Absolute Auto 4.2 X10*3/uL (1.2-4.9); Lymphocytes Percent Auto 36.8 % (20-40); MANUAL DIFF FLAG SCAN; Mean Corpuscular HGB Conc 33.3 g/dl (31.0-35.0); Mean Corpuscular Hemoglobin 26.7 pg (27.0-33.0); Mean Corpuscular Volume 80.2 fL (80.0-98.0); Mean Platelet Volume 8.8 fL (9.4-12.3); Monocytes Absolute Auto 0.8 X10*3/uL (0.1-1.2); Monocytes Percent Auto 6.8 % (2-11); Neutrophils Absolute Auto 6.2 x10*3/uL (2.0-8.3); Neutrophils Percent Auto 53.7 % (45-73); Platelet Count 399 X10*3/uL (160-400); Red Blood Count 3.78 X10*6/uL (4.20-5.50); Red Cell Distribution Width 17.2 % (11.0-16.0); SCAN SMEAR FLAG 1; White Blood Count 11.5 X10*3/uL (4.8-10.8)
[2023-08-20 01:38] LABS: Alanine Aminotransferase 8 U/L (0-31); Albumin Level 4.2 g/dL (3.5-5.0); Alkaline Phosphatase 54 U/L (39-117); Anion Gap 11 (12-20); Aspartate Amino Transferase 13 U/L (5-31); Bilirubin Total 0.2 mg/dL (0.0-1.0); Blood Urea Nitrogen 6 mg/dL (9-16); Carbon Dioxide 23 mmol/L (22-29); Chloride 108 mmol/L (96-108); Estimated Glomerular Filt Rate > 60; Glucose Random 87 mg/dL (60-115); Magnesium 1.8 mg/dL (1.6-2.6); Potassium 3.4 mmol/L (3.3-5.1); Sodium 139 mmol/L (135-145); Total Protein 6.8 g/dL (6.5-8.0)
[2023-08-20 01:40] LABS: SLIDE REVIEW VERIFIED
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
[2023-08-20] MEDS: droPERidol 5 MG/2 ML VIAL 1.25 MG IVPUSH (02:37)
[2023-08-20] MEDS: 0.9 % Sodium Chloride 1,000 ML 999 ML IV (02:38)
[2023-08-20] MEDS: levETIRAcetam in NaCl (iso-os) 1,000 MG/100 ML PIGGYBACK 400 MG IV (02:38)
[2023-08-20 02:41] LABS: Basophils Absolute Auto 0.1 X10*3/uL (0.0-0.2); Basophils Percent Auto 0.5 % (0-2); Eosinophils Absolute Auto 0.3 X10*3/uL (0.0-0.4); Eosinophils Percent Auto 2.1 % (0-4); Hematocrit 31.4 % (37.0-47.0); Hemoglobin 10.6 g/dl (12.0-16.0); Imm Gran Abs Auto 0.07 X10*3/uL (0.00-0.03); Imm Gran Pct Auto 0.5 % (0.0-0.4); Lymphocytes Absolute Auto 4.9 X10*3/uL (1.2-4.9); Lymphocytes Percent Auto 36.9 % (20-40); MANUAL DIFF FLAG SCAN; Mean Corpuscular HGB Conc 33.8 g/dl (31.0-35.0); Mean Corpuscular Hemoglobin 26.8 pg (27.0-33.0); Mean Corpuscular Volume 79.5 fL (80.0-98.0); Mean Platelet Volume 8.5 fL (9.4-12.3); Monocytes Absolute Auto 0.8 X10*3/uL (0.1-1.2); Monocytes Percent Auto 6.3 % (2-11); Neutrophils Absolute Auto 7.1 x10*3/uL (2.0-8.3); Neutrophils Percent Auto 53.7 % (45-73); Platelet Count 413 X10*3/uL (160-400); Red Blood Count 3.95 X10*6/uL (4.20-5.50); Red Cell Distribution Width 16.9 % (11.0-16.0); SCAN SMEAR FLAG 1; White Blood Count 13.3 X10*3/uL (4.8-10.8)
[2023-08-20 03:02] LABS: Alanine Aminotransferase 9 U/L (0-31); Albumin Level 4.4 g/dL (3.5-5.0); Alkaline Phosphatase 55 U/L (39-117); Anion Gap 15 (12-20); Aspartate Amino Transferase 15 U/L (5-31); Bilirubin Direct 0.1 mg/dL (0.0-0.5); Bilirubin Total 0.3 mg/dL (0.0-1.0); Blood Urea Nitrogen 5 mg/dL (9-16); C Reactive Protein 0.26 mg/dL (< or = 0.50); Calcium 9.3 mg/dL (8.4-10.2); Carbon Dioxide 21 mmol/L (22-29); Chloride 108 mmol/L (96-108); Estimated Glomerular Filt Rate > 60; Ethanol < 10 mg/dL; Glucose Random 94 mg/dL (60-115); Lipase 46 U/L (8-78); Magnesium 1.9 mg/dL (1.6-2.6); Potassium 3.7 mmol/L (3.3-5.1); Sodium 140 mmol/L (135-145); Total Protein 7.2 g/dL (6.5-8.0)
[2023-08-20] MEDS: Morphine Sulfate 4 MG/ML CARTRIDGE IVPUSH (03:02)
[2023-08-20 03:47] LABS: HCG Quantitative < 2 mIU/mL
[2023-08-20] MEDS: Famotidine/PF 20 MG/2 ML VIAL IVPUSH (04:09)
[2023-08-20] MEDS: iohexoL 350 MG/ML 100 ML INFUS..BTL 85 ML IV (06:17)
[2023-08-20] MEDS: Fluconazole 150 MG TABLET PO (09:15)
[2023-08-20] MEDS: Sucralfate Oral Suspension 1 GM/10 ML ORAL.SUSP PO (09:15)
[2023-08-22 20:24] LABS: Levetiracetam Keppra <2.0 mcg/mL (6.0-46.0)
== END 2023-08-20 09:58 | disposition home or self-care (01) ==
PROVIDERS: Emergency Provider Emergency Medicine
DX: B37.31 Acute candidiasis of vulva and vagina (principal); T24.011D Burn of unspecified degree of right thigh, subsequent encounter; X08.8XXD Exposure to other specified smoke, fire and flames, subsequent encounter; G40.909 Epilepsy, unspecified, not intractable, without status epilepticus; R11.2 Nausea with vomiting, unspecified; Z79.899 Other long term (current) drug therapy
CPT/HCPCS: 36415; 70450; 72125; 74177; 80048; 80053; 80076; 80177; 80307; 83690; 83735; 84702; 85025; 86140; 93005; 96361; 96374; 96375; 99284; 99285; J1790; J1953; J2270; Q9967

== ENCOUNTER → 2023-08-20 01:38 | Outpatient (BNV) | payer MEDICAID, SELFPAY | PROVIDERS: Emergency Provider Emergency Medicine; Visit Provider Internal Medicine | DX: R56.9 Unspecified convulsions (principal) | CPT/HCPCS: 93010 ==

== ENCOUNTER 2023-08-30 09:14 | Outpatient (AMB) | payer MEDICAID, SELFPAY ==
[2023-08-30 09:15] VITALS: BP 103/53; PULSE 78; BMI 23.4
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
== END 2023-08-30 09:35 | disposition home or self-care (01) ==
PROVIDERS: Visit Provider Surgery
DX: T24.211A Burn of second degree of right thigh, initial encounter (principal)
CPT/HCPCS: 99204

== ENCOUNTER → 2023-08-30 09:14 | Outpatient (BNVA) | payer MEDICAID, SELFPAY | PROVIDERS: Visit Provider Surgery | DX: T24.211A Burn of second degree of right thigh, initial encounter (principal); X17.XXXA Contact with hot engines, machinery and tools, initial encounter; Y93.55 Activity, bike riding; Y92.410 Unspecified street and highway as the place of occurrence of the external cause; Y99.9 Unspecified external cause status | CPT/HCPCS: 99202 ==

== ENCOUNTER 2023-09-02 17:07 | Outpatient (REF) | payer MEDICAID, SELFPAY ==
[2023-09-05 15:11] LABS: H Pylori Breath Test Positive (Negative)
== END 2023-09-02 17:08 | disposition home or self-care (01) ==
LOC: HO.HHCLNP 17:07
PROVIDERS: Visit Provider General Practice
DX: A04.8 Other specified bacterial intestinal infections (principal)
CPT/HCPCS: 83013

== ENCOUNTER 2023-09-05 12:14 | Day surgery (SDC) | payer MEDICAID, SELFPAY ==
[2023-09-03 10:13] VITALS: BMI 23.4
[2023-09-05] VITALS (7 sets, daily range): BP systolic 88–102; BP diastolic 37–60; PULSE 51–78; RESP 12–17; TEMP 36.7–36.9; O2SAT 97–100; BMI 23.5
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
[2023-09-05 12:41] LABS: UPreg QC Valid YES; Urine Pregnancy NEGATIVE (NEGATIVE)
[2023-09-05] MEDS: Lactated Ringers 1,000 ML 100 ML IVCONT (12:41)
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
== END 2023-09-05 15:20 | disposition home or self-care (01) ==
PROVIDERS: Nurse Practitioner; PCP General Practice; Visit Provider Surgery
PROC: (CPT 16020; principal; 2023-09-05 13:30)
DX: T24.211A Burn of second degree of right thigh, initial encounter (principal); X17.XXXA Contact with hot engines, machinery and tools, initial encounter; Y93.9 Activity, unspecified; Y92.9 Unspecified place or not applicable; Y99.9 Unspecified external cause status
CPT/HCPCS: 16020; 81025; 88304; 88305; J0131; J0690; J1100; J1885; J2250; J2405; J2704; J2795; J3010

== ENCOUNTER → 2023-09-05 12:14 | Outpatient (BNV) | payer MEDICAID, SELFPAY | PROVIDERS: PCP General Practice; Visit Provider Surgery | DX: T24.211A Burn of second degree of right thigh, initial encounter (principal) | CPT/HCPCS: 11042 ==

== ENCOUNTER → 2023-09-09 14:13 | Outpatient (BNVA) | payer MEDICAID, SELFPAY | PROVIDERS: PCP General Practice; Visit Provider Surgery | DX: Z48.01 Encounter for change or removal of surgical wound dressing (principal) | CPT/HCPCS: 99211 ==

== ENCOUNTER 2023-09-12 17:52 | Emergency (ER) | payer MEDICAID, SELFPAY ==
[2023-09-12 17:54] VITALS: BP 101/58; PULSE 79; RESP 18; TEMP 37; O2SAT 100; BMI 20.9
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
[2023-09-12 18:50] LABS: MANUAL DIFF FLAG NO
[2023-09-12 18:51] LABS: Basophils Absolute Auto 0.1 X10*3/uL (0.0-0.2); Basophils Percent Auto 0.5 % (0-2); Eosinophils Absolute Auto 0.5 X10*3/uL (0.0-0.4); Eosinophils Percent Auto 4.8 % (0-4); Hematocrit 29.9 % (37.0-47.0); Imm Gran Abs Auto 0.02 X10*3/uL (0.00-0.03); Imm Gran Pct Auto 0.2 % (0.0-0.4); Lymphocytes Absolute Auto 3.3 X10*3/uL (1.2-4.9); Lymphocytes Percent Auto 33.5 % (20-40); Mean Corpuscular HGB Conc 33.4 g/dl (31.0-35.0); Mean Corpuscular Volume 83.8 fL (80.0-98.0); Mean Platelet Volume 8.2 fL (9.4-12.3); Monocytes Absolute Auto 0.6 X10*3/uL (0.1-1.2); Monocytes Percent Auto 6.4 % (2-11); Neutrophils Absolute Auto 5.3 x10*3/uL (2.0-8.3); Neutrophils Percent Auto 54.6 % (45-73); Platelet Count 294 X10*3/uL (160-400); Red Blood Count 3.57 X10*6/uL (4.20-5.50); White Blood Count 9.7 X10*3/uL (4.8-10.8)
[2023-09-12 19:04] LABS: Prothrombin Time 12.3 SEC (11.1-13.3)
[2023-09-12 19:06] LABS: Alanine Aminotransferase 12 U/L (0-31); Albumin Level 4.1 g/dL (3.5-5.0); Alkaline Phosphatase 45 U/L (39-117); Anion Gap 11 (12-20); Aspartate Amino Transferase 15 U/L (5-31); Bilirubin Direct 0.1 mg/dL (0.0-0.5); Bilirubin Total 0.4 mg/dL (0.0-1.0); Blood Urea Nitrogen 10 mg/dL (9-16); Calcium 9.1 mg/dL (8.4-10.2); Carbon Dioxide 23 mmol/L (22-29); Chloride 109 mmol/L (96-108); Creatinine Clr Calc Pharmacy 77.1; Estimated Glomerular Filt Rate > 60; Glucose Random 87 mg/dL (60-115); Lipase 17 U/L (8-78); Magnesium 1.9 mg/dL (1.6-2.6); Potassium 4.1 mmol/L (3.3-5.1); Sodium 139 mmol/L (135-145); Total Protein 6.5 g/dL (6.5-8.0)
[2023-09-12 19:22] VITALS: BP 113/58; PULSE 67; TEMP 36.8; O2SAT 100
[2023-09-12] MEDS: oxyCODONE HCl Immed Release 5 MG TABLET PO (21:44)
[2023-09-12 21:47] VITALS: BP 113/58; PULSE 69; RESP 18; TEMP 36.8; O2SAT 100
== END 2023-09-12 21:48 | disposition home or self-care (01) ==
PROVIDERS: Physician Assistant; Emergency Provider Emergency Medicine Emergency Medical Services; PCP General Practice
DX: S71.101D Unspecified open wound, right thigh, subsequent encounter (principal); X58.XXXD Exposure to other specified factors, subsequent encounter; R10.13 Epigastric pain; F17.210 Nicotine dependence, cigarettes, uncomplicated
CPT/HCPCS: 36415; 80048; 80076; 83690; 83735; 85025; 85610; 99283; 99284

== ENCOUNTER 2023-09-13 11:20 | Outpatient (AMB) | payer MEDICAID, SELFPAY ==
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
[2023-09-13 11:24] VITALS: BP 110/50; BMI 20.9
== END 2023-09-13 11:48 | disposition home or self-care (01) ==
PROVIDERS: Referring Provider General Practice; Visit Provider Surgery
DX: T24.211A Burn of second degree of right thigh, initial encounter (principal)
CPT/HCPCS: 99213

== ENCOUNTER → 2023-09-13 11:20 | Outpatient (BNVA) | payer MEDICAID, SELFPAY | PROVIDERS: Visit Provider Surgery ==

== ENCOUNTER 2023-09-20 10:42 | Outpatient (AMB) | payer MEDICAID, SELFPAY ==
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
[2023-09-20 11:00] VITALS: RESP 16; BMI 21.9
== END 2023-09-20 11:18 | disposition home or self-care (01) ==
PROVIDERS: Visit Provider Surgery
DX: T24.211A Burn of second degree of right thigh, initial encounter (principal)
CPT/HCPCS: 99213

== ENCOUNTER → 2023-09-20 10:42 | Outpatient (BNVA) | payer MEDICAID, SELFPAY | PROVIDERS: Visit Provider Surgery | DX: T24.211D Burn of second degree of right thigh, subsequent encounter (principal) | CPT/HCPCS: 99212 ==

== ENCOUNTER → 2023-09-24 10:48 | Outpatient (BNVA) | payer MEDICAID, SELFPAY | PROVIDERS: Visit Provider Surgery | DX: T14.8XXD Other injury of unspecified body region, subsequent encounter (principal); X58.XXXD Exposure to other specified factors, subsequent encounter | CPT/HCPCS: 99211 ==

== ENCOUNTER 2023-09-26 13:22 | Emergency (ER) | payer OTHER, MEDICAID, SELFPAY ==
[2023-09-26 13:29] VITALS: BP 92/56; BP 96/58; PULSE 104; PULSE 75; RESP 18; TEMP 37; O2SAT 100; BMI 18.8
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
--- NOTE | 2023-09-26 13:53 | ECG_ITS ---
Test Reason : ARRHYTHMIA Blood Pressure : / mmHG Vent. Rate : 061 BPM Atrial Rate : 061 BPM P-R Int : 148 ms QRS Dur : 084 ms QT Int : 432 ms P-R-T Axes : 056 087 066 degrees QTc Int : 434 ms Normal sinus rhythm Normal ECG When compared with ECG of 20-AUG-2023 01:38, QRS axis Shifted right T wave inversion no longer evident in Inferior leads Referred By: Erum Rosario Electronically Signed By:KITA DEE
[2023-09-26 14:00] VITALS: BP 99/61; PULSE 84; RESP 14; O2SAT 100
[2023-09-26] MEDS: levETIRAcetam 500 MG TABLET PO (14:09)
[2023-09-26 14:33] LABS: MANUAL DIFF FLAG NO
[2023-09-26 14:34] LABS: Basophils Absolute Auto 0.1 X10*3/uL (0.0-0.2); Basophils Percent Auto 0.6 % (0-2); Eosinophils Absolute Auto 0.1 X10*3/uL (0.0-0.4); Eosinophils Percent Auto 1.1 % (0-4); Hematocrit 34.5 % (37.0-47.0); Hemoglobin 11.7 g/dl (12.0-16.0); Imm Gran Abs Auto 0.03 X10*3/uL (0.00-0.03); Imm Gran Pct Auto 0.4 % (0.0-0.4); Lymphocytes Absolute Auto 3.2 X10*3/uL (1.2-4.9); Lymphocytes Percent Auto 38.5 % (20-40); Mean Corpuscular HGB Conc 33.9 g/dl (31.0-35.0); Mean Corpuscular Hemoglobin 28.7 pg (27.0-33.0); Mean Corpuscular Volume 84.6 fL (80.0-98.0); Mean Platelet Volume 8.6 fL (9.4-12.3); Monocytes Absolute Auto 0.6 X10*3/uL (0.1-1.2); Monocytes Percent Auto 7.3 % (2-11); Neutrophils Absolute Auto 4.3 x10*3/uL (2.0-8.3); Neutrophils Percent Auto 52.1 % (45-73); Platelet Count 376 X10*3/uL (160-400); Red Blood Count 4.08 X10*6/uL (4.20-5.50); Red Cell Distribution Width 19.2 % (11.0-16.0); White Blood Count 8.3 X10*3/uL (4.8-10.8)
[2023-09-26] MEDS: ondansetron HCL 4 MG/2 ML VIAL IVPUSH (14:42)
[2023-09-26 15:09] LABS: Alanine Aminotransferase 20 U/L (0-31); Albumin Level 4.7 g/dL (3.5-5.0); Alkaline Phosphatase 51 U/L (39-117); Anion Gap 14 (12-20); Aspartate Amino Transferase 30 U/L (5-31); Bilirubin Direct 0.1 mg/dL (0.0-0.5); Bilirubin Total 0.4 mg/dL (0.0-1.0); Blood Urea Nitrogen 11 mg/dL (9-16); Calcium 9.6 mg/dL (8.4-10.2); Carbon Dioxide 21 mmol/L (22-29); Chloride 108 mmol/L (96-108); Creatinine Clr Calc Pharmacy 65.2; Estimated Glomerular Filt Rate > 60; Ethanol < 10 mg/dL; Glucose Random 87 mg/dL (60-115); HCG Quantitative < 2 mIU/mL; Lipase 17 U/L (8-78); Potassium 3.7 mmol/L (3.3-5.1); Sodium 139 mmol/L (135-145); Total Protein 7.2 g/dL (6.5-8.0)
--- NOTE | 2023-09-26 15:30 | PC.NURSE ---
pt is currently talking on her phone, no vomiting or dry heaving since arrival to the hospital, pt is awaiting to speak with the care team
[2023-09-26 16:00] VITALS: BP 105/51; PULSE 66; RESP 15; O2SAT 95
[2023-09-26 16:06] LABS: Amphetamine Screen Urine Not Detected (Not Detect); Barbiturates, Urine Not Detected (Not Detect); Benzodiazepines Screen Urine POSITIVE (Not Detect); Buprenorphine Scr Not Detected (Not Detect); Cannabinoid Screen Urine POSITIVE (Not Detect); Cocaine Screen Urine Not Detected (Not Detect); Fentanyl, urine Not Detected (Not Detect); Methadone Screen, Urine Not Detected (Not Detect); Opiate Screen Urine Not Detected (Not Detect); Oxycodone Screen Urine Positive (Not Detect); Phencyclidine Screen Urine Not Detected (Not Detect)
--- NOTE | 2023-09-26 17:36 | PC.NURSE ---
care team at bedside speaking with the pt
[2023-09-26 18:25] VITALS: BP 94/54; PULSE 64; RESP 16; O2SAT 98
[2023-09-26 18:40] VITALS: BP 94/54; PULSE 64; RESP 16; TEMP -17.7; TEMP 0; O2SAT 98
[2023-09-30 21:23] LABS: Levetiracetam Keppra 34.9 mcg/mL (6.0-46.0)
== END 2023-09-26 18:41 | disposition home or self-care (01) ==
PROVIDERS: Emergency Provider Emergency Medicine; PCP General Practice
DX: R56.9 Unspecified convulsions (principal); I49.9 Cardiac arrhythmia, unspecified; F17.210 Nicotine dependence, cigarettes, uncomplicated; Z79.899 Other long term (current) drug therapy
CPT/HCPCS: 36415; 80048; 80076; 80177; 80307; 83690; 84702; 85025; 93005; 99284; J2405; S9485

== ENCOUNTER → 2023-09-26 13:53 | Outpatient (BNV) | payer MEDICAID, SELFPAY | PROVIDERS: Emergency Provider Emergency Medicine; PCP General Practice; Visit Provider Internal Medicine | DX: I49.9 Cardiac arrhythmia, unspecified (principal) | CPT/HCPCS: 93010 ==

== ENCOUNTER 2023-10-23 18:06 | Outpatient (REF) | payer MEDICAID, SELFPAY ==
[2023-10-24 09:57] LABS: Bacterial Vaginosis PCR NEGATIVE (Negative); Candida Group PCR DETECTED (Not Detect); Candida glab krusei PCR NOT DETECTED (Not Detect); Trichomonas vaginalis PCR NOT DETECTED (Not Detect)
[2023-10-25 15:33] LABS: HPV mRNA E6/E7 Not Detected (Not Detected)
== END 2023-10-23 18:07 | disposition home or self-care (01) ==
LOC: HO.HHCLNP 18:06
PROVIDERS: Visit Provider Advanced Practice Midwife
DX: N89.8 Other specified noninflammatory disorders of vagina (principal)
CPT/HCPCS: 0352U; 36415; 87624; 88175

== ENCOUNTER 2024-01-22 12:18 | Emergency (ER) | payer MEDICAID, SELFPAY ==
--- NOTE | ~2024-01-22 | US_ITS ---
EXAMINATION: US OBSTETRICAL ULTRASOUND CLINICAL INFORMATION: with lower abdominal cramping and vaginal bleed COMPARISON: OB ultrasound 05/01/23 LMP: 12/11/23. Gestational age by maternal dates is 6 weeks 0 days. Estimated date of delivery by maternal dates is 09/16/24. TECHNIQUE: Both transabdominal and endovaginal scanning was performed FINDINGS: There is a single intrauterine gestational sac with visible yolk sac, embryo/fetus, and cardiac activity. There is no significant subchorionic hemorrhage or hematoma. HR: 98 beats per minute. CRL (crown rump length): 0.30 cm (6 weeks 0 days +/- 4 days). DEBO (estimated date of delivery): 09/16/24 +/- 4 days. MATERNAL ADNEXA: The right maternal ovary measures 2.9 x 1.5 x 2.3 cm. The left maternal ovary measures 4.1 x 2.6 x 3.0 which includes a 2.5 cm corpus luteal cyst. There is no significant maternal adnexal mass. No maternal pelvic ascites. US/US OB pelvic and transvaginal IMPRESSION: 1. Single intrauterine gestation with ultrasound gestational age of 6 weeks 0 days +/- 4 days. 2. Estimated date of delivery is 09/16/24 +/- 4 days. 3. No maternal adnexal mass or pelvic ascites. Electronically signed by: Vj Fernández MD 01/22/2024 04:10 PM EDT
[2024-01-22 12:56] VITALS: BP 94/46; PULSE 69; RESP 16; TEMP 37; O2SAT 100; BMI 21.7
--- NOTE | 2024-01-22 13:00 | ED_ITS ---
HPI - General Adult General Chief complaint: OB Stated complaint: headache-abd pain-vaginal bleeding- Time Seen by Provider: 01/22/24 16:40 Source: patient Mode of arrival: ambulatory Limitations: no limitations History of Present Illness HPI narrative: Patient is a 33-year-old female G10; 4 living children, 5 prior /miscarriage and current to emergency department for evaluation. She reports her last menstrual period was 12/03/2023. She admitted to having increased stress at home and when she became quite upset she felt ?a large gush of blood? and pain in her right lower quadrant of her abdomen. She developed a headache and was feeling nauseous. She presented to her health clinic and was referred to the emergency department for evaluation. Of note she does state that she has stopped taking her Zyprexa last week when she found out that she was . But did take a dosage today, she is speaking with her doctor about coming off of her medications. She denies any further episodes of bleeding, current pain, denies concern for sexually transmitted infections. Denies dysuria, urinary frequency/urgency/hesitancy Related Data Home Medications ?Medication ?Instructions ?Recorded ?Confirmed albuterol sulfate 90 mcg/actuation 2 puff inhalation QID PRN 05/30/20 09/13/23 aerosol inhaler Shortness Of Breath epinephrine 0.3 mg/0.3 mL 0.3 mg IM Q10M PRN Anaphylaxis 08/08/20 09/13/23 injection, auto-injector fluticasone propionate 50 1 spray intranasal DAILY sinus 12/28/21 09/13/23 mcg/actuation nasal congestion spray,suspension (Flonase Allergy Relief) olanzapine 10 mg tablet 10 mg PO BEDTIME 12/28/21 09/13/23 clonazepam 1 mg tablet 1 mg PO DAILY PRN anxiety attack 02/19/22 09/13/23 buspirone 5 mg tablet 10 mg PO DAILY 04/25/22 09/13/23 ibuprofen 800 mg tablet 800 mg PO Q8H PRN mild pain 08/21/23 09/13/23 Previous Rx's ?Medication ?Instructions ?Recorded fluoxetine 20 mg capsule 40 mg (2 x 20 mg) PO DAILY #14 caps 12/29/21 levetiracetam 500 mg tablet 500 mg PO BID #60 tabs 01/03/22 (Keppra) pantoprazole 40 mg tablet,delayed 40 mg PO TID 2 weeks #42 tabs 03/06/22 release PNV 153-FA 400 mcg-om3 35 mg-dha 1 tab PO DAILY #30 tabs 04/25/22 25 mg-epa 5 mg-fish oil chew tablet ( Gummies) doxylamine succinate 25 mg tablet 12.5 mg (1/2 x 25 mg) PO BEDTIME 05/04/22 (Unisom (doxylamine)) sleep 30 days #30 tabs pyridoxine (vitamin B6) 25 mg 25 mg PO TID #90 tabs 05/04/22 tablet loperamide 2 mg tablet 2 mg PO Q4H PRN loose stool #14 06/05/22 tabs omeprazole 40 mg capsule,delayed 40 mg PO DAILY #30 caps 08/20/23 release prochlorperazine maleate 10 mg 10 mg PO Q6H PRN nausea and 08/20/23 tablet vomiting #12 tabs ferrous sulfate 325 mg (65 mg 325 mg PO DAILY #60 tabs 08/21/23 iron) tablet oxycodone 5 mg tablet 5 mg PO Q6H PRN pain (scale score 09/05/23 7-10) #10 tabs oxycodone 5 mg tablet 5 mg PO Q4H PRN pain #10 tabs 09/12/23 oxycodone-acetaminophen 5 mg-325 1 tab PO Q6H PRN pain (scale score 09/13/23 mg tablet (Percocet) 7-10) #14 tabs PNV 153-FA 400 mcg-om3 35 mg-dha 1 tab PO DAILY #30 tabs 01/22/24 25 mg-epa 5 mg-fish oil chew tablet ( Gummies) Allergies Allergy/AdvReac Type Severity Reaction Status Date / Time dog dander [DOG] Allergy Intermediate itching/hiv Verified 01/22/24 13:02 es kiwi [KIWI] Allergy Intermediate TONGUE Verified 01/22/24 13:02 TINGLING, HIVES, ITCHING latex Allergy Intermediate Hives, Verified 01/22/24 13:02 itching rabbit dander Allergy Intermediate itching/hiv Verified 01/22/24 13:02 es mushroom [MUSHROOM] Allergy Unknown UNKNOWN Verified 01/22/24 13:02 tramadol AdvReac Intermediate Nausea Verified 01/22/24 13:02 propofol AdvReac Mild Agitated Verified 01/22/24 13:02 Review of Systems 2 Review of Systems: Yes all other systems are reviewed and are negative [facility] Past Medical History Attestation statement: The following information was validated with the patient. Source: old records reviewed Medical History Seizure Environmental and seasonal allergies Hypertrophic scar Anemia GERD (gastroesophageal reflux disease) Depression Gallstones H. pylori infection Smoker Bipolar 1 disorder Asthma Surgical History History of excision of lesion (09/05/23) Hx of cholecystectomy History of esophagogastroduodenoscopy (EGD) Hx of tonsillectomy Hx of hemorrhoidectomy (05/06/19) Hx of section Family History Family History Maternal Aunt Ovarian cancer Maternal Grandmother Endometrial adenocarcinoma Mother Diabetes HTN (hypertension) Father Lung cancer Social History Social History Household Members: Children Housing: Apartment Are you a primary nurse wound care to a significant other at home: No Do you presently have visiting nurse or other home services: No Alcohol intake: former Patient Tobacco Use Status: Current everyday Tobacco user Tobacco use type: Cigarette Cigarettes Per Day: 5 Years Smoked: 15 e-Cigarette/Vaping Use: Never Used Second Hand Smoke Exposure: No Substance Use Type: Marijuana Advance Directives: No service: No Current occupational status: employed and other 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 No acute distress.?Normal affect. CVS: Heart sounds normal. Normal heart rate and rhythm.? Pulses normal.?? Respiratory: No respiratory distress.? Lung sounds clear to auscultation bilaterally?? Abdomen: Soft and non-tender. Normoactive bowel sounds. Pelvic: Declines examination Skin: Skin warm and dry.? Normal skin color.? Extremities: No lower extremity edema.? Neuro: Moves all extremities spontaneously. Sensation intact bilaterally. Ambulates with normal steady gait. Course Course Course Narrative: RME: 33 yold female who states she is 5 weeks presents to the ED for lower abdominal pain and gush and vaginal bleeding that occurred this morning. Patient did not yet have ultrasound. labs ordered Medical Decision Making Medical Decision Making MDM Narrative: Patient is a 33-year-old female presenting to emergency department for evaluation of vaginal bleeding with resolved right lower quadrant pain headache and nausea earlier today. Overall she appears well, nontoxic, afebrile. She is mildly hypotensive 94/46 which by her account is baseline for her. Reviewed labs obtained prior to my assumption of care; no leukocytosis, mild normocytic anemia with H and H of 11.4/33.6 which appears consistent with her baseline, no thrombocytopenia. No electrolyte derangement. No ИВАН. LFTs within normal range. Beta hCG 23,387. Urinalysis without evidence of infection or hematuria. She is Rh positive therefore would not require RhoGAM. On ultrasound has no evidence of ectopic , found to have single IUP with gestational age of 6 weeks +/-4 days DEBO 09/16/2024. She declines to have pelvic examination for evaluation denies any active bleeding. We discussed concerns about abruptly stopping her Zyprexa and side effects that can happen from that, she is going to speak with her doctor about weaning off of them. She is requesting a prescription for gummies have sent to her pharmacy. Discussed strict return precautions. All questions answered. Stable for discharge Differential Diagnosis Differential Diagnoses: The differential diagnosis associated with the presentation includes (See narrative above) Admission/Observation Consideration of admission/observation: Escalation of care including admission/observation considered (See narrative above) Lab Data MDM Lab Attestation statement: I reviewed the patient's lab results. (See narrative above) 01/22/24 13:30 01/22/24 13:30 Labs: Lab Results 01/22/24 01/22/24 Range/Units 13:30 13:31 WBC 9.8 (4.8-10.8) X10*3/uL RBC 3.92 L (4.20-5.50) X10*6/uL Hgb 11.4 L (12.0-16.0) g/dl Hct 33.6 L (37.0-47.0) % MCV 85.7 (80.0-98.0) fL MCH 29.1 (27.0-33.0) pg MCHC 33.9 (31.0-35.0) g/dl RDW 14.4 (11.0-16.0) % Plt Count 397 (160-400) X10*3/uL MPV 8.5 L (9.4-12.3) fL Immature Gran % (Auto) 0.2 (0.0-0.4) % Neut % (Auto) 53.6 (45-73) % Lymph % (Auto) 36.8 (20-40) % [place] % (Auto) 7.3 (2-11) % Eos % (Auto) 1.7 (0-4) % Baso % (Auto) 0.4 (0-2) % Lymph # (Auto) 3.6 (1.2-4.9) X10*3/uL [place] # (Auto) 0.7 (0.1-1.2) X10*3/uL Eos # (Auto) 0.2 (0.0-0.4) X10*3/uL Baso # (Auto) 0.0 (0.0-0.2) X10*3/uL Abs Immat Gran (auto) 0.02 (0.00-0.03) X10*3/uL Absolute Neuts (auto) 5.3 (2.0-8.3) x10*3/uL Absolute Nucleated RBC 0.000 (0.0-0.012) X10*3/uL Nucleated RBC % (auto) 0.0 (0.0-0.2) /100WBC PT 11.8 (10.9-12.4) SEC INR 1.0 (0.9-1.1) APTT 31.2 (26.0-36.8) SEC Sodium 137 (135-145) mmol/L Potassium 3.7 (3.3-5.1) mmol/L Chloride 107 (96-108) mmol/L Carbon Dioxide 20 L (22-29) mmol/L Anion Gap 14 (12-20) BUN 7 L (9-16) mg/dL Creatinine 0.71 (0.5-1.4) mg/dL Estim Creat Clear Calc 72.8 Estimated GFR > 60 Random Glucose 80 (60-115) mg/dL Calcium 9.0 D (8.4-10.2) mg/dL Total Bilirubin 0.4 (0.0-1.0) mg/dL AST 15 (5-31) U/L ALT 7 (0-31) U/L Alkaline Phosphatase 52 (39-117) U/L Total Protein 7.2 (6.5-8.0) g/dL Albumin 4.3 (3.5-5.0) g/dL Beta HCG, Quant 27200 mIU/mL Urine Color Yellow Urine Appearance Clear Urine pH 7.0 (5.0-9.0) Ur Specific [place] 1.010 (1.005-1.025) Urine Protein Negative (Neg-Trace) mg/dL Urine Glucose (UA) Negative (Negative) mg/dL Urine Ketones Negative (Negative) mg/dL Urine Blood Negative (Negative) Urine Nitrite Negative (Negative) Ur Leukocyte Esterase Trace H (Negative) Urine RBC 0-2 (0-2) /HPF Urine WBC 0-5 (0-5) /HPF Ur Squamous Epith Cells 0-2 (0-2) /HPF Urine Bacteria None Seen (None Seen) Hyaline Casts 0-2 (0-2) /LPF Urine Test POSITIVE H (NEGATIVE) Blood Type A Positive Radiology Impression Discussion of test interpretation with radiology: I have reviewed the radiologist's reading. Radiologist Impression: US/US OB pelvic and transvaginal IMPRESSION: 1. Single intrauterine gestation with ultrasound gestational age of 6 weeks 0 days +/- 4 days. 2. Estimated date of delivery is 09/16/24 +/- 4 days. 3. No maternal adnexal mass or pelvic ascites. External Record Review External record reviewed: Outpatient record Prescription Management I considered prescription management with: Other (See narrative above) Discharge Plan Discharge Clinical Impression: , threatened Patient Disposition: Home, Self-Care Instructions: Threatened Miscarriage (ED) Additional Instructions: As discussed, when you experience vaginal bleeding in early sometimes this may be normal, other times it may be 1st indicator of an upcoming miscarriage. In your ultrasound today you were found to have a single live intrauterine , this means that it is inside of your uterus which is where it belongs. You are approximately 6 weeks =/- 4 days with estimated due date of 09/17/2023. As discussed, if you have any further episodes of bleeding abdominal pain fevers chills new or worsening symptoms or concerns you should seek re-evaluation. 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 Prescriptions: New Gummies 400 mcg-35 mg- 25 mg-5 mg tablet,chewable 1 tab PO DAILY Qty: 30 0RF No Action pantoprazole 40 mg tablet,delayed release (DR/EC) 40 mg PO TID 14 Days Qty: 42 0RF Unisom (doxylamine) 25 mg tablet 12.5 mg PO BEDTIME 30 Days Qty: 30 0RF Rx Instructions: Take 1/2 tablet before bed in addition to Vit B6 tid for nausea pyridoxine (vitamin B6) 25 mg tablet 25 mg PO TID Qty: 90 0RF ibuprofen 800 mg tablet 800 mg PO Q8H PRN (Reason: mild pain) ferrous sulfate 325 mg (65 mg iron) Tablet 325 mg PO DAILY Qty: 60 2RF albuterol sulfate 90 mcg/actuation HFA aerosol inhaler 2 puff inhalation QID PRN (Reason: Shortness Of Breath) epinephrine 0.3 mg/0.3 mL Auto-Injector 0.3 mg IM Q10M PRN (Reason: Anaphylaxis) olanzapine 10 mg Tablet 10 mg PO BEDTIME fluticasone propionate [Flonase Allergy Relief] 50 mcg/actuation spray,suspension 1 spray intranasal DAILY Rx Instructions: administer into each nostril fluoxetine 20 mg Capsule 40 mg PO DAILY Qty: 14 0RF levetiracetam [Keppra] 500 mg tablet 500 mg PO BID Qty: 60 0RF loperamide 2 mg tablet 2 mg PO Q4H PRN (Reason: loose stool) Qty: 14 0RF Rx Instructions: administer after each loose stool until symptoms controlled; do not exceed 8 mg per 24 hrs oxycodone 5 mg tablet 5 mg PO Q4H PRN (Reason: pain) Qty: 10 0RF Rx Instructions: Patient may request partial fill; Partial Fill upon patient request. omeprazole 40 mg capsule,delayed release(DR/EC) 40 mg PO DAILY Qty: 30 0RF prochlorperazine maleate 10 mg tablet 10 mg PO Q6H PRN (Reason: nausea and vomiting) Qty: 12 0RF oxycodone 5 mg tablet 5 mg PO Q6H PRN (Reason: pain (scale score 7-10)) Qty: 10 0RF Rx Instructions: Partial Fill upon patient request. clonazepam 1 mg tablet 1 mg PO DAILY PRN (Reason: anxiety attack) buspirone 5 mg tablet 10 mg PO DAILY Gummies 400 mcg-35 mg- 25 mg-5 mg tablet,chewable 1 tab PO DAILY Qty: 30 11RF oxycodone-acetaminophen [Percocet] 5-325 mg tablet 1 tab PO Q6H PRN (Reason: pain (scale score 7-10)) Qty: 14 0RF Rx Instructions: Partial Fill upon patient request. Referrals: Roxie Elena MD [Primary Care Provider] - Interventions: ED Discharge Assessment Last Done: 01/22/24 16:58 Discharge Date/Time: 01/22/24 16:59 Print Language: Pashto
[2024-01-22 13:38] LABS: MANUAL DIFF FLAG NO
[2024-01-22 13:41] LABS: Appearance Urine Clear; Color Urine Yellow; Glucose Urine UA Negative (Negative); Leukocyte Esterase Urine Trace (Negative); Nitrite Urine Negative (Negative); UMIC TRIGGER UACC YES; Urine Blood Negative (Negative); Urine Ketones Negative (Negative); Urine Protein Negative (Neg-Trace)
[2024-01-22 13:42] LABS: Basophils Percent Auto 0.4 % (0-2); Eosinophils Absolute Auto 0.2 X10*3/uL (0.0-0.4); Eosinophils Percent Auto 1.7 % (0-4); Hematocrit 33.6 % (37.0-47.0); Hemoglobin 11.4 g/dl (12.0-16.0); Imm Gran Abs Auto 0.02 X10*3/uL (0.00-0.03); Imm Gran Pct Auto 0.2 % (0.0-0.4); Lymphocytes Absolute Auto 3.6 X10*3/uL (1.2-4.9); Lymphocytes Percent Auto 36.8 % (20-40); Mean Corpuscular HGB Conc 33.9 g/dl (31.0-35.0); Mean Corpuscular Hemoglobin 29.1 pg (27.0-33.0); Mean Corpuscular Volume 85.7 fL (80.0-98.0); Mean Platelet Volume 8.5 fL (9.4-12.3); Monocytes Absolute Auto 0.7 X10*3/uL (0.1-1.2); Monocytes Percent Auto 7.3 % (2-11); Neutrophils Absolute Auto 5.3 x10*3/uL (2.0-8.3); Neutrophils Percent Auto 53.6 % (45-73); Platelet Count 397 X10*3/uL (160-400); Red Blood Count 3.92 X10*6/uL (4.20-5.50); Red Cell Distribution Width 14.4 % (11.0-16.0); White Blood Count 9.8 X10*3/uL (4.8-10.8)
[2024-01-22 13:42] LABS: UPreg QC Valid YES; Urine Pregnancy POSITIVE (NEGATIVE)
[2024-01-22 13:45] LABS: Prothrombin Time 11.8 SEC (10.9-12.4)
[2024-01-22 13:46] LABS: Bacteria Urine None Seen (None Seen); Hyaline Casts Urine 0-2 /LPF (0-2); RBC Urine 0-2 /HPF (0-2); Squamous Epithelial Cell Urine 0-2 /HPF (0-2); WBC Urine 0-5 /HPF (0-5)
[2024-01-22 13:48] LABS: Partial Thromboplastin Time 31.2 SEC (26.0-36.8)
[2024-01-22 14:28] LABS: Alanine Aminotransferase 7 U/L (0-31); Albumin Level 4.3 g/dL (3.5-5.0); Alkaline Phosphatase 52 U/L (39-117); Anion Gap 14 (12-20); Aspartate Amino Transferase 15 U/L (5-31); Bilirubin Total 0.4 mg/dL (0.0-1.0); Blood Urea Nitrogen 7 mg/dL (9-16); Carbon Dioxide 20 mmol/L (22-29); Chloride 107 mmol/L (96-108); Creatinine Clr Calc Pharmacy 72.8; Estimated Glomerular Filt Rate > 60; Glucose Random 80 mg/dL (60-115); Potassium 3.7 mmol/L (3.3-5.1); Sodium 137 mmol/L (135-145); Total Protein 7.2 g/dL (6.5-8.0)
[2024-01-22 14:45] LABS: HCG Quantitative 23387 mIU/mL
--- NOTE | 2024-01-22 16:48 | PC.NURSE ---
Yani RN attempted to meet Pt and completed assigned worklist items. Pt states at this time that she would like to leave at this time. She states she was able to view all of her results on the portal and she is not concerned. Provider to bedside to speak with Pt.
[2024-01-22 16:58] VITALS: BP 00/00; PULSE 0; RESP 0; TEMP -17.7; TEMP 0
== END 2024-01-22 16:59 | disposition home or self-care (01) ==
PROVIDERS: Physician Assistant; Emergency Provider Emergency Medicine Emergency Medical Services; PCP General Practice
DX: O20.0 Threatened abortion (principal)
CPT/HCPCS: 36415; 76801; 76817; 80053; 81001; 81025; 84702; 85025; 85610; 85730; 86900; 86901; 99282; 99284

== ENCOUNTER 2024-01-27 12:30 | Emergency (ER) | payer MEDICAID, SELFPAY ==
--- NOTE | ~2024-01-27 | US_ITS ---
EXAMINATION: US OBSTETRICAL ULTRASOUND CLINICAL INFORMATION: Vaginal bleeding in early COMPARISON: January 22, 2024 LMP: 12/11/2023. Gestational age by maternal dates is 6 weeks 5 days. Estimated date of delivery by maternal dates is 09/17/2023. TECHNIQUE: Transabdominal and transvaginal FINDINGS: There is a single intrauterine gestational sac with visible yolk sac, embryo/fetus, and cardiac activity. There is no significant subchorionic hemorrhage or hematoma. HR: 127 beats per minute. CRL (crown rump length): 0.51 cm (6 weeks 2 days +/- 4 days). DEBO (estimated date of delivery): 09/19/2024 +/- 4 days. MATERNAL ADNEXA: The right maternal ovary measures 3.1 x 2.5 x 2.0 cm. The left maternal ovary measures 3.6 x 1.7 x 2.6 cm. There is 1.8 x 2.0 x 2.9 cm corpus luteum cyst There is no significant maternal adnexal mass. There is small maternal pelvic ascites. There is small subchorionic hemorrhage seen. US/US OB pelvic and transvaginal IMPRESSION: 1. Single intrauterine gestation with ultrasound gestational age of 6 weeks 2 days +/- 4 days. 2. Estimated date of delivery is 09/19/2024 +/- 4 days. 3. No maternal adnexal mass or pelvic ascites. Corpus luteum cyst in the left adnexa, small amount of fluid in cul-de-sac. Electronically signed by: Terra Moreno MD 01/27/2024 04:50 PM [facility]
[2024-01-27 13:00] VITALS: BP 96/54; PULSE 96; RESP 16; TEMP 36.1; O2SAT 98; BMI 21.5
--- NOTE | 2024-01-27 13:08 | ED.GENADULT ---
HPI - General Adult General Chief complaint: Vaginal Bleeding Stated complaint: vaginal bleeding upset stomach History of Present Illness HPI narrative: Patient left before completment of treatment by ED provider Related Data Home Medications ?Medication ?Instructions ?Recorded ?Confirmed albuterol sulfate 90 mcg/actuation 2 puff inhalation QID PRN 05/30/20 09/13/23 aerosol inhaler Shortness Of Breath epinephrine 0.3 mg/0.3 mL 0.3 mg IM Q10M PRN Anaphylaxis 08/08/20 09/13/23 injection, auto-injector fluticasone propionate 50 1 spray intranasal DAILY sinus 12/28/21 09/13/23 mcg/actuation nasal congestion spray,suspension (Flonase Allergy Relief) olanzapine 10 mg tablet 10 mg PO BEDTIME 12/28/21 09/13/23 clonazepam 1 mg tablet 1 mg PO DAILY PRN anxiety attack 02/19/22 09/13/23 buspirone 5 mg tablet 10 mg PO DAILY 04/25/22 09/13/23 ibuprofen 800 mg tablet 800 mg PO Q8H PRN mild pain 08/21/23 09/13/23 Previous Rx's ?Medication ?Instructions ?Recorded fluoxetine 20 mg capsule 40 mg (2 x 20 mg) PO DAILY #14 caps 12/29/21 levetiracetam 500 mg tablet 500 mg PO BID #60 tabs 01/03/22 (Keppra) pantoprazole 40 mg tablet,delayed 40 mg PO TID 2 weeks #42 tabs 03/06/22 release PNV 153-FA 400 mcg-om3 35 mg-dha 1 tab PO DAILY #30 tabs 04/25/22 25 mg-epa 5 mg-fish oil chew tablet ( Gummies) doxylamine succinate 25 mg tablet 12.5 mg (1/2 x 25 mg) PO BEDTIME 05/04/22 (Unisom (doxylamine)) sleep 30 days #30 tabs pyridoxine (vitamin B6) 25 mg 25 mg PO TID #90 tabs 05/04/22 tablet loperamide 2 mg tablet 2 mg PO Q4H PRN loose stool #14 06/05/22 tabs omeprazole 40 mg capsule,delayed 40 mg PO DAILY #30 caps 08/20/23 release prochlorperazine maleate 10 mg 10 mg PO Q6H PRN nausea and 08/20/23 tablet vomiting #12 tabs ferrous sulfate 325 mg (65 mg 325 mg PO DAILY #60 tabs 08/21/23 iron) tablet oxycodone 5 mg tablet 5 mg PO Q6H PRN pain (scale score 09/05/23 7-10) #10 tabs oxycodone 5 mg tablet 5 mg PO Q4H PRN pain #10 tabs 09/12/23 oxycodone-acetaminophen 5 mg-325 1 tab PO Q6H PRN pain (scale score 09/13/23 mg tablet (Percocet) 7-10) #14 tabs PNV 153-FA 400 mcg-om3 35 mg-dha 1 tab PO DAILY #30 tabs 01/22/24 25 mg-epa 5 mg-fish oil chew tablet ( Gummies) Allergies Allergy/AdvReac Type Severity Reaction Status Date / Time dog dander [DOG] Allergy Intermediate itching/hiv Verified 01/27/24 13:03 es kiwi [KIWI] Allergy Intermediate TONGUE Verified 01/27/24 13:03 TINGLING, HIVES, ITCHING latex Allergy Intermediate Hives, Verified 01/27/24 13:03 itching rabbit dander Allergy Intermediate itching/hiv Verified 01/27/24 13:03 es mushroom [MUSHROOM] Allergy Unknown UNKNOWN Verified 01/27/24 13:03 tramadol AdvReac Intermediate Nausea Verified 01/27/24 13:03 propofol AdvReac Mild Agitated Verified 01/27/24 13:03 PMFSH Past Medical History Medical History Seizure Environmental and seasonal allergies Hypertrophic scar Anemia GERD (gastroesophageal reflux disease) Depression Gallstones H. pylori infection Smoker Bipolar 1 disorder Asthma Surgical History History of excision of lesion (09/05/23) Hx of cholecystectomy History of esophagogastroduodenoscopy (EGD) Hx of tonsillectomy Hx of hemorrhoidectomy (05/06/19) Hx of section Family History Family History Maternal Aunt Ovarian cancer Maternal Grandmother Endometrial adenocarcinoma Mother Diabetes HTN (hypertension) Father Lung cancer Social History Social History Household Members: Children Housing: Apartment Are you a primary certified caregiver to a significant other at home: No Do you presently have visiting nurse or other home services: No Alcohol intake: former Patient Tobacco Use Status: Current everyday Tobacco user Tobacco use type: Cigarette Cigarettes Per Day: 5 Years Smoked: 15 e-Cigarette/Vaping Use: Never Used Second Hand Smoke Exposure: No Substance Use Type: Marijuana Advance Directives: No Advance Directives Information Provided: Yes service: No Current occupational status: employed and other 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 32-year-old female presents to ED for worsening vaginal bleeding. Patient was seen here last week for similar presentations. Patient called her OBGYN but could not be seen so she came to the ED. patient blood pressure soft but patient is usually has low blood pressure as vital signs are trended. Repeat labs and ultrasound ordered. 5 mm by informed to let what ED GI staff aware of any change in patient's symptoms. Medical Decision Making Lab Data 01/27/24 13:40 01/27/24 13:39 Labs: Lab Results 01/27/24 01/27/24 Range/Units 13:39 13:40 WBC 9.8 (4.8-10.8) X10*3/uL RBC 4.14 L (4.20-5.50) X10*6/uL Hgb 12.2 (12.0-16.0) g/dl Hct 35.7 L (37.0-47.0) % MCV 86.2 (80.0-98.0) fL MCH 29.5 (27.0-33.0) pg MCHC 34.2 (31.0-35.0) g/dl RDW 14.5 (11.0-16.0) % Plt Count 366 (160-400) X10*3/uL MPV 8.6 L (9.4-12.3) fL Immature Gran % (Auto) 0.4 (0.0-0.4) % Neut % (Auto) 59.6 (45-73) % Lymph % (Auto) 30.7 (20-40) % [place] % (Auto) 6.5 (2-11) % Eos % (Auto) 2.3 (0-4) % Baso % (Auto) 0.5 (0-2) % Lymph # (Auto) 3.0 (1.2-4.9) X10*3/uL [place] # (Auto) 0.6 (0.1-1.2) X10*3/uL Eos # (Auto) 0.2 (0.0-0.4) X10*3/uL Baso # (Auto) 0.1 (0.0-0.2) X10*3/uL Abs Immat Gran (auto) 0.04 H (0.00-0.03) X10*3/uL Absolute Neuts (auto) 5.8 (2.0-8.3) x10*3/uL Absolute Nucleated RBC 0.000 (0.0-0.012) X10*3/uL Nucleated RBC % (auto) 0.0 (0.0-0.2) /100WBC PT 12.4 (10.9-12.4) SEC INR 1.1 (0.9-1.1) APTT 31.5 (26.0-36.8) SEC Sodium 138 (135-145) mmol/L Potassium 3.8 (3.3-5.1) mmol/L Chloride 108 (96-108) mmol/L Carbon Dioxide 22 (22-29) mmol/L Anion Gap 12 (12-20) BUN 5 L (9-16) mg/dL Creatinine 0.70 (0.5-1.4) mg/dL Estim Creat Clear Calc 73.8 Estimated GFR > 60 Random Glucose 80 (60-115) mg/dL Calcium 9.8 D (8.4-10.2) mg/dL Beta HCG, Quant 60136 mIU/mL Blood Type A Positive Discharge Plan Discharge Clinical Impression: Threatened Patient Disposition: Left W/O Completing Treatment Prescriptions: No Action pantoprazole 40 mg tablet,delayed release (DR/EC) 40 mg PO TID 14 Days Qty: 42 0RF Unisom (doxylamine) 25 mg tablet 12.5 mg PO BEDTIME 30 Days Qty: 30 0RF Rx Instructions: Take 1/2 tablet before bed in addition to Vit B6 tid for nausea pyridoxine (vitamin B6) 25 mg tablet 25 mg PO TID Qty: 90 0RF ibuprofen 800 mg tablet 800 mg PO Q8H PRN (Reason: mild pain) ferrous sulfate 325 mg (65 mg iron) Tablet 325 mg PO DAILY Qty: 60 2RF albuterol sulfate 90 mcg/actuation HFA aerosol inhaler 2 puff inhalation QID PRN (Reason: Shortness Of Breath) epinephrine 0.3 mg/0.3 mL Auto-Injector 0.3 mg IM Q10M PRN (Reason: Anaphylaxis) olanzapine 10 mg Tablet 10 mg PO BEDTIME fluticasone propionate [Flonase Allergy Relief] 50 mcg/actuation spray,suspension 1 spray intranasal DAILY Rx Instructions: administer into each nostril fluoxetine 20 mg Capsule 40 mg PO DAILY Qty: 14 0RF levetiracetam [Keppra] 500 mg tablet 500 mg PO BID Qty: 60 0RF loperamide 2 mg tablet 2 mg PO Q4H PRN (Reason: loose stool) Qty: 14 0RF Rx Instructions: administer after each loose stool until symptoms controlled; do not exceed 8 mg per 24 hrs oxycodone 5 mg tablet 5 mg PO Q4H PRN (Reason: pain) Qty: 10 0RF Rx Instructions: Patient may request partial fill; Partial Fill upon patient request. omeprazole 40 mg capsule,delayed release(DR/EC) 40 mg PO DAILY Qty: 30 0RF prochlorperazine maleate 10 mg tablet 10 mg PO Q6H PRN (Reason: nausea and vomiting) Qty: 12 0RF oxycodone 5 mg tablet 5 mg PO Q6H PRN (Reason: pain (scale score 7-10)) Qty: 10 0RF Rx Instructions: Partial Fill upon patient request. Gummies 400 mcg-35 mg- 25 mg-5 mg tablet,chewable 1 tab PO DAILY Qty: 30 0RF clonazepam 1 mg tablet 1 mg PO DAILY PRN (Reason: anxiety attack) buspirone 5 mg tablet 10 mg PO DAILY Gummies 400 mcg-35 mg- 25 mg-5 mg tablet,chewable 1 tab PO DAILY Qty: 30 11RF oxycodone-acetaminophen [Percocet] 5-325 mg tablet 1 tab PO Q6H PRN (Reason: pain (scale score 7-10)) Qty: 14 0RF Rx Instructions: Partial Fill upon patient request. Discharge Date/Time: 01/27/24 19:38
[2024-01-27 13:44] LABS: MANUAL DIFF FLAG NO
[2024-01-27 13:49] LABS: Basophils Absolute Auto 0.1 X10*3/uL (0.0-0.2); Basophils Percent Auto 0.5 % (0-2); Eosinophils Absolute Auto 0.2 X10*3/uL (0.0-0.4); Eosinophils Percent Auto 2.3 % (0-4); Hematocrit 35.7 % (37.0-47.0); Hemoglobin 12.2 g/dl (12.0-16.0); Imm Gran Abs Auto 0.04 X10*3/uL (0.00-0.03); Imm Gran Pct Auto 0.4 % (0.0-0.4); Lymphocytes Percent Auto 30.7 % (20-40); Mean Corpuscular HGB Conc 34.2 g/dl (31.0-35.0); Mean Corpuscular Hemoglobin 29.5 pg (27.0-33.0); Mean Corpuscular Volume 86.2 fL (80.0-98.0); Mean Platelet Volume 8.6 fL (9.4-12.3); Monocytes Absolute Auto 0.6 X10*3/uL (0.1-1.2); Monocytes Percent Auto 6.5 % (2-11); Neutrophils Absolute Auto 5.8 x10*3/uL (2.0-8.3); Neutrophils Percent Auto 59.6 % (45-73); Platelet Count 366 X10*3/uL (160-400); Red Blood Count 4.14 X10*6/uL (4.20-5.50); Red Cell Distribution Width 14.5 % (11.0-16.0); White Blood Count 9.8 X10*3/uL (4.8-10.8)
[2024-01-27 13:55] LABS: INTERNATIONAL NORM RATIO 1.1 (0.9-1.1); Prothrombin Time 12.4 SEC (10.9-12.4)
[2024-01-27 13:58] LABS: Partial Thromboplastin Time 31.5 SEC (26.0-36.8)
[2024-01-27 14:05] LABS: Anion Gap 12 (12-20); Blood Urea Nitrogen 5 mg/dL (9-16); Calcium 9.8 mg/dL (8.4-10.2); Carbon Dioxide 22 mmol/L (22-29); Chloride 108 mmol/L (96-108); Creatinine Clr Calc Pharmacy 73.8; Estimated Glomerular Filt Rate > 60; Glucose Random 80 mg/dL (60-115); Potassium 3.8 mmol/L (3.3-5.1); Sodium 138 mmol/L (135-145)
[2024-01-27 14:32] LABS: HCG Quantitative 66770 mIU/mL
== END 2024-01-27 19:38 | disposition left against medical advice (07) ==
PROVIDERS: Physician Assistant; Emergency Provider Emergency Medicine; PCP General Practice
DX: O20.0 Threatened abortion (principal); N93.9 Abnormal uterine and vaginal bleeding, unspecified; Z53.21 Procedure and treatment not carried out due to patient leaving prior to being seen by health care provider
CPT/HCPCS: 36415; 76801; 76817; 80048; 84702; 85025; 85610; 85730; 86900; 86901; 99281; 99284

== ENCOUNTER 2024-02-14 09:30 | Emergency (ER) | payer MEDICAID, SELFPAY ==
[2024-02-14 09:38] VITALS: BP 114/75; PULSE 108; RESP 16; TEMP 36.4; O2SAT 99; BMI 21.1
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
[2024-02-14 10:34] LABS: MANUAL DIFF FLAG NO
[2024-02-14 10:37] LABS: Appearance Urine Clear; Color Urine Yellow; Glucose Urine UA Negative (Negative); Leukocyte Esterase Urine Small (1+) (Negative); Nitrite Urine Negative (Negative); Specific Gravity - Urine 1.015 (1.005-1.025); UMIC TRIGGER UACC YES; Urine Blood Negative (Negative); Urine Ketones Trace mg/dL (Negative); Urine Protein Negative (Neg-Trace)
[2024-02-14 10:39] LABS: Basophils Absolute Auto 0.1 X10*3/uL (0.0-0.2); Basophils Percent Auto 0.5 % (0-2); Eosinophils Absolute Auto 0.1 X10*3/uL (0.0-0.4); Eosinophils Percent Auto 0.8 % (0-4); Hematocrit 34.3 % (37.0-47.0); Hemoglobin 11.8 g/dl (12.0-16.0); Imm Gran Abs Auto 0.04 X10*3/uL (0.00-0.03); Imm Gran Pct Auto 0.4 % (0.0-0.4); Lymphocytes Absolute Auto 2.8 X10*3/uL (1.2-4.9); Lymphocytes Percent Auto 26.6 % (20-40); Mean Corpuscular HGB Conc 34.4 g/dl (31.0-35.0); Mean Corpuscular Hemoglobin 29.1 pg (27.0-33.0); Mean Corpuscular Volume 84.5 fL (80.0-98.0); Mean Platelet Volume 8.5 fL (9.4-12.3); Monocytes Absolute Auto 0.9 X10*3/uL (0.1-1.2); Monocytes Percent Auto 8.1 % (2-11); Neutrophils Absolute Auto 6.8 x10*3/uL (2.0-8.3); Neutrophils Percent Auto 63.6 % (45-73); Platelet Count 388 X10*3/uL (160-400); Red Blood Count 4.06 X10*6/uL (4.20-5.50); Red Cell Distribution Width 14.2 % (11.0-16.0); White Blood Count 10.7 X10*3/uL (4.8-10.8)
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
[2024-02-14 10:46] LABS: Bacteria Urine None Seen (None Seen); Hyaline Casts Urine 0-2 /LPF (0-2); RBC Urine 0-2 /HPF (0-2); Squamous Epithelial Cell Urine 0-2 /HPF (0-2); UACC Culture Trigger YES; WBC Urine 0-5 /HPF (0-5)
[2024-02-14 10:50] LABS: Alanine Aminotransferase 23 U/L (0-31); Albumin Level 4.3 g/dL (3.5-5.0); Alkaline Phosphatase 46 U/L (39-117); Anion Gap 14 (12-20); Aspartate Amino Transferase 24 U/L (5-31); Bilirubin Total 0.2 mg/dL (0.0-1.0); Blood Urea Nitrogen 4 mg/dL (9-16); Calcium 9.5 mg/dL (8.4-10.2); Carbon Dioxide 18 mmol/L (22-29); Chloride 106 mmol/L (96-108); Creatinine Clr Calc Pharmacy 95.6; Estimated Glomerular Filt Rate > 60; Glucose Random 90 mg/dL (60-115); Potassium 3.5 mmol/L (3.3-5.1); Sodium 134 mmol/L (135-145); Total Protein 7.1 g/dL (6.5-8.0)
[2024-02-14 11:21] LABS: HCG Quantitative > 225000 mIU/mL
[2024-02-14 11:58] VITALS: BP 107/57; PULSE 91; RESP 15; TEMP 37.2; O2SAT 99
[2024-02-14 12:14] VITALS: BP 107/57; PULSE 91; RESP 15; TEMP 37.2; O2SAT 99
== END 2024-02-14 12:17 | disposition home or self-care (01) ==
PROVIDERS: Emergency Provider Emergency Medicine; PCP General Practice
DX: O26.851 Spotting complicating pregnancy, first trimester (principal); Z3A.09 9 weeks gestation of pregnancy
CPT/HCPCS: 36415; 80053; 81001; 84702; 85025; 87086; 99284

== ENCOUNTER 2024-03-04 11:24 | Outpatient (REF) | payer MEDICAID, SELFPAY ==
--- OUTSIDE RECORDS SUMMARY | 2024-03-05 01:37 | XMS_ITS | Continuity of Care Document ---
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 Name Role Phone Ulices JENKINS, Roxie Laura Primary Care Physician [id number] Date(s): 01/15/24 - 02/14/[address] [address]- Encounter Type: Triage Allergies, Adverse Reactions, Alerts Substance Criticality Severity Reaction Reaction Severity Status Dogs sneezing Active Kiwi itchy throat Active Latex itchy throat, l ip swelling Active Other Environmental Allergy 1 Active Mushrooms 2 lip swelling Activ e traMADol Active 1Rabbits 2Carries EPI PEN Medications Afrin 0.05% spray 2 sprays, Nares, Both, 2 times a day, # 15 mL, 0 Refills, Maintenance, 05/25/22 12:09:00 PM EST, [place], Partial fill upon patient request if the prescription is for a schedule II opioid drug. Start Date: 05/25/22 Status: Ordered Quantity: 15.0 Unit: mL Repeat number: 1 Albuterol (Eqv-ProAir HFA) 2 puffs, Inhalation, Every 6 hours, PRN Wheezing/Shortness of Breath, 0 Refills, Maintenance, 05/25/22 12:06:00 PM EST, Partial fill upon patient request if the prescription is for a schedule II opioiddrug. Start Date: 05/25/22 Status: Ordered Repeat number: 1 Clonazepam See Instructions, 0.5 mg md is tapering me off this, 0 Refills, Maintenance, 05/25/22 12:09:00 PM EST, Partial fill upon patient request if the prescription is for a schedule II opioid drug. Start Date: 05/25/22 Status: Ordered Repeat number: 1 doxylamine 25 mg oral tablet 1 tablet = 25 mg, By Mouth, Daily at bedtime, PRN for sleep, # 32 tablet, 0 Refills, Acute 04/24/24 9:00:00 PM EST, 02/11/24 8:46:00 PM EST, Tablet, [facility]/pharmacy #[id number], Partial fill upon patient request if the prescription is for a schedule II opioid drug., 52.6, cm, 02/11/24 17:57:00 EST, Height, 45.4, kg, 02/11/24 16:01:00 EST, Dry Weight Start Date: 02/11/24 Stop Date: 04/24/24 Status: Ordered Quantity: 32.0 Unit: tablet Repeat number: 1 FLUoxetine (Eqv-Prozac) 20 mg oral tablet See Instructions, 1 tablet By Mouth Daily tid, 0 Refills, Maintenance, 05/25/22 12:05:00 PM EST, Tablet, Partial fill upon patient request if the prescription is for a schedule II opioid drug. Start Date: 05/25/22 Status: Ordered Repeat number: 1 Keppra 500 mg oral tablet 1 tablet = 500 mg, By Mouth, 2 times a day, she takes 750 mg total bid, # 60 tablet, 5 Refills, Maintenance, 05/25/22 12:04:00 PM EST, Tablet, Partial fill upon patient request if the prescription is for a schedule II opioid drug. Start Date: 05/25/22 Status: Ordered Quantity: 60.0 Unit: tablet Repeat number: 1 nicotine 7 mg/24 hr transdermal film, extended release 1 patch, Topically, Daily, # 30 patch, 1 Refills, Acute 04/24/24 9:00:00 PM EST, 02/11/24 8:46:00 PMEST, Patch, [facility]/pharmacy #[id number], Partial fill upon patient request if the prescription is for a schedule II opioid drug., 1 patch Topically Daily, 52.6, cm, 02/11/24 17:57:00 EST, Height, 45.4, kg, 02/11/24 16:01:00 EST, Dry Weight Start Date: 02/11/24 Stop Date: 04/24/24 Status: Ordered Quantity: 30.0 Unit: patch Repeat number: 2 ondansetron 4 mg oral tablet 1 tablet = 4 mg, By Mouth, Every 6 hours, PRN Nausea & Vomiting, # 20 tablet, 1 Refills, Acute 03/22/24 12:33:00 PM EST, 01/20/24 12:33:00 PM EDT, Tablet, [facility]pharm[facility] #[id number], Partial fill upon patient request if the prescription is for a schedule II opioid drug., 52.6, cm, 05/25/22 10:14:00 EST, Height, 53.5, kg, 05/03/23 13:11:00 EST, Dry Weight Start Date: 01/20/24 Stop Date: 03/22/24 Status: Ordered Quantity: 20.0 Unit: tablet Repeat number: 2 Indication: Vomiting of , unspecified ondansetron 4 mg oral tablet 1 tablet = 4 mg, By Mouth, Every 6 hours, PRN Nausea & Vomiting, # 30 tablet, 1 Refills, Maintenance, 03/22/24 12:33:00 PM EST, Tablet, [id number], Partial fill upon patient request if the prescription is for a schedule II opioid drug., 52.6, cm, 01/30/24 16:52:00 EST, Height, 46.8, kg,01/30/24 16:28:00 EST, Dry Weight Start Date: 03/22/24 Status: Ordered Quantity: 30.0 Unit: tablet Repeat number: 2 Indication: Vomiting of , unspecified Unisom 25 mg oral tablet See Instructions, PRN for sleep, 0.5 to 1 tablet By Mouth Daily at bedtime for sleep and n/v, # 30 tablet, 0 Refills, Maintenance, 02/04/24 1:34:00 PM EST, Tablet, [id number], Partial fill upon patient request if the prescription is for a schedule II opioid drug., 52.6, cm, 01/30/24 16:52:00 EST, Height, 46.8, kg, 01/30/24 16:28:00 EST, Dry Weight Start Date: 02/04/24 Status: Ordered Quantity: 30.0 Unit: tablet Repeat number: 1 Indication: Vomiting of , unspecified Vitamin B6 50 mg oral tablet 50 mg, 1, tablet, By Mouth, 2 times a day, # 60 tablet, Refills 1, Tot. Refills 1, Maintenance, 02/04/24 1:34:00 PM EST, Route to Pharmacy Electronically, [facility]/pharmacy #[id number], Partial fill upon patient request if the prescription is for a schedule II opioid drug., 52.6, cm, 01/30/24 16:52:00 EST, Height, 46.8, kg, 01/30/24 16:28:00 EST, Dry Weight Start Date: 02/04/24 Status: Ordered Quantity: 60.0 Unit: tablet Repeat number: 2 Indication: Vomiting of , unspecified Problem List Condition Confirmation Course Effective Dates Status H ealth Status Informant Asthma Confirmed Active Bipolar affective Confirmed Active Chronic disease of tonsils and adenoids Confirmed Active COVID-13 May 2022 Confirmed Active History of depression Confirmed Active History of seizures - unsure why Confirmed Active H/O gastroesophageal reflux (GERD) Confirmed Active Hypertrophic scar Confirmed Active H. pylori infection Confirmed Active History of Iron deficiency anemia Confirmed Active History of Palpitations --Anxiety related Confirmed Active H pylori ulcer Confirmed Active History of Postural dizziness with presyncope Confirmed Active Maternal varicella, non-immune Confirmed Active Social History Social History Type Response Tobacco Use: 4 or less cigar ettes(less than 1/4 pack)/day in last 30 days. Sex Sex Representation Female (finding) Patient Care team information Care Team Personnel Name: Roxie Elena MD Position: [facility] Physician - Primary Care Member Role: PCP Address: [address] [place] [address], [address] Telecom: Name: Julissa Mckeon Position: [facility] Outreach Member Role: Lifetime Consulting Physician Care Team Related Persons Name: JEWELL SOLOMON Name: LISSY IRAHETA Insurance Providers Guarantor name: IRAIS PACHECO [employer] Plan Information #: 1 Payer: #waywire Member Number: NA Policy Number: NA Group Number: NA
== END 2024-03-04 11:25 | disposition home or self-care (01) ==
LOC: HO.HHCLNP 11:24
PROVIDERS: Visit Provider Internal Medicine
DX: R30.9 Painful micturition, unspecified (principal)
CPT/HCPCS: 87086

== ENCOUNTER 2024-04-03 15:10 | Emergency (ER) | payer MEDICAID, SELFPAY ==
[2024-04-03 15:15] VITALS: BP 118/74; PULSE 87; O2SAT 100
--- OUTSIDE RECORDS SUMMARY | 2024-04-03 16:17 | XMS_ITS | Continuity of Care Document ---
Author Organization [facility] Address [address] [place] [address]- Care Team Providers Care Deckhand Fishing Vessel Name Role Phone Ulices JENKINS, Roxie Laura Primary Care Physician Encounter [facility] Date(s): 02/05/24 - 03/08/[address] [address]- Attending Physician: Not on Staff, Attending MD Encounter Type: Pre-OutPatient One Time Allergies, Adverse Reactions, Alerts Substance Criticality Severity Reaction Reaction Severity Status Dogs sneezing Active Latex itchy throat, l ip swelling Active Other Environmental Allergy 1 Active Mushrooms 2 lip swelling Activ e traMADol Active Kiwi itchy throat Active 1Rabbits 2Carries EPI PEN Immunizations Given and Recorded Vaccine Date Status Refusal Reason influenza virus vaccine, inactivated 12/30/20 Leroy rded influenza virus vaccine, inactivated 12/07/19 Leroy rded influenza virus vaccine, inactivated 12/01/14 Leroy rded influenza virus vaccine, inactivated 05/13/14 Leroy rded influenza virus vaccine, inactivated 02/13/06 Leroy rded SARS-CoV-2 (COVID-19) mRNA-1273 vaccine 08/11/20 R ecorded SARS-CoV-2 (COVID-19) mRNA-1273 vaccine 07/14/20 R ecorded tetanus/diphtheria/pertussis, acel(Tdap) 05/19/20 Recorded tetanus/diphtheria/pertussis, acel(Tdap) 01/14/17 Recorded tetanus/diphtheria/pertussis, acel(Tdap) 05/13/14 Recorded tetanus/diphtheria/pertussis, acel(Tdap) 10/11/06 Recorded Meningococcal Conjugate Vaccine 12/07/19 Recorded pneumococcal 23-valent vaccine 02/01/17 Recorded diphtheria/tetanus/pertussis, acel(DTaP) 04/04/12 Recorded diphtheria/tetanus/pertussis, acel(DTaP) 03/24/91 Recorded diphtheria/tetanus/pertussis, acel(DTaP) 90 Recorded Varicella Virus Vaccine 10/25/08 Recorded Varicella Virus Vaccine 05/24/00 Recorded Human Papillomavirus Vaccine 10/25/08 Recorded hepatitis B adult vaccine 07/03/01 Recorded hepatitis B adult vaccine 05/24/00 Recorded hepatitis B adult vaccine 08/15/98 Recorded tetanus-diphtheria toxoids (Td) 05/24/00 Recorded Measles/Mumps/Rubella Virus Vaccine 06/03/94 Recor ded Measles/Mumps/Rubella Virus Vaccine 06/26/92 Recor ded Measles/Mumps/Rubella Virus Vaccine 02/25/92 Recor ded Poliovirus Vaccine, Inactivated 02/25/92 Recorded Poliovirus Vaccine, Inactivated 03/24/91 Recorded Poliovirus Vaccine, Inactivated 90 Recorded Poliovirus Vaccine, Inactivated 90 Recorded Medications Afrin 0.05% spray 2 sprays, Nares, Both, 2 times a day, # 15 mL, 0 Refills, Maintenance, 05/25/22 12:09:00 PM EST, [place], Partial fill upon patient request if the [...] PM EST, 02/11/24 8:46:00 PM EST, Tablet, [facility]/pharmacy #[id number], Partial fill upon patient request if [...] Quantity: 60.0 Unit: tablet Repeat number: 1 multivitamin, Multivitamins oral tablet, chewable 1 tablet, Chew, Daily, # 30 tablet, 0 Refills, Maintenance, 02/27/24 1:46:00 PM EST, Chew Tablet, [facility]/pharmacy #[id number], Partial fill upon patient request if the prescription is for a schedule II opioid drug., 1 tablet Chew Daily, 52.6, cm, 02/27/24 9:29:00 EST, Height, 45.4, kg, 02/11/24 16:01:00 EST,Dry Weight Start Date: 02/27/24 Status: Ordered Quantity: 30.0 Unit: tablet Repeat number: 1 Indication: Encounter for supervision of normal , unspecified, unspecified trimester nicotine 7 mg/24 hr transdermal film, extended release 1 patch, Topically, Daily, # 30 patch, 1 Refills, Acute 04/24/24 9:00:00 PM EST, 02/11/24 8:46:00 PMEST, Patch, [facility]/pharmacy #[id number], Partial fill upon patient request if [...] PM EST, 01/20/24 12:33:00 PM EDT, Tablet, [facility]/pharmacy #[id number], Partial fill upon patient request if [...] Refills, Maintenance, 03/22/24 12:33:00 PM EST, Tablet, [facility]/pharmacy #[id number], Partial fill upon patient request if the prescription is for a schedule II opioid drug., 52.6, cm, 01/30/24 16:52:00 EST, Height, 46.8, kg,01/30/24 16:28:00 EST, Dry Weight Start Date: 03/22/24 Status: Ordered Quantity: 30.0 Unit: tablet Repeat number: 2 Indication: Vomiting of , unspecified ondansetron 4 mg oral tablet, disintegrating 1 tablet = 4 mg, By Mouth, Every 8 hours, PRN Nausea & Vomiting, # 30 tablet, 2 Refills, Acute 04/24/24 9:00:00 PM EST, 03/03/24 8:45:00 PM EST, Tablet, [facility]/pharmacy #[id number], Partial fill upon patient request if the prescription is for a schedule II opioid drug., 52.6, cm, 02/27/24 9:29:00 EST, Height, 45.4, kg, 02/11/24 16:01:00 EST, Dry Weight Start Date: 03/03/24 Stop Date: 04/24/24 Status: Ordered Quantity: 30.0 Unit: tablet Repeat number: 3 Unisom 25 mg oral tablet See Instructions, PRN for sleep, 0.5 to 1 tablet By Mouth Daily at bedtime for sleep and n/v, # 30 tablet, 0 Refills, Maintenance, 02/04/24 1:34:00 PM EST, Tablet, [facility]/pharmacy #[id number], Partial fill upon patient request if [...] 1:34:00 PM EST, Route to Pharmacy Electronically, [facility]/pharmacy #[id number], Partial fill upon patient request if [...] Active Social History Social History Type Response Smoking Status 5-9 cigarettes (betw een 1/4 to 1/2 pack)/day in last 30 days; Interested in cessation: No entered on: 02/27/24 Sex Sex Representation Female (finding) Patient Care team information Care Team Personnel Name: Roxie Elena MD Position: [facility] Physician - Primary Care Member Role: PCP Address: [address] [place] [address], [address] [place] [address] Telecom: Name: Julissa Mckeon Position: [facility] Outreach Member Role: Lifetime Consulting Physician Care Team Related Persons Name: JEWELL SOLOMON Name: LISSY IRAHETA Insurance Providers Guarantor name: [employer] Health Plan Information #: 1 Payer: [employer] Member Number: [id number] Policy Number: NA Group Number: NA Health Plan Information #: 2 Payer: [employer] Member Number: [id number] Policy Number: NA Group Number: NA
--- OUTSIDE RECORDS SUMMARY | 2024-04-03 16:17 | XMS_ITS | Continuity of Care Document ---
Author Organization [facility] Address [address] [place] [address]- Care Team Providers Care Solid Waste Division Supervisor Name Role Phone Ulices JENKINS, Roxie Laura Primary Care Physician Encounter [facility] Date(s): 03/03/24 - 04/02/[address] [address]- Encounter Type: Triage Allergies, Adverse Reactions, Alerts Substance Criticality Severity Reaction Reaction Severity Status Dogs sneezing Active Kiwi itchy throat Active Latex itchy throat, l ip swelling Active Other Environmental Allergy 1 Active Mushrooms 2 lip swelling Activ e traMADol Active 1Rabbits 2Carries EPI PEN Immunizations Given [...] Recorded Poliovirus Vaccine, Inactivated 90 Recorded Medications Albuterol (Eqv-ProAir HFA) 2 puffs, Inhalation, Every [...] PM EST, 02/11/24 8:46:00 PM EST, Tablet, [facility]/pharmacy #[id number], Partial fill upon patient request if the [...] Maintenance, 02/27/24 1:46:00 PM EST, Chew Tablet, [facility]/pharmacy #[id number], Partial fill upon patient request [...] 9:00:00 PM EST, 02/11/24 8:46:00 PMEST, Patch, [facility]/pharmacy #[id number], Partial fill upon patient request [...] PM EST, 03/03/24 8:45:00 PM EST, Tablet, [facility]/pharmacy #[id number], Partial fill upon patient request if the prescription is for a schedule II opioid drug., 52.6, cm, 02/27/24 9:29:00 EST, Height, 45.4, kg, 02/11/24 16:01:00 EST, Dry Weight Start Date: 03/03/24 Stop Date: 04/24/24 Status: Ordered Quantity: 30.0 Unit: tablet Repeat number: 3 Problem List Condition Confirmation Course Effective Dates [...] Team Personnel Name: Roxie Elena MD Position: [facility] Physician - Primary Care Member Role: PCP Address: [address] [place] [address] 1st [address] [place], [place] [address] Telecom: Name: Julissa Mckeon Position: [facility] Outreach Member Role: Lifetime Consulting Physician Care Team Related Persons Name: JEWELL SOLOMON Name: LISSY IRAHETA Insurance Providers Guarantor name: [facility] [employer] Plan Information #: 1 Payer: [employer] Member Number: NA Policy Number: NA Group Number: NA
--- OUTSIDE RECORDS SUMMARY | 2024-04-03 16:18 | XMS_ITS | Continuity of Care Document ---
Author Organization [facility] Address [address] [place] [address]- Care Team Providers Care Architectural Modeler Name Role Phone Ulices JENKINS, Roxie Laura Primary Care Physician Encounter [facility] Date(s): 03/02/24 - 04/01/[address] [address]- Encounter Type: Triage Allergies, Adverse Reactions, Alerts [...] PM EST, 02/11/24 8:46:00 PM EST, Tablet, [facility]/pharmacy #[id number], Partial fill upon patient request if the [...] Maintenance, 02/27/24 1:46:00 PM EST, Chew Tablet, [facility]/pharmacy #[id number], Partial fill upon patient request if [...] Team Personnel Name: Roxie Elena MD Position: [facility] Physician - Primary Care Member Role: PCP Address: [address] [place] [address] 1st floor [place], [place] [address] Telecom: Name: Julissa Mckeon Position: [facility] Outreach Member Role: Lifetime Consulting Physician Care Team Related Persons Name: JEWELL SOLOMON Name: LISSY IRAHETA Insurance Providers Guarantor name: [facility] [employer] Plan Information #: 1 Payer: [employer] Member Number: NA Policy Number: NA Group Number: NA
--- OUTSIDE RECORDS SUMMARY | 2024-04-03 16:18 | XMS_ITS | Continuity of Care Document ---
Author Organization [facility] Address [address] [place] [address]- Care Team Providers Care Insect Control Aide Name Role Phone Ulices JENKINS, Roxie Laura Primary Care Physician [phone] Encounter [facility] Date(s): 02/28/24 - 03/29/[address] [address]- Encounter Type: Triage Allergies, Adverse Reactions, Alerts [...] EST, 02/11/24 8:46:00 PM EST, Tablet, [facility]/pharmacy #[id number], Partial fill upon patient request if the [...] 02/27/24 1:46:00 PM EST, Chew Tablet, [facility]/pharmacy #[id number], Partial fill upon patient request if [...] Team Personnel Name: Roxie Elena MD Position: [facility] Physician - Primary Care Member Role: PCP Address: [address] [place] [address] 1st floor [place], [place] [address] Telecom: Name: Julissa Mckeon Position: [facility] Outreach Member Role: Lifetime Consulting Physician Care Team Related Persons Name: JEWELL SOLOMON Name: LISSY IRAHETA Insurance Providers Guarantor name: [facility] [employer] Plan Information #: 1 Payer: [email or web address] Member Number: NA Policy Number: NA Group Number: NA
--- OUTSIDE RECORDS SUMMARY | 2024-04-03 16:18 | XMS_ITS | Continuity of Care Document ---
Author Organization [facility] Address [address] [place] [address]- Care Team Providers Care Tuber Operator Name Role Phone Ulices JENKINS, Roxie Laura Primary Care Physician Encounter [facility] Date(s): 02/11/24 - 03/12/[address] [address]- Encounter Type: Triage Allergies, Adverse Reactions, Alerts [...] 0 Refills, Maintenance, 05/25/22 12:09:00 PM EST, [place], Partial fill upon patient request if the [...] PM EST, 02/11/24 8:46:00 PM EST, Tablet, [facility]/pharmacy #[id number], Partial fill upon patient request if [...] Maintenance, 02/27/24 1:46:00 PM EST, Chew Tablet, [facility]/pharmacy #[id number], Partial fill upon patient request if [...] 9:00:00 PM EST, 02/11/24 8:46:00 PMEST, Patch, [facility]/pharmacy #[id number], Partial fill upon patient request if [...] PM EST, 01/20/24 12:33:00 PM EDT, Tablet, [facility]/pharmacy #[id number], Partial fill upon patient request if [...] Refills, Maintenance, 03/22/24 12:33:00 PM EST, Tablet, [facility]/pharmacy #[id number], Partial fill upon patient request if [...] PM EST, 03/03/24 8:45:00 PM EST, Tablet, [facility]/pharmacy #[id number], Partial fill upon patient request if [...] Refills, Maintenance, 02/04/24 1:34:00 PM EST, Tablet, [facility]/pharmacy #[id number], Partial fill upon patient request if [...] 1:34:00 PM EST, Route to Pharmacy Electronically, [facility]/pharmacy #[id number], Partial fill upon patient request if [...] Team Personnel Name: Roxie Elena MD Position: [facility] Physician - Primary Care Member Role: PCP Address: [address] [place] [address], [facility] floor [address] Telecom: Name: Julissa Mckeon Position: [facility] Outreach Member Role: Lifetime Consulting Physician Care Team Related Persons Name: JEWELL SOLOMON Name: LISSY IRAHETA Insurance Providers Guarantor name: [facility] Information #: 1 Payer: [employer] Member Number: NA Policy Number: NA Group Number: NA
--- OUTSIDE RECORDS SUMMARY | 2024-04-03 16:18 | XMS_ITS | Continuity of Care Document ---
Author Organization [facility] Address [address] [place] [address]- Care Team Providers Care Level Vial Grinder Name Role Phone Ulices JENKINS, Roxie Laura Primary Care Physician Encounter [facility] Date(s): 02/04/24 - 03/05/[address] [address]- Encounter Type: Triage Allergies, Adverse Reactions, Alerts [...] 0 Refills, Maintenance, 05/25/22 12:09:00 PM EST, [place], Partial fill upon patient request if the [...] PM EST, 02/11/24 8:46:00 PM EST, Tablet, [facility]/pharmacy #[id number], Partial fill upon patient request if [...] Maintenance, 02/27/24 1:46:00 PM EST, Chew Tablet, [facility]/pharmacy #[id number], Partial fill upon patient request if [...] 9:00:00 PM EST, 02/11/24 8:46:00 PMEST, Patch, [facility]/pharmacy #[id number], Partial fill upon patient request if [...] PM EST, 01/20/24 12:33:00 PM EDT, Tablet, [facility]/pharmacy #[id number], Partial fill upon patient request if [...] Refills, Maintenance, 03/22/24 12:33:00 PM EST, Tablet, [facility]/pharmacy #[id number], Partial fill upon patient request if [...] PM EST, 03/03/24 8:45:00 PM EST, Tablet, [facility]/pharmacy #[id number], Partial fill upon patient request if [...] Refills, Maintenance, 02/04/24 1:34:00 PM EST, Tablet, [facility]/pharmacy #[id number], Partial fill upon patient request if [...] 1:34:00 PM EST, Route to Pharmacy Electronically, [facility]/pharmacy #[id number], Partial fill upon patient request if [...] Team Personnel Name: Roxie Elena MD Position: [facility] Physician - Primary Care Member Role: PCP Address: [address] [place] [address], [facility] floor [address] Telecom: Name: Julissa Mckeon Position: [facility] Outreach Member Role: Lifetime Consulting Physician Care Team Related Persons Name: JEWELL SOLOMON Name: LISSY IRAHETA Insurance Providers Guarantor name: [facility] [employer] [facility] Information #: 1 Payer: [employer] Member Number: NA Policy Number: NA Group Number: NA
--- OUTSIDE RECORDS SUMMARY | 2024-04-03 16:18 | XMS_ITS | Continuity of Care Document ---
Author Organization [facility] Address [address] [place] [address]- Care Team Providers Care Television News Photographer Name Role Phone Ulices JENKINS, Roxie Laura Primary Care Physician [place] [facility] [place](s): 02/04/24 - 03/05/[address] [address]- Encounter Type: Triage Allergies, Adverse Reactions, Alerts [...] 0 Refills, Maintenance, 05/25/22 12:09:00 PM EST, [place], Partial fill upon patient request if the [...] PM EST, 02/11/24 8:46:00 PM EST, Tablet, [facility]/pharmacy #[id number], Partial fill upon patient request [...] Maintenance, 02/27/24 1:46:00 PM EST, Chew Tablet, [facility]/pharmacy #[id number], Partial fill upon patient request [...] 9:00:00 PM EST, 02/11/24 8:46:00 PMEST, Patch, [facility]/pharmacy #[id number], Partial fill upon patient request [...] PM EST, 01/20/24 12:33:00 PM EDT, Tablet, [facility]/pharmacy #[id number], Partial fill upon patient request [...] Refills, Maintenance, 03/22/24 12:33:00 PM EST, Tablet, [facility]/pharmacy #[id number], Partial fill upon patient request [...] PM EST, 03/03/24 8:45:00 PM EST, Tablet, [facility]/pharmacy #[id number], Partial fill upon patient request [...] Refills, Maintenance, 02/04/24 1:34:00 PM EST, Tablet, [facility]/pharmacy #[id number], Partial fill upon patient request [...] 1:34:00 PM EST, Route to Pharmacy Electronically, [facility]/pharmacy #[id number], Partial fill upon patient request [...] Team Personnel Name: Roxie Elena MD Position: [facility] Physician - Primary Care Member Role: PCP Address: [address] [place] [address], [facility] floor [address] Telecom: Name: Julissa Mckeon Position: [facility] Outreach Member Role: Lifetime Consulting Physician Care Team Related Persons Name: JEWELL SOLOMON Name: LISSY IRAHETA Insurance Providers Guarantor name: [facility] Information #: 1 Payer: [employer] Member Number: NA Policy Number: NA Group Number: NA
== END 2024-04-03 18:18 | disposition left against medical advice (07) ==
PROVIDERS: Emergency Provider Emergency Medicine
DX: R04.0 Epistaxis (principal)

== ENCOUNTER 2024-08-18 08:15 | Outpatient (RCR) | payer MEDICAID, SELFPAY ==
[2023-08-15 09:46] VITALS: BP 103/54; PULSE 85; RESP 16; TEMP 37.3; O2SAT 98
[2023-08-15] MEDS: Iron Sucrose Complex 200 MG, Iron Sucrose Complex 100 MG in 0.9 % Sodium Chloride 250 ML 177 MG IV (09:54)
--- NOTE | 2023-08-15 10:25 | HO.INF ---
pt c/o mild headache and feeling mildy anxious. no apparaent distress noted. pt speaking in calm clear full sentences. skin wpd. aox3. dr garcia office notified. plan for po tylenol and benadryl.
[2023-08-15] MEDS: diphenhydrAMINE HCL 25 MG CAPSULE PO (10:30)
[2023-08-15] MEDS: Acetaminophen 325 MG TABLET 650 MG PO (10:30)
--- NOTE | 2023-08-15 10:42 | HO.INF ---
1030- comes and goes 01/01 headache described per pt. 1042- 08/01 headache improved per pt. pt in no apparent distress. on cellphone. speaks in clear full calm sentences. skin wpd. aox3. rr even/unlabored.
[2023-08-15 11:30] VITALS: BP 107/58; PULSE 82; RESP 16; O2SAT 97
[2023-08-22] MEDS: Iron Sucrose Complex 200 MG, Iron Sucrose Complex 100 MG in 0.9 % Sodium Chloride 250 ML 177 MG IV (13:59)
[2023-08-22 14:03] VITALS: BP 106/60; PULSE 63; RESP 18; TEMP 36.6
[2023-08-29 09:44] VITALS: BP 114/67; PULSE 84; RESP 18; TEMP 36.8
[2023-08-29] MEDS: Iron Sucrose Complex 200 MG, Iron Sucrose Complex 100 MG in 0.9 % Sodium Chloride 250 ML 177 MG IV (09:57)
[2023-08-29] MEDS: Acetaminophen 325 MG TABLET 650 MG PO (09:57)
[2023-08-29] MEDS: diphenhydrAMINE HCL 25 MG CAPSULE PO (09:57)
[2024-07-28 08:41] VITALS: BP 98/53; PULSE 82; RESP 18; TEMP 36.6
[2024-07-28] MEDS: Iron Sucrose Complex 200 MG in 0.9 % Sodium Chloride 100 ML 440 MG IV (08:49)
[2024-08-04 08:47] VITALS: BP 108/47; PULSE 94; RESP 20; TEMP 36.6; O2SAT 100
[2024-08-04] MEDS: Iron Sucrose Complex 200 MG in 0.9 % Sodium Chloride 100 ML 440 MG IV (08:54)
[2024-08-11 08:48] VITALS: BP 101/49; PULSE 89; RESP 20; TEMP 37.2; O2SAT 100
[2024-08-11] MEDS: Iron Sucrose Complex 200 MG in 0.9 % Sodium Chloride 100 ML 440 MG IV (08:53)
[2024-08-18 08:17] VITALS: BP 103/44; PULSE 84; RESP 16; TEMP 36.7; O2SAT 100
[2024-08-18] MEDS: Iron Sucrose Complex 200 MG in 0.9 % Sodium Chloride 100 ML 440 MG IV (08:22)
== END 2024-08-18 08:46 | disposition home or self-care (01) ==
LOC: HO.INF 08:15
PROVIDERS: Visit Provider Internal Medicine
DX: D64.9 Anemia, unspecified (principal)
CPT/HCPCS: 96365; 96366; 96374; J1756